=== PATIENT | female | born 1950 | race Caucasian/White ===

== ENCOUNTER → 2017-02-28 | Outpatient (CLI) | payer OTHER ==
[~2017-02-28] MED LIST: ADVIN25/60 INH; CHOL100010 PO; CITA20TA4 PO; CYAN100048 PO; EST5 PO; FRS/40 PO; HYZ/50125 PO; MULT-506 PO; SYN137 PO; TIOTCAP INH; VANC5CAP PO; XNX25 PO
[2017-02-28 13:25] LABS: BASO % 0.4 %; BASO ABS # 0.03 K/uL (0-0.2); COMPLETE YES; EOS % 1.9 %; HEMATOCRIT 37.6 % (37-47); LYMPH % 24.7 %; LYMPH ABS # 1.94 K/uL (1.2-3.4); MEAN CELL VOLUME 95.4 fL (80-100); MEAN CORPUSCULAR HEMOGLOBIN 29.7 pg (25-34); MEAN CORPUSCULAR HGB CONC 31.1 g/dl (32-36); MEAN PLATELET VOLUME 11.7 fL (7.4-10.4); PLATELET COUNT 193 K/uL (130-400); RED BLOOD COUNT 3.94 M/uL (4.2-5.4); WHITE BLOOD COUNT 7.85 K/uL (4.8-10.8)
[2017-02-28 14:05] LABS: ALKALINE PHOSPHATASE 56 U/L (45-117); ALT/SGPT 16 U/L (12-78); AST/SGOT 16 U/L (15-37); BLOOD UREA NITROGEN 35 mg/dl (7-18); BUN/CREATININE RATIO 42.4 (10-20); CALCIUM 9.4 mg/dl (8.5-10.1); CARBON DIOXIDE 37 mmol/L (21-32); CHLORIDE 97 mmol/L (98-107); CHOLESTEROL 184 mg/dl (0-200); CHOLESTEROL/HDL RATIO 2.4; CREATININE 0.82 mg/dl (0.60-1.20); GLUCOSE 95 mg/dl (70-99); HDL CHOLESTEROL 76 mg/dl; LDL CHOLESTEROL CALCULATED 95 mg/dl; POTASSIUM 4.1 mmol/L (3.5-5.1); SODIUM 138 mmol/L (136-145); TRIGLYCERIDES 64 mg/dl (0-150); VERY LOW DENSITY LIPOPROT CALC 13 mg/dl
== END | disposition home or self-care (01) ==
LOC: C.LAB1850 12:31
PROVIDERS: ATTEND Internal Medicine Pulmonary Disease
DX: Z11.59 Encounter for screening for other viral diseases (principal); J44.9 Chronic obstructive pulmonary disease, unspecified; A04.7 Enterocolitis due to Clostridium difficile; D64.9 Anemia, unspecified; R09.02 Hypoxemia

== ENCOUNTER → 2017-04-25 | Outpatient (CLI) | payer OTHER | END | disposition home or self-care (01) | LOC: C.LABSPEC 12:03 | PROVIDERS: ATTEND Physician Assistant Medical | DX: S61.459A Open bite of unspecified hand, initial encounter (principal); W55.01XA Bitten by cat, initial encounter ==

== ENCOUNTER 2017-10-17 16:19 | Emergency (ER) | payer OTHER ==
[2017-10-17 16:23] VITALS: TEMP 36.8; Ht 160 cm
[2017-10-17] MEDS ORDERED: ACETAMINOPHEN 325 MG TAB PO STA (16:44)
[2017-10-17] MEDS ORDERED: LIDODERM (LIDOCAINE) PATCH 5% TD STA (16:44)
[2017-10-17] MEDS ORDERED: CYCLOBENZAPRINE HCL 5 MG TAB PO STA (16:44)
--- NOTE | 2017-10-17 17:08 | EMERGENCY ROOM VISIT NOTE ---
History Report prepared by [employer]: John Stover Under the Supervision of: Mirtha CastroO. 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 She currently rates the pain a 10/10 in severity. She notes the pain worsens with movement. She notes shortness of breath. She denies any pain radiating to her legs. She notes baseline leg swelling. She notes previous back pain, though she was given a laxative and the pain resolved itself. As soon as she stands she notes urine leakage but has hx of stress and urge incontinence. She notes polyuria. She has a history of upper back surgery, bilateral total knee replacements and total hip replacement. She has a history of COPD and is on at home oxygen. She denies taking any medications for the pain. She denies any injuries, numbness, tingling , and abdominal pain. 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 She notes leakage of urine. She denies any injuries and tingling. Review of Systems See HPI for pertinent positives & negatives. A total of 10 systems reviewed and were otherwise negative. Past Medical & Surgical Medical Problems: (1) CA IN SITU CERVIX UTERI (2) Carpal tunnel syndrome (3) Clostridium difficile infection (4) COPD (chronic obstructive pulmonary disease) (5) Hysterectomy Family History Diabetes mellitus Heart disease Hypertension Social History Smoking Status: Former Smoker Alcohol Use: none Drug Use: none Marital Status: Housing Status: lives with significant other Occupation Status: retired Current/Historical Medications Scheduled Aspirin (Aspirin Ec), 325 MG PO QPM Citalopram Hydrobromide (Citalopram Hydrobromide), 20 MG PO DAILY Cyclobenzaprine Hcl (Flexeril), 5 MG PO TID Docusate Sodium (Docusate Sodium), 1 CAP PO DAILY Estradiol (Estradiol), 1 MG PO DAILY Fluticasone Prop/Salmeterol (Advair Diskus 250/50 60 Dose), 1 PUFF INH BID Furosemide (Lasix), 40 MG PO DAILY Hctz/Losartan (Hyzaar 12.5MG/50MG), 1 TAB PO DAILY Levothyroxine Sodium (Levothyroxine Sodium), 137 MCG PO DAILY Lidocaine (Lidoderm Patch 5%), 1 PATCH TD DAILY Multivitamin (Multivitamin), 1 TAB PO DAILY Vancomycin Hcl (Vancomycin), 125 MG PO WK Scheduled PRN Alprazolam (Alprazolam), 0.25 MG PO Q6H PRN for anxiety Ipratropium-Albuterol (Duoneb), 1 TREATMENT INH Q4H PRN for Shortness of Breath Tramadol (Ultram), 1-2 TABS PO Q8 PRN for Pain Allergies Coded Allergies: Codeine (Verified Allergy, Mild, 10/17/17) Atropine (Verified Allergy, Unknown, UNKNOWN, 10/17/17) Diphenoxylate (Verified Allergy, Unknown, UNKNOWN, 10/17/17) Moxifloxacin (Verified Allergy, Unknown, UNKNOWN, 10/17/17) Prednisone (Verified Adverse Reaction, Mild, 10/17/17) BLURRED VISION Physical Exam Vital Signs Date Time Temp Pulse Resp B/P (MAP) Pulse Ox O2 Delivery O2 Flow Rate FiO2 10/17/17 19:30 91 18 148/86 97 10/17/17 18:36 89 22 157/91 98 Nasal Cannula 4.0 10/17/17 16:23 36.8 93 22 141/56 88 Nasal Cannula 4.0 Physical Exam GENERAL: alert, well appearing, well nourished, no distress, non-toxic. Obese. EYE EXAM: normal conjunctiva, PERRL and EOM's grossly intact OROPHARYNX: no exudate, no erythema, lips, buccal mucosa, and tongue normal and mucous membranes are moist NECK: supple, no nuchal rigidity, no adenopathy, non-tender LUNGS: Very Diminished breath sounds. No wheezes, rales, or rhonchi. Normal chest wall mechanics HEART: no murmurs, S1 normal and S2 normal ABDOMEN: abdomen soft, non-tender, normo-active bowel sounds, no masses, no rebound or guarding. BACK: Back is symmetrical on inspection and there is no deformity, no midline tenderness, no CVA tenderness. TTP in lower lumber spine and in left paraspinal region. Tender mid left buttock. SKIN: no rashes and no bruising UPPER EXTREMITIES: upper extremities are grossly normal. Nml ROM. LOWER EXTREMITIES: No pitting edema. Nml ROM. NEURO EXAM: Normal sensorium, cranial nerves II-XII grossly intact, normal speech, no gross weakness of arms, no gross weakness of legs. Medical Decision & Procedures ER Provider Diagnostic Interpretation: Radiology results have been interpreted by the radiologist and reviewed by me. CT SCAN OF THE LUMBAR SPINE WITHOUT IV CONTRAST CLINICAL HISTORY: Chronic low back pain. Difficulty standing. COMPARISON STUDY: CT scan of lumbar spine dated 06/20/2015. TECHNIQUE: CT scan of the lumbar spine is performed from the lower thoracic spine to the sacrum. Images are reviewed in the axial, sagittal, and coronal planes. IV contrast was not administered for this examination. The examination is degraded by large body habitus as well as by streak artifact from metallic orthopedic spinal hardware. A dose lowering technique was utilized adhering to the principles of ALARA. CT DOSE: 2016.89 mGy.cm FINDINGS: The skeletal structures are osteopenic. There is no evidence of fracture or malalignment. There are postoperative changes from laminectomy and posterior fusion at L3-L4 with an interposition bone graft. The orthopedic hardware appears intact. Vertebral body height is maintained throughout the lumbar spine. There is approximately 6 mm of anterolisthesis at L2-L3. Alignment is otherwise preserved. The transverse processes appear intact. There is no evidence of spondylolysis. No lytic or blastic lesion is identified. Advanced facet arthropathy is seen in the lower lumbar region. There is partial sacralization of the L5 vertebral body. Moderate disc space narrowing is seen at L1-L2, L2-L3, and L4-L5. Mild disc space narrowing is seen at the remaining lumbar levels. There is no evidence of a large disc herniation; however, this is not well evaluated by CT. The visualized sacrum and bony pelvis appear intact. A bone graft donor site is noted in the right ilium. Sclerotic change is seen in the sacroiliac joints. There is mild fatty atrophy of the paraspinous musculature. Advanced atherosclerotic calcification is noted in the abdominal aorta. The retroperitoneal structures are otherwise grossly normal as imaged. The right kidney appears to be located in the pelvis. IMPRESSION: 1. No acute bony abnormality is seen involving the lumbar spine. 2. Osteopenia with spondylotic and postoperative changes as above. Dictated: 10/17/2017 5:41 PM Transcribed: 10/17/2017 6:08 PM [facility] Electronically signed by: Ludin Felipe M.D. 10/17/2017 6:08 PM Dictated Date/Time: 10/17/2017 5:41 PM Laboratory Results Test 10/17/17 18:34 Urine Color YELLOW Urine Appearance CLEAR (CLEAR) Urine pH 5.0 (4.5-7.5) Urine Specific [place] 1.019 (1.000-1.030) Urine Protein NEG (NEG) Urine Glucose (UA) NEG (NEG) Urine Ketones NEG (NEG) Urine Occult Blood NEG (NEG) Urine Nitrite NEG (NEG) Urine Bilirubin NEG (NEG) Urine Urobilinogen NEG (NEG) Urine Leukocyte Esterase NEG (NEG) Laboratory results per my review. Medications Administered Medications (Trade) Dose Ordered Sig/Shahnaz Route Start Time Stop Time Status Last Admin Dose Admin Lidocaine (Lidoderm Patch 5%) 1 patch NOW STAT TD 10/17/17 16:44 10/17/17 16:46 DC 10/17/17 17:12 1 PATCH Cyclobenzaprine HCl (Flexeril Tab) 5 mg NOW STAT PO 10/17/17 16:44 10/17/17 16:46 DC 10/17/17 17:11 5 MG Acetaminophen (Tylenol Tab) 650 mg NOW STAT PO 10/17/17 16:44 10/17/17 16:46 DC 10/17/17 17:11 650 MG Tramadol/ Acetaminophen (Ultracet Tab) 1 tab NOW STAT PO 10/17/17 18:30 10/17/17 18:31 DC 10/17/17 19:00 1 TAB ED Course 1633: The patient was evaluated in room B9. A complete history and physical exam was performed. 1644: Ordered Acetaminophen 650 mg PO, Flexeril 5 mg PO, Lidocaine 1 patch TD 1824: I reassessed the patient at this time. She is still having pain, though improved. I discussed the results and treatment plan with the patient. I answered all pertaining questions that she had. She expressed understanding and verbalized agreement. The patient will be discharged home. 1830: Ordered Tramadol/Acetaminophen 1 tab PO Medical Decision Prior records/ancillary studies reviewed. Triage Nursing notes reviewed. The patient's history was concerning for back pain. Differential diagnosis: Etiologies such as musculoskeletal, disc herniation, fracture, aortic disease, metastatic disease, cord compression, discitis, infection, renal colic, gastrointestinal, acute exacerbation of chronic back pain, sciatica, cauda equina, as well as others were entertained. I do not suspect cauda equina, discitis, epidural abscess or hematoma, UA negative for UTI, doubt pyelo or stone. Pt with hx of prior upper back/neck problems, CT reveals DDD/DJD in lumbar area also. Point of most pain in area of sciatic nerve but nonradiating and no paresthesias. Pt well appearing and pain well controlled here. Discussed f/u with PCP, sx to watch/return for, use and cautions with meds, she verbalized understanding and was agreeable with plan. Medication Reconcilliation Current Medication List: was personally reviewed by me Blood Pressure Screening Patient's blood pressure: Elevated blood pressure Blood pressure disposition: Elevated BP felt to be situational Impression Primary Impression: Sciatica Additional Impression: Low back pain Scribe Attestation The scribe's documentation has been prepared under my direction and personally reviewed by me in its entirety. I confirm that the note above accurately reflects all work, treatment, procedures, and medical decision making performed by me. Departure Information Dispostion Home / Self-Care Prescriptions Cyclobenzaprine Hcl (FLEXERIL) 5 Mg Tab 5 MG PO TID for Pain, #10 TAB PRN Prov: Jesica Rich, DO 10/17/17 Tramadol (Ultram) 50 Mg Tab 1-2 TABS PO Q8 Y for Pain, #14 TAB Prov: Jesica Rich, DO 10/17/17 Lidocaine (Lidoderm Patch 5%) 1 Ea Tdsy 1 PATCH TD DAILY for Pain, #1 BOX Prov: Jesica Rich, DO 10/17/17 Referrals No Doctor, Assigned (PCP) Forms HOME CARE DOCUMENTATION FORM, IMPORTANT VISIT INFORMATION Patient Instructions ED Low Back Pain Injury, ED Sciatica, My [facility] Additional Instructions Please avoid any heavy lifting or strenuous activity until you're feeling better. You may use the pain medications as prescribed. Please do not take the stronger pain medication or muscle relaxer and drive. Please continue your other routine medications. Please follow up with your family doctor to recheck your condition and assure you're improving. If you have any worsening pain, difficulty walking, noticed numbness or tingling, have difficulty with bowel or bladder function, fevers, or you've any other new concerns, please return the emergency room. Problem Qualifiers Primary Impression: Sciatica Laterality: left Qualified Codes: M54.32 - Sciatica, left side Additional Impression: Low back pain Chronicity: acute Back pain laterality: left Sciatica presence: without sciatica Qualified Codes: M54.5 - Low back pain
[2017-10-17] MEDS ORDERED: EST1 PO (17:19)
[2017-10-17] MEDS ORDERED: IPRASOL4 INH (17:20)
[2017-10-17] MEDS ORDERED: DOCU100C31 PO (17:21)
[2017-10-17] MEDS ORDERED: ASPI325T39 PO (17:21)
--- NOTE | 2017-10-17 18:08 | DIAGNOSTIC IMAGING REPORT ---
CT SCAN OF THE LUMBAR SPINE WITHOUT IV CONTRAST CLINICAL HISTORY: Chronic low back pain. Difficulty standing. COMPARISON STUDY: CT scan of lumbar spine dated 06/20/2015. TECHNIQUE: CT scan of the lumbar spine is performed from the lower thoracic spine to the sacrum. Images are reviewed in the axial, sagittal, and coronal planes. IV contrast was not administered for this examination. The examination is degraded by large body habitus as well as by streak artifact from metallic orthopedic spinal hardware. A dose lowering technique was utilized adhering to the principles of ALARA. CT DOSE: 2016.89 mGy.cm FINDINGS: The skeletal structures are osteopenic. There is no evidence of fracture or malalignment. There are postoperative changes from laminectomy and posterior fusion at L3-L4 with an interposition bone graft. The orthopedic hardware appears intact. Vertebral body height is maintained throughout the lumbar spine. There is approximately 6 mm of anterolisthesis at L2-L3. Alignment is otherwise preserved. The transverse processes appear intact. There is no evidence of spondylolysis. No lytic or blastic lesion is identified. Advanced facet arthropathy is seen in the lower lumbar region. There is partial sacralization of the L5 vertebral body. Moderate disc space narrowing is seen at L1-L2, L2-L3, and L4-L5. Mild disc space narrowing is seen at the remaining lumbar levels. There is no evidence of a large disc herniation; however, this is not well evaluated by CT. The visualized sacrum and bony pelvis appear intact. A bone graft donor site is noted in the right ilium. Sclerotic change is seen in the sacroiliac joints. There is mild fatty atrophy of the paraspinous musculature. Advanced atherosclerotic calcification is noted in the abdominal aorta. The retroperitoneal structures are otherwise grossly normal as imaged. The right kidney appears to be located in the pelvis. IMPRESSION: 1. No acute bony abnormality is seen involving the lumbar spine. 2. Osteopenia with spondylotic and postoperative changes as above. Dictated: 10/17/2017 5:41 PM Transcribed: 10/17/2017 6:08 PM [facility] Electronically signed by: Ludin Felipe M.D. 10/17/2017 6:08 PM Dictated Date/Time: 10/17/2017 5:41 PM
[2017-10-17] MEDS ORDERED: TRAMADOL/ACETAMINOPHEN 37.5/325MG TAB PO STA (18:30)
[2017-10-17] MEDS ORDERED: NF656 TD (18:45)
[2017-10-17] MEDS ORDERED: TRAM-10 PO (18:45)
[2017-10-17 19:05] LABS: URINE APPEARANCE CLEAR (CLEAR); URINE BILIRUBIN NEG (NEG); URINE COLOR YELLOW; URINE NITRITE NEG (NEG); URINE SPECIFIC GRAVITY 1.019 (1.000-1.030); UROBILINOGEN NEG (NEG); ZZUR CULT IF INDIC CLEAN CATCH NO
[2017-10-17] MEDS ORDERED: CYCL5TAB PO (19:18)
[2017-10-17 19:19] LABS: MANUAL MICROSCOPIC REQUIRED? NO; REVIEW REQ? NO
[2017-10-17 19:30] VITALS: BP 148/86; PULSE 91; O2SAT 97
== END 2017-10-17 19:25 | disposition home or self-care (01) ==
LOC: C.EDB 16:20
DX: M54.42 Lumbago with sciatica, left side (principal); R06.02 Shortness of breath; J44.9 Chronic obstructive pulmonary disease, unspecified; E66.9 Obesity, unspecified; Z79.82 Long term (current) use of aspirin; Z79.899 Other long term (current) drug therapy; Z99.81 Dependence on supplemental oxygen; Z85.41 Personal history of malignant neoplasm of cervix uteri; Z86.19 Personal history of other infectious and parasitic diseases; Z87.891 Personal history of nicotine dependence; Z82.49 Family history of ischemic heart disease and other diseases of the circulatory system; Z83.3 Family history of diabetes mellitus

== ENCOUNTER → 2018-02-20 | Outpatient (CLI) | payer OTHER ==
[~2018-02-20] MED LIST changes: +ASPI325T39 PO; -CHOL100010 PO; -CYAN100048 PO; +DOCU100C31 PO; +EST1 PO; -EST5 PO; +IPRASOL4 INH; +NF656 TD; -TIOTCAP INH; +TRAM-10 PO
--- NOTE | 2018-02-20 14:29 | DIAGNOSTIC IMAGING REPORT ---
C-SPINE ROUTINE 4 OR 5 VIEWS CLINICAL HISTORY: Neck pain. COMPARISON STUDY: CT of the neck July 03, 2008. FINDINGS: Reversal of the normal cervical lordosis is noted. There is slight anterolisthesis of C3 on C4. There is marked disc space narrowing and osteophytosis at C4-C5 with moderate disc space narrowing at C5-C6 and C6-C7. There is severe multilevel facet arthrosis. No fracture Is identified. IMPRESSION: 1. No acute cervical spinal fracture or subluxation. 2. Moderate to severe multilevel degenerative disc disease and facet arthrosis of the cervical spine, most pronounced at C4-C5. 3. Reversal of the normal cervical lordosis. Electronically signed by: Dennys Willis M.D. 02/20/2018 2:27 PM Dictated Date/Time: 02/20/2018 2:25 PM
--- NOTE | 2018-02-20 14:35 | DIAGNOSTIC IMAGING REPORT ---
CHEST 2 VIEWS ROUTINE CLINICAL HISTORY: 67 years-old Female presenting with R09.02 hypoxia and neck pain. TECHNIQUE: Portable upright AP view of the chest was obtained. COMPARISON: 06/20/2015. FINDINGS: Atherosclerosis of aortic arch. Cardiac silhouette mildly enlarged. No focal opacity. No large effusion or pneumothorax. Eventration and elevation of the left hemidiaphragm. Degenerative changes of the thoracic spine. Upper abdomen normal. IMPRESSION: 1. Mild cardiomegaly. No other convincing evidence of acute cardiopulmonary disease. Electronically signed by: Jose Breen M.D. 02/20/2018 2:34 PM Dictated Date/Time: 02/20/2018 2:32 PM
[2018-02-20 14:39] LABS: BASO % 0.2 %; BASO ABS # 0.01 K/uL (0-0.2); EOS % 2.6 %; EOS ABS # 0.17 K/uL (0-0.5); HEMATOCRIT 34.6 % (37-47); HEMOGLOBIN 11.4 g/dL (12.0-16.0); IG# 0.01 K/uL (0.00-0.02); LYMPH % 24.7 %; LYMPH ABS # 1.64 K/uL (1.2-3.4); MEAN CELL VOLUME 94.8 fL (80-100); MEAN CORPUSCULAR HEMOGLOBIN 31.2 pg (25-34); MEAN CORPUSCULAR HGB CONC 32.9 g/dl (32-36); MEAN PLATELET VOLUME 11.8 fL (7.4-10.4); MONO % 6.3 %; MONO ABS # 0.42 K/uL (0.11-0.59); NEUT ABS # 4.39 K/uL (1.4-6.5); PLATELET COUNT 186 K/uL (130-400); RED CELL DISTRIBUTION WIDTH CV 13.8 % (11.5-14.5); WHITE BLOOD COUNT 6.64 K/uL (4.8-10.8)
[2018-02-20 15:11] LABS: ALBUMIN 3.6 gm/dl (3.4-5.0); ALT/SGPT 17 U/L (12-78); AST/SGOT 18 U/L (15-37); BLOOD UREA NITROGEN 24 mg/dl (7-18); CALCIUM 9.5 mg/dl (8.5-10.1); CARBON DIOXIDE 40 mmol/L (21-32); CREATININE 0.76 mg/dl (0.60-1.20); GLUCOSE 96 mg/dl (70-99); POTASSIUM 3.6 mmol/L (3.5-5.1); SODIUM 136 mmol/L (136-145)
[2018-02-20 15:22] LABS: ALKALINE PHOSPHATASE 55 U/L (45-117); TOTAL PROTEIN 7.6 gm/dl (6.4-8.2)
[2018-02-21 06:30] LABS: HEMOGLOBIN A1C 5.9 % (4.5-5.6)
== END | disposition home or self-care (01) ==
LOC: C.RAD1850 13:14
PROVIDERS: ATTEND Internal Medicine Pulmonary Disease
DX: R09.02 Hypoxemia (principal); E03.9 Hypothyroidism, unspecified; E11.9 Type 2 diabetes mellitus without complications

== ENCOUNTER 2018-06-14 16:18 | Emergency (ER) | payer OTHER ==
[~2018-06-14 16:18] MED LIST changes: +ALPR0.254 PO; +IPRA-64 INH; -IPRASOL4 INH; -TRAM-10 PO; -XNX25 PO
[2018-06-14 16:28] VITALS: BP 112/74; PULSE 88; TEMP 36.8; O2SAT 91; Ht 157.5 cm
[2018-06-14 17:34] LABS: BASO % 0.3 %; BASO ABS # 0.02 K/uL (0-0.2); EOS % 2.5 %; HEMATOCRIT 34.2 % (37-47); HEMOGLOBIN 10.7 g/dL (12.0-16.0); IG# 0.01 K/uL (0.00-0.02); LYMPH ABS # 1.65 K/uL (1.2-3.4); MEAN CORPUSCULAR HEMOGLOBIN 30.7 pg (25-34); MEAN CORPUSCULAR HGB CONC 31.3 g/dl (32-36); MEAN PLATELET VOLUME 12.1 fL (7.4-10.4); MONO % 7.1 %; MONO ABS # 0.56 K/uL (0.11-0.59); NEUT ABS # 5.41 K/uL (1.4-6.5); PLATELET COUNT 162 K/uL (130-400); RED CELL DISTRIBUTION WIDTH CV 13.9 % (11.5-14.5); RED CELL DISTRIBUTION WIDTH SD 49.7 fL (36.4-46.3); WHITE BLOOD COUNT 7.85 K/uL (4.8-10.8)
[2018-06-14 17:55] LABS: ALBUMIN 3.5 gm/dl (3.4-5.0); ALKALINE PHOSPHATASE 55 U/L (45-117); ALT/SGPT 13 U/L (12-78); AST/SGOT 16 U/L (15-37); BLOOD UREA NITROGEN 24 mg/dl (7-18); CALCIUM 9.2 mg/dl (8.5-10.1); CARBON DIOXIDE 38 mmol/L (21-32); CREATININE 0.84 mg/dl (0.60-1.20); GLUCOSE 97 mg/dl (70-99); POTASSIUM 3.8 mmol/L (3.5-5.1); SODIUM 140 mmol/L (136-145); TOTAL PROTEIN 7.3 gm/dl (6.4-8.2)
--- NOTE | 2018-06-14 18:15 | DIAGNOSTIC IMAGING REPORT ---
ULTRASOUND R VENOUS DOPP LOWER EXT UNILAT CLINICAL HISTORY: Right lower extremity pain and swelling COMPARISON STUDY: No previous studies for comparison. FINDINGS: Real-time and color flow Doppler imaging were performed. Flow was seen within the femoral, popliteal and calf veins with no intraluminal thrombus demonstrated. The saphenous vein is patent. The examination was difficult from a technical standpoint secondary to the patient's body habitus and inability to tolerate optimal distal thigh compression. IMPRESSION: 1. Slightly limited study from a technical standpoint. No evidence of lower extremity DVT. Electronically signed by: Ivan Mancia M.D. 06/14/2018 6:14 PM Dictated Date/Time: 06/14/2018 6:11 PM
--- NOTE | 2018-06-14 18:48 | EMERGENCY ROOM VISIT NOTE ---
ED Visit Note First contact with patient: 16:38 CHIEF COMPLAINT: Right lower extremity swelling 2 months HISTORY OF PRESENT ILLNESS: This 68-year-old female patient presents to the emergency department, ambulatory, complaining of 2 month long history of right lower extremity swelling and warmth. The patient states symptoms have been intermittent for the past 2 months, worsening at night and improving in the morning. She denies any redness or significant pain. She denies any purulent drainage, fevers, body aches, chills, or other concerning symptoms. She does have a history of cellulitis in this extremity, and did have a fracture of the ankle and 2 knee replacements of the right lower extremity. She denies any recent injury or open wounds. Symptoms began spontaneously. She states they are not worsening over the past 2 months with the exception of at nighttime, but have been otherwise stable. The patient has been able to ambulate normally. She has not seen her PCP or orthopedic surgeon regarding the complaint. REVIEW OF SYSTEMS: A 10 system review of systems was performed with positives and pertinent negatives listed in the history of present illness. All other systems were reviewed and are negative. ALLERGIES: Atropine, codeine, prednisone, diphenoxylate, moxifloxacin MEDICATIONS: Cefazolin, aspirin, citalopram, docusate, estradiol, Advair, Lasix , Duoneb, Levothyroxine, Lidoderm patch, Multivitamin, Oxygen PMH: COPD, anxiety, cellulitis, C. difficile SOCIAL HISTORY: The patient lives locally with family. She denies drug, alcohol , tobacco use. PHYSICAL EXAM: VITALS: Vitals are noted on the nurse's note and reviewed by myself. Vital signs stable. GENERAL: This is a 68-year-old white female, in no acute distress, nondiaphoretic, well-developed well-nourished. SKIN: 1+ right lower extremity edema. Mild erythema. No obvious cellulitic changes. No open wounds. No purulence or fluctuance. The skin was otherwise without rashes, erythema, edema, or bruising. There is no tenting of the skin. Capillary reflex less than 2 seconds. HEAD: Normocephalic atraumatic. EARS: External auditory canals clear, tympanic membranes pearly hannah without erythema or effusion bilaterally. EYES: Pupils equal round and reactive to light and accommodation. Conjunctivae without injection, sclerae without icterus. Extraocular movements intact. NOSE: Patent, turbinates without inflammation or discharge. No sinus tenderness. MOUTH: Mucous membranes moist. Tonsils are not enlarged. Pharynx without erythema or exudate. Uvula midline. Airway patent. Tongue does not deviate. NECK: Supple without nuchal rigidity. No lymphadenopathy. No thyromegaly. Cervical spine is nontender. No JVD. HEART: Regular rate and rhythm without murmurs gallops or rubs. LUNGS: The patient is wearing oxygen. Clear to auscultation bilaterally without wheezes, rales or rhonchi. No dullness to percussion. No retractions or accessory muscle use. MUSCULOSKELETAL: No muscle atrophy, erythema, or edema noted. Full range of motion without joint tenderness in all extremities. No tenderness to palpation. Normal gait. Strength 5/5 throughout. NEURO: Patient was alert and oriented to person place and time. Normal sensation to light and sharp touch. Deep tendon reflexes 2+ throughout. No focal neurological deficits. RADIOLOGY: ULTRASOUND R VENOUS DOPP LOWER EXT UNILAT CLINICAL HISTORY: Right lower extremity pain and swelling COMPARISON STUDY: No previous studies for comparison. FINDINGS: Real-time and color flow Doppler imaging were performed. Flow was seen within the femoral, popliteal and calf veins with no intraluminal thrombus demonstrated. The saphenous vein is patent. The examination was difficult from a technical standpoint secondary to the patient's body habitus and inability to tolerate optimal distal thigh compression. IMPRESSION: 1. Slightly limited study from a technical standpoint. No evidence of lower extremity DVT. Electronically signed by: Ivan Mancia M.D. 06/14/2018 6:14 PM Dictated Date/Time: 06/14/2018 6:11 PM EMERGENCY DEPARTMENT COURSE: The patient was seen and evaluated as above. Ultrasound performed reviewed by myself and radiologist as above. IV access obtained and labs drawn. I reviewed the labs and did not note any significant changes from patient's normal lab values. Mild anemia noted. No leukocytosis. No significant renal, hepatic, electrolyte abnormalities. Discussed findings with patient at bedside. They did offer to provide the patient with a prescription for antibiotics, however I am not convinced this is a cellulitis. The patient does not wish to take the antibiotics at this time due to her history of C. difficile. I feel that this is reasonable. I discussed with the patient the importance of compression, elevation, and ice, and encouraged her to follow-up with her primary care provider and orthopedic surgeon for further evaluation and management. The patient verbalized agreement and understanding. She was given an Negrito wrap to help with compression. Discharge instructions reviewed, patient was discharged home in good condition. I attest that I have personally reviewed the patient's current medication list. Patient was found to have normal blood pressure on screening and does not require follow-up. DIAGNOSIS: Right lower extremity edema The chart was completed utilizing [employer] voice recognition software. Grammatical errors, random word insertions, pronoun errors, and incomplete sentences are an occasional consequence of this system due to software limitations, ambient noise, and hardware issues. Any formal questions or concerns about the content, text, or information contained within the body of this dictation should be directly addressed to the provider for clarification. Problem List Medical Problems: (1) CA IN SITU CERVIX UTERI Status: Resolved (2) Carpal tunnel syndrome Status: Resolved (3) Clostridium difficile infection Status: Chronic (4) COPD (chronic obstructive pulmonary disease) Status: Chronic (5) Hysterectomy Status: Resolved Current/Historical Medications Scheduled Aspirin (Aspirin Ec), 325 MG PO QPM Citalopram Hydrobromide (Citalopram Hydrobromide), 20 MG PO DAILY Docusate Sodium (Docusate Sodium), 1 CAP PO DAILY Estradiol (Estradiol), 1 MG PO DAILY Fluticasone Prop/Salmeterol (Advair Diskus 250/50 60 Dose), 1 PUFF INH BID Furosemide (Lasix), 40 MG PO DAILY Hctz/Losartan (Hyzaar 12.5MG/50MG), 1 TAB PO DAILY Levothyroxine Sodium (Levothyroxine Sodium), 137 MCG PO DAILY Lidocaine (Lidoderm Patch 5%), 1 PATCH TD DAILY Multivitamin (Multivitamin), 1 TAB PO DAILY Vancomycin Hcl (Vancomycin), 125 MG PO WK Scheduled PRN Alprazolam (Alprazolam), 0.25 MG PO Q6H PRN for anxiety Ipratropium-Albuterol (Duoneb), 1 TREATMENT INH Q4H PRN for Shortness of Breath Allergies Coded Allergies: Codeine (Verified Allergy, Mild, 10/17/17) Atropine (Verified Allergy, Unknown, UNKNOWN, 10/17/17) Diphenoxylate (Verified Allergy, Unknown, UNKNOWN, 10/17/17) Moxifloxacin (Verified Allergy, Unknown, UNKNOWN, 10/17/17) Prednisone (Verified Adverse Reaction, Mild, 10/17/17) BLURRED VISION Vital Signs Date Time Temp Pulse Resp B/P (MAP) Pulse Ox O2 Delivery O2 Flow Rate FiO2 06/14/18 16:28 36.8 88 18 112/74 91 Nasal Cannula Laboratory Results 06/14/18 17:04 Red Blood Count 3.49, Mean Corpuscular Volume 98.0, Mean Corpuscular Hemoglobin 30.7, Mean Corpuscular Hemoglobin Concent 31.3, Mean Platelet Volume 12.1, Neutrophils (%) (Auto) 69.0, Lymphocytes (%) (Auto) 21.0, Monocytes (%) (Auto) 7.1, Eosinophils (%) (Auto) 2.5, Basophils (%) (Auto) 0.3, Neutrophils # (Auto) 5.41, Lymphocytes # (Auto) 1.65, Monocytes # (Auto) 0.56, Eosinophils # (Auto) 0.20, Basophils # (Auto) 0.02 06/14/18 17:04 Test 06/14/18 17:04 White Blood Count 7.85 K/uL (4.8-10.8) Red Blood Count 3.49 M/uL (4.2-5.4) Hemoglobin 10.7 g/dL (12.0-16.0) Hematocrit 34.2 % (37-47) Mean Corpuscular Volume 98.0 fL (80-100) Mean Corpuscular Hemoglobin 30.7 pg (25-34) Mean Corpuscular Hemoglobin Concent 31.3 g/dl (32-36) Platelet Count 162 K/uL (130-400) Mean Platelet Volume 12.1 fL (7.4-10.4) Neutrophils (%) (Auto) 69.0 % Lymphocytes (%) (Auto) 21.0 % Monocytes (%) (Auto) 7.1 % Eosinophils (%) (Auto) 2.5 % Basophils (%) (Auto) 0.3 % Neutrophils # (Auto) 5.41 K/uL (1.4-6.5) Lymphocytes # (Auto) 1.65 K/uL (1.2-3.4) Monocytes # (Auto) 0.56 K/uL (0.11-0.59) Eosinophils # (Auto) 0.20 K/uL (0-0.5) Basophils # (Auto) 0.02 K/uL (0-0.2) RDW Standard Deviation 49.7 fL (36.4-46.3) RDW Coefficient of Variation 13.9 % (11.5-14.5) Immature Granulocyte % (Auto) 0.1 % Immature Granulocyte # (Auto) 0.01 K/uL (0.00-0.02) Anion Gap 6.0 mmol/L (3-11) Estimated GFR () 81.6 Estimated GFR (Non- 70.4 BUN/Creatinine Ratio 28.9 (10-20) Calcium Level 9.2 mg/dl (8.5-10.1) Total Bilirubin 0.2 mg/dl (0.2-1) Aspartate Amino Transf (AST/SGOT) 16 U/L (15-37) Alanine Aminotransferase (ALT/SGPT) 13 U/L (12-78) Alkaline Phosphatase 55 U/L (45-117) Total Protein 7.3 gm/dl (6.4-8.2) Albumin 3.5 gm/dl (3.4-5.0) Globulin 3.8 gm/dl (2.5-4.0) Albumin/Globulin Ratio 0.9 (0.9-2) Departure Information Impression Primary Impression: Swelling of right extremity Dispostion Home / Self-Care Condition GOOD Referrals Alvaro Castillo M.D. (PCP) Rupesh Lugo M.D. Patient Instructions ED Leg Swelling Unilateral, [facility] Additional Instructions You were seen in the ED today for RLE swelling. As discussed, ultrasound and labs were negative for obvious signs of infection or blood clot. Use the negrito wrap to help provide compression to the extremity. This may help reabsorb the fluid. Keep the leg elevated. Use ice to help with swelling. Acetaminophen(Tylenol) may be used for fever or pain. Use 1000mg every six hours as needed. Avoid using more than 3000mg in a 24 hour period. Follow-up with your PCP/orthopedic surgeon for further management and care. Return to the ED for worsening redness, swelling, numbness of the toes, purulent drainage, fever, body aches, or other concerning symptoms.
== END 2018-06-14 18:56 | disposition home or self-care (01) ==
LOC: C.EDB 16:19 → C.EDD 18:56
DX: M79.89 Other specified soft tissue disorders (principal); Z88.8 Allergy status to other drugs, medicaments and biological substances; J44.9 Chronic obstructive pulmonary disease, unspecified; F41.9 Anxiety disorder, unspecified; Z88.5 Allergy status to narcotic agent

== ENCOUNTER 2018-12-31 16:12 | Inpatient (IN) ==
[2018-12-31] MEDS ORDERED: methylPREDNISolone 125 MG/2 ML VIAL IV STA (16:31)
[2018-12-31] MEDS ORDERED: ALBUT/IPRATROP 3MG/0.5MG NEB 3 ML VIAL NEB ONE (16:31)
[2018-12-31 16:43] LABS: Basophils # (auto) 0.01 K/uL (0-0.2); Basophils % (auto) 0.1 %; Eosinophils # (auto) 0.09 K/uL (0-0.5); Eosinophils % (auto) 1.1 %; Hematocrit (blood only) 38.1 % (37-47); Hemoglobin 11.7 g/dL (12.0-16.0); Immature Granulocytes # (auto) 0.01 K/uL (0.00-0.02); Immature Granulocytes % (auto) 0.1 %; Lymphocytes # (auto) 2.09 K/uL (1.2-3.4); Lymphocytes % (auto) 25.4 %; Mean Corpuscular Hgb Conc 30.7 g/dL (32-36); Mean Corpuscular Volume 96.9 fL (80-100); Mean Platelet Volume 12.1 fL (7.4-10.4); Monocytes # (auto) 0.45 K/uL (0.11-0.59); Monocytes % (auto) 5.5 %; Neutrophils # (auto) 5.57 K/uL (1.4-6.5); Neutrophils % (auto) 67.8 %; Platelet Count 143 K/uL (130-400); RDW Coefficient of Variation 13.9 % (11.5-14.5); RDW Standard Deviation 49.6 fL (36.4-46.3); Red Blood Count 3.93 M/uL (4.2-5.4); White Blood Count 8.22 K/uL (4.8-10.8)
--- NOTE | 2018-12-31 16:54 | XRay Report ---
XR chest 1V portable CLINICAL HISTORY: Atypical chest pain COMPARISON STUDY: 09/02/2018 FINDINGS: There is persistent elevation/eventration left hemidiaphragm. The cardiac and mediastinal c ontours remain stable. There is no failure. There is no focal pulmonary consolidation. There are no p leural effusions.[ IMPRESSION: Stable elevation/eventration left hemidiaphragm. No acute findings. Electronically signed by: Ivan Mancia M.D. 12/31/2018 4:53 PM
[2018-12-31 17:02] LABS: Alanine Aminotransferase 15 U/L (12-78); Albumin Level 3.5 gm/dl (3.4-5.0); Aspartate Aminotransferase 17 U/L (15-37); BUN Creatinine Ratio 27.3 (10-20); Blood Urea Nitrogen 21 mg/dl (7-18); Calcium 9.5 mg/dl (8.5-10.1); Carbon Dioxide 40 mmol/L (21-32); Chloride 96 mmol/L (98-107); Est GFR (African American) 89.3; Glucose 99 mg/dl (70-99); Magnesium 1.9 mg/dl (1.8-2.4); Potassium 4.1 mmol/L (3.5-5.1); Sodium 140 mmol/L (136-145)
[2018-12-31 17:07] LABS: Albumin Globulin Ratio 0.9 (0.9-2); Alkaline Phosphatase 57 U/L (45-117); Bilirubin,Total 0.3 mg/dl (0.2-1); NT Pro B Type Natriuretic Pept 743 pg/ml (0-900); Phosphorus 3.2 mg/dl (2.5-4.9); Total Protein 7.5 gm/dl (6.4-8.2); Troponin I 0.022 ng/ml (0-0.045)
[2018-12-31 17:25] LABS: Base Excess VBG 14.2 mEq/L; Oxygen Saturation VBG 69.1 %; pH VBG 7.32 (7.36-7.41)
[2018-12-31 17:44] LABS: Influenza A virus by PCR Neg for Influ A (Neg); Influenza B virus by PCR Neg for Influ B (Neg)
[2018-12-31] MEDS ORDERED: SODIUM CHLORIDE 0.9% 500 ML IV ONE (18:19)
[2018-12-31] MEDS ORDERED: DOXYCYCLINE HYCLATE 100 MG CAP PO STA (18:42)
--- NOTE | 2018-12-31 19:56 | Emergency Department Note ---
Entered by Ashly Lester acting as a scribe for Cam Feng MD History of Present Illness General Chief complaint: Shortness of Breath/Dyspnea Stated complaint: SOB Time Seen by Provider: 12/31/18 16:25 Source: patient Limitations: no limitations History of Present Illness Provider complaint: shortness of breath Onset (ago): week(s) 1 Location: chest Associated symptoms: + other (+dry mouth) Treatments prior to arrival: none The patient is a 68 year old female who presents to the Emergency Room with complaints of shortness of breath that began 1 week prior to arrival. The patient states that her shortness of breath has worsened since its onset. The patient states that she wears 4L of oxygen and is usually around 90%. The patient states that her mouth is dry. The patient states that she has gained water weight in her legs. The patient states that she has a history of COPD and heart failure. Home Medications Home Medications Medication Instructions Recorded Confirmed Type citalopram [Celexa] 40 mg PO DAILY 12/31/18 12/31/18 History estradiol [Estrace] 1 mg PO DAILY 12/31/18 12/31/18 History fluticasone-salmeterol [Advair 1 puff INHALATION BID 12/31/18 12/31/18 History Diskus] furosemide [Lasix] 40 mg PO DAILY 12/31/18 12/31/18 History hydrochlorothiazide 12.5 mg PO DAILY 12/31/18 12/31/18 History ipratropium-albuterol 1 dose INHALATION QID 12/31/18 12/31/18 History levothyroxine [Synthroid] 137 mcg PO DAILY 12/31/18 12/31/18 History vancomycin 125 mg PO WK 12/31/18 12/31/18 History Allergies Allergy/AdvReac Type Severity Reaction Status Date / Time codeine Allergy Mild Unknown Verified 12/31/18 19:28 atropine Allergy Unknown UNKNOWN Verified 12/31/18 19:28 diphenoxylate Allergy Unknown UNKNOWN Verified 12/31/18 19:28 moxifloxacin Allergy Unknown UNKNOWN Verified 12/31/18 19:28 prednisone AdvReac Mild Unknown Verified 12/31/18 19:28 Past Med/Surg History Medical History Hypothyroidism Depression Hypertension COPD (chronic obstructive pulmonary disease) 4L NC Diabetes diet controlled No significant family history Surgical History History of carpal tunnel surgery Previous back surgery S/P hysterectomy Status post bilateral knee replacements Status post hip surgery Family History Other Breast cancer Diabetes Hypertension Social History Communication Ability: Effective Beliefs That Will Affect Care: None marital status: Current Living Situation: Alone Other Information That Helps Us Care for You: No other: grief due to loss of and son Feels Safe at Home: Yes Safety Concerns: Feels Safe At This Time Smoking Status: Former smoker Hx Alcohol Use: No Hx Substance Use: No Review of Systems See HPI for pertinent positives & negatives. and A total of 10 systems reviewed and were otherwise negative Physical Exam Vital Signs Vital Signs - 24 hr 12/31/18 21:30 12/31/18 22:04 12/31/18 22:53 Temperature 36.7 C 36.8 C Temperature Source Oral Oral Pulse Rate [Right Finger] 105 H 98 H Pulse Strength [Right Finger] Normal Respiratory Rate 20 20 Respiratory Effort / Characteristics Short of Breath Short of Breath Respiratory Depth Normal Normal Normal Respiratory Pattern Regular Regular Blood Pressure [Left Arm] 181/79 H Blood Pressure [Right Arm] 150/84 H Blood Pressure Mean [Left Arm] 113 Blood Pressure Mean [Right Arm] 106 Blood Pressure Position [Left Arm] Sitting Blood Pressure Position [Right Arm] Sitting Pulse Oximetry 94 94 Oxygen Delivery Method Nasal Cannula Nasal Cannula Nasal Cannula Oxygen Flow Rate 4 4 4 12/31/18 23:13 12/31/18 23:46 01/01/19 00:48 Temperature 36.6 C Temperature Source Oral Pulse Rate [Right Finger] 98 H 108 H 111 H Pulse Strength [Right Finger] Respiratory Rate 20 20 Respiratory Effort / Characteristics Non-Labored Respiratory Depth Respiratory Pattern Blood Pressure [Left Arm] 187/82 H 135/76 Blood Pressure [Right Arm] Blood Pressure Mean [Left Arm] 117 95 Blood Pressure Mean [Right Arm] Blood Pressure Position [Left Arm] Lying Blood Pressure Position [Right Arm] Pulse Oximetry 94 95 Oxygen Delivery Method Nasal Cannula Nasal Cannula Oxygen Flow Rate 4 4 01/01/19 03:11 01/01/19 03:31 01/01/19 07:07 Temperature Temperature Source Pulse Rate [Right Finger] 110 H 96 H Pulse Strength [Right Finger] Respiratory Rate 22 16 Respiratory Effort / Characteristics Short of Breath Spontaneous Respiratory Depth Respiratory Pattern Blood Pressure [Left Arm] Blood Pressure [Right Arm] Blood Pressure Mean [Left Arm] Blood Pressure Mean [Right Arm] Blood Pressure Position [Left Arm] Blood Pressure Position [Right Arm] Pulse Oximetry 95 97 Oxygen Delivery Method Nasal Cannula Nasal Cannula Nasal Cannula Oxygen Flow Rate 4 4 4 01/01/19 07:12 01/01/19 09:18 01/01/19 11:32 Temperature 36.6 C Temperature Source Oral Pulse Rate [Right Finger] 98 H 101 H Pulse Strength [Right Finger] Respiratory Rate 18 18 Respiratory Effort / Characteristics Non-Labored SOB on Exertion Spontaneous Respiratory Depth Normal Respiratory Pattern Regular Blood Pressure [Left Arm] 141/80 H Blood Pressure [Right Arm] Blood Pressure Mean [Left Arm] 100 Blood Pressure Mean [Right Arm] Blood Pressure Position [Left Arm] Lying Blood Pressure Position [Right Arm] Pulse Oximetry 97 98 Oxygen Delivery Method Nasal Cannula Nasal Cannula Nasal Cannula Oxygen Flow Rate 4 4 4 01/01/19 15:46 01/01/19 15:50 01/01/19 19:09 Temperature 36.8 C Temperature Source Oral Pulse Rate [Right Finger] 98 H 105 H Pulse Strength [Right Finger] Respiratory Rate 20 18 Respiratory Effort / Characteristics SOB on Exertion Non-Labored Spontaneous Respiratory Depth Normal Respiratory Pattern Regular Blood Pressure [Left Arm] 117/74 Blood Pressure [Right Arm] Blood Pressure Mean [Left Arm] 88 Blood Pressure Mean [Right Arm] Blood Pressure Position [Left Arm] Lying Blood Pressure Position [Right Arm] Pulse Oximetry 96 91 Oxygen Delivery Method Nasal Cannula Nasal Cannula Nasal Cannula Oxygen Flow Rate 4 4 4 GENERAL: Awake, alert, dyspneic-appearing, uncomfortable. HENT: Normocephalic, atraumatic. Oropharynx with dry mucous membranes and othe rwise unremarkable. EYES: Normal conjunctiva. Sclera non-icteric. NECK: Supple. No nuchal rigidity. FROM. No JVD. RESPIRATORY: Diminished breath sounds throughout with intermittent wheeze. CARDIAC: Regular rate, normal rhythm. Extremities warm and well perfused. Pulses equal. ABDOMEN: Soft, non-distended. No tenderness to palpation. No rebound or guarding. No masses. RECTAL: Deferred. MUSCULOSKELETAL: Chest examination reveals no tenderness. The back is symmetrical on inspection without obvious abnormality. There is no CVA tenderness to palpation. No joint edema. LOWER EXTREMITIES: Calves are equal size bilaterally and non-tender. No edema. No discoloration. NEURO: Normal sensorium. No sensory or motor deficits noted. SKIN: No rash or jaundice noted. Course 162: Past medical records reviewed. The patient was evaluated in room A11B, and a complete history and physical examination were performed. 1729: I checked on and updated the patient on her results. 1819: I discussed the patient's case with Dr. Caballero [facility] Hospitalist. How ever, near change of shift and so will discuss the case with Dr. Keita [facility] Hospitalist on shift change. 2002: I discussed the [facility] who will evaluate the patient for further hospitalization. Consultations Consultation [facility] Time: 18:20 Consultation #2: [facility] Time: 20:03 Administered Medications Citalopram Hydrobromide (Celexa) 40 mg PO DAILY COSMO Stop: 01/31/19 08:59 Last Admin: 01/01/19 07:56 Dose: 40 mg Documented by: [id number] Enoxaparin Sodium (Lovenox) 40 mg SQ HS COSMO Stop: 01/30/19 22:44 Last Admin: 01/01/19 20:37 Dose: Not Given Documented by: [id number] Admin: 01/01/19 00:37 Dose: Not Given Documented by: [id number] Estradiol (Estrace) 1 mg PO DAILY COSMO Stop: 01/31/19 08:59 Last Admin: 01/01/19 07:55 Dose: 1 mg Documented by: [id number] Furosemide (Lasix) 40 mg PO DAILY COSMO Stop: 01/31/19 08:59 Last Admin: 01/01/19 07:55 Dose: 40 mg Documented by: [id number] Hydrochlorothiazide (Hctz) 12.5 mg PO DAILY COSMO Stop: 01/31/19 08:59 Last Admin: 01/01/19 07:55 Dose: 12.5 mg Documented by: [id number] Methylprednisolone 40 mg/ (Syringe) 0.64 mls @ 1.5 mls/min IV Q8H COSMO Stop: 01/31/19 00:00 Last Admin: 01/01/19 15:35 Dose: 1.5 mls/min Documented by: [id number] Admin: 01/01/19 07:54 Dose: 1.5 mls/min Documented by: [id number] Admin: 01/01/19 00:48 Dose: 1.5 mls/min Documented by: [id number] Insulin Aspart (Novolog Flexpen) 0 units SC ACHS COSMO Stop: 01/31/19 07:29 Last Admin: 01/01/19 20:37 Dose: 1 units Documented by: [id number] Cosigned by: [id number] Admin: 01/01/19 17:55 Dose: 3 units Documented by: [id number] Cosigned by: [id number] Admin: 01/01/19 12:59 Dose: 3 units Documented by: [id number] Cosigned by: [id number] Admin: 01/01/19 08:45 Dose: 3 units Documented by: [id number] Cosigned by: [id number] Levalbuterol HCl (Xopenex 0.63 Mg/3 Ml Neb) 0.63 mg NEB Q6R COSMO Stop: 01/31/19 19:59 Last Admin: 01/01/19 19:06 Dose: 0.63 mg Documented by: [id number] Levothyroxine Sodium (Levothyroxine Sodium) 137 mcg PO DAILYBB [facility] Stop: 01/31/19 06:29 Last Admin: 01/01/19 06:01 Dose: 137 mcg Documented by: [id number] Saccharomyces Boulardii (Florastor) 250 mg PO DAILY COSMO Stop: 01/31/19 08:59 Last Admin: 01/01/19 07:55 Dose: 250 mg Documented by: [id number] Fluticasone/Salmeterol (Advair Diskus 250/50) 1 puffs INH BID COSMO Stop: 01/31/19 20:59 Last Admin: 01/01/19 20:37 Dose: 1 puffs Documented by: [id number] Discontinued Medications Albuterol (Duoneb) 12 ml NEB ONE ONE Stop: 12/31/18 16:32 Last Admin: 12/31/18 16:49 Dose: 12 ml Documented by: [id number] Albuterol (Duoneb) 3 ml NEB Q4R COSMO Stop: 01/31/19 00:00 Last Admin: 01/01/19 11:32 Dose: 3 ml Documented by: [id number] Admin: 01/01/19 07:07 Dose: 3 ml Documented by: [id number] Admin: 01/01/19 03:10 Dose: 3 ml Documented by: [id number] Admin: 12/31/18 23:13 Dose: 3 ml Documented by: [id number] Doxycycline Hyclate (Vibramycin) 100 mg PO NOW STA Stop: 12/31/18 18:43 Last Admin: 12/31/18 18:53 Dose: 100 mg Documented by: [id number] Sodium Chloride (Nss) 500 mls @ 999 mls/hr IV .Q31M ONE Stop: 12/31/18 18:49 Last Infusion: 12/31/18 19:11 Dose: 0 mls/hr Documented by: [id number] Admin: 12/31/18 18:29 Dose: 999 mls/hr Documented by: [id number] Methylprednisolone (Solumedrol) 125 mg IV NOW STA Stop: 12/31/18 16:32 Last Admin: 12/31/18 16:41 Dose: 125 mg Documented by: [id number] Medical Decision Making Differential Diagnosis Differential diagnoses includes but is not limited to pneumonia, bronchitis, COPD/Asthma exacerbation, pneumothorax, pulmonary embolism, congestive heart failure, acute coronary syndrome. Medical Records Attestation: I reviewed the patient's medical records. Home Medications Current Medication List: was personally reviewed by me Laboratory Data Attestation: I reviewed the patient's lab results. Result diagrams: 01/01/19 07:19 01/01/19 07:19 Lab Results 12/31/18 12/31/18 12/31/18 Range/Units 16:30 16:30 16:30 WBC 8.22 (4.8-10.8) K/uL RBC 3.93 L (4.2-5.4) M/uL Hgb 11.7 L (12.0-16.0) g/dL Hct 38.1 (37-47) % MCV 96.9 (80-100) fL MCH 29.8 (25-34) pg MCHC 30.7 L (32-36) g/dL RDW Std Deviation 49.6 H (36.4-46.3) fL RDW Coeff of Judy 13.9 (11.5-14.5) % Plt Count 143 (130-400) K/uL MPV 12.1 H (7.4-10.4) fL Immature Gran % (Auto) 0.1 % Neut % (Auto) 67.8 % Lymph % (Auto) 25.4 % Divide % (Auto) 5.5 % Eos % (Auto) 1.1 % Baso % (Auto) 0.1 % Immature Gran # (Auto) 0.01 (0.00-0.02) K/uL Neut # (Auto) 5.57 (1.4-6.5) K/uL Lymph # (Auto) 2.09 (1.2-3.4) K/uL Divide # (Auto) 0.45 (0.11-0.59) K/uL Eos # (Auto) 0.09 (0-0.5) K/uL Baso # (Auto) 0.01 (0-0.2) K/uL PT 10.0 (9.0-12.0) Seconds INR 1.0 (0.9-1.1) VBG pH (7.36-7.41) VBG pCO2 (38-50) mmHg VBG pO2 mmHg VBG HCO3 mmol/L VBG O2 Saturation % VBG Base Excess mEq/L Barometric Pressure mm/Hg Sodium 140 (136-145) mmol/L Potassium 4.1 (3.5-5.1) mmol/L Chloride 96 L (98-107) mmol/L Carbon Dioxide 40 H (21-32) mmol/L Anion Gap 4.0 (3-11) BUN 21 H (7-18) mg/dl Creatinine 0.78 (0.6-1.2) mg/dl Est Cr Clr Drug Dosing Not Reportable Est GFR ( Amer) 89.3 Est GFR (Non-Af Amer) 77.0 BUN/Creatinine Ratio 27.3 H (10-20) Glucose 99 (70-99) mg/dl POC Glucose (70-99) Estimat Average Glucose mg/dl Hemoglobin A1c (4.5-5.6) % Calcium 9.5 (8.5-10.1) mg/dl Phosphorus 3.2 (2.5-4.9) mg/dl Magnesium 1.9 (1.8-2.4) mg/dl Total Bilirubin 0.3 (0.2-1) mg/dl AST 17 (15-37) U/L ALT 15 (12-78) U/L Alkaline Phosphatase 57 (45-117) U/L Troponin I 0.022 (0-0.045) ng/ml NT-Pro-B Natriuret Pep 743 (0-900) pg/ml Total Protein 7.5 (6.4-8.2) gm/dl Albumin 3.5 (3.4-5.0) gm/dl Globulin 4.0 (2.5-4.0) gm/dl Albumin/Globulin Ratio 0.9 (0.9-2) Lipase 145 (73-393) U/L TSH (0.300-4.500) uIu/ml Influenza Type A (PCR) (Neg) Influenza Type B (PCR) (Neg) 12/31/18 12/31/18 12/31/18 Range/Units 16:45 17:07 21:59 WBC (4.8-10.8) K/uL RBC (4.2-5.4) M/uL Hgb (12.0-16.0) g/dL Hct (37-47) % MCV (80-100) fL MCH (25-34) pg MCHC (32-36) g/dL RDW Std Deviation (36.4-46.3) fL RDW Coeff of Judy (11.5-14.5) % Plt Count (130-400) K/uL MPV (7.4-10.4) fL Immature Gran % (Auto) % Neut % (Auto) % Lymph % (Auto) % Divide % (Auto) % Eos % (Auto) % Baso % (Auto) % Immature Gran # (Auto) (0.00-0.02) K/uL Neut # (Auto) (1.4-6.5) K/uL Lymph # (Auto) (1.2-3.4) K/uL Divide # (Auto) (0.11-0.59) K/uL Eos # (Auto) (0-0.5) K/uL Baso # (Auto) (0-0.2) K/uL PT (9.0-12.0) Seconds INR (0.9-1.1) VBG pH 7.32 L (7.36-7.41) VBG pCO2 86 H (38-50) mmHg VBG pO2 38 mmHg VBG HCO3 44 mmol/L VBG O2 Saturation 69.1 % VBG Base Excess 14.2 mEq/L Barometric Pressure 737.7 mm/Hg Sodium (136-145) mmol/L Potassium (3.5-5.1) mmol/L Chloride (98-107) mmol/L Carbon Dioxide (21-32) mmol/L Anion Gap (3-11) BUN (7-18) mg/dl Creatinine (0.6-1.2) mg/dl Est Cr Clr Drug Dosing Est GFR ( Amer) Est GFR (Non-Af Amer) BUN/Creatinine Ratio (10-20) Glucose (70-99) mg/dl POC Glucose 167 H (70-99) Estimat Average Glucose mg/dl Hemoglobin A1c (4.5-5.6) % Calcium (8.5-10.1) mg/dl Phosphorus (2.5-4.9) mg/dl Magnesium (1.8-2.4) mg/dl Total Bilirubin (0.2-1) mg/dl AST (15-37) U/L ALT (12-78) U/L Alkaline Phosphatase (45-117) U/L Troponin I (0-0.045) ng/ml NT-Pro-B Natriuret Pep (0-900) pg/ml Total Protein (6.4-8.2) gm/dl Albumin (3.4-5.0) gm/dl Globulin (2.5-4.0) gm/dl Albumin/Globulin Ratio (0.9-2) Lipase (73-393) U/L TSH (0.300-4.500) uIu/ml Influenza Type A (PCR) Neg for Influ A (Neg) Influenza Type B (PCR) Neg for Influ B (Neg) 12/31/18 01/01/19 01/01/19 Range/Units 22:44 07:19 07:19 WBC 5.49 (4.8-10.8) K/uL RBC 3.51 L (4.2-5.4) M/uL Hgb 10.6 L (12.0-16.0) g/dL Hct 33.9 L (37-47) % MCV 96.6 (80-100) fL MCH 30.2 (25-34) pg MCHC 31.3 L (32-36) g/dL RDW Std Deviation 50.2 H (36.4-46.3) fL RDW Coeff of Judy 14.2 (11.5-14.5) % Plt Count 127 L (130-400) K/uL MPV 11.6 H (7.4-10.4) fL Immature Gran % (Auto) 0.0 % Neut % (Auto) 89.8 % Lymph % (Auto) 9.1 % Divide % (Auto) 1.1 % Eos % (Auto) 0.0 % Baso % (Auto) 0.0 % Immature Gran # (Auto) 0.00 (0.00-0.02) K/uL Neut # (Auto) 4.93 (1.4-6.5) K/uL Lymph # (Auto) 0.50 L (1.2-3.4) K/uL Divide # (Auto) 0.06 L (0.11-0.59) K/uL Eos # (Auto) 0.00 (0-0.5) K/uL Baso # (Auto) 0.00 (0-0.2) K/uL PT (9.0-12.0) Seconds INR (0.9-1.1) VBG pH (7.36-7.41) VBG pCO2 (38-50) mmHg VBG pO2 mmHg VBG HCO3 mmol/L VBG O2 Saturation % VBG Base Excess mEq/L Barometric Pressure mm/Hg Sodium 141 (136-145) mmol/L Potassium 4.3 (3.5-5.1) mmol/L Chloride 98 (98-107) mmol/L Carbon Dioxide 42 H* (21-32) mmol/L Anion Gap 1.0 L (3-11) BUN 20 H (7-18) mg/dl Creatinine 0.63 (0.6-1.2) mg/dl Est Cr Clr Drug Dosing 94.5 Est GFR ( Amer) 105.3 Est GFR (Non-Af Amer) 90.9 BUN/Creatinine Ratio 31.4 H (10-20) Glucose 144 H (70-99) mg/dl POC Glucose 219 H (70-99) Estimat Average Glucose mg/dl Hemoglobin A1c (4.5-5.6) % Calcium 9.1 (8.5-10.1) mg/dl Phosphorus (2.5-4.9) mg/dl Magnesium (1.8-2.4) mg/dl Total Bilirubin (0.2-1) mg/dl AST (15-37) U/L ALT (12-78) U/L Alkaline Phosphatase (45-117) U/L Troponin I (0-0.045) ng/ml NT-Pro-B Natriuret Pep (0-900) pg/ml Total Protein (6.4-8.2) gm/dl Albumin (3.4-5.0) gm/dl Globulin (2.5-4.0) gm/dl Albumin/Globulin Ratio (0.9-2) Lipase (73-393) U/L TSH 0.617 (0.300-4.500) uIu/ml Influenza Type A (PCR) (Neg) Influenza Type B (PCR) (Neg) 01/01/19 01/01/19 01/01/19 Range/Units 07:19 07:30 11:56 WBC (4.8-10.8) K/uL RBC (4.2-5.4) M/uL Hgb (12.0-16.0) g/dL Hct (37-47) % MCV (80-100) fL MCH (25-34) pg MCHC (32-36) g/dL RDW Std Deviation (36.4-46.3) fL RDW Coeff of Judy (11.5-14.5) % Plt Count (130-400) K/uL MPV (7.4-10.4) fL Immature Gran % (Auto) % Neut % (Auto) % Lymph % (Auto) % Divide % (Auto) % Eos % (Auto) % Baso % (Auto) % Immature Gran # (Auto) (0.00-0.02) K/uL Neut # (Auto) (1.4-6.5) K/uL Lymph # (Auto) (1.2-3.4) K/uL Divide # (Auto) (0.11-0.59) K/uL Eos # (Auto) (0-0.5) K/uL Baso # (Auto) (0-0.2) K/uL PT (9.0-12.0) Seconds INR (0.9-1.1) VBG pH (7.36-7.41) VBG pCO2 (38-50) mmHg VBG pO2 mmHg VBG HCO3 mmol/L VBG O2 Saturation % VBG Base Excess mEq/L Barometric Pressure mm/Hg Sodium (136-145) mmol/L Potassium (3.5-5.1) mmol/L Chloride (98-107) mmol/L Carbon Dioxide (21-32) mmol/L Anion Gap (3-11) BUN (7-18) mg/dl Creatinine (0.6-1.2) mg/dl Est Cr Clr Drug Dosing Est GFR ( Amer) Est GFR (Non-Af Amer) BUN/Creatinine Ratio (10-20) Glucose (70-99) mg/dl POC Glucose 146 H 114 H (70-99) Estimat Average Glucose 126 mg/dl Hemoglobin A1c 6.0 H (4.5-5.6) % Calcium (8.5-10.1) mg/dl Phosphorus (2.5-4.9) mg/dl Magnesium (1.8-2.4) mg/dl Total Bilirubin (0.2-1) mg/dl AST (15-37) U/L ALT (12-78) U/L Alkaline Phosphatase (45-117) U/L Troponin I (0-0.045) ng/ml NT-Pro-B Natriuret Pep (0-900) pg/ml Total Protein (6.4-8.2) gm/dl Albumin (3.4-5.0) gm/dl Globulin (2.5-4.0) gm/dl Albumin/Globulin Ratio (0.9-2) Lipase (73-393) U/L TSH (0.300-4.500) uIu/ml Influenza Type A (PCR) (Neg) Influenza Type B (PCR) (Neg) 01/01/19 01/01/19 Range/Units 17:01 20:15 WBC (4.8-10.8) K/uL RBC (4.2-5.4) M/uL Hgb (12.0-16.0) g/dL Hct (37-47) % MCV (80-100) fL MCH (25-34) pg MCHC (32-36) g/dL RDW Std Deviation (36.4-46.3) fL RDW Coeff of Judy (11.5-14.5) % Plt Count (130-400) K/uL MPV (7.4-10.4) fL Immature Gran % (Auto) % Neut % (Auto) % Lymph % (Auto) % Divide % (Auto) % Eos % (Auto) % Baso % (Auto) % Immature Gran # (Auto) (0.00-0.02) K/uL Neut # (Auto) (1.4-6.5) K/uL Lymph # (Auto) (1.2-3.4) K/uL Divide # (Auto) (0.11-0.59) K/uL Eos # (Auto) (0-0.5) K/uL Baso # (Auto) (0-0.2) K/uL PT (9.0-12.0) Seconds INR (0.9-1.1) VBG pH (7.36-7.41) VBG pCO2 (38-50) mmHg VBG pO2 mmHg VBG HCO3 mmol/L VBG O2 Saturation % VBG Base Excess mEq/L Barometric Pressure mm/Hg Sodium (136-145) mmol/L Potassium (3.5-5.1) mmol/L Chloride (98-107) mmol/L Carbon Dioxide (21-32) mmol/L Anion Gap (3-11) BUN (7-18) mg/dl Creatinine (0.6-1.2) mg/dl Est Cr Clr Drug Dosing Est GFR ( Amer) Est GFR (Non-Af Amer) BUN/Creatinine Ratio (10-20) Glucose (70-99) mg/dl POC Glucose 145 H 153 H (70-99) Estimat Average Glucose mg/dl Hemoglobin A1c (4.5-5.6) % Calcium (8.5-10.1) mg/dl Phosphorus (2.5-4.9) mg/dl Magnesium (1.8-2.4) mg/dl Total Bilirubin (0.2-1) mg/dl AST (15-37) U/L ALT (12-78) U/L Alkaline Phosphatase (45-117) U/L Troponin I (0-0.045) ng/ml NT-Pro-B Natriuret Pep (0-900) pg/ml Total Protein (6.4-8.2) gm/dl Albumin (3.4-5.0) gm/dl Globulin (2.5-4.0) gm/dl Albumin/Globulin Ratio (0.9-2) Lipase (73-393) U/L TSH (0.300-4.500) uIu/ml Influenza Type A (PCR) (Neg) Influenza Type B (PCR) (Neg) Imaging Data Radiologist's Impression: Radiology results as stated below per my review and the radiologist's interpretation: XR chest 1V portable CLINICAL HISTORY: Atypical chest pain COMPARISON STUDY: 09/02/2018 FINDINGS: There is persistent elevation/eventration left hemidiaphragm. The cardiac and mediastinal contours remain stable. There is no failure. There is no focal pulmonary consolidation. There are no pleural effusions.[ IMPRESSION: Stable elevation/eventration left hemidiaphragm. No acute findings. Electronically signed by: Ivan Mancia M.D. 12/31/2018 4:53 PM ECG Data Attestation: I personally reviewed and interpreted this ECG as follows: Indication: SOB/dyspnea Rate (beats per minute): 103 Rhythm: sinus tachycardia Findings: + PVC Blood Pressure Blood Pressure Findings: Elevated blood pressure Blood Pressure Disposition: elevated BP felt to be situational MDM Narrative The patient is a pleasant 76-year-old woman with a past medical history of COPD on 4 L nasal cannula at baseline who presents to emergency department with worsening cough congestion and shortness of breath over the past week per hpi. On arrival the patient is dyspneic with oxygen saturation 87% on her baseline 4 L despite being given 2 DuoNeb's by EMS. Heart rate in the 100s and vital signs otherwise stable. On exam the patient has diminished breath sounds throughout with intermittent wheeze. EKG demonstrates sinus tachycardia with frequent PVCs and otherwise no acute ischemia. Chest x-ray without evidence of failure or consolidation. WBC within normal limits. H/H 11.7/38.1 similar to prior values. VBG with PCO2 of 86 and pH of 7.32 without prior for comparison however likely component of acute on chronic hypercapnia given the patient's bicarb usually is in the upper 30s-40s. Bicarb 40 today. Initial troponin 0.02. BNP within normal limits. Flu negative. Feeling improved after continuous DuoNeb and steroids. However, still very tight on exam with mild dyspnea that the patient reports is worse from her baseline. Thus reasonable to admit the patient for fu rther management. Will treat with doxycycline for atypical coverage. Case was discussed with Dr. Morales, [facility] hospitalist, who will evaluate the patient for admission. Impression & Plan COPD exacerbation Discharge Plan Visit Data *Final* Discharge Date/Time: 12/31/18 21:20 Chief Complaint: Shortness of Breath/Dyspnea Stated Complaint: SOB ED Provider: Cam Feng Discharge Problem: COPD exacerbation Patient Disposition: Admitted As Inpatient Discharge Instructions Interventions: ED Discharge Assessment Last Done: 12/31/18 21:20 The scribe's documentation has been prepared under my direction and personally reviewed by me in its entirety. I confirm that the note above accurately reflects all work, treatment, procedures, and medical decision making performed by me.
--- NOTE | 2018-12-31 20:52 | History & Physical Report ---
Date of Service December 31, 2018 Assessment & Plan (1) Shortness of breath: Patient with severe progressive CAMACHO, unable to ambulate in her home. Presently in no respiratory distress, adequate oxygenation on 4L NC, poor air entry with prolonged expiratory phase noted on physical exam. CXR with no PNA, PTX or pulmonary edema. Patient with low risk Wells score of 1.5 for HR > 100 bpm making PE unlikely. -Admit to medical floor -COPD management as below -Supplemental oxygen with goal saturation of 92% - patient appears to be a chronic CO2 retainer by labs (2) COPD (chronic obstructive pulmonary disease): Patient with O2 dependent COPD presenting with progressive CAMACHO. Poor air exchange on physical exam, some relief noted with nebulizer treatment. Patient presently with no respiratory distress, adequate saturation on 4L NC. Suspect COPD exacerbation as cause of dyspnea. -Admit to medical floor -DuoNeb q 4 hours - patient requests not using a facemask for neb delivery. Would rather use a mouthpiece if possible -Albuterol q 2 hours PRN -Solumedrol 40mg IV TID -Will hold antibiotic treatment for now given history of C. diff, no overt infection or evidence of PNA (3) Hypertension: Blood pressure mildly elevated at present, 157/88. -Continue Lasix and HCTZ -Continue to monitor (4) Depression: Patient with history of MDD as well as grief from loss of her and son -Continue Celexa daily (5) Hypothyroidism: Chronic. Patient with high TSH in the past, most recently 4.98 on 09/09/18 -Check TFTs with AM labs -Continue Synthroid daily, may need to adjust dose based on lab results (6) Diabetes: Patient with history of diet controlled DM. Last AIC=5.9 in February 2018 -Fingersticks -ISS while on high dose steroids -Check AIC (7) History of Clostridium difficile infection: Patient with remote history of severe, complicated c. diff infection. She presently follows with Dr. Hamm. She is taking PO Vancomycin once weekly on Saturdays -Continue PO Vancomycin as per outpatient regimen -Avoid antibiotics if at all possible -Florastor while inpatient F/E/N - Heplock. Electrolytes WNL, continue to monitor, heart healthy diet as tolerated Ppx - Lovenox for DVT prophylaxis Code - Full per discussion with patient Dispo - Admit to medical floor for presumed COPD exacerbation History of Present Illness Chief Complaint: dyspnea on exertion Primary Care Provider: Alvaro Castillo MD Mrs. Giron is a 68yo C female with history of O2 dependent COPD (4L at home by NM), HTN, Hypothyroidism presenting with 3-4 days of progressive dyspnea on exertion. She reports becoming quite short of breath with ambulation in her home with distances as little as 10-15 feet. She denies CP, palpitations, orthopnea but does have some stable bilateral LE edema. She denies cough, sputum, fevers/chills/sweats, sick contacts or recent travel. No additional complaints at this time. On arrival to the ER she was found to be 87% on her baseline of 4L O2. She appeared to be quite dyspneic with poor airflow on physical exam. She was administered an hour long neb with some improvement in her dyspnea. ER Course: Albuterol, Doxycycline 100mg, Methylprednisolone 125mg IV, NSS x 500mL Allergies Allergy/AdvReac Type Severity Reaction Status Date / Time codeine Allergy Mild Unknown Verified 12/31/18 19:28 atropine Allergy Unknown UNKNOWN Verified 12/31/18 19:28 diphenoxylate Allergy Unknown UNKNOWN Verified 12/31/18 19:28 moxifloxacin Allergy Unknown UNKNOWN Verified 12/31/18 19:28 prednisone AdvReac Mild Unknown Verified 12/31/18 19:28 Home Medications Home Medications Medication Instructions Recorded Confirmed Type citalopram [Celexa] 40 mg PO DAILY 12/31/18 12/31/18 History estradiol [Estrace] 1 mg PO DAILY 12/31/18 12/31/18 History fluticasone-salmeterol [Advair 1 puff INHALATION BID 12/31/18 12/31/18 History Diskus] furosemide [Lasix] 40 mg PO DAILY 12/31/18 12/31/18 History hydrochlorothiazide 12.5 mg PO DAILY 12/31/18 12/31/18 History ipratropium-albuterol 1 dose INHALATION QID 12/31/18 12/31/18 History levothyroxine [Synthroid] 137 mcg PO DAILY 12/31/18 12/31/18 History vancomycin 125 mg PO WK 12/31/18 12/31/18 History Past Med/Surg History Medical History Hypothyroidism Depression Hypertension COPD (chronic obstructive pulmonary disease) 4L NM Diabetes diet controlled No significant family history Surgical History History of carpal tunnel surgery Previous back surgery S/P hysterectomy Status post bilateral knee replacements Status post hip surgery Family History Other Breast cancer Diabetes Hypertension Social History Preferred Language: Latvian marital status: Current Living Situation: Alone other: grief due to loss of and son Feels Safe at Home: Yes Smoking Status: Former smoker Hx Alcohol Use: No Hx Substance Use: No Review of Systems All systems reviewed & are unremarkable except as noted in HPI & below Denies fevers, chills, sweats, weakness Denies CP/palpitations Denies abdominal pain, nausea/vomiting/diarrhea/constipation Denies urinary complaints Physical Exam Vital Signs (Past 24 Hours): Last Vital Signs Temp 36.4 C L 12/31/18 16:11 Pulse 105 H 12/31/18 20:33 Resp 24 12/31/18 20:33 BP 147/55 H 12/31/18 20:33 Pulse Ox 95 12/31/18 20:33 Physical Exam: General: patient resting comfortably, NAD, non-toxic in appearance, AA&O x 4 Skin: warm, dry, intact, no rashes or lesions HEENT: NC/AT, PERRL, EOMI, anicteric sclera, conjunctiva without injection, external ear normal to inspection and nontender, nares patent, Dry mucus membranes, dentition intact, no oropharyngeal lesions, neck supple, trachea midline, no LAD, no thyromegaly, no JVD Heart: +S1/S2, regular, tachycardic, no m/r/g Lungs: diminished air entry bilaterally with prolonged expiratory phase, no rales/rhonchi/wheezes Abd: +BS, soft, NT/ND, no masses/organomegaly/ascites Ext: warm, 2+ pulses in UE/LE bilaterally, 1+ pitting edema of bilateral LEs, hemosiderin staining of skin on anterior shins bilaterally Neuro: nonfocal, patient AA&O x 4, speech intact, no facial droop, moving all extremities on command with equal strength 5/5 Results & Data Laboratory Results Lab Results 12/31/18 12/31/18 12/31/18 Range/Units 16:30 16:30 16:30 WBC 8.22 (4.8-10.8) K/uL RBC 3.93 L (4.2-5.4) M/uL Hgb 11.7 L (12.0-16.0) g/dL Hct 38.1 (37-47) % MCV 96.9 (80-100) fL MCH 29.8 (25-34) pg MCHC 30.7 L (32-36) g/dL RDW Std Deviation 49.6 H (36.4-46.3) fL RDW Coeff of Judy 13.9 (11.5-14.5) % Plt Count 143 (130-400) K/uL MPV 12.1 H (7.4-10.4) fL Immature Gran % (Auto) 0.1 % Neut % (Auto) 67.8 % Lymph % (Auto) 25.4 % [place] % (Auto) 5.5 % Eos % (Auto) 1.1 % Baso % (Auto) 0.1 % Immature Gran # (Auto) 0.01 (0.00-0.02) K/uL Neut # (Auto) 5.57 (1.4-6.5) K/uL Lymph # (Auto) 2.09 (1.2-3.4) K/uL [place] # (Auto) 0.45 (0.11-0.59) K/uL Eos # (Auto) 0.09 (0-0.5) K/uL Baso # (Auto) 0.01 (0-0.2) K/uL PT 10.0 (9.0-12.0) Seconds INR 1.0 (0.9-1.1) VBG pH (7.36-7.41) VBG pCO2 (38-50) mmHg VBG pO2 mmHg VBG HCO3 mmol/L VBG O2 Saturation % VBG Base Excess mEq/L Barometric Pressure mm/Hg Sodium 140 (136-145) mmol/L Potassium 4.1 (3.5-5.1) mmol/L Chloride 96 L (98-107) mmol/L Carbon Dioxide 40 H (21-32) mmol/L Anion Gap 4.0 (3-11) BUN 21 H (7-18) mg/dl Creatinine 0.78 (0.6-1.2) mg/dl Est Cr Clr Drug Dosing Not Reportable Est GFR ( Amer) 89.3 Est GFR (Non-Af Amer) 77.0 BUN/Creatinine Ratio 27.3 H (10-20) Glucose 99 (70-99) mg/dl Calcium 9.5 (8.5-10.1) mg/dl Phosphorus 3.2 (2.5-4.9) mg/dl Magnesium 1.9 (1.8-2.4) mg/dl Total Bilirubin 0.3 (0.2-1) mg/dl AST 17 (15-37) U/L ALT 15 (12-78) U/L Alkaline Phosphatase 57 (45-117) U/L Troponin I 0.022 (0-0.045) ng/ml NT-Pro-B Natriuret Pep 743 (0-900) pg/ml Total Protein 7.5 (6.4-8.2) gm/dl Albumin 3.5 (3.4-5.0) gm/dl Globulin 4.0 (2.5-4.0) gm/dl Albumin/Globulin Ratio 0.9 (0.9-2) Lipase 145 (73-393) U/L Influenza Type A (PCR) (Neg) Influenza Type B (PCR) (Neg) 12/31/18 12/31/18 Range/Units 16:45 17:07 WBC (4.8-10.8) K/uL RBC (4.2-5.4) M/uL Hgb (12.0-16.0) g/dL Hct (37-47) % MCV (80-100) fL MCH (25-34) pg MCHC (32-36) g/dL RDW Std Deviation (36.4-46.3) fL RDW Coeff of Judy (11.5-14.5) % Plt Count (130-400) K/uL MPV (7.4-10.4) fL Immature Gran % (Auto) % Neut % (Auto) % Lymph % (Auto) % [place] % (Auto) % Eos % (Auto) % Baso % (Auto) % Immature Gran # (Auto) (0.00-0.02) K/uL Neut # (Auto) (1.4-6.5) K/uL Lymph # (Auto) (1.2-3.4) K/uL [place] # (Auto) (0.11-0.59) K/uL Eos # (Auto) (0-0.5) K/uL Baso # (Auto) (0-0.2) K/uL PT (9.0-12.0) Seconds INR (0.9-1.1) VBG pH 7.32 L (7.36-7.41) VBG pCO2 86 H (38-50) mmHg VBG pO2 38 mmHg VBG HCO3 44 mmol/L VBG O2 Saturation 69.1 % VBG Base Excess 14.2 mEq/L Barometric Pressure 737.7 mm/Hg Sodium (136-145) mmol/L Potassium (3.5-5.1) mmol/L Chloride (98-107) mmol/L Carbon Dioxide (21-32) mmol/L Anion Gap (3-11) BUN (7-18) mg/dl Creatinine (0.6-1.2) mg/dl Est Cr Clr Drug Dosing Est GFR ( Amer) Est GFR (Non-Af Amer) BUN/Creatinine Ratio (10-20) Glucose (70-99) mg/dl Calcium (8.5-10.1) mg/dl Phosphorus (2.5-4.9) mg/dl Magnesium (1.8-2.4) mg/dl Total Bilirubin (0.2-1) mg/dl AST (15-37) U/L ALT (12-78) U/L Alkaline Phosphatase (45-117) U/L Troponin I (0-0.045) ng/ml NT-Pro-B Natriuret Pep (0-900) pg/ml Total Protein (6.4-8.2) gm/dl Albumin (3.4-5.0) gm/dl Globulin (2.5-4.0) gm/dl Albumin/Globulin Ratio (0.9-2) Lipase (73-393) U/L Influenza Type A (PCR) Neg for Influ A (Neg) Influenza Type B (PCR) Neg for Influ B (Neg) Diagnostic Findings XR chest 1V portable CLINICAL HISTORY: Atypical chest pain COMPARISON STUDY: 09/02/2018 FINDINGS: There is persistent elevation/eventration left hemidiaphragm. The cardiac and mediastinal contours remain stable. There is no failure. There is no focal pulmonary consolidation. There are no pleural effusions.[ IMPRESSION: Stable elevation/eventration left hemidiaphragm. No acute findings. Electronically signed by: Ivan Mancia M.D. 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 terminal operator insulin use: without shelter use Diabetes mellitus type: type 2 Qualified Code(s): E11.9 - Type 2 diabetes mellitus without complications (2) Depression Active/Remission status: currently active Depression Type: major depressive disorder Major depression episode severity: unspecified Major depression recurrence: recurrent Qualified Code(s): F33.9 - Major depressive disorder, recurrent, unspecified (3) Hypothyroidism Hypothyroidism type: unspecified Qualified Code(s): E03.9 - Hypothyroidism, unspecified (4) COPD (chronic obstructive pulmonary disease) COPD type: emphysema Emphysema type: unspecified Qualified Code(s): J43.9 - Emphysema, unspecified (5) Hypertension Hypertension type: essential hypertension Qualified Code(s): I10 - Essential (primary) hypertension
[2018-12-31] MEDS ORDERED: GLUCOSE 40% GEL 15 GM TUBE PO PRN (21:42)
[2018-12-31] MEDS ORDERED: DEXTROSE 50% 50 ML SYRINGE IV PRN (21:42)
[2018-12-31] MEDS ORDERED: GLUCAGON FOR INJ 1 MG VIAL SQ PRN (21:42)
[2018-12-31] MEDS ORDERED: CARBOHYDRATES FOR HYPOGLYCEMIA PO PRN (21:42)
[2018-12-31] MEDS ORDERED: GLUCOSE 10 TABS/TUBE PO PRN (21:42)
[2018-12-31] MEDS ORDERED: ALBUTEROL 0.5% NEB SOLN 2.5 MG/0.5 ML VIAL NEB PRN (21:42)
[2018-12-31] MEDS: ALBUT/IPRATROP 3MG/0.5MG NEB 3 ML VIAL NEB SCH (23:13)
[2019-01-01] MEDS: ENOXAPARIN INJ 40 MG/0.4 ML SYR SQ SCH ×2 (00:37→20:37)
[2019-01-01] MEDS: methylPREDNISolone 40 MG in SYRINGE 0 ML IV SCH ×3 (00:48→15:35)
[2019-01-01] MEDS: ALBUT/IPRATROP 3MG/0.5MG NEB 3 ML VIAL NEB SCH ×3 (03:10→11:32)
[2019-01-01] MEDS: LEVOTHYROXINE SODIUM 137 MCG TABLET PO SCH (06:01)
[2019-01-01 07:34] LABS: Hematocrit (blood only) 33.9 % (37-47); Hemoglobin 10.6 g/dL (12.0-16.0); Lymphocytes % (auto) 9.1 %; Mean Corpuscular Hgb Conc 31.3 g/dL (32-36); Mean Corpuscular Volume 96.6 fL (80-100); Mean Platelet Volume 11.6 fL (7.4-10.4); Monocytes # (auto) 0.06 K/uL (0.11-0.59); Monocytes % (auto) 1.1 %; Neutrophils # (auto) 4.93 K/uL (1.4-6.5); Neutrophils % (auto) 89.8 %; Platelet Count 127 K/uL (130-400); RDW Coefficient of Variation 14.2 % (11.5-14.5); RDW Standard Deviation 50.2 fL (36.4-46.3); Red Blood Count 3.51 M/uL (4.2-5.4); White Blood Count 5.49 K/uL (4.8-10.8)
[2019-01-01] MEDS: ESTRADIOL 1 MG TAB PO SCH (07:55)
[2019-01-01] MEDS: hydroCHLOROthiazide 25 MG TAB PO SCH (07:55)
[2019-01-01] MEDS: FUROSEMIDE 40 MG TAB PO SCH (07:55)
[2019-01-01] MEDS: SACCHAROMYCES BOULARDII 250 MG CAP PO SCH (07:55)
[2019-01-01] MEDS: CITALOPRAM 20 MG TAB PO SCH (07:56)
[2019-01-01 08:04] LABS: BUN Creatinine Ratio 31.4 (10-20); Calcium 9.1 mg/dl (8.5-10.1); Creatinine Clr Calc Pharmacy 94.5 ml/min; Est GFR (African American) 105.3; Est GFR (Non-African American) 90.9; Potassium 4.3 mmol/L (3.5-5.1)
[2019-01-01 08:23] LABS: Estimated Average Glucose 126 mg/dl
[2019-01-01] MEDS: INSULIN ASPART 100 UNITS/ML 3 ML PEN SC SCH ×4 (08:45→20:37)
--- NOTE | 2019-01-01 14:31 | Hospitalist Progress Note ---
Date of Service January 01, 2019 Assessment & Plan (1) Shortness of breath: - Presented with CAMACHO likely related to COPD exacerbation. - CXR was negative for infiltrate. - Treatment for COPD as noted below. - Consider CT PE in setting of CAMACHO. (2) COPD (chronic obstructive pulmonary disease): - Requires 4L O2 at baseline prior to admission; O2 sat was 87% on 4L in the ER. - Convert Duonebs to Xopenex q6hr scheduled due to tachycardia. - Continue home Advair BID. - Solumedrol 40 mg IV q8hr. - Hold abx due to h/o C. difficile. (3) Acute and chronic respiratory failure: - Requires 4L at baseline; O2 saturation was decreased at admission, now stable on home requirements. - Will continue to monitor. (4) Hypercapnia: - Chronic CO2 retainer in the setting of COPD. - Baseline CO2 levels ~38-45. - Monitor qAM. (5) Hypertension: - Continue home Lasix 40 mg daily and HCTZ 12.5 mg daily. - HTN now slightly improved. (6) Depression: - History of MDD as well as grief from loss of her and son. - Continue Celexa 40 mg daily. (7) Hypothyroidism: - Continue Synthroid 137 mcg daily. - TSH was 0.6. (8) Diabetes: - Hemoglobin A1C was 6.0. - SSI coverage with gluc checks ac/hs. - Consider pharmacy consult for steroid induced hyperglycemia. (9) History of Clostridium difficile infection: - H/o severe C. diff infection; follows with Dr. Hamm. - Continue weekly PO Vancomycin. - Continue probiotics. - Avoid all antibiotics if possible. (10) Anemia: - Hemoglobin decreased to 10.6; baseline ~10-11. - Will monitor levels qAM. (11) Morbid obesity: - BMI 42. - Encourage weight loss and exercise. (12) DVT prophylaxis: - Lovenox. Dispo: Med/surg for treatment of COPD exacerbation. Supervising Physician Co-Signing Physician Notes Attending Attestation- Chart reviewed, care plan d/w LIAN Razo in detail. Pt with COPD exacerbation & acute/chronic hypoxic/hypercarbic resp failure - both improved. Cont steroids & supportive care. Labs and vitals stable. Zack Jaffe MD Subjective Pt. has SOB, both at rest and with exertion. Has been weaned down to 4L via NC (baseline requirements). Pt. cannot lie flat due to severe SOB, requires elevation with mulitple pillows. Denies chest pain, increased LE edema, N/V, diarrhea or constipation. She developed tachycardia with duonebs; will convert to Xopenex. Review of Systems All systems reviewed & are unremarkable except as noted in HPI & below Constitutional: no fever, no chills, no fatigue, no weakness and no anorexia Respiratory: + dyspnea and + dyspnea on exertion; no cough, no chest congestion and no sputum production Cardiovascular: + lightheadedness; no chest pain, no palpitations, no syncope and no edema Gastrointestinal: no abdominal pain, no nausea, no vomiting, no constipation and no diarrhea/loose stools Genitourinary (Female): no difficulty urinating Musculoskeletal: no joint pain Allergy / Immunological: no rash Physical Exam Vital Signs (Past 24 Hours): Last Vital Signs Temp 36.6 C 01/01/19 07:12 Pulse 101 H 01/01/19 11:32 Resp 18 01/01/19 11:32 BP 141/80 H 01/01/19 07:12 Pulse Ox 98 01/01/19 11:32 Physical Exam: General: Resting comfortably in no apparent distress; A&OX3 HEENT: NC/AT; PERRLA with EOMI; [place] conjunctiva, MMM. Neck: Supple and nontender Cardiac: RRR Lungs: on 4L via NC; diminished throughout Abdomen: Bowel normoactive X 4; Nontender to palpation Extremities: Warm. No edema present Neuro: No focal weakness Skin: No rash Results & Data Laboratory Results 01/01/19 01/01/19 01/01/19 Range/Units 11:56 07:30 07:19 WBC (4.8-10.8) K/uL RBC (4.2-5.4) M/uL Hgb (12.0-16.0) g/dL Hct (37-47) % MCV (80-100) fL MCH (25-34) pg MCHC (32-36) g/dL RDW Std Deviation (36.4-46.3) fL RDW Coeff of Judy (11.5-14.5) % Plt Count (130-400) K/uL MPV (7.4-10.4) fL Immature Gran % (Auto) % Neut % (Auto) % Lymph % (Auto) % Bent % (Auto) % Eos % (Auto) % Baso % (Auto) % Immature Gran # (Auto) (0.00-0.02) K/uL Neut # (Auto) (1.4-6.5) K/uL Lymph # (Auto) (1.2-3.4) K/uL Bent # (Auto) (0.11-0.59) K/uL Eos # (Auto) (0-0.5) K/uL Baso # (Auto) (0-0.2) K/uL PT (9.0-12.0) Seconds INR (0.9-1.1) VBG pH (7.36-7.41) VBG pCO2 (38-50) mmHg VBG pO2 mmHg VBG HCO3 mmol/L VBG O2 Saturation % VBG Base Excess mEq/L Barometric Pressure mm/Hg Sodium (136-145) mmol/L Potassium (3.5-5.1) mmol/L Chloride (98-107) mmol/L Carbon Dioxide (21-32) mmol/L Anion Gap (3-11) BUN (7-18) mg/dl Creatinine (0.6-1.2) mg/dl Est Cr Clr Drug Dosing Est GFR ( Amer) Est GFR (Non-Af Amer) BUN/Creatinine Ratio (10-20) Glucose (70-99) mg/dl POC Glucose 114 H 146 H (70-99) Estimat Average Glucose 126 mg/dl Hemoglobin A1c 6.0 H (4.5-5.6) % Calcium (8.5-10.1) mg/dl Phosphorus (2.5-4.9) mg/dl Magnesium (1.8-2.4) mg/dl Total Bilirubin (0.2-1) mg/dl AST (15-37) U/L ALT (12-78) U/L Alkaline Phosphatase (45-117) U/L Troponin I (0-0.045) ng/ml NT-Pro-B Natriuret Pep (0-900) pg/ml Total Protein (6.4-8.2) gm/dl Albumin (3.4-5.0) gm/dl Globulin (2.5-4.0) gm/dl Albumin/Globulin Ratio (0.9-2) Lipase (73-393) U/L TSH (0.300-4.500) uIu/ml Influenza Type A (PCR) (Neg) Influenza Type B (PCR) (Neg) 01/01/19 01/01/19 12/31/18 Range/Units 07:19 07:19 22:44 WBC 5.49 (4.8-10.8) K/uL RBC 3.51 L (4.2-5.4) M/uL Hgb 10.6 L (12.0-16.0) g/dL Hct 33.9 L (37-47) % MCV 96.6 (80-100) fL MCH 30.2 (25-34) pg MCHC 31.3 L (32-36) g/dL RDW Std Deviation 50.2 H (36.4-46.3) fL RDW Coeff of Judy 14.2 (11.5-14.5) % Plt Count 127 L (130-400) K/uL MPV 11.6 H (7.4-10.4) fL Immature Gran % (Auto) 0.0 % Neut % (Auto) 89.8 % Lymph % (Auto) 9.1 % Bent % (Auto) 1.1 % Eos % (Auto) 0.0 % Baso % (Auto) 0.0 % Immature Gran # (Auto) 0.00 (0.00-0.02) K/uL Neut # (Auto) 4.93 (1.4-6.5) K/uL Lymph # (Auto) 0.50 L (1.2-3.4) K/uL Bent # (Auto) 0.06 L (0.11-0.59) K/uL Eos # (Auto) 0.00 (0-0.5) K/uL Baso # (Auto) 0.00 (0-0.2) K/uL PT (9.0-12.0) Seconds INR (0.9-1.1) VBG pH (7.36-7.41) VBG pCO2 (38-50) mmHg VBG pO2 mmHg VBG HCO3 mmol/L VBG O2 Saturation % VBG Base Excess mEq/L Barometric Pressure mm/Hg Sodium 141 (136-145) mmol/L Potassium 4.3 (3.5-5.1) mmol/L Chloride 98 (98-107) mmol/L Carbon Dioxide 42 H* (21-32) mmol/L Anion Gap 1.0 L (3-11) BUN 20 H (7-18) mg/dl Creatinine 0.63 (0.6-1.2) mg/dl Est Cr Clr Drug Dosing 94.5 Est GFR ( Amer) 105.3 Est GFR (Non-Af Amer) 90.9 BUN/Creatinine Ratio 31.4 H (10-20) Glucose 144 H (70-99) mg/dl POC Glucose 219 H (70-99) Estimat Average Glucose mg/dl Hemoglobin A1c (4.5-5.6) % Calcium 9.1 (8.5-10.1) mg/dl Phosphorus (2.5-4.9) mg/dl Magnesium (1.8-2.4) mg/dl Total Bilirubin (0.2-1) mg/dl AST (15-37) U/L ALT (12-78) U/L Alkaline Phosphatase (45-117) U/L Troponin I (0-0.045) ng/ml NT-Pro-B Natriuret Pep (0-900) pg/ml Total Protein (6.4-8.2) gm/dl Albumin (3.4-5.0) gm/dl Globulin (2.5-4.0) gm/dl Albumin/Globulin Ratio (0.9-2) Lipase (73-393) U/L TSH 0.617 (0.300-4.500) uIu/ml Influenza Type A (PCR) (Neg) Influenza Type B (PCR) (Neg) 12/31/18 12/31/18 12/31/18 Range/Units 21:59 17:07 16:45 WBC (4.8-10.8) K/uL RBC (4.2-5.4) M/uL Hgb (12.0-16.0) g/dL Hct (37-47) % MCV (80-100) fL MCH (25-34) pg MCHC (32-36) g/dL RDW Std Deviation (36.4-46.3) fL RDW Coeff of Judy (11.5-14.5) % Plt Count (130-400) K/uL MPV (7.4-10.4) fL Immature Gran % (Auto) % Neut % (Auto) % Lymph % (Auto) % Bent % (Auto) % Eos % (Auto) % Baso % (Auto) % Immature Gran # (Auto) (0.00-0.02) K/uL Neut # (Auto) (1.4-6.5) K/uL Lymph # (Auto) (1.2-3.4) K/uL Bent # (Auto) (0.11-0.59) K/uL Eos # (Auto) (0-0.5) K/uL Baso # (Auto) (0-0.2) K/uL PT (9.0-12.0) Seconds INR (0.9-1.1) VBG pH 7.32 L (7.36-7.41) VBG pCO2 86 H (38-50) mmHg VBG pO2 38 mmHg VBG HCO3 44 mmol/L VBG O2 Saturation 69.1 % VBG Base Excess 14.2 mEq/L Barometric Pressure 737.7 mm/Hg Sodium (136-145) mmol/L Potassium (3.5-5.1) mmol/L Chloride (98-107) mmol/L Carbon Dioxide (21-32) mmol/L Anion Gap (3-11) BUN (7-18) mg/dl Creatinine (0.6-1.2) mg/dl Est Cr Clr Drug Dosing Est GFR ( Amer) Est GFR (Non-Af Amer) BUN/Creatinine Ratio (10-20) Glucose (70-99) mg/dl POC Glucose 167 H (70-99) Estimat Average Glucose mg/dl Hemoglobin A1c (4.5-5.6) % Calcium (8.5-10.1) mg/dl Phosphorus (2.5-4.9) mg/dl Magnesium (1.8-2.4) mg/dl Total Bilirubin (0.2-1) mg/dl AST (15-37) U/L ALT (12-78) U/L Alkaline Phosphatase (45-117) U/L Troponin I (0-0.045) ng/ml NT-Pro-B Natriuret Pep (0-900) pg/ml Total Protein (6.4-8.2) gm/dl Albumin (3.4-5.0) gm/dl Globulin (2.5-4.0) gm/dl Albumin/Globulin Ratio (0.9-2) Lipase (73-393) U/L TSH (0.300-4.500) uIu/ml Influenza Type A (PCR) Neg for Influ A (Neg) Influenza Type B (PCR) Neg for Influ B (Neg) 12/31/18 12/31/18 12/31/18 Range/Units 16:30 16:30 16:30 WBC 8.22 (4.8-10.8) K/uL RBC 3.93 L (4.2-5.4) M/uL Hgb 11.7 L (12.0-16.0) g/dL Hct 38.1 (37-47) % MCV 96.9 (80-100) fL MCH 29.8 (25-34) pg MCHC 30.7 L (32-36) g/dL RDW Std Deviation 49.6 H (36.4-46.3) fL RDW Coeff of Judy 13.9 (11.5-14.5) % Plt Count 143 (130-400) K/uL MPV 12.1 H (7.4-10.4) fL Immature Gran % (Auto) 0.1 % Neut % (Auto) 67.8 % Lymph % (Auto) 25.4 % Bent % (Auto) 5.5 % Eos % (Auto) 1.1 % Baso % (Auto) 0.1 % Immature Gran # (Auto) 0.01 (0.00-0.02) K/uL Neut # (Auto) 5.57 (1.4-6.5) K/uL Lymph # (Auto) 2.09 (1.2-3.4) K/uL Bent # (Auto) 0.45 (0.11-0.59) K/uL Eos # (Auto) 0.09 (0-0.5) K/uL Baso # (Auto) 0.01 (0-0.2) K/uL PT 10.0 (9.0-12.0) Seconds INR 1.0 (0.9-1.1) VBG pH (7.36-7.41) VBG pCO2 (38-50) mmHg VBG pO2 mmHg VBG HCO3 mmol/L VBG O2 Saturation % VBG Base Excess mEq/L Barometric Pressure mm/Hg Sodium 140 (136-145) mmol/L Potassium 4.1 (3.5-5.1) mmol/L Chloride 96 L (98-107) mmol/L Carbon Dioxide 40 H (21-32) mmol/L Anion Gap 4.0 (3-11) BUN 21 H (7-18) mg/dl Creatinine 0.78 (0.6-1.2) mg/dl Est Cr Clr Drug Dosing Not Reportable Est GFR ( Amer) 89.3 Est GFR (Non-Af Amer) 77.0 BUN/Creatinine Ratio 27.3 H (10-20) Glucose 99 (70-99) mg/dl POC Glucose (70-99) Estimat Average Glucose mg/dl Hemoglobin A1c (4.5-5.6) % Calcium 9.5 (8.5-10.1) mg/dl Phosphorus 3.2 (2.5-4.9) mg/dl Magnesium 1.9 (1.8-2.4) mg/dl Total Bilirubin 0.3 (0.2-1) mg/dl AST 17 (15-37) U/L ALT 15 (12-78) U/L Alkaline Phosphatase 57 (45-117) U/L Troponin I 0.022 (0-0.045) ng/ml NT-Pro-B Natriuret Pep 743 (0-900) pg/ml Total Protein 7.5 (6.4-8.2) gm/dl Albumin 3.5 (3.4-5.0) gm/dl Globulin 4.0 (2.5-4.0) gm/dl Albumin/Globulin Ratio 0.9 (0.9-2) Lipase 145 (73-393) U/L TSH (0.300-4.500) uIu/ml Influenza Type A (PCR) (Neg) Influenza Type B (PCR) (Neg) (1) Diabetes Diabetes mellitus complication status: without complication Diabetes mellitus ocean transportation intermediary insulin use: without ocean transportation intermediary use Diabetes mellitus type: type 2 Qualified Code(s): E11.9 - Type 2 diabetes mellitus without complications (2) Depression Active/Remission status: currently active Depression Type: major depressive disorder Major depression episode severity: unspecified Major depression recurrence: recurrent Qualified Code(s): F33.9 - Major depressive disorder, recurrent, unspecified (3) Hypothyroidism Hypothyroidism type: unspecified Qualified Code(s): E03.9 - Hypothyroidism, unspecified (4) COPD (chronic obstructive pulmonary disease) COPD type: emphysema Emphysema type: unspecified Qualified Code(s): J43.9 - Emphysema, unspecified (5) Hypertension Hypertension type: essential hypertension Qualified Code(s): I10 - Essential (primary) hypertension
[2019-01-01] MEDS: LEVALBUTEROL HCL 0.63 MG/3 ML NEB NEB SCH (19:06)
[2019-01-01] MEDS: FLUTICASONE/SALMETEROL 250/50 (ADVAIR) 14 PUFF/1 INHALER INH SCH (20:37)
[2019-01-02] MEDS: methylPREDNISolone 40 MG in SYRINGE 0 ML IV SCH ×3 (00:20→21:09)
[2019-01-02] MEDS: LEVALBUTEROL HCL 0.63 MG/3 ML NEB NEB SCH ×4 (02:13→19:11)
[2019-01-02] MEDS: LEVOTHYROXINE SODIUM 137 MCG TABLET PO SCH (06:11)
[2019-01-02 08:16] LABS: Hematocrit (blood only) 35.1 % (37-47); Hemoglobin 10.9 g/dL (12.0-16.0); Mean Corpuscular Hgb Conc 31.1 g/dL (32-36); Mean Corpuscular Volume 96.7 fL (80-100); Mean Platelet Volume 12.2 fL (7.4-10.4); Platelet Count 135 K/uL (130-400); RDW Coefficient of Variation 14.3 % (11.5-14.5); RDW Standard Deviation 50.7 fL (36.4-46.3); Red Blood Count 3.63 M/uL (4.2-5.4); White Blood Count 9.14 K/uL (4.8-10.8)
[2019-01-02] MEDS: SACCHAROMYCES BOULARDII 250 MG CAP PO SCH (08:25)
[2019-01-02] MEDS: hydroCHLOROthiazide 25 MG TAB PO SCH (08:25)
[2019-01-02] MEDS: CITALOPRAM 20 MG TAB PO SCH (08:25)
[2019-01-02] MEDS: ESTRADIOL 1 MG TAB PO SCH (08:26)
[2019-01-02] MEDS: FUROSEMIDE 40 MG TAB PO SCH (08:27)
[2019-01-02] MEDS: FLUTICASONE/SALMETEROL 250/50 (ADVAIR) 14 PUFF/1 INHALER INH SCH ×2 (08:27→21:09)
[2019-01-02] MEDS: INSULIN ASPART 100 UNITS/ML 3 ML PEN SC SCH ×4 (08:40→21:06)
[2019-01-02 09:03] LABS: Calcium 9.4 mg/dl (8.5-10.1); Est GFR (African American) 105.9; Est GFR (Non-African American) 91.4; Magnesium 2.2 mg/dl (1.8-2.4); Potassium 4.3 mmol/L (3.5-5.1)
[2019-01-02] MEDS ORDERED: LORazepam 0.5 MG TAB PO PRN (14:52)
--- NOTE | 2019-01-02 14:53 | Hospitalist Progress Note ---
Date of Service January 02, 2019 Assessment & Plan (1) Shortness of breath: - Presented with CAMACHO likely related to COPD exacerbation. - CXR was negative for infiltrate. - Treatment for COPD as noted below. (2) COPD (chronic obstructive pulmonary disease): - Required 4L O2 at baseline prior to admission; now weaned down to home requirements. - Xopenex q6hr scheduled (hold Duonebs due to tachycardia) - Continue home Advair BID. - Solumedrol 40 mg IV - will decrease to q12hr. - Hold abx due to h/o C. diff. (3) Acute and chronic respiratory failure: - Requires 4L at baseline; O2 saturation was decreased at admission, now stable on home requirements. - Will continue to monitor. (4) Hypercapnia: - Chronic CO2 retainer in the setting of COPD. - Baseline CO2 levels ~38-45. - Monitor qAM. (5) Hypertension: - Continue home Lasix 40 mg daily and HCTZ 12.5 mg daily. - BP well controlled. (6) Depression: - History of MDD as well as grief from loss of her and son. - Continue Celexa 40 mg daily. - Will add Ativan 0.5 mg BID prn. (7) Hypothyroidism: - Continue Synthroid 137 mcg daily. - TSH was 0.6. (8) Diabetes: - Hemoglobin A1C was 6.0. - SSI coverage with gluc checks ac/hs. (9) History of Clostridium difficile infection: - H/o severe C. diff infection; follows with Dr. Hamm. - Continue weekly PO Vancomycin. - Continue probiotics. - Avoid all antibiotics if possible. (10) Anemia: - Hemoglobin baseline ~10-11. - Will monitor levels qAM. (11) Morbid obesity: - BMI 42. - Encourage weight loss and exercise. (12) DVT prophylaxis: - Lovenox. Dispo: Med/surg for treatment of COPD exacerbation. Supervising Physician Co-Signing Physician Notes Attending Attestation- Chart reviewed, care plan d/w LIAN Razo in detail. Pt's COPD exacerbation improving with customary measures; agree w/ decrease in steroids today. Vitals/labs remain stable. Acute respiratory failure improved; has chronic hypoxic/hypercarbic resp failure at baseline. Zack Jaffe MD Subjective Patient has ongoing shortness of breath this morning, both at rest and with exertion. She is not back to her baseline yet -- has shortness of breath with exertion at home. She feels "jittery" following Xopenex treatments. HR has been elevated, ~upper 90's to 100's. She became tearful today, stating the month of December is when her and son both . She expressed her wish to "give up" at times due to depression at home. Review of Systems All systems reviewed & are unremarkable except as noted in HPI & below Constitutional: + fatigue and + weakness; no fever and no chills Respiratory: + cough, + dyspnea and + dyspnea on exertion; no chest congestion, no sputum production and no wheezing Cardiovascular: + edema (chronic ); no chest pain, no palpitations, no lightheadedness and no syncope Gastrointestinal: no abdominal pain, no nausea and no constipation Genitourinary (Female): no difficulty urinating Musculoskeletal: no joint pain Psychiatric: + depression and + hopelessness Allergy / Immunological: no rash Physical Exam Vital Signs (Past 24 Hours): Last Vital Signs Temp 36.4 C L 01/02/19 07:21 Pulse 103 H 01/02/19 13:41 Resp 22 01/02/19 13:41 BP 116/72 01/02/19 07:21 Pulse Ox 90 01/02/19 13:41 Physical Exam: General: Resting comfortably in no apparent distress; A&OX3 HEENT: NC/AT; PERRLA with EOMI; [place] conjunctiva, MMM. Neck: Supple and nontender Cardiac: RRR Lungs: on 4L via NC; diminished throughout Abdomen: Bowel normoactive X 4; Nontender to palpation Extremities: Warm. +1 bilat LE pitting edema. Mild tremor noted in bilat upper extremities. Neuro: No focal weakness Skin: No rash Results & Data Laboratory Results 01/02/19 01/02/19 01/02/19 Range/Units 11:12 07:44 07:44 WBC 9.14 (4.8-10.8) K/uL RBC 3.63 L (4.2-5.4) M/uL Hgb 10.9 L (12.0-16.0) g/dL Hct 35.1 L (37-47) % MCV 96.7 (80-100) fL MCH 30.0 (25-34) pg MCHC 31.1 L (32-36) g/dL RDW Std Deviation 50.7 H (36.4-46.3) fL RDW Coeff of Judy 14.3 (11.5-14.5) % Plt Count 135 (130-400) K/uL MPV 12.2 H (7.4-10.4) fL Sodium 141 (136-145) mmol/L Potassium 4.3 (3.5-5.1) mmol/L Chloride 97 L (98-107) mmol/L Carbon Dioxide 42 H* (21-32) mmol/L Anion Gap 2.0 L (3-11) BUN 26 H (7-18) mg/dl Creatinine 0.62 (0.6-1.2) mg/dl Est Cr Clr Drug Dosing 96.0 ml/min Est GFR ( Amer) 105.9 Est GFR (Non-Af Amer) 91.4 BUN/Creatinine Ratio 42.0 H (10-20) Glucose 127 H (70-99) mg/dl POC Glucose 112 H (70-99) Calcium 9.4 (8.5-10.1) mg/dl Magnesium 2.2 (1.8-2.4) mg/dl 01/02/19 01/01/19 01/01/19 Range/Units 07:36 20:15 17:01 WBC (4.8-10.8) K/uL RBC (4.2-5.4) M/uL Hgb (12.0-16.0) g/dL Hct (37-47) % MCV (80-100) fL MCH (25-34) pg MCHC (32-36) g/dL RDW Std Deviation (36.4-46.3) fL RDW Coeff of Judy (11.5-14.5) % Plt Count (130-400) K/uL MPV (7.4-10.4) fL Sodium (136-145) mmol/L Potassium (3.5-5.1) mmol/L Chloride (98-107) mmol/L Carbon Dioxide (21-32) mmol/L Anion Gap (3-11) BUN (7-18) mg/dl Creatinine (0.6-1.2) mg/dl Est Cr Clr Drug Dosing ml/min Est GFR ( Amer) Est GFR (Non-Af Amer) BUN/Creatinine Ratio (10-20) Glucose (70-99) mg/dl POC Glucose 132 H 153 H 145 H (70-99) Calcium (8.5-10.1) mg/dl Magnesium (1.8-2.4) mg/dl (1) Diabetes Diabetes mellitus complication status: without complication Diabetes mellitus buttermaker insulin use: without buttermaker use Diabetes mellitus type: type 2 Qualified Code(s): E11.9 - Type 2 diabetes mellitus without complications (2) Depression Active/Remission status: currently active Depression Type: major depressive disorder Major depression episode severity: unspecified Major depression recurrence: recurrent Qualified Code(s): F33.9 - Major depressive disorder, recurrent, unspecified (3) Hypothyroidism Hypothyroidism type: unspecified Qualified Code(s): E03.9 - Hypothyroidism, unspecified (4) COPD (chronic obstructive pulmonary disease) COPD type: emphysema Emphysema type: unspecified Qualified Code(s): J43.9 - Emphysema, unspecified (5) Hypertension Hypertension type: essential hypertension Qualified Code(s): I10 - Essential (primary) hypertension
[2019-01-02] MEDS: ENOXAPARIN INJ 40 MG/0.4 ML SYR SQ SCH (21:09)
[2019-01-03] MEDS: LEVALBUTEROL HCL 0.63 MG/3 ML NEB NEB SCH ×4 (01:54→19:12)
[2019-01-03] MEDS: LEVOTHYROXINE SODIUM 137 MCG TABLET PO SCH (06:41)
[2019-01-03] MEDS: FLUTICASONE/SALMETEROL 250/50 (ADVAIR) 14 PUFF/1 INHALER INH SCH ×2 (08:30→20:30)
[2019-01-03] MEDS: ESTRADIOL 1 MG TAB PO SCH (08:31)
[2019-01-03] MEDS: CITALOPRAM 20 MG TAB PO SCH (08:31)
[2019-01-03] MEDS: FUROSEMIDE 40 MG TAB PO SCH (08:32)
[2019-01-03] MEDS: hydroCHLOROthiazide 25 MG TAB PO SCH (08:32)
[2019-01-03] MEDS: SACCHAROMYCES BOULARDII 250 MG CAP PO SCH (08:32)
[2019-01-03] MEDS: methylPREDNISolone 40 MG in SYRINGE 0 ML IV SCH ×2 (08:33→20:30)
[2019-01-03] MEDS: INSULIN ASPART 100 UNITS/ML 3 ML PEN SC SCH ×4 (08:36→20:30)
[2019-01-03 08:53] LABS: BUN Creatinine Ratio 38.2 (10-20); Calcium 9.3 mg/dl (8.5-10.1); Creatinine Clr Calc Pharmacy 79.4 ml/min; Est GFR (African American) 93.6; Est GFR (Non-African American) 80.8; Magnesium 2.1 mg/dl (1.8-2.4); Potassium 3.9 mmol/L (3.5-5.1)
[2019-01-03 12:17] LABS: Base Excess VBG 18.4 mEq/L; Oxygen Saturation VBG 66.4 %; pH VBG 7.34 (7.36-7.41)
--- NOTE | 2019-01-03 15:01 | Hospitalist Progress Note ---
Date of Service January 03, 2019 Assessment & Plan (1) Shortness of breath: - Presented with CAMACHO likely related to COPD exacerbation. - CXR was negative for infiltrate. - Treatment for COPD as noted below. (2) COPD (chronic obstructive pulmonary disease): - Required 4L O2 at baseline prior to admission; now weaned down to home requirements. - Xopenex q6hr scheduled (hold Duonebs due to tachycardia) - Continue home Advair BID. - Solumedrol 40 mg IV q12hr. - Hold abx due to h/o C. diff. (3) Acute on chronic respiratory failure with hypoxia and hypercapnia: - Requires 4L via NC at home; now weaned to home requirements. - Has increasing CO2 levels on lab work; VBG showed CO2 of 93 this morning. - Will wean oxygen with goal O2 saturation ~88-90%. - Started BiPAP this afternoon; repeat labs are pending to evaluate for improvement in hypercapnia. - Pt. will likely benefit from BiPAP at home -- discussed with case management. Will likely need overnight oximetry study prior to discharge. - Will continue BiPAP as tolerated -- consider BiPAP qhs if pt. cannot tolerate continuously. (4) Chest pain: - Developed sternal chest pain this afternoon - unclear etiology, cardiac source vs. anxiety vs. GI source. - EKG showed no acute changes. - Initial trop was negative; will repeat x 2. - Started PPI - may be related to GERD. - H/o anxiety -- Ativan 0.5 mg BID prn. (5) Lightheadedness: - May be related to CO2 retention; mental status is intact. - BiPAP as noted above for CO2 retention. - Orthostatics were negative. (6) Hypertension: - Continue home Lasix 40 mg daily and HCTZ 12.5 mg daily. - Has been intermittently hypertensive. (7) Depression: - History of MDD as well as grief from loss of her and son. - Continue Celexa 40 mg daily. - Ativan 0.5 mg BID prn. (8) Hypothyroidism: - Continue Synthroid 137 mcg daily. - TSH was 0.6. (9) Diabetes: - Hemoglobin A1C was 6.0. - SSI coverage with gluc checks ac/hs. (10) History of Clostridium difficile infection: - H/o severe C. diff infection; follows with Dr. Hamm. - Continue weekly PO Vancomycin. - Continue probiotics. - Avoid all antibiotics if possible. (11) Anemia: - Hemoglobin baseline ~10-11. - Iron studies, B12 and Folate levels in the AM. (12) Morbid obesity: - BMI 42. - Encourage weight loss and exercise. (13) DVT prophylaxis: - Lovenox. Dispo: Med/surg for treatment of COPD exacerbation. Will likely require BiPAP at home. PT/OT ordered. Supervising Physician Co-Signing Physician Notes PA Supervision Note: I did not personally see or examine the patient today, but I verified all duncan points of LIAN Collins's assessment and plan with the following exceptions/additions: None Subjective Pt. has ongoing shortness of breath, both at rest and with exertion. Has remained stable on 4L via NC. Complains of chest pressure -- pain is constant and described as aching. Denies nausea/vomiting, radiation of pain, diaphoresis. She does feel lightheaded at times, at rest and with movement. Is having regular BMs, denies urinary retention. CO2 is trending up on labs -- is above baseline elevated CO2 levels. Pt. uses oxygen at home but does not have CPAP or BiPAP machine. Her had a BIPAP machine at home. Will trial BiPAP this afternoon. Will likely require overnight oximetry study prior to discharge to qualify for BiPAP at home. Review of Systems All systems reviewed & are unremarkable except as noted in HPI & below Constitutional: + fatigue and + weakness; no fever, no chills and no anorexia Respiratory: + dyspnea and + dyspnea on exertion; no cough, no chest congestion and no sputum production Cardiovascular: + chest pain, + chest pain at rest, + chest pain with activity and + lightheadedness; no radiating jaw, neck or arm pain, no syncope and no edema Gastrointestinal: no abdominal pain, no nausea, no vomiting, no constipation and no diarrhea/loose stools Genitourinary (Female): no difficulty urinating Musculoskeletal: no joint pain Allergy / Immunological: no rash Physical Exam Vital Signs (Past 24 Hours): Last Vital Signs Temp 36.5 C 01/03/19 08:34 Pulse 102 H 01/03/19 14:07 Resp 23 01/03/19 14:07 BP 172/88 H 01/03/19 11:19 Pulse Ox 98 01/03/19 14:07 Physical Exam: General: Elderly female, in no acute distress. HEENT: NC/AT; PERRLA with EOMI; [place] conjunctiva, MMM. Neck: Supple and nontender Cardiac: RRR Lungs: on 4L via NC; diminished BS throughout Abdomen: Bowel normoactive X 4; Nontender to palpation Extremities: Warm. +1 bilat LE pitting edema. Neuro: No focal weakness Skin: No rash Results & Data Laboratory Results 01/03/19 01/03/19 01/03/19 Range/Units 11:57 11:57 11:55 VBG pH 7.34 L (7.36-7.41) VBG pCO2 93 H (38-50) mmHg VBG pO2 36 mmHg VBG HCO3 49 mmol/L VBG O2 Saturation 66.4 % VBG Base Excess 18.4 mEq/L Barometric Pressure 726.4 mm/Hg Sodium (136-145) mmol/L Potassium (3.5-5.1) mmol/L Chloride (98-107) mmol/L Carbon Dioxide (21-32) mmol/L Anion Gap (3-11) BUN (7-18) mg/dl Creatinine (0.6-1.2) mg/dl Est Cr Clr Drug Dosing ml/min Est GFR ( Amer) Est GFR (Non-Af Amer) BUN/Creatinine Ratio (10-20) Glucose (70-99) mg/dl POC Glucose 101 H (70-99) Calcium (8.5-10.1) mg/dl Magnesium (1.8-2.4) mg/dl Troponin I 0.026 (0-0.045) ng/ml 01/03/19 01/03/19 01/02/19 Range/Units 07:55 06:54 20:33 VBG pH (7.36-7.41) VBG pCO2 (38-50) mmHg VBG pO2 mmHg VBG HCO3 mmol/L VBG O2 Saturation % VBG Base Excess mEq/L Barometric Pressure mm/Hg Sodium 141 (136-145) mmol/L Potassium 3.9 (3.5-5.1) mmol/L Chloride 95 L (98-107) mmol/L Carbon Dioxide 49 H* (21-32) mmol/L Anion Gap -2.0 L (3-11) BUN 29 H (7-18) mg/dl Creatinine 0.75 (0.6-1.2) mg/dl Est Cr Clr Drug Dosing 79.4 ml/min Est GFR ( Amer) 93.6 Est GFR (Non-Af Amer) 80.8 BUN/Creatinine Ratio 38.2 H (10-20) Glucose 115 H (70-99) mg/dl POC Glucose 114 H 95 (70-99) Calcium 9.3 (8.5-10.1) mg/dl Magnesium 2.1 (1.8-2.4) mg/dl Troponin I (0-0.045) ng/ml 01/02/19 Range/Units 16:51 VBG pH (7.36-7.41) VBG pCO2 (38-50) mmHg VBG pO2 mmHg VBG HCO3 mmol/L VBG O2 Saturation % VBG Base Excess mEq/L Barometric Pressure mm/Hg Sodium (136-145) mmol/L Potassium (3.5-5.1) mmol/L Chloride (98-107) mmol/L Carbon Dioxide (21-32) mmol/L Anion Gap (3-11) BUN (7-18) mg/dl Creatinine (0.6-1.2) mg/dl Est Cr Clr Drug Dosing ml/min Est GFR ( Amer) Est GFR (Non-Af Amer) BUN/Creatinine Ratio (10-20) Glucose (70-99) mg/dl POC Glucose 118 H (70-99) Calcium (8.5-10.1) mg/dl Magnesium (1.8-2.4) mg/dl Troponin I (0-0.045) ng/ml (1) Diabetes Diabetes mellitus complication status: without complication Diabetes mellitus correction insulin use: without correction use Diabetes mellitus type: type 2 Qualified Code(s): E11.9 - Type 2 diabetes mellitus without complications (2) Depression Active/Remission status: currently active Depression Type: major depressive disorder Major depression episode severity: unspecified Major depression recurrence: recurrent Qualified Code(s): F33.9 - Major depressive disorder, recurrent, unspecified (3) Hypothyroidism Hypothyroidism type: unspecified Qualified Code(s): E03.9 - Hypothyroidism, unspecified (4) COPD (chronic obstructive pulmonary disease) COPD type: emphysema Emphysema type: unspecified Qualified Code(s): J43.9 - Emphysema, unspecified (5) Hypertension Hypertension type: essential hypertension Qualified Code(s): I10 - Essential (primary) hypertension
[2019-01-03] MEDS: PANTOprazole 40 MG TAB PO SCH (17:24)
[2019-01-03 17:57] LABS: BUN Creatinine Ratio 35.8 (10-20); Calcium 9.5 mg/dl (8.5-10.1); Creatinine Clr Calc Pharmacy 70.9 ml/min; Est GFR (African American) 81.6; Est GFR (Non-African American) 70.4; Potassium 4.1 mmol/L (3.5-5.1); Troponin I 0.029 ng/ml (0-0.045)
[2019-01-03] MEDS: ENOXAPARIN INJ 40 MG/0.4 ML SYR SQ SCH (20:17)
--- NOTE | 2019-01-04 01:00 | Consultation Report ---
DATE OF CONSULTATION: 01/03/2019 REASON FOR CONSULTATION: COPD exacerbation. HISTORY OF PRESENT ILLNESS: A 68-year-old white female patient of Dr. Castillo with severe chronic obstructive pulmonary disease, O2 dependent disease, depression, dyslipidemia, hypertension, history of pseudomembranous colitis, and degenerative cervical arthritis. She was admitted onto the hospitalist service on 12/31/2018 with progressive dyspnea over the past 3-4 weeks. She is on home oxygen at 4 liters and has been particularly symptomatic over the past 2 weeks reaching the point where she was seen in the Emergency Room and admitted onto the hospitalist service for acute COPD exacerbation and acute hypoxic on chronic hypercarbic respiratory failure. The patient has been administered IV Solu-Medrol, aerosolized bronchodilator, not placed on broad-spectrum antibiotics initially because of the past history of pseudomembranous colitis. The patient has shown only modest improvement and I have been asked to see the patient in consultation. Review of Dr. Castillo's note states that he last saw the patient on 02/20/2018. At that time, she was reasonably well controlled using Advair and her aerosolized bronchodilator. She has followed up with Deepali Marvin 3 times in August of 2018, but apparently has not been seen since then. She had acute visits and complained of blurred vision in her right and severe dyspnea. She is a former smoker and is extremely symptomatic at home. She is also concerned about the cost of her healthcare. She has been on p.o. vancomycin chronically for pseudomembranous colitis. Once again, antibiotics have been held because of concerns of exacerbating her underlying pseudomembranous colitis. Amita Collins, the hospitalist midlevel provider taken over care and has asked me to see her. I visited her this afternoon as she was receiving aerosol treatment via nebulizer and BiPAP with full facial mask was being administered. For details of past medical history, medications, family and social history, I refer you to the current and past record. MEDICATION ALLERGIES: CODEINE, ATROPINE, DIPHENOXYLATE, MOXIFLOXACIN, AND PREDNISONE? PHYSICAL EXAMINATION: GENERAL: Reveals a developed, somewhat cushingoid white female appearing dyspneic at rest and apprehensive. CURRENT VITAL SIGNS: Blood pressure 172/88, pulse 102 and regular, respiratory rate 23 using the accessory muscles of respiration, temperature 36.5, O2 sat 98% on 4 liters. SKIN: Without lesion. HEENT: Atraumatic, normocephalic. PERRLA. LUNGS: Marked hyperresonance with coarse wheezes diffusely. CARDIAC: Regular rate and rhythm. I do not appreciate a gallop. ABDOMEN: Soft, protuberant. EXTREMITIES: +1 pitting edema with chronic brawny changes. LABORATORY DATA: Yesterday's white count 9100, H and H 10.9 and 35.1. ABGs done today, pH 7.34, pCO2 of 93, pO2 of 36. Suspect venous gases. Calculated CO2 is 49. Troponin is normal. Influenza PCR for A and B negative. IMAGING DATA: Chest x-ray in mid August of 2018 showed no acute changes. X-ray on admission here shows probable eventration of left hemidiaphragm, no acute changes. OVERALL ASSESSMENT AND PLAN: This is a 68-year-old with severe end-stage chronic obstructive pulmonary disease, O2 dependent, with persistent bronchospasm, no doubt requiring treatment for chronic asthmatic bronchitis. The patient is receiving IV methylprednisolone 40 mg q. 12 hours, p.o. vancomycin prophylactically, and nebulizer treatment with Xopenex at low dose 0.63 mg per dose. The patient clearly appears to be somewhat compensated, but in the throes of acute hypoxic and chronic hypercarbic respiratory failure. BiPAP unit has been employed and we will see if that is helpful to her and tolerated. I will increase her steroid dosing, although I know that increases the risk of recurrent bouts of pseudomembranous colitis. We will need to address code status with this patient as no doubt she is potentially slipping into incipient acute respiratory failure and we do not appear to have been able to have broken the status nature of her bronchospasm. We may very well have to employ IV antibiotics despite its potential hazard for aggravating her pseudomembranous colitis. MELLOD
[2019-01-04] MEDS: LEVALBUTEROL HCL 0.63 MG/3 ML NEB NEB SCH ×5 (01:47→19:02)
[2019-01-04] MEDS: LEVOTHYROXINE SODIUM 137 MCG TABLET PO SCH (05:55)
[2019-01-04] MEDS: PANTOprazole 40 MG TAB PO SCH (07:54)
[2019-01-04] MEDS: hydroCHLOROthiazide 25 MG TAB PO SCH (07:54)
[2019-01-04] MEDS: SACCHAROMYCES BOULARDII 250 MG CAP PO SCH (07:54)
[2019-01-04] MEDS: methylPREDNISolone 40 MG in SYRINGE 0 ML IV SCH ×2 (07:55→20:03)
[2019-01-04] MEDS: FLUTICASONE/SALMETEROL 250/50 (ADVAIR) 14 PUFF/1 INHALER INH SCH ×2 (07:55→20:04)
[2019-01-04] MEDS: ESTRADIOL 1 MG TAB PO SCH (07:56)
[2019-01-04] MEDS: FUROSEMIDE 40 MG TAB PO SCH (07:56)
[2019-01-04] MEDS: CITALOPRAM 20 MG TAB PO SCH (07:57)
[2019-01-04 08:15] LABS: Hematocrit (blood only) 39.3 % (37-47); Hemoglobin 12.1 g/dL (12.0-16.0); Mean Corpuscular Hgb Conc 30.8 g/dL (32-36); Mean Corpuscular Volume 97.3 fL (80-100); Mean Platelet Volume 11.9 fL (7.4-10.4); Platelet Count 151 K/uL (130-400); RDW Coefficient of Variation 14.1 % (11.5-14.5); Red Blood Count 4.04 M/uL (4.2-5.4); White Blood Count 9.37 K/uL (4.8-10.8)
[2019-01-04 08:57] LABS: BUN Creatinine Ratio 40.3 (10-20); Calcium 9.4 mg/dl (8.5-10.1); Creatinine Clr Calc Pharmacy 78.4 ml/min; Est GFR (African American) 92.1; Est GFR (Non-African American) 79.5; Ferritin 48.6 ng/ml (8-388); Potassium 4.1 mmol/L (3.5-5.1)
[2019-01-04] MEDS: INSULIN ASPART 100 UNITS/ML 3 ML PEN SC SCH ×4 (09:00→21:38)
[2019-01-04] MEDS ORDERED: RASPBERRY SYRUP 5 ML UDP PO SCH (09:00)
[2019-01-04] MEDS ORDERED: VANCOMYCIN HCL 125 MG/2.5ML SOLN PO SCH (09:00)
[2019-01-04 09:06] LABS: Folate (Folic Acid) 7.52 ng/ml (>5.38)
--- NOTE | 2019-01-04 12:36 | Progress Note ---
DATE: 01/04/2019 PULMONARY MEDICINE PROGRESS NOTE Chart reviewed, patient examined. SUBJECTIVE: Seems better from a respiratory standpoint today. Did not tolerate BiPAP mostly with the full face mask yesterday. Refuses antibiotic therapy because of her past history of pseudomembranous colitis. OBJECTIVE: VITAL SIGNS: Blood pressure 141/80, pulse 81 and regular, respiratory rate 18, temperature 36.4, O2 sat 98% on 4 liters. SKIN: Without lesion. HEENT: Atraumatic, normocephalic. PERRLA. LUNGS: Distant P and A, hyperresonant, wheezing less pronounced. CARDIAC: Regular rhythm. No murmurs or gallops. ABDOMEN: Soft, protuberant. EXTREMITIES: No pedal edema, clubbing or cyanosis. NEUROLOGIC: Intact. No lateralizing signs. ASSESSMENT: A 68-year-old with chronic obstructive pulmonary disease, presents with [id number] respiratory failure with chronic obstructive pulmonary disease exacerbation. PLAN: I had a lengthy discussion with the patient. We would like to see if we can titrate her O2 to under 4 liters and still maintain her saturation. I have explained to her the reason for doing such. In addition, we will see if she can tolerate her BiPAP utilizing a nasal device or nasal cannula/apparatus to help assist with her comfort level in that she did not have to utilize a full facemask. We will hold off on antibiotics at this juncture.
--- NOTE | 2019-01-04 13:39 | Hospitalist Progress Note ---
Date of Service January 04, 2019 Assessment & Plan (1) Shortness of breath: - Presented with CAMACHO likely related to end stage COPD with acute exacerbation. - CXR was negative for infiltrate. - Treatment for COPD as noted below. (2) COPD (chronic obstructive pulmonary disease): - Required 4L O2 at baseline prior to admission, currently requiring baseline oxygen. - Xopenex q6hr scheduled (hold Duonebs due to tachycardia) - Continue home Advair BID. - Solumedrol 40 mg IV q12hr - will begin to taper if dyspnea is improving. - Hold abx due to h/o C. diff; low threshold to start Levaquin or doxycycline. (3) Acute on chronic respiratory failure with hypoxia and hypercapnia: - Requires 4L via NC at home; cannot wean requirements, desatted to 69% on 3L this afternoon with ambulation. - Increased CO2 on BMP and VBG, above baseline; is likely chronic CO2 retainer due to severe COPD. - Goal O2 saturation ~88-90%. - Attempted BiPAP on 01/03 due to increasing hypercapnia, pt. did not tolerate mask. - Will likely need to consult palliative care due to poor prognosis in setting of severe COPD. (4) Chest pain: - Developed sternal chest pain on 01/03, now resolved. May be related to anxiety vs. GI source. - EKG was negative. - Trop peaked at 0.035; no further levels indicated. - Started PPI - may be related to GERD. - H/o anxiety -- Ativan 0.5 mg BID prn. (5) Lightheadedness: - May be related to CO2 retention; mental status is intact. - Did not tolerate BiPAP as noted above. - Orthostatics were negative. (6) Hypertension: - Continue home Lasix 40 mg daily and HCTZ 12.5 mg daily. (7) Depression: - History of MDD as well as grief from loss of her and son. - Continue Celexa 40 mg daily. - Ativan 0.5 mg BID prn. (8) Hypothyroidism: - Continue Synthroid 137 mcg daily. - TSH was 0.6. (9) Diabetes: - Hemoglobin A1C was 6.0. - SSI coverage with gluc checks ac/hs. (10) History of Clostridium difficile infection: - H/o severe C. diff infection; follows with Dr. Hamm. - Continue weekly PO Vancomycin. - Continue probiotics. - Avoid all antibiotics if possible. (11) Anemia of chronic disease: - Hemoglobin ~10-11. - Iron studies consistent with anemia of chronic disease. - B12 and Folate WNL. (12) Morbid obesity: - BMI 42. - Encourage weight loss and exercise. (13) DVT prophylaxis: - Lovenox. Dispo: Med/surg for treatment of COPD exacerbation. Plan to consult palliative care on Sunday as pt. has had very minimal improvement during this admission due to severe disease. Supervising Physician Co-Signing Physician Notes PA Supervision Note: I did not personally see or examine the patient today, but I verified all duncan points of LIAN Collins's assessment and plan with the following exceptions/additions: None Subjective Pt. has SOB with exertion today but denies SOB at rest. Has been requiring 4L via NC -- attempted to wean oxygen to 3L today but O2 saturation dropped to 69% with exertion. She required ~10 min to recover from episode. Chest pain/pressure now resolved. She complains of feeling very fatigued and foggy -- may be related to elevated CO2 levels. Pt. tolerated BiPAP for 1 hour yesterday afternoon then 1 hour last evening. She cannot tolerate mask -- would like to try nasal cannula if possible. Review of Systems All systems reviewed & are unremarkable except as noted in HPI & below Constitutional: + fatigue and + weakness; no fever and no chills Respiratory: + dyspnea on exertion; no cough, no dyspnea and no wheezing Cardiovascular: no chest pain, no palpitations, no syncope and no edema Gastrointestinal: no abdominal pain, no nausea and no constipation Genitourinary (Female): no difficulty urinating Musculoskeletal: no joint pain Allergy / Immunological: no rash Physical Exam Vital Signs (Past 24 Hours): Last Vital Signs Temp 36.4 C L 01/04/19 07:00 Pulse 81 01/04/19 11:09 Resp 18 01/04/19 11:09 BP 141/80 H 01/04/19 07:00 Pulse Ox 90 01/04/19 12:43 Physical Exam: General: Elderly female, in no acute distress. HEENT: NC/AT; PERRLA with EOMI; [place] conjunctiva, MMM. Neck: Supple and nontender Cardiac: RRR Lungs: on 4L via NC; diminished BS throughout Abdomen: Bowel normoactive X 4; Nontender to palpation Extremities: Warm. No LE edema noted. Neuro: No focal weakness Skin: No rash Results & Data Laboratory Results 01/04/19 01/04/19 01/04/19 Range/Units 12:23 08:06 08:06 WBC (4.8-10.8) K/uL RBC (4.2-5.4) M/uL Hgb (12.0-16.0) g/dL Hct (37-47) % MCV (80-100) fL MCH (25-34) pg MCHC (32-36) g/dL RDW Std Deviation (36.4-46.3) fL RDW Coeff of Judy (11.5-14.5) % Plt Count (130-400) K/uL MPV (7.4-10.4) fL Sodium 140 (136-145) mmol/L Potassium 4.1 (3.5-5.1) mmol/L Chloride 92 L (98-107) mmol/L Carbon Dioxide 49 H* (21-32) mmol/L Anion Gap -1.0 L (3-11) BUN 31 H (7-18) mg/dl Creatinine 0.76 (0.6-1.2) mg/dl Est Cr Clr Drug Dosing 78.4 ml/min Est GFR ( Amer) 92.1 Est GFR (Non-Af Amer) 79.5 BUN/Creatinine Ratio 40.3 H (10-20) Glucose 106 H (70-99) mg/dl POC Glucose 134 H (70-99) Calcium 9.4 (8.5-10.1) mg/dl Iron 62 (35-150) mcg/dl TIBC 309 (250-450) mcg/dl Transferrin 222 (200-360) mg/dl Transferrin % Sat 20 (15-50) % Ferritin 48.6 (8-388) ng/ml Troponin I 0.035 (0-0.045) ng/ml Vitamin B12 (211-911) pg/ml Folate (>5.38) ng/ml 01/04/19 01/04/19 01/04/19 Range/Units 08:06 08:06 07:48 WBC 9.37 (4.8-10.8) K/uL RBC 4.04 L (4.2-5.4) M/uL Hgb 12.1 (12.0-16.0) g/dL Hct 39.3 (37-47) % MCV 97.3 (80-100) fL MCH 30.0 (25-34) pg MCHC 30.8 L (32-36) g/dL RDW Std Deviation 50.0 H (36.4-46.3) fL RDW Coeff of Judy 14.1 (11.5-14.5) % Plt Count 151 (130-400) K/uL MPV 11.9 H (7.4-10.4) fL Sodium (136-145) mmol/L Potassium (3.5-5.1) mmol/L Chloride (98-107) mmol/L Carbon Dioxide (21-32) mmol/L Anion Gap (3-11) BUN (7-18) mg/dl Creatinine (0.6-1.2) mg/dl Est Cr Clr Drug Dosing ml/min Est GFR ( Amer) Est GFR (Non-Af Amer) BUN/Creatinine Ratio (10-20) Glucose (70-99) mg/dl POC Glucose 127 H (70-99) Calcium (8.5-10.1) mg/dl Iron (35-150) mcg/dl TIBC (250-450) mcg/dl Transferrin (200-360) mg/dl Transferrin % Sat (15-50) % Ferritin (8-388) ng/ml Troponin I (0-0.045) ng/ml Vitamin B12 687 (211-911) pg/ml Folate 7.52 (>5.38) ng/ml 01/03/19 01/03/19 01/03/19 Range/Units 23:13 20:16 16:57 WBC (4.8-10.8) K/uL RBC (4.2-5.4) M/uL Hgb (12.0-16.0) g/dL Hct (37-47) % MCV (80-100) fL MCH (25-34) pg MCHC (32-36) g/dL RDW Std Deviation (36.4-46.3) fL RDW Coeff of Judy (11.5-14.5) % Plt Count (130-400) K/uL MPV (7.4-10.4) fL Sodium 140 (136-145) mmol/L Potassium 4.1 (3.5-5.1) mmol/L Chloride 92 L (98-107) mmol/L Carbon Dioxide 50 H* (21-32) mmol/L Anion Gap -2.0 L (3-11) BUN 30 H (7-18) mg/dl Creatinine 0.84 (0.6-1.2) mg/dl Est Cr Clr Drug Dosing 70.9 ml/min Est GFR ( Amer) 81.6 Est GFR (Non-Af Amer) 70.4 BUN/Creatinine Ratio 35.8 H (10-20) Glucose 130 H (70-99) mg/dl POC Glucose 170 H (70-99) Calcium 9.5 (8.5-10.1) mg/dl Iron (35-150) mcg/dl TIBC (250-450) mcg/dl Transferrin (200-360) mg/dl Transferrin % Sat (15-50) % Ferritin (8-388) ng/ml Troponin I 0.035 0.029 (0-0.045) ng/ml Vitamin B12 (211-911) pg/ml Folate (>5.38) ng/ml 01/03/19 Range/Units 16:29 WBC (4.8-10.8) K/uL RBC (4.2-5.4) M/uL Hgb (12.0-16.0) g/dL Hct (37-47) % MCV (80-100) fL MCH (25-34) pg MCHC (32-36) g/dL RDW Std Deviation (36.4-46.3) fL RDW Coeff of Judy (11.5-14.5) % Plt Count (130-400) K/uL MPV (7.4-10.4) fL Sodium (136-145) mmol/L Potassium (3.5-5.1) mmol/L Chloride (98-107) mmol/L Carbon Dioxide (21-32) mmol/L Anion Gap (3-11) BUN (7-18) mg/dl Creatinine (0.6-1.2) mg/dl Est Cr Clr Drug Dosing ml/min Est GFR ( Amer) Est GFR (Non-Af Amer) BUN/Creatinine Ratio (10-20) Glucose (70-99) mg/dl POC Glucose 137 H (70-99) Calcium (8.5-10.1) mg/dl Iron (35-150) mcg/dl TIBC (250-450) mcg/dl Transferrin (200-360) mg/dl Transferrin % Sat (15-50) % Ferritin (8-388) ng/ml Troponin I (0-0.045) ng/ml Vitamin B12 (211-911) pg/ml Folate (>5.38) ng/ml (1) Diabetes Diabetes mellitus complication status: without complication Diabetes mellitus intermediate frame tender insulin use: without usp use Diabetes mellitus type: type 2 Qualified Code(s): E11.9 - Type 2 diabetes mellitus without complications (2) Depression Active/Remission status: currently active Depression Type: major depressive disorder Major depression episode severity: unspecified Major depression recurrence: recurrent Qualified Code(s): F33.9 - Major depressive disorder, recurrent, unspecified (3) Hypothyroidism Hypothyroidism type: unspecified Qualified Code(s): E03.9 - Hypothyroidism, unspecified (4) COPD (chronic obstructive pulmonary disease) COPD type: emphysema Emphysema type: unspecified Qualified Code(s): J43.9 - Emphysema, unspecified (5) Hypertension Hypertension type: essential hypertension Qualified Code(s): I10 - Essential (primary) hypertension
[2019-01-04] MEDS: ENOXAPARIN INJ 40 MG/0.4 ML SYR SQ SCH (20:04)
[2019-01-04] MEDS ORDERED: HydrALAZINE HCL 20 MG/ML VIAL IV STA (22:21)
[2019-01-04] MEDS ORDERED: HydrALAZINE HCL 20 MG/ML VIAL ONE (22:34)
[2019-01-05] MEDS: LEVALBUTEROL HCL 0.63 MG/3 ML NEB NEB SCH ×4 (01:50→19:03)
[2019-01-05] MEDS: LEVOTHYROXINE SODIUM 137 MCG TABLET PO SCH (05:44)
[2019-01-05 06:50] LABS: BUN Creatinine Ratio 41.1 (10-20); Calcium 9.3 mg/dl (8.5-10.1); Creatinine Clr Calc Pharmacy 82.7 ml/min; Est GFR (African American) 98.3; Est GFR (Non-African American) 84.9; Magnesium 2.1 mg/dl (1.8-2.4); Potassium 3.8 mmol/L (3.5-5.1)
[2019-01-05] MEDS: FLUTICASONE/SALMETEROL 250/50 (ADVAIR) 14 PUFF/1 INHALER INH SCH ×2 (09:47→20:52)
[2019-01-05] MEDS: CITALOPRAM 20 MG TAB PO SCH (09:48)
[2019-01-05] MEDS: hydroCHLOROthiazide 25 MG TAB PO SCH (09:49)
[2019-01-05] MEDS: ESTRADIOL 1 MG TAB PO SCH (09:49)
[2019-01-05] MEDS: SACCHAROMYCES BOULARDII 250 MG CAP PO SCH (09:49)
[2019-01-05] MEDS: methylPREDNISolone 40 MG in SYRINGE 0 ML IV SCH ×2 (09:50→20:52)
[2019-01-05] MEDS: PANTOprazole 40 MG TAB PO SCH (09:50)
[2019-01-05] MEDS: INSULIN ASPART 100 UNITS/ML 3 ML PEN SC SCH ×4 (09:52→20:52)
--- NOTE | 2019-01-05 13:28 | Hospitalist Progress Note ---
Date of Service January 05, 2019 Assessment & Plan (1) Shortness of breath: - Presented with CAMACHO likely related to end stage COPD with acute exacerbation. - Continues to have SOB at rest and with exertion. - CXR was negative for infiltrate. - Treatment for COPD as noted below. (2) COPD (chronic obstructive pulmonary disease): - Required 4L O2 at baseline prior to admission, currently requiring baseline oxygen. - Xopenex q6hr scheduled (hold Duonebs due to tachycardia) - Continue home Advair BID. - Solumedrol 40 mg IV q12hr - will begin to taper if SOB is improving. - Hold abx due to h/o C. diff; low threshold to start Levaquin or Doxycycline. (3) Acute on chronic respiratory failure with hypoxia and hypercapnia: - Requires 4L via NC at home; cannot wean requirements, desatted to 69% on 3L. - Increased CO2 on BMP, above baseline; is likely chronic CO2 retainer due to severe COPD. - Goal O2 saturation ~88-90%. - Attempted BiPAP on 01/03 due to increasing hypercapnia, pt. did not tolerate mask. Will attempt again this evening with addition of Ativan 0.5 mg PO qhs. - Will hold home Lasix 40 mg PO today due to increasing CO2 levels -- may be partially related to contraction alkalosis. - Consult palliative care due to poor prognosis in setting of severe COPD. (4) Chest pain: - Developed sternal chest pain on 01/03, now resolved. May be related to anxiety vs. GI source. - EKG was negative. - Trop peaked at 0.035; no further levels indicated. - Started PPI - may be related to GERD. - H/o anxiety -- Ativan 0.5 mg BID prn with 0.5 mg qhs scheduled. (5) Lightheadedness: - May be related to CO2 retention; mental status is intact. - Did not tolerate BiPAP as noted above. - Orthostatics were negative. (6) Hypertension: - Continue home HCTZ 12.5 mg daily; hold Lasix 40 mg PO daily in setting of rising CO2 levels. (7) Depression: - History of MDD as well as grief from loss of her and son. - Continue Celexa 40 mg daily. - Ativan 0.5 mg BID prn. - Consulting palliative care; of both family members were in December (the 18th and ) - Will also consult psych due to depression/uncontrolled anxiety. (8) Hypothyroidism: - Continue Synthroid 137 mcg daily. - TSH was 0.6. (9) Diabetes: - Hemoglobin A1C was 6.0. - SSI coverage with gluc checks ac/hs. (10) History of Clostridium difficile infection: - H/o severe C. diff infection; follows with Dr. Hamm. - Continue weekly PO Vancomycin. - Continue probiotics. - Avoid all antibiotics if possible. (11) Anemia of chronic disease: - Hemoglobin ~10-11. - Iron studies consistent with anemia of chronic disease. - B12 and Folate WNL. (12) Morbid obesity: - BMI 42. - Encourage weight loss and exercise. (13) DVT prophylaxis: - Lovenox. Dispo: Med/surg for treatment of COPD exacerbation. Plan to consult palliative care Sunday as pt. has had very minimal improvement during this admission due to severe disease. Supervising Physician Co-Signing Physician Notes PA Supervision Note: I did not personally see or examine the patient today, but I verified all duncan points of LIAN Collins's assessment and plan with the following exceptions/additions: None Subjective No significant improvement in SOB over last 24 hours. Pt. reports she had a terrible night -- had increased shortness of breath. She also had increased anxiety -- did not attempt BiPAP due to anxiety/panic attacks. She has shortness of breath both at rest and with exertion. Labs show increasing CO2 levels compared to baseline. She has been requiring 4L O2 via NC, attempted to wean oxygen but O2 sats drop to 70's on 3L. She complains of "burning" in her body -- cannot describe exactly what she means by burning. When asked about fevers, she does not feel like burning is related to a fever. Symptom is similar to feeling overwhelmed -- likely related to anxiety. Pt. agreed to take low dose Ativan. She was tearful during rounds today. Both her and son have in the month of December. One family member on 01/06 and the other on 01/13. I recommended a palliative care consult -- the patient has severe COPD and cannot tolerate BiPAP treatment for worsening respiratory failure. She does not want aggressive measures. Palliative would be beneficial to discuss goals of care. Also discussed code status - she is DNR/DNI. Review of Systems All systems reviewed & are unremarkable except as noted in HPI & below Constitutional: + fatigue and + weakness; no fever, no chills and no body aches Respiratory: + dyspnea and + dyspnea on exertion; no cough, no chest congestion and no sputum production Cardiovascular: no chest pain, no palpitations, no lightheadedness, no syncope and no edema Gastrointestinal: + constipation; no abdominal pain, no nausea, no vomiting and no diarrhea/loose stools Genitourinary (Female): no difficulty urinating Musculoskeletal: no joint pain Psychiatric: + depression and + anxiety; no confusion Allergy / Immunological: no rash Physical Exam Vital Signs (Past 24 Hours): Last Vital Signs Temp 36.5 C 01/05/19 08:00 Pulse 90 01/05/19 13:06 Resp 20 01/05/19 13:06 BP 145/85 H 01/05/19 08:00 Pulse Ox 92 01/05/19 13:06 Physical Exam: General: Elderly female, in no acute distress. HEENT: NC/AT; PERRLA with EOMI; [place] conjunctiva, MMM. Neck: Supple and nontender Cardiac: RRR Lungs: on 4L via NC; diminished BS throughout Abdomen: Bowel normoactive X 4; Nontender to palpation Extremities: Warm. Mild LE edema noted. Neuro: No focal weakness Skin: No rash Results & Data Laboratory Results 01/05/19 01/05/19 01/05/19 Range/Units 11:39 07:52 05:42 Sodium 141 (136-145) mmol/L Potassium 3.8 (3.5-5.1) mmol/L Chloride 88 L (98-107) mmol/L Carbon Dioxide 56 H* (21-32) mmol/L Anion Gap -3.0 L (3-11) BUN 30 H (7-18) mg/dl Creatinine 0.72 (0.6-1.2) mg/dl Est Cr Clr Drug Dosing 82.7 ml/min Est GFR ( Amer) 98.3 Est GFR (Non-Af Amer) 84.9 BUN/Creatinine Ratio 41.1 H (10-20) Glucose 123 H (70-99) mg/dl POC Glucose 104 H 106 H (70-99) Calcium 9.3 (8.5-10.1) mg/dl Magnesium 2.1 (1.8-2.4) mg/dl 01/04/19 01/04/19 Range/Units 20:39 16:44 Sodium (136-145) mmol/L Potassium (3.5-5.1) mmol/L Chloride (98-107) mmol/L Carbon Dioxide (21-32) mmol/L Anion Gap (3-11) BUN (7-18) mg/dl Creatinine (0.6-1.2) mg/dl Est Cr Clr Drug Dosing ml/min Est GFR ( Amer) Est GFR (Non-Af Amer) BUN/Creatinine Ratio (10-20) Glucose (70-99) mg/dl POC Glucose 116 H 127 H (70-99) Calcium (8.5-10.1) mg/dl Magnesium (1.8-2.4) mg/dl (1) Diabetes Diabetes mellitus complication status: without complication Diabetes mellitus alf insulin use: without alf use Diabetes mellitus type: type 2 Qualified Code(s): E11.9 - Type 2 diabetes mellitus without complications (2) Depression Active/Remission status: currently active Depression Type: major depressive disorder Major depression episode severity: unspecified Major depression recurrence: recurrent Qualified Code(s): F33.9 - Major depressive disorder, recurrent, unspecified (3) Hypothyroidism Hypothyroidism type: unspecified Qualified Code(s): E03.9 - Hypothyroidism, unspecified (4) COPD (chronic obstructive pulmonary disease) COPD type: emphysema Emphysema type: unspecified Qualified Code(s): J43.9 - Emphysema, unspecified (5) Hypertension Hypertension type: essential hypertension Qualified Code(s): I10 - Essential (primary) hypertension
[2019-01-05] MEDS: LORazepam 0.5 MG TAB PO SCH (20:52)
[2019-01-05] MEDS: ENOXAPARIN INJ 40 MG/0.4 ML SYR SQ SCH (20:52)
[2019-01-06] MEDS: LEVALBUTEROL HCL 0.63 MG/3 ML NEB NEB SCH ×4 (02:14→19:42)
[2019-01-06] MEDS: LEVOTHYROXINE SODIUM 137 MCG TABLET PO SCH (05:39)
[2019-01-06 07:56] LABS: BUN Creatinine Ratio 38.7 (10-20); Calcium 9.3 mg/dl (8.5-10.1); Creatinine Clr Calc Pharmacy 80.5 ml/min; Est GFR (African American) 95.1; Est GFR (Non-African American) 82.1
[2019-01-06] MEDS: FLUTICASONE/SALMETEROL 250/50 (ADVAIR) 14 PUFF/1 INHALER INH SCH ×2 (08:03→20:48)
[2019-01-06] MEDS: hydroCHLOROthiazide 25 MG TAB PO SCH (08:03)
[2019-01-06] MEDS: SACCHAROMYCES BOULARDII 250 MG CAP PO SCH (08:04)
[2019-01-06] MEDS: PANTOprazole 40 MG TAB PO SCH (08:04)
[2019-01-06] MEDS: methylPREDNISolone 40 MG in SYRINGE 0 ML IV SCH ×2 (08:04→20:48)
[2019-01-06] MEDS: CITALOPRAM 20 MG TAB PO SCH (08:04)
[2019-01-06] MEDS: ESTRADIOL 1 MG TAB PO SCH (08:04)
[2019-01-06] MEDS: INSULIN ASPART 100 UNITS/ML 3 ML PEN SC SCH ×4 (09:16→21:11)
--- NOTE | 2019-01-06 10:01 | Palliative Care Consultation ---
Date of Consultation January 06, 2019 Assessment & Plan (1) Palliative care encounter: This patient is a 68 year old female who presented from home with 4 days of increased SOB. She has a PMH including COPD for which she wears 4 LNC at home at baseline. She is being treated for a COPD exacerbation while here at the hospital. Additional PMH includes HTN and hypothyroidism. She reports being relatively independent at home. She lives at home alone in her mobile home with 4 steps entering the home. Palliative Care was consulted to discuss goals of care. -I met with patient alone in her room. -This is a significant day for her as her son two years ago today. Her on 01/13/2015. She was tearful intermittently throughout our conversation, but it seemed also comforting to her. -The patient lives alone in a mobile home that has 4 steps with a railing. She stated that she has a sister and close friend that helps to check in on her. She has used [facility] previously for some assistance, but reports independently doing her own ADL's laundry, cooking, taking the trash out, etc. 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 -The patient does have a cat, Avila that lives with her. -She does have another son who has intellectual disability and lives at [facility] but is unable to assist with any decision making on her behalf. -When talking about decision making, she stated she would want her friend to make her decisions, but no paperwork was started. She said she would think about if she would live to s/w [facility] to have this in writing. -I did confirm her code status of DNR and she did express that she knows her condition has a poor prognosis, but feels she has some functional capacity yet to return home. -We discussed her returning home with home health and transitioning to hospice, which I think is a good plan for her. We did discuss that as she declines, she may require additional care and we talked about a SNF transition, eventually but she expressed she would like to at home. -A POLST form was completed with her indicating DNR/DNI, no artificial tubes for nutrition, and limited interventions returning to the hospital - meaning that she does not want to return for COPD, but would be willing to if she sustains a suspected fracture, etc. (2) Acute on chronic respiratory failure with hypoxia and hypercapnia: -Patient wears 4LNC at baseline - patient is returning to baseline -Patient has received Methylprednisone 40 mg Q6,Nnebulizers 6 hours, and Advair BID. -Patient reports being able to walk 10-15 feet prior to getting winded -Bipap was initiated; however, appears anxiety was related to her ability to leave the mask on. Ativan was ordered to give prior to Bipap mask placement, will observe if this is beneficial. -Would need to have further discussion to see if patient would be willing to wear Bipap at home (3) Depression: -This is a significant day for her as her son two years ago today. Her on 01/13/2015. -Part of her depression is stemming not only from significant deaths in her life, but her DIL, Concepción, of her son is no longer connecting with her to have her talk with her two grand-daughters both 11 and 9 years old. -She was tearful intermittently throughout our conversation, but it seemed also comforting to her. -Patient takes Celexa 40 mg po daily and Lorazapam 0.5 mg po QHS -Patient states that she thinks a lot about life but does not feel that she has any thoughts about suicide. -Per hospitalist note, the plan was to involve Psych for situational depression. Active/Remission status: currently active Depression Type: major depressive disorder Major depression episode severity: unspecified Major depression recurrence: recurrent Qualified Code(s): F33.9 - Major depressive disorder, recurrent, unspecified Supervising Physician Co-Signing Physician Notes Chart reviewed, patient seen and examined, collaborated with DAMIR Sung Patient awake alert, sitting up in a chair appears fairly comfortable on 4 L nasal cannula Patient reports that this exacerbation may have been triggered by cleaning her bathroom partly due to the exertion and partly due to the fumes from bleach- discussed getting someone else to do her cleaning-patient agreeable PE: No acute distress ENT: EOMI, normal hearing Respirations: Patient with slight increased work of breathing, states her breathing is comfortable on 4 L nasal cannula, diminished breath sounds bilaterally CV: Regular rate, no edema Abdomen: Soft, nontender Neuro: Alert and oriented x4 Agree with above note, assessment and plan as per DAMIR Sung -will continue to follow and assist with medical decision making. Patient's goal is to return home, lives independently with her cat-is agreeable to home health oversight-with possible transition to hospice. History of Present Illness Reason for Consultation: Goals of Care Requesting Physician: Dr. Gross Attending Physician: Carter Gross, History of Present Illness This patient is a 68 year old female who presented from home with 4 days of increased SOB. She has a PMH including COPD for which she wears 4 LNC at home at baseline. She is being treated for a COPD exacerbation while here at the hospital. Additional PMH includes HTN and hypothyroidism. She reports being relatively independent at home. She lives at home alone in her mobile home with 4 steps entering the home. Palliative Care was consulted to discuss goals of care. Please see the assessment and plan for further details. Thank you kindly for this inpatient referral. We will follow accordingly. Allergies Allergy/AdvReac Type Severity Reaction Status Date / Time codeine Allergy Mild Unknown Verified 12/31/18 19:28 atropine Allergy Unknown UNKNOWN Verified 12/31/18 19:28 diphenoxylate Allergy Unknown UNKNOWN Verified 12/31/18 19:28 moxifloxacin Allergy Unknown UNKNOWN Verified 12/31/18 19:28 prednisone AdvReac Mild Unknown Verified 12/31/18 19:28 Home Medications Home Medications Medication Instructions Recorded Confirmed Type citalopram [Celexa] 40 mg PO DAILY 12/31/18 12/31/18 History estradiol [Estrace] 1 mg PO DAILY 12/31/18 12/31/18 History fluticasone propion-salmeterol 1 puff INHALATION BID 12/31/18 12/31/18 History [Advair Diskus] furosemide [Lasix] 40 mg PO DAILY 12/31/18 12/31/18 History hydrochlorothiazide 12.5 mg PO DAILY 12/31/18 12/31/18 History ipratropium-albuterol 1 dose INHALATION QID 12/31/18 12/31/18 History levothyroxine [Synthroid] 137 mcg PO DAILY 12/31/18 12/31/18 History vancomycin 125 mg PO WK 12/31/18 12/31/18 History Patient History Medical History Hypothyroidism Depression Hypertension COPD (chronic obstructive pulmonary disease) 4L NC Diabetes diet controlled No significant family history Surgical History History of carpal tunnel surgery Previous back surgery S/P hysterectomy Status post bilateral knee replacements Status post hip surgery Family History Other Breast cancer Diabetes Hypertension Social History Communication Ability: Effective Beliefs That Will Affect Care: None marital status: Current Living Situation: Alone Other Information That Helps Us Care for You: No other: grief due to loss of and son Feels Safe at Home: Yes Safety Concerns: Feels Safe At This Time Smoking Status: Former smoker Hx Alcohol Use: No Hx Substance Use: No Review of Systems General: Patient denies pain HEENT: Pt denies CHAHAL, dizziness with ambulation, visual changes, appetite changes Resp: Pt states she feels winded at times, but does not leave her house often, mostly to take the trash out on Sunday CV: Pt denies CP, palpitations GI: Pt denies N/V/D : Pt denies urinary changes Skin: Pt denies new rashes, lesions Psych: Pt reports feeling anxious and emotional (See A&P for further details) Physical Exam Vital Signs (Past 24 Hours): Last Vital Signs Temp 36.5 C 01/06/19 08:24 Pulse 91 H 01/06/19 08:24 Resp 16 01/06/19 08:24 BP 146/89 H 01/06/19 08:24 Pulse Ox 95 01/06/19 08:24 Physical Exam: pt sitting up right in her bed in NAD Constitutional: well developed, cooperative and comfortable Eyes: PERRL, conjunctivae normal, anicteric sclerae ENMT: external ear and nose normal, oropharynx normal Neck: trachea midline, no thyromegaly Respiratory: + respiratory distress (with movement) and able to speak in complete sentences Auscultation: + diminished lung sounds and + wheezes (receives nebulizers ) Cardiovascular: Rate/Rhythm: regular rate and regular rhythm Heart Sounds: normal S1 and normal S2 Extremities: no edema Gastrointestinal (Abdomen): normal bowel sounds, soft, nontender, no hepatosplenomegaly Skin: no rashes, warm and dry Psychiatric: Orientation: alert and oriented x 3 Eye Contact: good eye contact Affect: + tearful affect Mood: + depressed mood Suicidal Thoughts: denies suicidal thoughts Insight: good insight Judgement: good judgement Time Spent Midlevel Total time spent 70 minutes with > 50% of that time spent reviewing the chart, assessing the patient, discussing goals of care and completing a POLST form with the patient at the bedside.
--- NOTE | 2019-01-06 14:55 | Psychiatric Consultation ---
Date of Consultation January 06, 2019 Impression / Recommendations Impression 68-year-old woman with severe COPD, admitted medically with exacerbation. We are consulted to evaluate depression. The patient is quite pleasant, able to articulate her sadness over the loss of her and son. The anniversary in December is always difficult. She feels satisfied with her antidepressant, Celexa 40 mg daily, and has no interest in changing agents. If however her mood declines even past the anniversary of their deaths, I would consider a change in agent as Celexa over 40 mg has an FDA warning for cardiac side effects. One could easily switch to Lexapro which does not have the same FDA warning. I have told her that I or 1 of the liaison staff is available both to her at any time should she want to talk or change her mind about medications. (1) Depression: 01/06 - Continue Celexa 40 mg. If mood worsens or does not rebound after the anniversary month, could consider switching to Lexapro 10 mg which would allow for dosage escalation if needed. - Not a candidate for inpatient mental health treatment - If the patient would like to talk, someone from our service would be available to return. Depression Type: major depressive disorder Major depression recurrence: recurrent Active/Remission status: currently active Major depression episode severity: unspecified Qualified Code(s): F33.9 - Major depressive disorder, recurrent, unspecified Present on Admission?: Yes Inventory Assets Strengths: Love of family Risk Factors Assessment Male: No : Yes Do You Have Access To A Gun?: No Health Problems: Yes Mental Health Diagnoses: Yes Substance Use Disorders: No Previous Attempt: No Previous Attempt; Didn't Tell Anyone: No Family History of Suicide: No Previous Psychiatric Hospitalization: No Smoker: No Protective Factors Assessment : No Responsible for Young Children: No Employed: No CPT Code 79937 Psych History Identifying Data 68-year-old woman with O2 dependent COPD, admitted with exacerbation. We are consulted to evaluate depression. Information is gathered from the patient and considered to be reliable. Chief Complaint "I do not care what anyone says, I will never get over it." History of Present Illness The patient is a 68-year-old female, who was admitted to the hospital medically with an exacerbation of COPD. At baseline she is O2 dependent wearing 4 L at home. A consult was placed for depression as the patient is approaching the anniversary of 2 deaths, her in 2012, and her son in 2016. Both in December. She indicates that it is always a difficult time for her. She felt like she could almost tolerate the loss of her as she had some morning for that, but her son of a ruptured brain aneurysm very suddenly and she never had time to anticipate. She misses them both severely and this time of year is always difficult. She has been on Celexa [address] Castillo, for years and feels that generally it works. She has no interest in switching agents. She has a lot of confidence in Dr. Castillo, has been seeing him for decades and feels that she can talk with him about her losses. After the of her son, her mzyaqpjw-hj-eye has not kept in regular contact with her which means that Erica does not get to regularly see or talk to her 2 grandchildren. She would like to have more contact but feels she has no control over this. She denies that she has ever thought of suicide and generally her depression improves after the anniversary month. She indicates that her sleep is okay. She has some difficulty eating when she is extremely anxious and has lost 10 pounds over an unspecified timeframe. Today she is seated in the bedside chair, and engaging in conversation. She is able to talk about things that she has enjoyed in life and can freely talk about the losses that she has experienced. Due to her severe COPD she is not necessarily as mobile as she could be and would therefore not likely be able to get out to regular therapy appointments. Past Psychiatric History Previous Psych History: None Outpatient Services: None Previous Psych Admissions: None Do You Have Access To A Gun?: No History of Previous Suicide Attempt: No Allergies Allergy/AdvReac Type Severity Reaction Status Date / Time codeine Allergy Mild Unknown Verified 12/31/18 19:28 atropine Allergy Unknown UNKNOWN Verified 12/31/18 19:28 diphenoxylate Allergy Unknown UNKNOWN Verified 12/31/18 19:28 moxifloxacin Allergy Unknown UNKNOWN Verified 12/31/18 19:28 prednisone AdvReac Mild Unknown Verified 12/31/18 19:28 Home Medications Home Medications Medication Instructions Recorded Confirmed Type citalopram [Celexa] 40 mg PO DAILY 12/31/18 12/31/18 History estradiol [Estrace] 1 mg PO DAILY 12/31/18 12/31/18 History fluticasone propion-salmeterol 1 puff INHALATION BID 12/31/18 12/31/18 History [Advair Diskus] furosemide [Lasix] 40 mg PO DAILY 12/31/18 12/31/18 History hydrochlorothiazide 12.5 mg PO DAILY 12/31/18 12/31/18 History ipratropium-albuterol 1 dose INHALATION QID 12/31/18 12/31/18 History levothyroxine [Synthroid] 137 mcg PO DAILY 12/31/18 12/31/18 History vancomycin 125 mg PO WK 12/31/18 12/31/18 History Family History Unsure of any past history as she was not close with her family Substance Abuse History Stopped drinking in 1985 Personal History 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[employer]) Marital Status: Beliefs That Will Affect Care: None History of Legal Problems: None Psychological Trauma History Comment: loss of and son Patient History Medical History Hypothyroidism Depression Hypertension COPD (chronic obstructive pulmonary disease) 4L NC Diabetes diet controlled No significant family history Surgical History History of carpal tunnel surgery Previous back surgery S/P hysterectomy Status post bilateral knee replacements Status post hip surgery Family History Other Breast cancer Diabetes Hypertension Social History Communication Ability: Effective Beliefs That Will Affect Care: None marital status: Current Living Situation: Alone Other Information That Helps Us Care for You: No other: grief due to loss of and son Feels Safe at Home: Yes Safety Concerns: Feels Safe At This Time Smoking Status: Former smoker Hx Alcohol Use: No Hx Substance Use: No Physical Exam Psychiatric Orientation: alert and cooperative Apperance: appropriately dressed Eye Contact: good eye contact Motor Behavior: no abnormal motor movements Speech: normal rate/rhythm/volume of speech Affect: + depressed affect and + flat affect Mood: + depressed mood Thought Process: goal directed thought process Thought Content: reality based without delusions Suicidal Thoughts: denies suicidal thoughts Homicidal Thoughts: denies homicidal thoughts Hallucinations: no auditory hallucinations and no visual hallucinations Cognition: recent memory grossly intact, remote memory grossly intact, attention grossly intact and language grossly intact Estimated Intelligence: average estimated intelligence Insight: + fair insight Judgement: + fair judgement Vital Signs (Past 24 Hours) Last Vital Signs Temp 36.5 C 01/06/19 08:24 Pulse 88 01/06/19 14:02 Resp 18 01/06/19 14:02 BP 146/89 H 01/06/19 08:24 Pulse Ox 95 01/06/19 14:02 Results & Data Medications Administered Citalopram Hydrobromide (Celexa) 40 mg PO DAILY COSMO Stop: 01/31/19 08:59 Last Admin: 01/06/19 08:04 Dose: 40 mg Documented by: [id number] Admin: 01/05/19 09:48 Dose: 40 mg Documented by: [id number] Admin: 01/04/19 07:57 Dose: 40 mg Documented by: [id number] Admin: 01/03/19 08:31 Dose: 40 mg Documented by: [id number] Admin: 01/02/19 08:25 Dose: 40 mg Documented by: [id number] Admin: 01/01/19 07:56 Dose: 40 mg Documented by: [id number] Enoxaparin Sodium (Lovenox) 40 mg SQ HS COSMO Stop: 01/30/19 22:44 Last Admin: 01/05/19 20:52 Dose: Not Given Documented by: [id number] Admin: 01/04/19 20:04 Dose: Not Given Documented by: [id number] Admin: 01/03/19 20:17 Dose: Not Given Documented by: [id number] Admin: 01/02/19 21:09 Dose: Not Given Documented by: [id number] Admin: 01/01/19 20:37 Dose: Not Given Documented by: [id number] Admin: 01/01/19 00:37 Dose: Not Given Documented by: [id number] Estradiol (Estrace) 1 mg PO DAILY COSMO Stop: 01/31/19 08:59 Last Admin: 01/06/19 08:04 Dose: 1 mg Documented by: [id number] Admin: 01/05/19 09:49 Dose: 1 mg Documented by: [id number] Admin: 01/04/19 07:56 Dose: 1 mg Documented by: [id number] Admin: 01/03/19 08:31 Dose: 1 mg Documented by: [id number] Admin: 01/02/19 08:26 Dose: 1 mg Documented by: [id number] Admin: 01/01/19 07:55 Dose: 1 mg Documented by: [id number] Furosemide (Lasix) 40 mg PO DAILY COSMO Stop: 01/31/19 08:59 Last Admin: 01/04/19 07:56 Dose: 40 mg Documented by: [id number] Admin: 01/03/19 08:32 Dose: 40 mg Documented by: [id number] Admin: 01/02/19 08:27 Dose: 40 mg Documented by: [id number] Admin: 01/01/19 07:55 Dose: 40 mg Documented by: [id number] Hydrochlorothiazide (Hctz) 12.5 mg PO DAILY COSMO Stop: 01/31/19 08:59 Last Admin: 01/06/19 08:03 Dose: 12.5 mg Documented by: [id number] Admin: 01/05/19 09:49 Dose: 12.5 mg Documented by: [id number] Admin: 01/04/19 07:54 Dose: 12.5 mg Documented by: [id number] Admin: 01/03/19 08:32 Dose: 12.5 mg Documented by: [id number] Admin: 01/02/19 08:25 Dose: 12.5 mg Documented by: [id number] Admin: 01/01/19 07:55 Dose: 12.5 mg Documented by: [id number] Methylprednisolone 40 mg/ (Syringe) 0.64 mls @ 1.5 mls/min IV Q12H COSMO Stop: 02/01/19 19:59 Last Admin: 01/06/19 08:04 Dose: 1.5 mls/min Documented by: [id number] Admin: 01/05/19 20:52 Dose: 1.5 mls/min Documented by: [id number] Admin: 01/05/19 09:50 Dose: 1.5 mls/min Documented by: [id number] Admin: 01/04/19 20:03 Dose: 1.5 mls/min Documented by: [id number] Admin: 01/04/19 07:55 Dose: 1.5 mls/min Documented by: [id number] Admin: 01/03/19 20:30 Dose: 1.5 mls/min Documented by: [id number] Admin: 01/03/19 08:33 Dose: 1.5 mls/min Documented by: [id number] Admin: 01/02/19 21:09 Dose: 1.5 mls/min Documented by: [id number] Insulin Aspart (Novolog Flexpen) 0 units SC ACHS COSMO Stop: 01/31/19 07:29 Last Admin: 01/06/19 13:28 Dose: 2 units Documented by: [id number] Cosigned by: [id number] Admin: 01/06/19 09:16 Dose: 3 units Documented by: [id number] Cosigned by: [id number] Admin: 01/05/19 20:52 Dose: 2 units Documented by: [id number] Cosigned by: [id number] Admin: 01/05/19 18:08 Dose: 1 units Documented by: [id number] Cosigned by: [id number] Admin: 01/05/19 13:17 Dose: 1 units Documented by: [id number] Cosigned by: [id number] Admin: 01/05/19 09:52 Dose: 1 units Documented by: [id number] Cosigned by: [id number] Admin: 01/04/19 21:38 Dose: Not Given Documented by: [id number] Cosigned by: [id number] Admin: 01/04/19 17:59 Dose: 1 units Documented by: [id number] Cosigned by: [id number] Admin: 01/04/19 13:17 Dose: 2 units Documented by: [id number] Cosigned by: [id number] Admin: 01/04/19 09:00 Dose: 1 units Documented by: [id number] Cosigned by: [id number] Admin: 01/03/19 20:30 Dose: 1 units Documented by: [id number] Cosigned by: [id number] Admin: 01/03/19 18:14 Dose: 300 units Documented by: [id number] Cosigned by: [id number] Admin: 01/03/19 13:25 Dose: 2 units Documented by: [id number] Cosigned by: [id number] Admin: 01/03/19 08:36 Dose: 1 units Documented by: [id number] Cosigned by: [id number] Admin: 01/02/19 21:06 Dose: Not Given Documented by: [id number] Cosigned by: [id number] Admin: 01/02/19 18:00 Dose: 3 units Documented by: [id number] Cosigned by: [id number] Admin: 01/02/19 12:50 Dose: 2 units Documented by: [id number] Cosigned by: [id number] Admin: 01/02/19 08:40 Dose: 2 units Documented by: [id number] Cosigned by: [id number] Admin: 01/01/19 20:37 Dose: 1 units Documented by: [id number] Cosigned by: [id number] Admin: 01/01/19 17:55 Dose: 3 units Documented by: [id number] Cosigned by: [id number] Admin: 01/01/19 12:59 Dose: 3 units Documented by: [id number] Cosigned by: [id number] Admin: 01/01/19 08:45 Dose: 3 units Documented by: [id number] Cosigned by: [id number] Levalbuterol HCl (Xopenex 0.63 Mg/3 Ml Neb) 0.63 mg NEB Q6R COSMO Stop: 01/31/19 19:59 Last Admin: 01/06/19 13:59 Dose: 0.63 mg Documented by: [id number] Admin: 01/06/19 07:14 Dose: 0.63 mg Documented by: [id number] Admin: 01/06/19 02:14 Dose: 0.63 mg Documented by: [id number] Admin: 01/05/19 19:03 Dose: 0.63 mg Documented by: [id number] Admin: 01/05/19 13:06 Dose: 0.63 mg Documented by: [id number] Admin: 01/05/19 07:26 Dose: 0.63 mg Documented by: [id number] Admin: 01/05/19 01:50 Dose: 0.63 mg Documented by: [id number] Admin: 01/04/19 19:02 Dose: 0.63 mg Documented by: [id number] Admin: 01/04/19 14:14 Dose: 0.63 mg Documented by: [id number] Admin: 01/04/19 11:08 Dose: 0.63 mg Documented by: [id number] Admin: 01/04/19 07:50 Dose: Not Given Documented by: [id number] Admin: 01/04/19 01:47 Dose: 0.63 mg Documented by: [id number] Admin: 01/03/19 19:12 Dose: 0.63 mg Documented by: [id number] Admin: 01/03/19 13:53 Dose: 0.63 mg Documented by: [id number] Admin: 01/03/19 07:13 Dose: 0.63 mg Documented by: [id number] Admin: 01/03/19 01:54 Dose: 0.63 mg Documented by: [id number] Admin: 01/02/19 19:11 Dose: 0.63 mg Documented by: [id number] Admin: 01/02/19 13:41 Dose: 0.63 mg Documented by: [id number] Admin: 01/02/19 07:55 Dose: 0.63 mg Documented by: [id number] Admin: 01/02/19 02:13 Dose: Not Given Documented by: [id number] Admin: 01/01/19 19:06 Dose: 0.63 mg Documented by: [id number] Levothyroxine Sodium (Levothyroxine Sodium) 137 mcg PO DAILYBB [facility] Stop: 01/31/19 06:29 Last Admin: 01/06/19 05:39 Dose: 137 mcg Documented by: [id number] Admin: 01/05/19 05:44 Dose: 137 mcg Documented by: [id number] Admin: 01/04/19 05:55 Dose: 137 mcg Documented by: [id number] Admin: 01/03/19 06:41 Dose: 137 mcg Documented by: [id number] Admin: 01/02/19 06:11 Dose: 137 mcg Documented by: [id number] Admin: 01/01/19 06:01 Dose: 137 mcg Documented by: [id number] Lorazepam (Ativan) 0.5 mg PO BID PRN PRN Reason: Anxiety Stop: 02/01/19 14:51 Last Admin: 01/05/19 10:55 Dose: 0.5 mg Documented by: [id number] Lorazepam (Ativan) 0.5 mg PO HS COSMO Stop: 02/04/19 20:59 Last Admin: 01/05/19 20:52 Dose: 0.5 mg Documented by: [id number] Raspberry (Raspberry) 5 ml PO Sa@0900 COSMO Stop: 01/30/19 08:59 Last Admin: 01/04/19 07:55 Dose: 5 ml Documented by: [id number] Saccharomyces Boulardii (Florastor) 250 mg PO DAILY COSMO Stop: 01/31/19 08:59 Last Admin: 01/06/19 08:04 Dose: 250 mg Documented by: [id number] Admin: 01/05/19 09:49 Dose: 250 mg Documented by: [id number] Admin: 01/04/19 07:54 Dose: 250 mg Documented by: [id number] Admin: 01/03/19 08:32 Dose: 250 mg Documented by: [id number] Admin: 01/02/19 08:25 Dose: 250 mg Documented by: [id number] Admin: 01/01/19 07:55 Dose: 250 mg Documented by: [id number] Fluticasone/Salmeterol (Advair Diskus 250/50) 1 puffs INH BID COSMO Stop: 01/31/19 20:59 Last Admin: 01/06/19 08:03 Dose: 1 puffs Documented by: [id number] Admin: 01/05/19 20:52 Dose: 1 puffs Documented by: [id number] Admin: 01/05/19 09:47 Dose: 1 puffs Documented by: [id number] Admin: 01/04/19 20:04 Dose: 1 puffs Documented by: [id number] Admin: 01/04/19 07:55 Dose: 1 puffs Documented by: [id number] Admin: 01/03/19 20:30 Dose: 1 puffs Documented by: [id number] Admin: 01/03/19 08:30 Dose: 1 puffs Documented by: [id number] Admin: 01/02/19 21:09 Dose: 1 puffs Documented by: [id number] Admin: 01/02/19 08:27 Dose: 1 puffs Documented by: [id number] Admin: 01/01/19 20:37 Dose: 1 puffs Documented by: [id number] Vancomycin HCl (Vancomycin Hcl) 125 mg PO Sa@0900 COSMO Stop: 02/03/19 08:59 Last Admin: 01/04/19 08:05 Dose: 125 mg Documented by: [id number]
--- NOTE | 2019-01-06 16:56 | Hospitalist Progress Note ---
Date of Service January 06, 2019 Assessment & Plan (1) Shortness of breath: - Presented with CAMACHO likely related to end stage COPD with acute exacerbation. - Continues to have SOB at rest and with exertion but it is slowly improving - CXR was negative for infiltrate. - Treatment for COPD as noted below. (2) COPD (chronic obstructive pulmonary disease): - Required 4L O2 at baseline prior to admission, currently requiring baseline oxygen. - Xopenex q6hr scheduled (hold Duonebs due to tachycardia) - Continue home Advair BID. - Solumedrol 40 mg IV q12hr - start on Prednisone tomorrow - Hold abx due to h/o C. diff; no current signs of purulence (3) Acute on chronic respiratory failure with hypoxia and hypercapnia: - Requires 4L via NC at home; cannot wean requirements, desatted to 69% on 3L. - Increased CO2 on BMP, above baseline; is likely chronic CO2 retainer due to severe COPD. - Goal O2 saturation ~88-90%. - Attempted BiPAP on 01/03 due to increasing hypercapnia, pt. did not tolerate mask - Consult palliative care due to poor prognosis in setting of severe COPD patient would like to go home with services, eventually transition to hospice (4) Chest pain: - Developed sternal chest pain on 01/03, now resolved. May be related to anxiety vs. GI source. - EKG was negative. - Trop peaked at 0.035; no further levels indicated. - Started PPI - may be related to GERD. - H/o anxiety -- Ativan 0.5 mg BID prn with 0.5 mg qhs scheduled. (5) Lightheadedness: - May be related to CO2 retention; mental status is intact. - Did not tolerate BiPAP as noted above. - Orthostatics were negative. (6) Hypertension: - Continue home HCTZ 12.5 mg daily; hold Lasix 40 mg PO daily in setting of rising CO2 levels. (7) Depression: - History of MDD as well as grief from loss of her and son. - Continue Celexa 40 mg daily. - Ativan 0.5 mg BID prn. - Consulting palliative care; of both family members were in December (the and ) - Will also consult psych due to depression/uncontrolled anxiety. (8) Hypothyroidism: - Continue Synthroid 137 mcg daily. - TSH was 0.6. (9) Diabetes: - Hemoglobin A1C was 6.0. - SSI coverage with gluc checks ac/hs. (10) History of Clostridium difficile infection: - H/o severe C. diff infection; follows with Dr. Hamm. - Continue weekly PO Vancomycin. - Continue probiotics. - Avoid all antibiotics if possible. (11) Anemia of chronic disease: - Hemoglobin ~10-11. - Iron studies consistent with anemia of chronic disease. - B12 and Folate WNL. (12) Morbid obesity: - BMI 42. - Encourage weight loss and exercise. (13) DVT prophylaxis: - Lovenox. Dispo: ultimately plan for home, transition to hospice unsure if we can get home BIPAP or Trilogy set up, will discuss with CM Subjective patient sitting up in chair today, breathing comfortably at rest she tried to use BIPAP last night, did not tolerate she says she has an old BIPAP at home that was her 's, it is 4 years old explained that she would require her own would need testing, asked if she would even use it, she said she might if it was just the nasal pillow type she is depressed today, it is the 3 year anniversary of her son's , it happened unexpectedly 4 years ago next week she lost her discussed with palliative, planning on going home with home services, transit ioning to hospice eventually reviewed labs, CO2 elevated in the 50's Review of Systems All systems reviewed & are unremarkable except as noted in HPI & below Respiratory: + cough, + dyspnea and + dyspnea on exertion; no hemoptysis and no wheezing Physical Exam Vital Signs (Past 24 Hours): Last Vital Signs Temp 37.1 C 01/06/19 15:14 Pulse 95 H 01/06/19 15:14 Resp 16 01/06/19 15:14 BP 145/78 H 01/06/19 15:14 Pulse Ox 94 01/06/19 15:14 Constitutional: WD/WN, vitals as above Eyes: PERRL, conjunctivae normal, anicteric sclerae ENMT: external ear and nose normal, oropharynx normal Neck: trachea midline, no thyromegaly Respiratory: normal respiratory effort, lungs clear to auscultation Auscultation: + diminished lung sounds (bilaterally); no wheezes Cardiovascular: RRR, no murmur, no edema Gastrointestinal (Abdomen): normal bowel sounds, soft, nontender, no hepatosplenomegaly Musculoskeletal: no cyanosis or clubbing, extremities motor strength 5/5 Skin: no rashes, warm and dry Neurologic: patellar DTR's 2+ bilat, sensation intact Psychiatric: Orientation: alert and oriented x 3 Affect: + depressed affect Mood: + depressed mood Lymphatic: no cervical or axillary lymphadenopathy Results & Data Laboratory Results Laboratory Results - last 24 hr 01/05/19 01/06/19 01/06/19 20:32 07:02 08:06 Sodium 137 Potassium 4.0 Chloride 88 L Carbon Dioxide 56 H* Anion Gap -6.0 L BUN 29 H Creatinine 0.74 Est Cr Clr Drug Dosing 80.5 Est GFR ( Amer) 95.1 Est GFR (Non-Af Amer) 82.1 BUN/Creatinine Ratio 38.7 H Glucose 122 H POC Glucose 128 H 121 H Calcium 9.3 01/06/19 12:00 Sodium Potassium Chloride Carbon Dioxide Anion Gap BUN Creatinine Est Cr Clr Drug Dosing Est GFR ( Amer) Est GFR (Non-Af Amer) BUN/Creatinine Ratio Glucose POC Glucose 102 H Calcium Medications Administered Current Inpatient Medications Citalopram Hydrobromide (Celexa) 40 mg PO DAILY COSMO Stop: 01/31/19 08:59 Last Admin: 01/06/19 08:04 Dose: 40 mg Documented by: Dextrose (Dextrose 50%) 25 - 50 ml IV UD PRN; Protocol PRN Reason: Hypoglycemia Protocol Stop: 01/30/19 21:41 Enoxaparin Sodium (Lovenox) 40 mg SQ HS COSMO Stop: 01/30/19 22:44 Last Admin: 01/05/19 20:52 Dose: Not Given Documented by: Estradiol (Estrace) 1 mg PO DAILY COSMO Stop: 01/31/19 08:59 Last Admin: 01/06/19 08:04 Dose: 1 mg Documented by: Furosemide (Lasix) 40 mg PO DAILY COSMO Stop: 01/31/19 08:59 Last Admin: 01/04/19 07:56 Dose: 40 mg Documented by: Glucagon (Glucagen) 1 mg SQ UD PRN; Protocol PRN Reason: Hypoglycemia Protocol Stop: 01/30/19 21:41 Glucose (Dex4 Glucose) 4 - 8 tabs PO UD PRN; Protocol PRN Reason: Hypoglycemia Protocol Stop: 01/30/19 21:41 Glucose (Glucose 40%) 15 - 30 gm PO UD PRN; Protocol PRN Reason: Hypoglycemia Protocol Stop: 01/30/19 21:41 Hydrochlorothiazide (Hctz) 12.5 mg PO DAILY COSMO Stop: 01/31/19 08:59 Last Admin: 01/06/19 08:03 Dose: 12.5 mg Documented by: Methylprednisolone 40 mg/ (Syringe) 0.64 mls @ 1.5 mls/min IV Q12H COSMO Stop: 02/01/19 19:59 Last Admin: 01/06/19 08:04 Dose: 1.5 mls/min Documented by: Insulin Aspart (Novolog Flexpen) 0 units SC ACHS COSMO Stop: 01/31/19 07:29 Last Admin: 01/06/19 13:28 Dose: 2 units Documented by: Levalbuterol HCl (Xopenex 0.63 Mg/3 Ml Neb) 0.63 mg NEB Q6R COSMO Stop: 01/31/19 19:59 Last Admin: 01/06/19 13:59 Dose: 0.63 mg Documented by: Levothyroxine Sodium (Levothyroxine Sodium) 137 mcg PO DAILYBB [facility] Stop: 01/31/19 06:29 Last Admin: 01/06/19 05:39 Dose: 137 mcg Documented by: Lorazepam (Ativan) 0.5 mg PO BID PRN PRN Reason: Anxiety Stop: 02/01/19 14:51 Last Admin: 01/05/19 10:55 Dose: 0.5 mg Documented by: Lorazepam (Ativan) 0.5 mg PO HS [facility] Stop: 02/04/19 20:59 Last Admin: 01/05/19 20:52 Dose: 0.5 mg Documented by: Miscellaneous (Carbohydrates For Hypoglycemia) 15 - 30 gm PO UD PRN PRN Reason: Hypoglycemia Treatment Stop: 01/30/19 21:41 Raspberry (Raspberry) 5 ml PO Sa@0900 COSMO Stop: 01/30/19 08:59 Last Admin: 01/04/19 07:55 Dose: 5 ml Documented by: Saccharomyces Boulardii (Florastor) 250 mg PO DAILY COSMO Stop: 01/31/19 08:59 Last Admin: 01/06/19 08:04 Dose: 250 mg Documented by: Fluticasone/Salmeterol (Advair Diskus 250/50) 1 puffs INH BID [facility] Stop: 01/31/19 20:59 Last Admin: 01/06/19 08:03 Dose: 1 puffs Documented by: Vancomycin HCl (Vancomycin Hcl) 125 mg PO Sa@0900 [facility] Stop: 02/03/19 08:59 Last Admin: 01/04/19 08:05 Dose: 125 mg Documented by: (1) Diabetes Diabetes mellitus complication status: without complication Diabetes mellitus buttermaker helper insulin use: without fci use Diabetes mellitus type: type 2 Qualified Code(s): E11.9 - Type 2 diabetes mellitus without complications (2) Depression Active/Remission status: currently active Depression Type: major depressive disorder Major depression episode severity: unspecified Major depression recurrence: recurrent Qualified Code(s): F33.9 - Major depressive disorder, recurrent, unspecified (3) Hypothyroidism Hypothyroidism type: unspecified Qualified Code(s): E03.9 - Hypothyroidism, unspecified (4) COPD (chronic obstructive pulmonary disease) COPD type: emphysema Emphysema type: unspecified Qualified Code(s): J43.9 - Emphysema, unspecified (5) Hypertension Hypertension type: essential hypertension Qualified Code(s): I10 - Essential (primary) hypertension
[2019-01-06] MEDS: ENOXAPARIN INJ 40 MG/0.4 ML SYR SQ SCH (20:51)
[2019-01-06] MEDS: LORazepam 0.5 MG TAB PO SCH (21:57)
[2019-01-07] MEDS: LEVALBUTEROL HCL 0.63 MG/3 ML NEB NEB SCH ×4 (02:15→19:54)
[2019-01-07] MEDS: LEVOTHYROXINE SODIUM 137 MCG TABLET PO SCH (06:08)
[2019-01-07] MEDS: methylPREDNISolone 40 MG in SYRINGE 0 ML IV SCH (09:00)
[2019-01-07] MEDS: CITALOPRAM 20 MG TAB PO SCH (09:00)
[2019-01-07] MEDS: ESTRADIOL 1 MG TAB PO SCH (09:00)
[2019-01-07] MEDS: INSULIN ASPART 100 UNITS/ML 3 ML PEN SC SCH ×4 (09:00→21:03)
[2019-01-07] MEDS: FLUTICASONE/SALMETEROL 250/50 (ADVAIR) 14 PUFF/1 INHALER INH SCH ×2 (09:00→20:32)
[2019-01-07] MEDS: SACCHAROMYCES BOULARDII 250 MG CAP PO SCH (09:01)
[2019-01-07] MEDS: hydroCHLOROthiazide 25 MG TAB PO SCH (09:01)
--- NOTE | 2019-01-07 15:44 | Hospitalist Progress Note ---
Date of Service January 07, 2019 Assessment & Plan (1) Shortness of breath: - Presented with CAMACHO likely related to end stage COPD with acute exacerbation. - Continues to have SOB at rest and with exertion, slightly worse today - CXR was negative for infiltrate. - Treatment for COPD as noted below. (2) COPD (chronic obstructive pulmonary disease): - Required 4L O2 at baseline prior to admission, currently requiring baseline oxygen. - Xopenex q6hr scheduled (hold Duonebs due to tachycardia) - Continue home Advair BID. - Solumedrol 40 mg IV q12hr - change to Prednisone - Hold abx due to h/o C. diff; no current signs of purulence (3) Acute on chronic respiratory failure with hypoxia and hypercapnia: - Requires 4L via NC at home; cannot wean requirements, desatted to 69% on 3L. - Increased CO2 on BMP, above baseline; is likely chronic CO2 retainer due to severe COPD. - Goal O2 saturation ~88-90%. - Attempted BiPAP on 01/03 due to increasing hypercapnia, pt. did not tolerate mask - Consult palliative care due to poor prognosis in setting of severe COPD patient would like to go home with services, eventually transition to hospice tonight will obtain nocturnal desaturation study on 4L as well as morning ABG on 4L try to qualify for home BIPAP (4) Chest pain: - Developed sternal chest pain on 01/03, now resolved. May be related to anxiety vs. GI source. - EKG was negative. - Trop peaked at 0.035; no further levels indicated. - Started PPI - may be related to GERD. - H/o anxiety -- Ativan 0.5 mg BID prn with 0.5 mg qhs scheduled. (5) Lightheadedness: - May be related to CO2 retention; mental status is intact. - Did not tolerate BiPAP as noted above. - Orthostatics were negative. (6) Hypertension: - Continue home HCTZ 12.5 mg daily; hold Lasix 40 mg PO daily in setting of rising CO2 levels. (7) Depression: - History of MDD as well as grief from loss of her and son. - Continue Celexa 40 mg daily. - Ativan 0.5 mg BID prn. - Consulting palliative care; of both family members were in December (the and 25th) - Will also consult psych due to depression/uncontrolled anxiety recommend continuing Celexa if still depressed one month after anniversary of deaths, then could switch to Lexapro 10mg psychiatry made themselves available to talk (8) Hypothyroidism: - Continue Synthroid 137 mcg daily. - TSH was 0.6. (9) Diabetes: - Hemoglobin A1C was 6.0. - SSI coverage with gluc checks ac/hs. (10) History of Clostridium difficile infection: - H/o severe C. diff infection; follows with Dr. Hamm. - Continue weekly PO Vancomycin. - Continue probiotics. - Avoid all antibiotics if possible. (11) Anemia of chronic disease: - Hemoglobin stable - Iron studies consistent with anemia of chronic disease. - B12 and Folate WNL. (12) Morbid obesity: - BMI 42. - Encourage weight loss and exercise. (13) DVT prophylaxis: - Lovenox. Dispo: ultimately plan for home, transition to hospice unsure if we can get home BIPAP or Trilogy set up, will try to qualify this evening Subjective patient tolerated the BIPAP for about 4 hours last night despite that, she feels more fatigued today, more dyspnea at rest and on exertion discussed testing for home BIPAP/CPAP, needs nocturnal desaturation, morning ABG on 4L NC still planning on home with services, transition to hospice still depressed appreciate consult from psychiatry Review of Systems All systems reviewed & are unremarkable except as noted in HPI & below Constitutional: + fatigue and + weakness Respiratory: + cough, + dyspnea and + dyspnea on exertion Cardiovascular: no chest pain Psychiatric: + depression Physical Exam Vital Signs (Past 24 Hours): Last Vital Signs Temp 36.5 C 01/07/19 07:29 Pulse 99 H 01/07/19 13:49 Resp 20 01/07/19 13:49 BP 149/79 H 01/07/19 07:29 Pulse Ox 89 L 01/07/19 15:26 Constitutional: WD/WN, vitals as above Eyes: PERRL, conjunctivae normal, anicteric sclerae ENMT: external ear and nose normal, oropharynx normal Neck: trachea midline, no thyromegaly Respiratory: normal respiratory effort, lungs clear to auscultation Auscultation: + diminished lung sounds (bilaterally); no wheezes Cardiovascular: RRR, no murmur, no edema Gastrointestinal (Abdomen): normal bowel sounds, soft, nontender, no hepatosplenomegaly Musculoskeletal: no cyanosis or clubbing, extremities motor strength 5/5 Skin: no rashes, warm and dry Neurologic: patellar DTR's 2+ bilat, sensation intact Psychiatric: Orientation: alert and oriented x 3 Affect: + depressed affect Mood: + depressed mood Lymphatic: no cervical or axillary lymphadenopathy Results & Data Laboratory Results Laboratory Results - last 24 hr 01/06/19 01/06/19 01/07/19 17:00 20:12 07:46 POC Glucose 157 H 87 137 H 01/07/19 11:32 POC Glucose 99 Medications Administered Current Inpatient Medications Citalopram Hydrobromide (Celexa) 40 mg PO DAILY [facility] Stop: 01/31/19 08:59 Last Admin: 01/07/19 09:00 Dose: 40 mg Documented by: Dextrose (Dextrose 50%) 25 - 50 ml IV UD PRN; Protocol PRN Reason: Hypoglycemia Protocol Stop: 01/30/19 21:41 Enoxaparin Sodium (Lovenox) 40 mg SQ HS [facility] Stop: 01/30/19 22:44 Last Admin: 01/06/19 20:51 Dose: Not Given Documented by: Estradiol (Estrace) 1 mg PO DAILY COSMO Stop: 01/31/19 08:59 Last Admin: 01/07/19 09:00 Dose: 1 mg Documented by: Furosemide (Lasix) 40 mg PO DAILY [facility] Stop: 01/31/19 08:59 Last Admin: 01/04/19 07:56 Dose: 40 mg Documented by: Glucagon (Glucagen) 1 mg SQ UD PRN; Protocol PRN Reason: Hypoglycemia Protocol Stop: 01/30/19 21:41 Glucose (Dex4 Glucose) 4 - 8 tabs PO UD PRN; Protocol PRN Reason: Hypoglycemia Protocol Stop: 01/30/19 21:41 Glucose (Glucose 40%) 15 - 30 gm PO UD PRN; Protocol PRN Reason: Hypoglycemia Protocol Stop: 01/30/19 21:41 Hydrochlorothiazide (Hctz) 12.5 mg PO DAILY [facility] Stop: 01/31/19 08:59 Last Admin: 01/07/19 09:01 Dose: 12.5 mg Documented by: Insulin Aspart (Novolog Flexpen) 0 units SC ACHS COSMO Stop: 01/31/19 07:29 Last Admin: 01/07/19 13:11 Dose: 1 units Documented by: Levalbuterol HCl (Xopenex 0.63 Mg/3 Ml Neb) 0.63 mg NEB Q6R [facility]MO Stop: 01/31/19 19:59 Last Admin: 01/07/19 13:49 Dose: 0.63 mg Documented by: Levothyroxine Sodium (Levothyroxine Sodium) 137 mcg PO DAILYBB COSMO Stop: 01/31/19 06:29 Last Admin: 01/07/19 06:08 Dose: 137 mcg Documented by: Lorazepam (Ativan) 0.5 mg PO BID PRN PRN Reason: Anxiety Stop: 02/01/19 14:51 Last Admin: 01/05/19 10:55 Dose: 0.5 mg Documented by: Lorazepam (Ativan) 0.5 mg PO HS COSMO Stop: 02/04/19 20:59 Last Admin: 01/06/19 21:57 Dose: 0.5 mg Documented by: Miscellaneous (Carbohydrates For Hypoglycemia) 15 - 30 gm PO UD PRN PRN Reason: Hypoglycemia Treatment Stop: 01/30/19 21:41 Prednisone (Prednisone) 40 mg PO DAILY [facility] Stop: 02/07/19 08:59 Raspberry (Raspberry) 5 ml PO Sa@0900 [facility] Stop: 01/30/19 08:59 Last Admin: 01/04/19 07:55 Dose: 5 ml Documented by: Saccharomyces Boulardii (Florastor) 250 mg PO DAILY [facility] Stop: 01/31/19 08:59 Last Admin: 01/07/19 09:01 Dose: 250 mg Documented by: Fluticasone/Salmeterol (Advair Diskus 250/50) 1 puffs INH BID COSMO Stop: 01/31/19 20:59 Last Admin: 01/07/19 09:00 Dose: 1 puffs Documented by: Vancomycin HCl (Vancomycin Hcl) 125 mg PO Sa@0900 COSMO Stop: 02/03/19 08:59 Last Admin: 01/04/19 08:05 Dose: 125 mg Documented by: (1) Diabetes Diabetes mellitus complication status: without complication Diabetes mellitus correction insulin use: without termite treater use Diabetes mellitus type: type 2 Qualified Code(s): E11.9 - Type 2 diabetes mellitus without complications (2) Depression Active/Remission status: currently active Depression Type: major depressive disorder Major depression episode severity: unspecified Major depression recurrence: recurrent Qualified Code(s): F33.9 - Major depressive disorder, recurrent, unspecified (3) Hypothyroidism Hypothyroidism type: unspecified Qualified Code(s): E03.9 - Hypothyroidism, unspecified (4) COPD (chronic obstructive pulmonary disease) COPD type: emphysema Emphysema type: unspecified Qualified Code(s): J43.9 - Emphysema, unspecified (5) Hypertension Hypertension type: essential hypertension Qualified Code(s): I10 - Essential (primary) hypertension
[2019-01-07] MEDS: ENOXAPARIN INJ 40 MG/0.4 ML SYR SQ SCH (20:33)
[2019-01-07] MEDS: LORazepam 0.5 MG TAB PO SCH (20:37)
[2019-01-08] MEDS ORDERED: LEVALBUTEROL HCL 0.63 MG/3 ML NEB NEB PRN (02:00)
[2019-01-08] MEDS: LEVOTHYROXINE SODIUM 137 MCG TABLET PO SCH (05:49)
[2019-01-08 06:37] LABS: Allen Test POS (Pos); HCO3 ABG 53 mmol/L (19-24); Oxygen Saturation ABG 96.8 % (90-95); PCO2 ABG 104 mmHg (35-46); PO2 ABG 102 mm/Hg (80-95); pH ABG 7.33 (7.35-7.45)
[2019-01-08] MEDS: ALBUT/IPRATROP 3MG/0.5MG NEB 3 ML VIAL INH SCH ×4 (07:12→19:31)
[2019-01-08] MEDS: INSULIN ASPART 100 UNITS/ML 3 ML PEN SC SCH ×4 (09:58→21:32)
[2019-01-08] MEDS: CITALOPRAM 20 MG TAB PO SCH (10:01)
[2019-01-08] MEDS: FLUTICASONE/SALMETEROL 250/50 (ADVAIR) 14 PUFF/1 INHALER INH SCH ×2 (10:01→22:46)
[2019-01-08] MEDS: SACCHAROMYCES BOULARDII 250 MG CAP PO SCH (10:02)
[2019-01-08] MEDS: predniSONE 20 MG TAB PO SCH (10:02)
[2019-01-08] MEDS: ESTRADIOL 1 MG TAB PO SCH (10:02)
[2019-01-08] MEDS: hydroCHLOROthiazide 25 MG TAB PO SCH (10:03)
[2019-01-08] MEDS: AMLODIPINE BESYLATE 5 MG TAB PO SCH (15:22)
--- NOTE | 2019-01-08 15:40 | Hospitalist Progress Note ---
Date of Service January 08, 2019 Assessment & Plan (1) Shortness of breath: - Presented with CAMACHO likely related to end stage COPD with acute exacerbation. - Continues to have SOB at rest and with exertion, stable today, walking further - CXR was negative for infiltrate. - Treatment for COPD as noted below. (2) COPD (chronic obstructive pulmonary disease): - Required 4L O2 at baseline prior to admission, currently requiring baseline oxygen. - Xopenex q6hr scheduled (hold Duonebs due to tachycardia) - Continue home Advair BID. - Solumedrol 40 mg IV q12hr - change to Prednisone - Hold abx due to h/o C. diff; no current signs of purulence will taper Prednisone on discharge (3) Acute on chronic respiratory failure with hypoxia and hypercapnia: - Requires 4L via NC at home; cannot wean requirements, desatted to 69% on 3L. - Increased CO2 on BMP, above baseline; is likely chronic CO2 retainer due to severe COPD. - Goal O2 saturation ~88-90%. - Attempted BiPAP on 01/03 due to increasing hypercapnia, pt. did not tolerate mask - Consult palliative care due to poor prognosis in setting of severe COPD patient would like to go home with services, eventually transition to hospice qualifies for BIPAP based off of nocturnal desaturation study and morning ABG will be delivere by [facility] tomorrow patient states that she will try to be compliant (4) Chest pain: - Developed sternal chest pain on 01/03, now resolved. May be related to anxiety vs. GI source. - EKG was negative. - Trop peaked at 0.035; no further levels indicated. - H/o anxiety -- Ativan 0.5 mg BID prn with 0.5 mg qhs scheduled. (5) GERD (gastroesophageal reflux disease): c/o burning in chest and throat, specifically after she eats will start Protonix BID, taper to once a day after a week try to improve symptoms (6) Lightheadedness: - May be related to CO2 retention; mental status is intact. - Did not tolerate BiPAP as noted above. - Orthostatics were negative. (7) Hypertension: - Continue home HCTZ 12.5 mg daily; hold Lasix 40 mg PO daily in setting of rising CO2 levels. (8) Depression: - History of MDD as well as grief from loss of her and son. - Continue Celexa 40 mg daily. - Ativan 0.5 mg BID prn. - Consulting palliative care; of both family members were in December (the and ) - Will also consult psych due to depression/uncontrolled anxiety recommend continuing Celexa if still depressed one month after anniversary of deaths, then could switch to Lexapro 10mg psychiatry made themselves available to talk (9) Hypothyroidism: - Continue Synthroid 137 mcg daily. - TSH was 0.6. (10) Diabetes: - Hemoglobin A1C was 6.0. - SSI coverage with gluc checks ac/hs. (11) History of Clostridium difficile infection: - H/o severe C. diff infection; follows with Dr. Hamm. - Continue weekly PO Vancomycin. - Continue probiotics. - Avoid all antibiotics if possible. (12) Anemia of chronic disease: - Hemoglobin stable - Iron studies consistent with anemia of chronic disease. - B12 and Folate WNL. (13) Morbid obesity: - BMI 42. - Encourage weight loss and exercise. (14) DVT prophylaxis: - Lovenox. Dispo: ultimately plan for home, transition to hospice home tomorrow with BIPAP Subjective patient is more fatigued today did discuss that she did not wear the BIPAP last night for her testing strongly encouraged her to use the BIPAP at home as it will help with energy still c/o throat tightness discussed that it could be GERD, will try Protonix reviewed labs, CO2 quite elevated this morning without the BIPAP respiratory acidosis d/w CM, plan for delivery of BIPAP tomorrow Review of Systems All systems reviewed & are unremarkable except as noted in HPI & below Physical Exam Vital Signs (Past 24 Hours): Last Vital Signs Temp 36.4 C L 01/08/19 10:05 Pulse 73 01/08/19 15:25 Resp 22 01/08/19 15:25 BP 160/96 H 01/08/19 10:10 Pulse Ox 95 01/08/19 15:25 Constitutional: WD/WN, vitals as above Eyes: PERRL, conjunctivae normal, anicteric sclerae ENMT: external ear and nose normal, oropharynx normal Neck: trachea midline, no thyromegaly Respiratory: normal respiratory effort, lungs clear to auscultation Auscultation: + diminished lung sounds (bilaterally); no wheezes Cardiovascular: RRR, no murmur, no edema Gastrointestinal (Abdomen): normal bowel sounds, soft, nontender, no hepatosplenomegaly Musculoskeletal: no cyanosis or clubbing, extremities motor strength 5/5 Skin: no rashes, warm and dry Neurologic: patellar DTR's 2+ bilat, sensation intact Psychiatric: Orientation: alert and oriented x 3 Affect: + depressed affect Mood: + depressed mood Lymphatic: no cervical or axillary lymphadenopathy Results & Data Laboratory Results Laboratory Results - last 24 hr 01/07/19 01/07/19 01/08/19 16:53 20:27 06:18 ABG pH 7.33 L ABG pCO2 104 H ABG pO2 102 H ABG HCO3 53 H ABG O2 Saturation 96.8 H ABG Base Excess 21.8 H [place] Test POS Barometric Pressure 739.1 Oxygen Given 4L POC Glucose 160 H 138 H 01/08/19 01/08/19 08:06 12:10 ABG pH ABG pCO2 ABG pO2 ABG HCO3 ABG O2 Saturation ABG Base Excess [place] Test Barometric Pressure Oxygen Given POC Glucose 109 H 141 H Medications Administered Current Inpatient Medications Albuterol (Duoneb) 3 ml INH QIDR [facility] Stop: 02/07/19 07:59 Last Admin: 01/08/19 15:25 Dose: 3 ml Documented by: Amlodipine Besylate (Norvasc) 5 mg PO QAM [facility] Stop: 02/07/19 14:59 Last Admin: 01/08/19 15:22 Dose: 5 mg Documented by: Citalopram Hydrobromide (Celexa) 40 mg PO DAILY [facility] Stop: 01/31/19 08:59 Last Admin: 01/08/19 10:01 Dose: 40 mg Documented by: Dextrose (Dextrose 50%) 25 - 50 ml IV UD PRN; Protocol PRN Reason: Hypoglycemia Protocol Stop: 01/30/19 21:41 Enoxaparin Sodium (Lovenox) 40 mg SQ HS [facility] Stop: 01/30/19 22:44 Last Admin: 01/07/19 20:33 Dose: Not Given Documented by: Estradiol (Estrace) 1 mg PO DAILY [facility] Stop: 01/31/19 08:59 Last Admin: 01/08/19 10:02 Dose: 1 mg Documented by: Furosemide (Lasix) 40 mg PO DAILY [facility] Stop: 01/31/19 08:59 Last Admin: 01/04/19 07:56 Dose: 40 mg Documented by: Glucagon (Glucagen) 1 mg SQ UD PRN; Protocol PRN Reason: Hypoglycemia Protocol Stop: 01/30/19 21:41 Glucose (Dex4 Glucose) 4 - 8 tabs PO UD PRN; Protocol PRN Reason: Hypoglycemia Protocol Stop: 01/30/19 21:41 Glucose (Glucose 40%) 15 - 30 gm PO UD PRN; Protocol PRN Reason: Hypoglycemia Protocol Stop: 01/30/19 21:41 Hydrochlorothiazide (Hctz) 12.5 mg PO DAILY [facility] Stop: 01/31/19 08:59 Last Admin: 01/08/19 10:03 Dose: 12.5 mg Documented by: Insulin Aspart (Novolog Flexpen) 0 units SC ACHS [facility] Stop: 01/31/19 07:29 Last Admin: 01/08/19 14:46 Dose: 3 units Documented by: Levalbuterol HCl (Xopenex 0.63 Mg/3 Ml Neb) 0.63 mg NEB Q6R PRN PRN Reason: wheezing Stop: 02/07/19 01:59 Levothyroxine Sodium (Levothyroxine Sodium) 137 mcg PO DAILYBB [facility]MO Stop: 01/31/19 06:29 Last Admin: 01/08/19 05:49 Dose: 137 mcg Documented by: Lorazepam (Ativan) 0.5 mg PO BID PRN PRN Reason: Anxiety Stop: 02/01/19 14:51 Last Admin: 01/05/19 10:55 Dose: 0.5 mg Documented by: Lorazepam (Ativan) 0.5 mg PO HS [facility] Stop: 02/04/19 20:59 Last Admin: 01/07/19 20:37 Dose: 0.5 mg Documented by: Miscellaneous (Carbohydrates For Hypoglycemia) 15 - 30 gm PO UD PRN PRN Reason: Hypoglycemia Treatment Stop: 01/30/19 21:41 Pantoprazole Sodium (Protonix) 40 mg PO BID COSMO Stop: 02/07/19 20:59 Prednisone (Prednisone) 40 mg PO DAILY [facility] Stop: 02/07/19 08:59 Last Admin: 01/08/19 10:02 Dose: 40 mg Documented by: Raspberry (Raspberry) 5 ml PO Sa@0900 COSMO Stop: 01/30/19 08:59 Last Admin: 03/16/19 07:55 Dose: 5 ml Documented by: Saccharomyces Boulardii (Florastor) 250 mg PO DAILY [facility] Stop: 01/31/19 08:59 Last Admin: 01/08/19 10:02 Dose: 250 mg Documented by: Fluticasone/Salmeterol (Advair Diskus 250/50) 1 puffs INH BID COSMO Stop: 01/31/19 20:59 Last Admin: 01/08/19 10:01 Dose: 1 puffs Documented by: Vancomycin HCl (Vancomycin Hcl) 125 mg PO Sa@0900 COSMO Stop: 02/03/19 08:59 Last Admin: 01/04/19 08:05 Dose: 125 mg Documented by: (1) Diabetes Diabetes mellitus complication status: without complication Diabetes mellitus shelter insulin use: without termite technician use Diabetes mellitus type: type 2 Qualified Code(s): E11.9 - Type 2 diabetes mellitus without complications (2) Depression Active/Remission status: currently active Depression Type: major depressive disorder Major depression episode severity: unspecified Major depression recurrence: recurrent Qualified Code(s): F33.9 - Major depressive disorder, recurrent, unspecified (3) Hypothyroidism Hypothyroidism type: unspecified Qualified Code(s): E03.9 - Hypothyroidism, unspecified (4) COPD (chronic obstructive pulmonary disease) COPD type: emphysema Emphysema type: unspecified Qualified Code(s): J43.9 - Emphysema, unspecified (5) Hypertension Hypertension type: essential hypertension Qualified Code(s): I10 - Essential (primary) hypertension
[2019-01-08] MEDS: ENOXAPARIN INJ 40 MG/0.4 ML SYR SQ SCH (21:28)
[2019-01-08] MEDS: LORazepam 0.5 MG TAB PO SCH (21:32)
[2019-01-08] MEDS: PANTOprazole 40 MG TAB PO SCH (21:36)
[2019-01-09] MEDS: LEVOTHYROXINE SODIUM 137 MCG TABLET PO SCH (06:08)
[2019-01-09] MEDS: ALBUT/IPRATROP 3MG/0.5MG NEB 3 ML VIAL INH SCH ×2 (07:05→14:21)
[2019-01-09] MEDS: FLUTICASONE/SALMETEROL 250/50 (ADVAIR) 14 PUFF/1 INHALER INH SCH (09:35)
[2019-01-09] MEDS: hydroCHLOROthiazide 25 MG TAB PO SCH (09:37)
[2019-01-09] MEDS: SACCHAROMYCES BOULARDII 250 MG CAP PO SCH (09:37)
[2019-01-09] MEDS: ESTRADIOL 1 MG TAB PO SCH (09:37)
[2019-01-09] MEDS: predniSONE 20 MG TAB PO SCH (09:37)
[2019-01-09] MEDS: CITALOPRAM 20 MG TAB PO SCH (09:37)
[2019-01-09] MEDS: AMLODIPINE BESYLATE 5 MG TAB PO SCH (09:39)
[2019-01-09] MEDS: PANTOprazole 40 MG TAB PO SCH (09:39)
[2019-01-09] MEDS: INSULIN ASPART 100 UNITS/ML 3 ML PEN SC SCH ×2 (09:41→12:40)
--- NOTE | 2019-01-09 15:48 | Discharge Summary ---
Date of Service January 09, 2019 Admission HPI Per Admitting Provider The patient is a 68-year-old female, who was admitted to the hospital medically with an exacerbation of COPD. At baseline she is O2 dependent wearing 4 L at home. A consult was placed for depression as the patient is approaching the anniversary of 2 deaths, her in 2012, and her son in 2016. Both in December. She indicates that it is always a difficult time for her. She felt like she could almost tolerate the loss of her as she had some morning for that, but her son of a ruptured brain aneurysm very suddenly and she never had time to anticipate. She misses them both severely and this time of year is always difficult. She has been on Celexa [address] Castillo, for years and feels that generally it works. She has no interest in switching agents. She has a lot of confidence in Dr. Castillo, has been seeing him for decades and feels that she can talk with him about her losses. After the of her son, her [id number] has not kept in regular contact with her which means that Erica does not get to regularly see or talk to her 2 grandchildren. She would like to have more contact but feels she has no control over this. She denies that she has ever thought of suicide and generally her depression improves after the anniversary month. She indicates that her sleep is okay. She has some difficulty eating when she is extremely anxious and has lost 10 pounds over an unspecified timeframe. Today she is seated in the bedside chair, and engaging in conversation. She is able to talk about things that she has enjoyed in life and can freely talk about the losses that she has experienced. Due to her severe COPD she is not necessarily as mobile as she could be and would therefore not likely be able to get out to regular therapy appointments. Admission Exam Per Admitting Provider General: patient resting comfortably, NAD, non-toxic in appearance, AA&O x 4 Skin: warm, dry, intact, no rashes or lesions HEENT: NC/AT, PERRL, EOMI, anicteric sclera, conjunctiva without injection, external ear normal to inspection and nontender, nares patent, Dry mucus membranes, dentition intact, no oropharyngeal lesions, neck supple, trachea midline, no LAD, no thyromegaly, no JVD Heart: +S1/S2, regular, tachycardic, no m/r/g Lungs: diminished air entry bilaterally with prolonged expiratory phase, no rales/rhonchi/wheezes Abd: +BS, soft, NT/ND, no masses/organomegaly/ascites Ext: warm, 2+ pulses in UE/LE bilaterally, 1+ pitting edema of bilateral LEs, hemosiderin staining of skin on anterior shins bilaterally Neuro: nonfocal, patient AA&O x 4, speech intact, no facial droop, moving all extremities on command with equal strength 5/5 Principal Diagnosis COPD exacerbation Discharge Exam Constitutional WD/WN, vitals as above Eyes PERRL, conjunctivae normal, anicteric sclerae ENMT external ear and nose normal, oropharynx normal Neck trachea midline, no thyromegaly Respiratory normal respiratory effort, + prolonged expiratory phase and + pursed lip breathing Auscultation: lungs clear to auscultation bilaterally and + diminished lung misael nds (bilaterally); no wheezes Cardiovascular RRR, no murmur, no edema Gastrointestinal (Abdomen) normal bowel sounds, soft, nontender, no hepatosplenomegaly Musculoskeletal no cyanosis or clubbing, extremities motor strength 5/5 Skin no rashes, warm and dry Neurologic patellar DTR's 2+ bilat, sensation intact Psychiatric Orientation: alert and oriented x 3 Affect: + depressed affect Mood: + depressed mood Lymphatic no cervical or axillary lymphadenopathy Discharge Data Allergies Allergy/AdvReac Type Severity Reaction Status Date / Time codeine Allergy Mild Unknown Verified 12/31/18 19:28 atropine Allergy Unknown UNKNOWN Verified 12/31/18 19:28 diphenoxylate Allergy Unknown UNKNOWN Verified 12/31/18 19:28 moxifloxacin Allergy Unknown UNKNOWN Verified 12/31/18 19:28 prednisone AdvReac Mild Unknown Verified 12/31/18 19:28 Consultations 01/03/19 12:50 Consult Pulmonology Routine 01/05/19 13:25 Consult Palliative Care Routine 01/05/19 15:42 Consult Psychiatry Routine Hospital Course (1) Shortness of breath: - Presented with CAMACHO likely related to end stage COPD with acute exacerbation. - Continues to have SOB at rest and with exertion, stable today, walking further - CXR was negative for infiltrate. - Treatment for COPD as noted below. patient will have a degree of dyspnea at all times due to severity of COPD long talk with her, encouraged her to use the BIPAP every night while sleeping, can help with dyspnea during the day (2) COPD (chronic obstructive pulmonary disease): - Required 4L O2 at baseline prior to admission, will be on 4L on discharge as well - Continue home Advair BID. - Solumedrol 40 mg IV q12hr - change to Prednisone will taper Prednisone on discharge, patient requests a quick taper because she does not tolerate Prednisone very well - Hold abx due to h/o C. diff; no current signs of purulence, cough is minimally productive, no change in color than baseline will taper Prednisone on discharge (3) Acute on chronic respiratory failure with hypoxia and hypercapnia: - Requires 4L via NC at home; cannot wean requirements, desatted to 69% on 3L. - Increased CO2 on BMP, above baseline; is likely chronic CO2 retainer due to severe COPD. - Goal O2 saturation ~88-90%. - Attempted BiPAP on 01/03 due to increasing hypercapnia, pt. did not tolerate mask - Consult palliative care due to poor prognosis in setting of severe COPD patient would like to go home with services, eventually transition to hospice qualifies for BIPAP based off of nocturnal desaturation study and morning ABG will be delivere by [facility] on day of discharge patient states that she will try to be compliant again, encouraged her to try this for the next month as it could improve her symptoms during the day (4) Chest pain: - Developed sternal chest pain on 01/03, now resolved. May be related to anxiety vs. GI source. - EKG was negative. - Trop peaked at 0.035; no further levels indicated. - H/o anxiety -- Ativan 0.5 mg BID prn with 0.5 mg qhs scheduled. (5) GERD (gastroesophageal reflux disease): c/o burning in chest and throat, specifically after she eats will start Protonix BID, taper to once a day after a week try to improve symptoms (6) Lightheadedness: - May be related to CO2 retention; mental status is intact. - Did not tolerate BiPAP as noted above. - Orthostatics were negative. (7) Hypertension: - Continue home HCTZ 12.5 mg daily and Lasix daily (8) Depression: - History of MDD as well as grief from loss of her and son. - Continue Celexa 40 mg daily. - Ativan 0.5 mg BID prn. - Consulting palliative care; of both family members were in December (the and ) - Will also consult psych due to depression/uncontrolled anxiety recommend continuing Celexa if still depressed one month after anniversary of deaths, then could switch to Lexapro 10mg psychiatry made themselves available to talk recommend counseling as outpatient if patient will to go (9) Hypothyroidism: - Continue Synthroid 137 mcg daily. - TSH was 0.6. (10) Diabetes: - Hemoglobin A1C was 6.0. - SSI coverage with gluc checks ac/hs. (11) History of Clostridium difficile infection: - H/o severe C. diff infection; follows with Dr. Hamm. - Continue weekly PO Vancomycin. - Continue probiotics. - Avoid all antibiotics if possible. (12) Anemia of chronic disease: - Hemoglobin stable - Iron studies consistent with anemia of chronic disease. - B12 and Folate WNL. (13) Morbid obesity: - BMI 42. - Encourage weight loss and exercise. (14) DVT prophylaxis: - Lovenox. disposition: d/c to home with home services set up with BIPAP consultation with palliative while inpatient, she is not quite ready for hospice but wants to transition to it in the near future Total Time Total Time Spent Total Time Spent (In Minutes): 40 minutes Total Time Includes: Examination of the Patient, Discharge Planning and Medication Reconciliation Discharge Plan Discharge Items Patient Disposition: Home - Home Health Services Reason For Visit: COPD EXACERBATION Discharge Diagnosis: COPD exacerbation, hypercapnia Gastroesophageal reflux (GERD) Depression Condition: Good Discharge Goals: Improve disease control and Improve function Activity: Per 'Additional Instructions' section Lifting: None Bathing: No limitations Exercise/Sports: Gradually increase as tolerated Driving/Machine Use Comment: no driving Non-emergency contact: Primary Care Provider Call non-emergency contact if: you have any medication questions, your symptoms worsen and you have a fever Follow-up/Referrals: Alvaro Castillo MD [Primary Care Provider] - 01/13/19 2:20 pm (Please, follow up at Dr. Castillo's office with his apartment community assistant manager, Deepali Marvin PA-C, on SundayJanuary 13 at 2:20 pm. ) Diet: Heart Healthy Add Provider Instructions: Medications: - PROTONIX: take once a day for reflux, this is to treat the burning, tightness in chest - PREDNISONE: 20mg daily x 4 days then 10mg daily x 4 days then stop - LORAZEPAM: intended to help you fall asleep and help you tolerate the BIPAP at night COPD with exacerbation resolving, no wheezing on exam, lung sounds diminished which is baseline will send home on short taper of Prednisone Hypercapnia respiratory failure (elevated carbon dioxide) treatment is using BIPAP at night as we discussed, use every night when sleeping, this should improve sleep you should gradually start to feel better rested, have more energy settings for BIPAP: pressure 12/5, FiO2 35%, RR 12 call [facility] if you have questions, need their help at home GERD/reflux: use Protonix daily, chest burning should improve over next week follow up with Dr. Castillo HTN: you should resume the Hyzaar, this was not on list here at the hospital you were getting the hydrochlorothiazide listed below Prescriptions: New lorazepam 0.5 mg Tablet 0.5 mg PO HS 30 Days Qty: 30 RF: 0 pantoprazole 40 mg Tablet,Delayed Release (Dr/Ec) 40 mg PO DAILY 30 Days Qty: 30 RF: 3 prednisone 10 mg tablet 20 mg PO UD Qty: 12 RF: 0 Continued furosemide [Lasix] 40 mg tablet 40 mg PO DAILY RF: 0 levothyroxine [Synthroid] 137 mcg tablet 137 mcg PO DAILY RF: 0 ipratropium-albuterol 0.5 mg-3 mg(2.5 mg base)/3 mL solution for nebulization 1 dose Inhalation QID RF: 0 vancomycin 125 mg capsule 125 mg PO WK RF: 0 citalopram [Celexa] 20 mg tablet 40 mg PO DAILY RF: 0 estradiol [Estrace] 1 mg tablet 1 mg PO DAILY RF: 0 fluticasone propion-salmeterol [Advair Diskus] 500-50 mcg/dose blister with device 1 puff Inhalation BID RF: 0 hydrochlorothiazide 12.5 mg capsule 12.5 mg PO DAILY RF: 0 Stand-Alone Forms: [facility] Discharge Orders: Discharge Order (Routine); Ordered 01/09/19 Ordered By: Carter Gross Admission Data Admit Date/Time: 12/31/18 20:39 Attending Provider: Carter Gross Admit Provider: Veronika Morales Primary Care Provider: Alvaro Castillo Other Providers: Amita Collins ; Benjamín Bhardwaj ; Letty Ornelas ; Marti Boyd ; Ana Wing ; Mercedes Dejesus Service: Medical Other Interventions: Discharge Summary Assessment (RN) Last Done: 01/09/19 14:31 DC Date/Time DO NOT enter until pt leaves facility: 01/09/19 14:32
== END 2019-01-09 14:32 | disposition home health service (06) | DRG 190 ==
LOC: ED 16:12 → 4E 20:39 → SUATTDRO 20:39 → 4E 21:20
DX: D63.8 Anemia in other chronic diseases classified elsewhere; K21.9 Gastro-esophageal reflux disease without esophagitis; J44.1 Chronic obstructive pulmonary disease with (acute) exacerbation; I10 Essential (primary) hypertension; J96.21 Acute and chronic respiratory failure with hypoxia; E03.9 Hypothyroidism, unspecified; E11.9 Type 2 diabetes mellitus without complications; Z79.890 Hormone replacement therapy; F33.9 Major depressive disorder, recurrent, unspecified; Z88.8 Allergy status to other drugs, medicaments and biological substances; Z66 Do not resuscitate; F43.21 Adjustment disorder with depressed mood; Z86.19 Personal history of other infectious and parasitic diseases; Z99.81 Dependence on supplemental oxygen; F41.9 Anxiety disorder, unspecified; Z88.5 Allergy status to narcotic agent; R42 Dizziness and giddiness; J96.22 Acute and chronic respiratory failure with hypercapnia; Z68.41 Body mass index [BMI] 40.0-44.9, adult; Z79.899 Other long term (current) drug therapy; Z79.2 Long term (current) use of antibiotics; Z87.891 Personal history of nicotine dependence; Z88.1 Allergy status to other antibiotic agents; E66.01 Morbid (severe) obesity due to excess calories

== ENCOUNTER 2019-02-27 13:03 | Inpatient (IN) ==
--- OUTSIDE RECORDS SUMMARY | 2019-02-27 13:07 | External Medical Summary | Continuity of Care Document ---
:1950 Author Name Jamil Bueno, Provider Address Unavailable Unavailable , Care Team Providers Name Role Phone Alvaro Castillo M.D. Unavailable [email or web address] Valentina Marvin PA-C Unavailable [email or web address] [email or web address] [email or web address] ZAKI Bueno, Miladys Unavailable Unavailable Unavailable Unavailable Unavailable Problems Hypoxia (799.02) (R09.02) Cholelithiasis (574.20) Osteoarthritis of knee (715.36) (M17.10) Menopausal symptoms (627.2) (N95.1) Breast pain (611.71) (N64.4) Pain In The Right Breast The Upper Outer Quadrant Back pain (724.5) (M54.9) Constipation (564.00) (K59.00) Severe cervical dysplasia (233.1) (D06.9) Hypercholesterolemia (272.0) (E78.00) Gastroesophageal reflux disease (530.81) (K21.9) Shortness of breath (786.05) (R06.02) Diabetes mellitus (250.00) (E11.9) Hypothyroidism (244.9) (E03.9) Hypertension (401.9) (I10) Vision changes (368.9) (H53.9) Neck pain (723.1) (M54.2) Cervical disc disease (722.91) (M50.90) Hypotension (458.9) (I95.9) Degenerative joint disease involving multiple joints (715.89 ) (M15.9) Painful hand (729.5) (M79.643) Need for hepatitis C screening test (V73.89) (Z11.59) Anemia (285.9) (D64.9) Varicose veins (454.9) (I83.90) Lightheadedness (780.4) (R42) Clostridium difficile colitis (008.45) (A04.72) Chronic respiratory failure (518.83) (J96.10) Depression (311) (F32.9) Edema (782.3) (R60.9) Chronic obstructive pulmonary disease (496) (J44.9) Muscle spasm (728.85) (M62.838) Chronic bronchitis (491.9) (J42) Fatigue (780.79) (R53.83) Female pelvic pain (625.9) (R10.2) Allergies and Adverse Reactions Avelox TABS (Allergy) Codeine Derivatives (Allergy) Reaction: Swelling Lomotil TABS (Allergy) PredniSONE (Jens) TABS (Allergy) Reaction : Other Medications LORazepam 0.5 MG Oral Tablet; TAKE 1 TABLET Bedtime Refills: 0 Vancomycin HCl - 125 MG Oral Capsule; take 1 capsule b y mouth every week Ximena Castillo Start: 13-Jan-2014 Quantity: 12 Refills: 3 Ipratropium-Albuterol 0.5-2.5 (3) MG/3ML Inhalation Solution; USE 1 UNIT DOSE IN NEBULIZER EVERY 4 HOURS NEEDED. Ximena Castillo Start: 30-Jun-2015 Quantity: 360 Refills: 5 Advair Diskus 500-50 MCG/DOSE Inhalation Aerosol Powder Breath Activated; INHALE 1 PUFF TWICE DAILY WITH A RINSE OF MOUTH AFTERWARDS Ximena Castillo art: 09-Mar-2015 Quantity: 3 60 Inhaler Pack Refills: 3 Losartan Potassium-HCTZ 50-12.5 MG Oral Tablet; Take 1 tablet by mouth daily as directed Ximena Castillo Start: 09-Feb-2016 Quantity: 90 Refills: 3 Citalopram Hydrobromide 20 MG Oral Tablet; TAKE 2 TABL ETS BY MOUTH DAILY Ximena Castillo Start: 01-Nov-2018 Quantity: 180 Refills: 3 Levothyroxine Sodium 137 MCG Oral Tablet; TAKE 1 TABLE T BY MOUTH DAILY Ximena Castillo Start: 21-Feb-2019 Quantity: 90 Refills: 3 Furosemide 40 MG Oral Tablet; TAKE 1 TABLET BY MOUTH DAILY Ximena Castillo Start: 21-Feb-2019 Quantity: 90 Refills: 3 Multiple Vitamins Oral Tablet Refills: 0 Estradiol 1 MG Oral Tablet; TAKE 1 TABLET BY MOUTH DAILY Nieves Mckeon M.D. Start: 01-Dec-2011 Quantity: 30 Shena Ash. Refills: 11 hydroCHLOROthiazide 12.5 MG Oral Capsule; TAKE 1 CAPSU LE Daily ABRAM Marvin Start: 09-Sep-2018 Quantity: 30 Refills: 5 Procedures History of Vaginal Hysterectomy Status: Completed 31-Oct-1996 0:00 History of Back Surgery Status: Complete d 22-Oct-1994 0:00 History of Dilation And Curettage Status : Completed History of Knee Replacement Status: Comp leted History of Total Hip Replacement Status: Completed History of Neuroplasty Decompression Median Status: Completed Nerve At Carpal Tunnel History of Cervical Conization Loop Electrode Status: Completed 22-Oct-1992 0:00 Excision Immunizations Pneumococcal polysaccharide vaccine, 23 valent On: 2008 Fluzone INJ On: 14-Aug-2011 16:46 Lot #: [id number], [employer] PA[employer] Fluzone INJ On: 04-Sep-2012 15:51 Lot #: [id number], [employer] PA[employer]UR Fluzone High-Dose Intramuscular Suspension On: 05-Aug-2014 1 1:48 Lot #: [id number], [employer] PA[employer]UR Fluzone High-Dose Intramuscular Suspension On: 10-Aug-2015 1 4:32 Lot #: [id number], [employer] PA[employer]UR Prevnar 13 Intramuscular Suspension On: 15-Sep-2015 Fluzone High-Dose Intramuscular Suspension On: 13-Sep-2016 1 3:50 Lot #: [id number], [employer]FI PA[employer]UR Adacel 5-2-15.5 LF-MCG/0.5 Intramuscular Suspension On: 15:20 Lot #: [id number], [employer] PA[employer]UR Fluzone High-Dose Intramuscular Suspension On: 19-Sep-2017 1 5:43 Lot #: [id number], [employer] PASTEUR Fluzone High-Dose Intramuscular Suspension On: 09-Sep-2018 1 5:11 Lot #: [id number], [employer] PA[employer] Family History Grandmother Family history of Breast Cancer (V16.3) Status: Active Unknown Family Member Family history of Diabetes Mellitus (V18.0) Status: Active Comments: Family History Family history of Heart Disease (V17.49) Status: Active Comments: Family History Family history of Hypertension (V17.49) Status: Active Comments: Family History Mother Family history of Congestive Heart Failure Status: Active Family history of Arthritis (V17.7) Status: Active Social History - Smoking Status Former smoker Plan of Treatment Planned Encounters Appointment; Alvaro Castillo M.D. Start: 12-Jun-2019 15:30 Requ est Planned Observations Planned Goals not documented Results Lipid Profile - Laboratory: [facility] [address] [place] [address] tel: 30-Jan-2019 13:39 TRIGLYCERIDES 63 mg/dl Range: 0-150 mg/ dl Comments: TRIGLYCERI RICHY Normal triglyceride: <150 mg/dl Borderline High: 150-199 mg/dl High: 200-499 mg/dl Very High: > or = 500 mg/dl CHOLESTEROL 195 mg/dl Range: 0-200 mg/d l Comments: TOTAL CHOL ESTEROL Desirable: <200 mg/dl Borderline High: 200-239 mg/dl High Cholesterol: > or = 240 mg/dl LDL CHOLESTEROL CALCULATED 102 Range: m g/dl mg/dl VERY LOW DENSITY LIPOPROT CALC 13 Range: mg/dl mg/dl HDL CHOLESTEROL 80 mg/dl Range: mg/dl Comments: Unable to flag abnormal result. Please refer tointerpretive data below:HDL CHOLESTEROL Low HDL: <40 mg/dl Normal: 40-60 mg/dl Desirable: >60 mg/dl CHOLESTEROL/HDL RATIO 2 Ultra TSH Laboratory: [facility] [address] [facility], [place]. [place] [address] tel: 30-Jan-2019 13:39 TSH 1.400 {uIu/ml} Range: 0.300-4.500 uIu/ml Comments: The refere nce range for TSH is 0.3-4.5 uIU/ml.Some have suggested that TSH levels >2.5 uIU/ml should beconsidered abnormal, particularly in potentially symptomaticyounger individuals.TSH levels in he althy elderly (>75 y ears of age) are oftenat or even above the reference range.Normal first trimester TSH <2.0 uIU/ml.Normal second and third trimester TSH <3.0 uIU/ml.TSH 0.5-2.0 uIU/ml is oft en considered the op timaltherapeutic target for replacement treatment ofhypothyroidism. Vital Signs 30-Jan-2019 12:53 Systolic 110 mm[Hg] Diastolic 64 mm[Hg] BMI Calculated 40.79 kg/m2 Weight 223 lb BSA Calculated 2 m2 FiO2 4 L/min Encounters Appointment; Deepali Marvin PA-C 30-Jan-2019 13:00 Encounter Diagnosis: Problem not documented Appointment; Deepali Marvin PA-C 13-Jan-2019 14:20 Encounter Diagnosis: Problem not documented Appointment; Deepali Marvin PA-C 19-Sep-2018 13:00 Encounter Diagnosis: Problem not documented Appointment; Deepali Marvin PA-C 09-Sep-2018 14:00 Encounter Diagnosis: Problem not documented Appointment; Deepali Marvin PA-C 02-Sep-2018 13:30 Encounter Diagnosis: Problem not documented Appointment; Deepali Marvin PA-C 27-Mar-2018 15:30 Encounter Diagnosis: Problem not documented Appointment; Alvaro Castillo M.D. 20-Feb-2018 12:45 Encounter Diagnosis: Problem not documented Appointment; Alvaro Castillo M.D. 19-Sep-2017 15:30 Encounter Diagnosis: Problem not documented Appointment; Deepali Marvin PA-C 27-Apr-2017 11:30 Encounter Diagnosis: Problem not documented Appointment; Deepali Marvin PA-C 25-Apr-2017 14:30 Encounter Diagnosis: Problem not documented Appointment; Alvaro Castillo M.D. 14-Mar-2017 14:30 Encounter Diagnosis: Problem not documented Appointment; Alvaro Castillo M.D. 12-Jun-2019 15:30 Encounter Diagnosis: Problem not documented
[2019-02-27] MEDS ORDERED: methylPREDNISolone 125 MG/2 ML VIAL IV STA (13:26)
[2019-02-27 13:59] LABS: Basophils # (auto) 0.01 K/uL (0-0.2); Basophils % (auto) 0.1 %; Eosinophils # (auto) 0.11 K/uL (0-0.5); Eosinophils % (auto) 1.5 %; Hematocrit (blood only) 33.6 % (37-47); Hemoglobin 10.8 g/dL (12.0-16.0); Immature Granulocytes # (auto) 0.02 K/uL (0.00-0.02); Immature Granulocytes % (auto) 0.3 %; Lymphocytes # (auto) 0.82 K/uL (1.2-3.4); Lymphocytes % (auto) 10.9 %; Mean Corpuscular Hgb Conc 32.1 g/dL (32-36); Mean Corpuscular Volume 90.8 fL (80-100); Mean Platelet Volume 10.6 fL (7.4-10.4); Monocytes # (auto) 0.96 K/uL (0.11-0.59); Monocytes % (auto) 12.8 %; Neutrophils # (auto) 5.57 K/uL (1.4-6.5); Neutrophils % (auto) 74.4 %; Platelet Count 278 K/uL (130-400); RDW Coefficient of Variation 13.7 % (11.5-14.5); RDW Standard Deviation 46.1 fL (36.4-46.3); White Blood Count 7.49 K/uL (4.8-10.8)
--- NOTE | 2019-02-27 14:00 | XRay Report ---
XR chest 1V portable CLINICAL HISTORY: Dyspnea COMPARISON STUDY: 12/31/2018 FINDINGS: The heart is borderline enlarged. There is persistent elevation left hemidiaphragm. Since t he prior study the patient has developed increased right lung interstitial markings. Diagnostic consi derations include asymmetric edema versus a right lung interstitial inflammatory process. Clinical an d radiographic follow-up is recommended.[ IMPRESSION: Interval development of increased right lung interstitial markings. Diagnostic considerat ions include asymmetric edema versus a right lung interstitial inflammatory process. Clinical and rad iographic follow-up is recommended. Electronically signed by: Ivan Mancia M.D. 02/27/2019 1:59 PM
[2019-02-27 14:07] LABS: Partial Thromboplastin Ratio 1.2; Partial Thromboplastin Time 32.2 Seconds (21.0-31.0); Prothrombin Time 10.2 Seconds (9.0-12.0)
[2019-02-27] MEDS: MAGNESIUM SULFATE / D5W 1 GM/100 ML BAG IV SCH ×2 (14:07→15:03)
[2019-02-27 14:11] LABS: Albumin Level 2.9 gm/dl (3.4-5.0); BUN Creatinine Ratio 23.5 (10-20); Creatinine Clr Calc Pharmacy 73.1 ml/min; Est GFR (African American) 92.1; Est GFR (Non-African American) 79.5; Potassium 3.9 mmol/L (3.5-5.1)
[2019-02-27 14:14] LABS: Albumin Globulin Ratio 0.6 (0.9-2); Bilirubin,Total 0.4 mg/dl (0.2-1); Globulin 4.7 gm/dl (2.5-4.0); Total Protein 7.6 gm/dl (6.4-8.2)
[2019-02-27] MEDS ORDERED: ALBUT/IPRATROP 3MG/0.5MG NEB 3 ML VIAL NEB ONE (14:58)
[2019-02-27] MEDS ORDERED: OPTIRAY 320 125ml IV PRN (16:47)
--- NOTE | 2019-02-27 16:57 | CT Scan Report ---
CT angio chest PE protocol CT DOSE: 1058.69 mGy.cm HISTORY: Dyspnea sob eval for pe TECHNIQUE: Multiaxial CT images of the chest were performed following the intravenous administration of contrast to evaluate the pulmonary arteries. Maximal intensity projection images were also obtaine d. A dose lowering technique was utilized adhering to the principles of ALARA. COMPARISON STUDY: 10/25/2014 FINDINGS: There is a normal caliber thoracic aorta with no evidence for dissection. There is no evide nce for pulmonary embolus. No pleural effusions. No pneumothorax. The liver and spleen are unremarkab le. No mediastinal or hilar lymphadenopathy. Poorly defined interstitial infiltrate right upper lung. Minimal scattered dependent basilar atelectasis. Moderate stable emphysematous change. IMPRESSION: 1. No evidence of pulmonary embolus. 2. Interstitial infiltrative change right upper lobe. 3. Mild scattered bibasilar dependent atelectasis. The above report was generated using voice recognition software. It may contain grammatical, syntax or spelling errors. Electronically signed by: Tim Bloom M.D. 02/27/2019 4:56 PM
[2019-02-27] MEDS ORDERED: PIPERACILLIN/TAZOBACTAM 4.5 GM/120 ML BAG IV ONE (16:59)
[2019-02-27] MEDS ORDERED: PIPERACILL/TAZOBAC CONSULT ACTIVE PRN ×2 (16:59→21:59)
[2019-02-27 17:46] LABS: Allen Test POS (Pos); HCO3 ABG 36 mmol/L (19-24); PCO2 ABG 56 mmHg (35-46); PO2 ABG 56 mm/Hg (80-95); pH ABG 7.43 (7.35-7.45)
--- NOTE | 2019-02-27 20:01 | History & Physical Report ---
Date of Service February 27, 2019 Assessment & Plan (1) Shortness of breath: Patient tachyneic on arrival, has since improved with treatment administered in ER. She is presently without respiratory distress, adequate oxygenation on baseline 4L NC, pulmonary exam relatively benign. Suspect COPD e xacerabation with possible PNA as underlying etiology of SOB -Admit to medical floor -DuoNeb q 4 hours -Albuterol q 2 hours PRN -Solumedrol 20mg IV TID -Supplemental O2 and CPAP qHS, goal saturation 88-92%, patient appears to be a chronic CO2 retainer therefore do not want to over-oxygenate (2) Pneumonia: Possible infiltrate RUL. Patient states she has had chills and sweats. Recent hospital stay in December. Presently afebrile, hemodynamically stable, no leukocytosis. -Check procalcitonin -CXR PA and lateral in AM -Zosyn 4.5gm IV q 8 hours -Vancomycin -Check sputum culture -Adjust antibiotics as appropriate. -Patient with remote history of severe c. diff for which she takes weekly suppressive Vancomycin. Daily probiotic (3) COPD exacerbation: As above -Steroids, nebs, treatment of suspected PNA -Continue Advair BID (4) Prolonged QT interval: Lcf=520 on EKG. -Avoid QT prolonging medications (5) GERD (gastroesophageal reflux disease): Chronic, well controlled -Continue Protonix daily (6) Anemia of chronic disease: H/H stable. No active bleeding -Continue to monitor (7) Hypothyroidism: Stable, chronic -Continue Synthroid (8) Hypertension: BP stable -Continue Lasix and HCTZ -Continue to monitor (9) Depression: MDD as well as grief response from loss of and son -Continue Celexa (10) Diabetes: Patient denies this diagnosis. States she has never been a diabetic. AIC=6, 5.9 on prior studies. She was slightly perturbed with this diagnosis. -CC diet as tolerated -Monitor daily labs, if patient with elevated glucose will add insulin coverage F/E/N - heplock. Monitor electrolytes and replete as needed. Mag given in ER, CC diet as tolerated Ppx - Lovenox Code - DNR/DNI Dispo - Admit to medical floor History of Present Illness Chief Complaint: shortness of breath Primary Care Provider: Alvaro Castillo MD Erica Giron is a 68yo C female with history of O2 dependent COPD (4L at home by ANI), recently started on nocturnal CPAP, HTN, Hypothyroidism. She was recently admitted in December for suspected COPD exacerbation. She was treated with steroids and nebs and discharged home on a Prednisone taper. Patient states that she has had progressive SOB over the last week, on exertion and at rest as well. She has had increased wheezing, a dry cough, chills and night sweats as well. She has been using her Advair BID and DuoNeb q 6 hours at home with minimal improvement is symptoms. She was to see her PCP today but decided to come to the ER instead. Denies worsening orthopnea or weight gain. She has stable dependent edema of the LE that has not worsened. Also describes fatigue, poor appetite and decreased PO intake. Occasional chest tightness which occurs when she feels short of breath. No additional complaints at this time ER Course: Magnesium, Solumedrol, Albuterol, Zosyn Allergies Allergy/AdvReac Type Severity Reaction Status Date / Time codeine Allergy Mild Unknown Verified 02/27/19 13:51 atropine Allergy Unknown UNKNOWN Verified 02/27/19 13:51 diphenoxylate Allergy Unknown UNKNOWN Verified 02/27/19 13:51 moxifloxacin Allergy Unknown UNKNOWN Verified 02/27/19 13:51 prednisone AdvReac Mild Unknown Verified 02/27/19 13:51 Home Medications Home Medications Medication Instructions Recorded Confirmed Type citalopram [Celexa] 40 mg PO DAILY 12/31/18 02/27/19 History estradiol [Estrace] 1 mg PO DAILY 12/31/18 02/27/19 History fluticasone propion-salmeterol 1 puff INHALATION BID 12/31/18 02/27/19 History [Advair Diskus] furosemide [Lasix] 40 mg PO DAILY 12/31/18 02/27/19 History hydrochlorothiazide 12.5 mg PO DAILY 12/31/18 02/27/19 History ipratropium-albuterol 1 dose INHALATION QID 12/31/18 02/27/19 History levothyroxine [Synthroid] 137 mcg PO DAILY 12/31/18 02/27/19 History vancomycin 125 mg PO WK 12/31/18 02/27/19 History pantoprazole 40 mg PO DAILY 30 Days #30 tab 01/09/19 02/27/19 Rx Past Med/Surg History Medical History Hypothyroidism Depression Hypertension COPD (chronic obstructive pulmonary disease) 4L NC Diabetes diet controlled A1C=6 in December 2017 No significant family history Surgical History History of carpal tunnel surgery Previous back surgery S/P hysterectomy Status post bilateral knee replacements Status post hip surgery Family History Other Breast cancer Diabetes Hypertension Social History Preferred Language: Kenyan Communication Ability: Effective Beliefs That Will Affect Care: None marital status: Current Living Situation: Alone other: grief due to loss of and son Feels Safe at Home: Yes Smoking Status: Former smoker Hx Alcohol Use: No Hx Substance Use: No Review of Systems Review of Systems: All systems reviewed & are unremarkable except as noted in HPI & below Physical Exam Physical Exam: General: patient resting comfortably, NC in place, NAD, non- toxic in appearance, AA&O x 4, flat affect Skin: warm, dry, intact, no rashes or lesions, bruising on dorsum of left hand, thickened/hemosiderin staining of bilateral ankles HEENT: NC/AT, PERRL, EOMI, anicteric sclera, conjunctiva without injection, external ear normal to inspection and nontender, nares patent, moist mucus membranes, dentition intact, no oropharyngeal lesions, neck supple, trachea midline, no LAD, no thyromegaly, no JVD Heart: +S1/S2, regular, no m/r/g Lungs: no respiratory distress, speaking in complete sentences, equal air entry bilaterally, scant crackles in bilateral bases, no rhonchi/wheezing Abd: +BS, soft, NT/ND, no masses/organomegaly/ascites Ext: warm, 2+ pulses in UE/LE bilaterally, no clubbing/cyanosis, trace pitting edema of bilateral LE Neuro: nonfocal, patient AA&O x 4, speech intact, no facial droop, moving all extremities on command with equal strength 5/5 Results & Data Vital Signs (Past 12 Hours) Vital Signs Pulse Pulse Resp BP Pulse Ox 02/27/19 18:21 108 H 26 H 92 05/09/19 15:20 91 H 16 97 02/27/19 15:11 89 22 92 02/27/19 15:10 90 20 94 02/27/19 15:01 92 H 17 94 02/27/19 15:00 89 15 109/65 95 02/27/19 14:50 89 17 94 02/27/19 14:40 89 17 93 02/27/19 14:30 91 H 24 111/62 95 02/27/19 14:20 91 H 22 94 02/27/19 14:10 93 H 19 95 02/27/19 14:08 94 H 18 116/66 94 02/27/19 14:00 93 H 20 96 02/27/19 13:50 96 H 19 94 02/27/19 13:40 87 19 97 02/27/19 13:30 92 H 16 96 02/27/19 13:26 91 02/27/19 13:25 95 H 20 94 02/27/19 13:23 97 H 26 H 163/56 H 91 02/27/19 13:18 97 H 30 H 163/56 H 92 Laboratory Results Lab Results 02/27/19 02/27/19 02/27/19 Range/Units 13:40 13:40 13:40 WBC 7.49 (4.8-10.8) K/uL RBC 3.70 L (4.2-5.4) M/uL Hgb 10.8 L (12.0-16.0) g/dL Hct 33.6 L (37-47) % MCV 90.8 (80-100) fL MCH 29.2 (25-34) pg MCHC 32.1 (32-36) g/dL RDW Std Deviation 46.1 (36.4-46.3) fL RDW Coeff of Judy 13.7 (11.5-14.5) % Plt Count 278 (130-400) K/uL MPV 10.6 H (7.4-10.4) fL Immature Gran % (Auto) 0.3 % Neut % (Auto) 74.4 % Lymph % (Auto) 10.9 % [place] % (Auto) 12.8 % Eos % (Auto) 1.5 % Baso % (Auto) 0.1 % Immature Gran # (Auto) 0.02 (0.00-0.02) K/uL Neut # (Auto) 5.57 (1.4-6.5) K/uL Lymph # (Auto) 0.82 L (1.2-3.4) K/uL [place] # (Auto) 0.96 H (0.11-0.59) K/uL Eos # (Auto) 0.11 (0-0.5) K/uL Baso # (Auto) 0.01 (0-0.2) K/uL PT 10.2 (9.0-12.0) Seconds INR 1.0 (0.9-1.1) APTT 32.2 H (21.0-31.0) Seconds PTT Ratio 1.2 ABG pH (7.35-7.45) ABG pCO2 (35-46) mmHg ABG pO2 (80-95) mm/Hg ABG HCO3 (19-24) mmol/L ABG O2 Saturation (90-95) % ABG Base Excess (-9-1.8) mEq/L Chetan Test (Pos) Barometric Pressure mm/Hg Oxygen Given Sodium 133 L (136-145) mmol/L Potassium 3.9 (3.5-5.1) mmol/L Chloride 89 L (98-107) mmol/L Carbon Dioxide 39 H (21-32) mmol/L Anion Gap 5.0 (3-11) BUN 18 (7-18) mg/dl Creatinine 0.76 (0.6-1.2) mg/dl Est Cr Clr Drug Dosing 73.1 ml/min Est GFR ( Amer) 92.1 Est GFR (Non-Af Amer) 79.5 BUN/Creatinine Ratio 23.5 H (10-20) Glucose 124 H (70-99) mg/dl Calcium 10.0 (8.5-10.1) mg/dl Magnesium 2.0 (1.8-2.4) mg/dl Total Bilirubin 0.4 (0.2-1) mg/dl AST 19 (15-37) U/L ALT 15 (12-78) U/L Alkaline Phosphatase 65 (45-117) U/L POC Troponin I (0-0.045) ng/ml Total Protein 7.6 (6.4-8.2) gm/dl Albumin 2.9 L (3.4-5.0) gm/dl Globulin 4.7 H (2.5-4.0) gm/dl Albumin/Globulin Ratio 0.6 L (0.9-2) 02/27/19 02/27/19 Range/Units 13:48 17:28 WBC (4.8-10.8) K/uL RBC (4.2-5.4) M/uL Hgb (12.0-16.0) g/dL Hct (37-47) % MCV (80-100) fL MCH (25-34) pg MCHC (32-36) g/dL RDW Std Deviation (36.4-46.3) fL RDW Coeff of Judy (11.5-14.5) % Plt Count (130-400) K/uL MPV (7.4-10.4) fL Immature Gran % (Auto) % Neut % (Auto) % Lymph % (Auto) % [place] % (Auto) % Eos % (Auto) % Baso % (Auto) % Immature Gran # (Auto) (0.00-0.02) K/uL Neut # (Auto) (1.4-6.5) K/uL Lymph # (Auto) (1.2-3.4) K/uL [place] # (Auto) (0.11-0.59) K/uL Eos # (Auto) (0-0.5) K/uL Baso # (Auto) (0-0.2) K/uL PT (9.0-12.0) Seconds INR (0.9-1.1) APTT (21.0-31.0) Seconds PTT Ratio ABG pH 7.43 (7.35-7.45) ABG pCO2 56 H (35-46) mmHg ABG pO2 56 L (80-95) mm/Hg ABG HCO3 36 H (19-24) mmol/L ABG O2 Saturation 88.0 L (90-95) % ABG Base Excess 10.0 H (-9-1.8) mEq/L Chetan Test POS (Pos) Barometric Pressure 733.4 mm/Hg Oxygen Given 4 L Sodium (136-145) mmol/L Potassium (3.5-5.1) mmol/L Chloride (98-107) mmol/L Carbon Dioxide (21-32) mmol/L Anion Gap (3-11) BUN (7-18) mg/dl Creatinine (0.6-1.2) mg/dl Est Cr Clr Drug Dosing ml/min Est GFR ( Amer) Est GFR (Non-Af Amer) BUN/Creatinine Ratio (10-20) Glucose (70-99) mg/dl Calcium (8.5-10.1) mg/dl Magnesium (1.8-2.4) mg/dl Total Bilirubin (0.2-1) mg/dl AST (15-37) U/L ALT (12-78) U/L Alkaline Phosphatase (45-117) U/L POC Troponin I < 0.03 (0-0.045) ng/ml Total Protein (6.4-8.2) gm/dl Albumin (3.4-5.0) gm/dl Globulin (2.5-4.0) gm/dl Albumin/Globulin Ratio (0.9-2) Diagnostic Findings CT angio chest PE protocol CT DOSE: 1058.69 mGy.cm HISTORY: Dyspnea sob eval for pe TECHNIQUE: Multiaxial CT images of the chest were performed following the intravenous administration of contrast to evaluate the pulmonary arteries. Maximal intensity projection images were also obtained. A dose lowering technique was utilized adhering to the principles of ALARA. COMPARISON STUDY: 10/25/2014 FINDINGS: There is a normal caliber thoracic aorta with no evidence for dissection. There is no evidence for pulmonary embolus. No pleural effusions. No pneumothorax. The liver and spleen are unremarkable. No mediastinal or hilar lymphadenopathy. Poorly defined interstitial infiltrate right upper lung. Minimal scattered dependent basilar atelectasis. Moderate stable emphysematous change. IMPRESSION: 1. No evidence of pulmonary embolus. 2. Interstitial infiltrative change right upper lobe. 3. Mild scattered bibasilar dependent atelectasis. The above report was generated using voice recognition software. It may contain grammatical, syntax or spelling errors. Electronically signed by: Tim Bloom M.D. 02/27/2019 4:56 PM Dictated: 02/27/191652 Transcribed: 02/27/191652 XR chest 1V portable CLINICAL HISTORY: Dyspnea COMPARISON STUDY: 12/31/2018 FINDINGS: The heart is borderline enlarged. There is persistent elevation left hemidiaphragm. Since the prior study the patient has developed increased right lung interstitial markings. Diagnostic considerations include asymmetric edema versus a right lung interstitial inflammatory process. Clinical and radiographic follow-up is recommended.[ IMPRESSION: Interval development of increased right lung interstitial markings. Diagnostic considerations include asymmetric edema versus a right lung interstitial inflammatory process. Clinical and radiographic follow-up is recommended. Electronically signed by: Ivan Mancia M.D. 02/27/2019 1:59 PM Dictated: 02/27/19 1358 Transcribed: 02/27/19 1358 ECG Additional Comments: The study shows NSR at 95bpm, normal axis, PO=223, QRS=90, QTc prolonged at 512 ms, no evidence of acute ischemia Code Status & VTE Plan Code Status DNR/DNI per discussion with patient VTE Prophylaxis Plan VTE Prophylaxis will be ordered: Yes (1) Hypothyroidism Hypothyroidism type: unspecified Qualified Code(s): E03.9 - Hypothyroidism, unspecified (2) Hypertension Hypertension type: essential hypertension Qualified Code(s): I10 - Essential (primary) hypertension (3) Depression Depression Type: major depressive disorder Major depression recurrence: recurrent Active/Remission status: currently active Major depression episode severity: unspecified Qualified Code(s): F33.9 - Major depressive disorder, recurrent, unspecified (4) Diabetes Diabetes mellitus type: type 2 Diabetes mellitus computer terminal operator insulin use: without computer terminal operator use Diabetes mellitus complication status: without complication Qualified Code(s): E11.9 - Type 2 diabetes mellitus without complications
--- NOTE | 2019-02-27 20:20 | Emergency Department Note ---
Entered by Jennifer Edwards acting as a scribe for History of Present Illness General Chief complaint: Shortness of Breath/Dyspnea Stated complaint: shortness of breath Source: patient History of Present Illness Onset (ago): week(s) 1 Location: chest Severity: similar to prior episodes Pain Consistency: + other (worsening ) Quality: + other (shortness of breath ) Associated symptoms: + other (negative congestion); no chest pain, no fever/chills and no nausea/vomiting Treatments prior to arrival: other (nebulizer treatment ) The patient is a 68 year old female who presents to the Emergency Room with complaints of worsening shortness of breath that began one week prior to arrival. The patient states that she is short of breath at baseline because of her history of COPD, but states that her symptoms have become worse over the past week. The patient states that she is on 4L of oxygen at home at baseline. The patient denies fever, congestion, chest pain, and vomiting. The patient states that she has intermittent chest tightness. The patient states that this is similar to prior episodes. She states that she has some leg swelling at baseline, right greater than left after knee surgery. The patient denies a history of heart failure. She states that she had a nebulizer treatment prior to arrival. Home Medications Home Medications Medication Instructions Recorded Confirmed Type citalopram [Celexa] 40 mg PO DAILY 12/31/18 02/27/19 History estradiol [Estrace] 1 mg PO DAILY 12/31/18 02/27/19 History fluticasone propion-salmeterol 1 puff INHALATION BID 12/31/18 02/27/19 History [Advair Diskus] furosemide [Lasix] 40 mg PO DAILY 12/31/18 02/27/19 History hydrochlorothiazide 12.5 mg PO DAILY 12/31/18 02/27/19 History ipratropium-albuterol 1 dose INHALATION QID 12/31/18 02/27/19 History levothyroxine [Synthroid] 137 mcg PO DAILY 12/31/18 02/27/19 History vancomycin 125 mg PO WK 12/31/18 02/27/19 History pantoprazole 40 mg PO DAILY 30 Days #30 tab 01/09/19 02/27/19 Rx Allergies Allergy/AdvReac Type Severity Reaction Status Date / Time codeine Allergy Mild Unknown Verified 02/27/19 13:51 atropine Allergy Unknown UNKNOWN Verified 02/27/19 13:51 diphenoxylate Allergy Unknown UNKNOWN Verified 02/27/19 13:51 moxifloxacin Allergy Unknown UNKNOWN Verified 02/27/19 13:51 prednisone AdvReac Mild Unknown Verified 02/27/19 13:51 Past Med/Surg History Medical History Hypothyroidism Depression Hypertension COPD (chronic obstructive pulmonary disease) 4L NC Diabetes diet controlled A1C=6 in December 2017 No significant family history Surgical History History of carpal tunnel surgery Previous back surgery S/P hysterectomy Status post bilateral knee replacements Status post hip surgery Family History Other Breast cancer Diabetes Hypertension Social History Preferred Language: Icelandic Communication Ability: Effective Beliefs That Will Affect Care: None marital status: Current Living Situation: Alone other: grief due to loss of and son Feels Safe at Home: Yes Smoking Status: Former smoker Hx Alcohol Use: No Hx Substance Use: No Review of Systems See HPI for pertinent positives & negatives. and A total of 10 systems reviewed and were otherwise negative Physical Exam Vital Signs Vital Signs - 24 hr 02/27/19 13:18 02/27/19 13:23 02/27/19 13:25 Sepsis Recent Fever Within 48 Hours No Sepsis New/Unexplained Change in Mental Status No Sepsis Action Taken by Nursing No Action Required Pulse Rate 97 H 97 H 95 H Pulse Rate [Apical] Pulse Rate from SpO2 Sensor 99 H 95 H Respiratory Rate 30 H 26 H 20 Respiratory Effort / Characteristics Non-Labored Spontaneous Respiratory Depth Normal Respiratory Pattern Regular Blood Pressure 163/56 H 163/56 H Blood Pressure Mean 91 91 Blood Pressure Position Lying Pulse Oximetry 92 91 94 Oxygen Delivery Method Nasal Cannula Oxygen Flow Rate 4 02/27/19 13:26 02/27/19 13:30 02/27/19 13:40 Sepsis Recent Fever Within 48 Hours Sepsis New/Unexplained Change in Mental Status Sepsis Action Taken by Nursing Pulse Rate 92 H 87 Pulse Rate [Apical] Pulse Rate from SpO2 Sensor 95 H 93 H Respiratory Rate 16 19 Respiratory Effort / Characteristics Respiratory Depth Respiratory Pattern Blood Pressure Blood Pressure Mean Blood Pressure Position Pulse Oximetry 91 96 97 Oxygen Delivery Method Nasal Cannula Oxygen Flow Rate 4 02/27/19 13:50 02/27/19 14:00 02/27/19 14:08 Sepsis Recent Fever Within 48 Hours Sepsis New/Unexplained Change in Mental Status Sepsis Action Taken by Nursing Pulse Rate 96 H 93 H 94 H Pulse Rate [Apical] Pulse Rate from SpO2 Sensor 95 H 91 H 94 H Respiratory Rate 19 20 18 Respiratory Effort / Characteristics Respiratory Depth Respiratory Pattern Blood Pressure 116/66 Blood Pressure Mean 82 Blood Pressure Position Pulse Oximetry 94 96 94 Oxygen Delivery Method Oxygen Flow Rate 02/27/19 14:10 02/27/19 14:20 02/27/19 14:30 Sepsis Recent Fever Within 48 Hours Sepsis New/Unexplained Change in Mental Status Sepsis Action Taken by Nursing Pulse Rate 93 H 91 H 91 H Pulse Rate [Apical] Pulse Rate from SpO2 Sensor 93 H 90 91 H Respiratory Rate 19 22 24 Respiratory Effort / Characteristics Respiratory Depth Respiratory Pattern Blood Pressure 111/62 Blood Pressure Mean 78 Blood Pressure Position Pulse Oximetry 95 94 95 Oxygen Delivery Method Oxygen Flow Rate 02/27/19 14:40 02/27/19 14:50 02/27/19 15:00 Sepsis Recent Fever Within 48 Hours Sepsis New/Unexplained Change in Mental Status Sepsis Action Taken by Nursing Pulse Rate 89 89 89 Pulse Rate [Apical] Pulse Rate from SpO2 Sensor 91 H 88 89 Respiratory Rate 17 17 15 Respiratory Effort / Characteristics Respiratory Depth Respiratory Pattern Blood Pressure 109/65 Blood Pressure Mean 79 Blood Pressure Position Pulse Oximetry 93 94 95 Oxygen Delivery Method Oxygen Flow Rate 02/27/19 15:01 02/27/19 15:10 02/27/19 15:11 Sepsis Recent Fever Within 48 Hours Sepsis New/Unexplained Change in Mental Status Sepsis Action Taken by Nursing Pulse Rate 92 H 90 Pulse Rate [Apical] 89 Pulse Rate from SpO2 Sensor 92 H 90 Respiratory Rate 17 20 22 Respiratory Effort / Characteristics Spontaneous Respiratory Depth Respiratory Pattern Blood Pressure Blood Pressure Mean Blood Pressure Position Pulse Oximetry 94 94 92 Oxygen Delivery Method Nasal Cannula Oxygen Flow Rate 4 02/27/19 15:20 02/27/19 18:21 Sepsis Recent Fever Within 48 Hours Sepsis New/Unexplained Change in Mental Status Sepsis Action Taken by Nursing Pulse Rate 91 H 108 H Pulse Rate [Apical] Pulse Rate from SpO2 Sensor 90 Respiratory Rate 16 26 H Respiratory Effort / Characteristics Spontaneous Short of Breath Respiratory Depth Normal Respiratory Pattern Tachypnea Blood Pressure Blood Pressure Mean Blood Pressure Position Pulse Oximetry 97 92 Oxygen Delivery Method Oxygen Flow Rate 4 Constitutional: Vital signs reviewed. Eyes: Pupils are equal round reactive to light. Conjunctiva are noninjected. ENT: Pharynx is clear without erythema or exudate. Mucous membranes are moist. Neck supple without meningeal signs. Respiratory: Poor air entry bilaterally with expiratory wheezing. Breath sounds are equal bilaterally. Cardiovascular: Regular rate and rhythm. No rubs or gallops. GI: Soft, nondistended and nontender. Bowel sounds are present. Musculoskeletal: Bilateral ankle edema, greater on the right. No tenderness. Integumentary: No cyanosis. Neurological: The patient is awake and alert. No focal deficits. Psychiatric: Normal affect. Course 1321: The patient was evaluated in room C12B, and a complete history and physical examination were performed. 1457: Upon reevaluation, the patient states that she is not feeling much better. The patient's lungs sound slightly improved. The patient never got the hour long nebulizer treatment because it had not been ordered. 1605: The patient reports no significant improvement. The patient still has poor air entry bilaterally upon reevaluation. 1710: Upon reevaluation, the patient is still short of breath. The patient is getting the ABG right now. I talked to the patient about the CT results. 1756: The patient is still very short of breath upon reevaluation. She agrees to bipap. 1754: [facility] for [facility] evaluation. Consultations Consultation #1: [facility] for further evaluation. Time: 17:54 Administered Medications Ioversol (Optiray 320 125ml) 82 ml IV ONCE PRN PRN Reason: Interaction Checking Stop: 03/03/19 16:46 Last Admin: 02/27/19 16:47 Dose: 82 ml Documented by: [id number] Discontinued Medications Albuterol (Duoneb) 12 ml NEB ONE ONE Stop: 02/27/19 14:59 Last Admin: 02/27/19 15:10 Dose: 12 ml Documented by: [id number] Magnesium Sulfate/Dextrose (Magnesium Sulfate / D5w) 1 gm in 100 mls @ 100 mls/hr IV Q1H COSMO Stop: 02/27/19 15:29 Last Infusion: 02/27/19 16:06 Dose: 0 mls/hr Documented by: [id number] Admin: 02/27/19 15:03 Dose: 100 mls/hr Documented by: [id number] Infusion: 02/27/19 15:02 Dose: 0 mls/hr Documented by: [id number] Admin: 02/27/19 14:07 Dose: 100 mls/hr Documented by: [id number] Piperacillin Sod/Tazobactam Sod (Zosyn) 4.5 gm in 120 mls @ 240 mls/hr IV NOW ONE Stop: 02/27/19 17:28 Last Infusion: 02/27/19 18:56 Dose: 0 mls/hr Documented by: [id number] Admin: 02/27/19 18:20 Dose: 240 mls/hr Documented by: [id number] Methylprednisolone (Solumedrol) 125 mg IV NOW STA Stop: 02/27/19 13:27 Last Admin: 02/27/19 14:07 Dose: 125 mg Documented by: [id number] Medical Decision Making Differential Diagnosis Differential diagnoses include COPD exacerbation, pneumonia, pneumothorax, cardiac, pleural effusion, CHF, and others were considered. Medical Records Attestation: I reviewed the patient's medical records. (The patient was admitted in December 2018 for COPD exacerbation. ) Home Medications Current Medication List: was personally reviewed by me Laboratory Data Attestation: I reviewed the patient's lab results. Result diagrams: 02/27/19 13:40 02/27/19 13:40 Lab Results 02/27/19 02/27/19 02/27/19 Range/Units 13:40 13:40 13:40 WBC 7.49 (4.8-10.8) K/uL RBC 3.70 L (4.2-5.4) M/uL Hgb 10.8 L (12.0-16.0) g/dL Hct 33.6 L (37-47) % MCV 90.8 (80-100) fL MCH 29.2 (25-34) pg MCHC 32.1 (32-36) g/dL RDW Std Deviation 46.1 (36.4-46.3) fL RDW Coeff of Judy 13.7 (11.5-14.5) % Plt Count 278 (130-400) K/uL MPV 10.6 H (7.4-10.4) fL Immature Gran % (Auto) 0.3 % Neut % (Auto) 74.4 % Lymph % (Auto) 10.9 % Morrison % (Auto) 12.8 % Eos % (Auto) 1.5 % Baso % (Auto) 0.1 % Immature Gran # (Auto) 0.02 (0.00-0.02) K/uL Neut # (Auto) 5.57 (1.4-6.5) K/uL Lymph # (Auto) 0.82 L (1.2-3.4) K/uL Morrison # (Auto) 0.96 H (0.11-0.59) K/uL Eos # (Auto) 0.11 (0-0.5) K/uL Baso # (Auto) 0.01 (0-0.2) K/uL PT 10.2 (9.0-12.0) Seconds INR 1.0 (0.9-1.1) APTT 32.2 H (21.0-31.0) Seconds PTT Ratio 1.2 ABG pH (7.35-7.45) ABG pCO2 (35-46) mmHg ABG pO2 (80-95) mm/Hg ABG HCO3 (19-24) mmol/L ABG O2 Saturation (90-95) % ABG Base Excess (-9-1.8) mEq/L Chetan Test (Pos) Barometric Pressure mm/Hg Oxygen Given Sodium 133 L (136-145) mmol/L Potassium 3.9 (3.5-5.1) mmol/L Chloride 89 L (98-107) mmol/L Carbon Dioxide 39 H (21-32) mmol/L Anion Gap 5.0 (3-11) BUN 18 (7-18) mg/dl Creatinine 0.76 (0.6-1.2) mg/dl Est Cr Clr Drug Dosing 73.1 ml/min Est GFR ( Amer) 92.1 Est GFR (Non-Af Amer) 79.5 BUN/Creatinine Ratio 23.5 H (10-20) Glucose 124 H (70-99) mg/dl Calcium 10.0 (8.5-10.1) mg/dl Magnesium 2.0 (1.8-2.4) mg/dl Total Bilirubin 0.4 (0.2-1) mg/dl AST 19 (15-37) U/L ALT 15 (12-78) U/L Alkaline Phosphatase 65 (45-117) U/L POC Troponin I (0-0.045) ng/ml Total Protein 7.6 (6.4-8.2) gm/dl Albumin 2.9 L (3.4-5.0) gm/dl Globulin 4.7 H (2.5-4.0) gm/dl Albumin/Globulin Ratio 0.6 L (0.9-2) 02/27/19 02/27/19 Range/Units 13:48 17:28 WBC (4.8-10.8) K/uL RBC (4.2-5.4) M/uL Hgb (12.0-16.0) g/dL Hct (37-47) % MCV (80-100) fL MCH (25-34) pg MCHC (32-36) g/dL RDW Std Deviation (36.4-46.3) fL RDW Coeff of Judy (11.5-14.5) % Plt Count (130-400) K/uL MPV (7.4-10.4) fL Immature Gran % (Auto) % Neut % (Auto) % Lymph % (Auto) % Morrison % (Auto) % Eos % (Auto) % Baso % (Auto) % Immature Gran # (Auto) (0.00-0.02) K/uL Neut # (Auto) (1.4-6.5) K/uL Lymph # (Auto) (1.2-3.4) K/uL Morrison # (Auto) (0.11-0.59) K/uL Eos # (Auto) (0-0.5) K/uL Baso # (Auto) (0-0.2) K/uL PT (9.0-12.0) Seconds INR (0.9-1.1) APTT (21.0-31.0) Seconds PTT Ratio ABG pH 7.43 (7.35-7.45) ABG pCO2 56 H (35-46) mmHg ABG pO2 56 L (80-95) mm/Hg ABG HCO3 36 H (19-24) mmol/L ABG O2 Saturation 88.0 L (90-95) % ABG Base Excess 10.0 H (-9-1.8) mEq/L Chetan Test POS (Pos) Barometric Pressure 733.4 mm/Hg Oxygen Given 4 L Sodium (136-145) mmol/L Potassium (3.5-5.1) mmol/L Chloride (98-107) mmol/L Carbon Dioxide (21-32) mmol/L Anion Gap (3-11) BUN (7-18) mg/dl Creatinine (0.6-1.2) mg/dl Est Cr Clr Drug Dosing ml/min Est GFR ( Amer) Est GFR (Non-Af Amer) BUN/Creatinine Ratio (10-20) Glucose (70-99) mg/dl Calcium (8.5-10.1) mg/dl Magnesium (1.8-2.4) mg/dl Total Bilirubin (0.2-1) mg/dl AST (15-37) U/L ALT (12-78) U/L Alkaline Phosphatase (45-117) U/L POC Troponin I < 0.03 (0-0.045) ng/ml Total Protein (6.4-8.2) gm/dl Albumin (3.4-5.0) gm/dl Globulin (2.5-4.0) gm/dl Albumin/Globulin Ratio (0.9-2) Imaging Data Radiologist's Impression: Radiology results as stated below per my review and the radiologist's interpretation: XR chest 1V portable CLINICAL HISTORY: Dyspnea COMPARISON STUDY: 12/31/2018 FINDINGS: The heart is borderline enlarged. There is persistent elevation left hemidiaphragm. Since the prior study the patient has developed increased right lung interstitial markings. Diagnostic considerations include asymmetric edema versus a right lung interstitial inflammatory process. Clinical and radiographic follow-up is recommended.[ IMPRESSION: Interval development of increased right lung interstitial markings. Diagnostic considerations include asymmetric edema versus a right lung interstitial inflammatory process. Clinical and radiographic follow-up is recommended. Electronically signed by: Ivan Mancia M.D. 02/27/2019 1:[address] angio chest PE protocol CT DOSE: 1058.69 mGy.cm HISTORY: Dyspnea sob eval for pe TECHNIQUE: Multiaxial CT images of the chest were performed following the intravenous administration of contrast to evaluate the pulmonary arteries. Maximal intensity projection images were also obtained. A dose lowering technique was utilized adhering to the principles of ALARA. COMPARISON STUDY: 10/25/2014 FINDINGS: There is a normal caliber thoracic aorta with no evidence for dissection. There is no evidence for pulmonary embolus. No pleural effusions. No pneumothorax. The liver and spleen are unremarkable. No mediastinal or hilar lymphadenopathy. Poorly defined interstitial infiltrate right upper lung. Minimal scattered dependent basilar atelectasis. Moderate stable emphysematous change. IMPRESSION: 1. No evidence of pulmonary embolus. 2. Interstitial infiltrative change right upper lobe. 3. Mild scattered bibasilar dependent atelectasis. The above report was generated using voice recognition software. It may contain grammatical, syntax or spelling errors. Electronically signed by: Tim Bloom M.D. 02/27/2019 4:56 PM ECG Data Attestation: I personally reviewed and interpreted this ECG as follows: Indication: SOB/dyspnea Rate (beats per minute): 95 Rhythm: normal sinus Findings: no PVC and no ST elevation Blood Pressure Blood Pressure Findings: Normal blood pressure MDM Narrative I did evaluate the patient as noted above. The patient is presenting with difficulty breathing. She has been having the symptoms for a week but they got worse today. On examination she has poor air entry bilaterally. IV access was established. The patient was placed on a continuous corporate learning consultant. I did treat the patient with an hour-long DuoNeb. She was also given Solu-Medrol IV and 2 g of magnesium IV. I did order and personally review the patient's 12- lead EKG as described above. Her twelve-lead EKG does not demonstrate any acute ischemia. I did order the patient's chest x-ray as described above. Chest x- ray is concerning for a right-sided infiltrate. On reassessment she is not feeling any better. I did order and review the patient's blood work as noted in the electronic medical record. Troponin is negative. She has anemia. CO2 is elevated. ABG demonstrates hypoxia. After discussion with the patient, I did order a CT of the chest. I did review the images myself as well as the radiology report as described above. There is no evidence of PE but the patient does have a right-sided infiltrate. Blood cultures were obtained. The patient was treated with IV Zosyn. On reassessment the patient still has difficulty breathing. I did place the patient on BiPAP. I did discuss the test results with her. I did recommend hospitalization. I did discuss case with the hospitalist and protective services case worker. Impression & Plan Respiratory failure with hypoxia, COPD exacerbation, Right upper lobe pneumonia Critical Care Time I have personally spent 45 minutes of critical care time in the direct management of this patient. This includes bedside care, interpretation of diagnostic studies, and testing, discussion with consultants, patient, and family members, and other required patient management activities. This 45 minutes is in excess of all separately billable procedures. Critical Care Time: Yes Total Critical Care Time: 45 Discharge Plan Visit Data Chief Complaint: Shortness of Breath/Dyspnea Stated Complaint: shortness of breath ED Provider: Renato Valle Discharge Problem: Respiratory failure with hypoxia, COPD exacerbation, Right upper lobe pneumonia Patient Disposition: Being Evaluated by Hospitalist Forms Stand Alone Forms: My [facility] Prescriptions Prescriptions: No Action furosemide [Lasix] 40 mg tablet 40 mg PO DAILY RF: 0 levothyroxine [Synthroid] 137 mcg tablet 137 mcg PO DAILY RF: 0 ipratropium-albuterol 0.5 mg-3 mg(2.5 mg base)/3 mL solution for nebulization 1 dose Inhalation QID RF: 0 vancomycin 125 mg capsule 125 mg PO WK RF: 0 citalopram [Celexa] 20 mg tablet 40 mg PO DAILY RF: 0 estradiol [Estrace] 1 mg tablet 1 mg PO DAILY RF: 0 fluticasone propion-salmeterol [Advair Diskus] 500-50 mcg/dose blister with device 1 puff Inhalation BID RF: 0 hydrochlorothiazide 12.5 mg capsule 12.5 mg PO DAILY RF: 0 pantoprazole 40 mg Tablet,Delayed Release (Dr/Ec) 40 mg PO DAILY 30 Days Qty: 30 RF: 3 Referrals Referrals: Alvaro Castillo MD [Primary Care Provider] - Discharge Problem: Respiratory failure with hypoxia Qualifiers: Chronicity: acute Qualified Code(s): J96.01 - Acute respiratory failure with hypoxia Right upper lobe pneumonia Qualifiers: Pneumonia type: due to unspecified organism Qualified Code(s): J18.1 - Lobar pneumonia, unspecified organism The scribe's documentation has been prepared under my direction and personally reviewed by me in its entirety. I confirm that the note above accurately reflects all work, treatment, procedures, and medical decision making performed by me.
[2019-02-27] MEDS ORDERED: COUGH DROP (SUGAR FREE) LOZ 24 LOZ/1 BOX BUCCAL STA (21:33)
[2019-02-27] MEDS ORDERED: VANCOMYCIN CONSULT ACTIVE PRN (21:59)
[2019-02-27] MEDS ORDERED: ACETAMINOPHEN 325 MG TAB PO PRN (21:59)
[2019-02-27] MEDS ORDERED: ALBUTEROL 0.5% NEB SOLN 2.5 MG/0.5 ML VIAL NEB PRN (21:59)
[2019-02-27] MEDS ORDERED: VANCOMYCIN HCL 2,250 MG in SODIUM CHLORIDE 0.9% 500 ML IV ONE (22:15)
[2019-02-27] MEDS: ALBUT/IPRATROP 3MG/0.5MG NEB 3 ML VIAL NEB SCH ×2 (22:26→23:33)
[2019-02-27] MEDS: FLUTICASONE/SALMETEROL (ADVAIR) 500/50 INH 14 PUFF INH SCH (22:36)
[2019-02-27] MEDS: methylPREDNISolone 20 MG in SYRINGE 0 ML IV SCH (22:37)
[2019-02-27] MEDS: ENOXAPARIN INJ 40 MG/0.4 ML SYR SQ SCH (22:38)
[2019-02-28] MEDS: ALBUT/IPRATROP 3MG/0.5MG NEB 3 ML VIAL NEB SCH ×6 (03:09→23:40)
[2019-02-28] MEDS: methylPREDNISolone 20 MG in SYRINGE 0 ML IV SCH ×3 (06:08→21:32)
[2019-02-28] MEDS: LEVOTHYROXINE SODIUM 137 MCG TABLET PO SCH (06:08)
--- NOTE | 2019-02-28 08:17 | XRay Report ---
TWO VIEW CHEST CLINICAL HISTORY: Follow-up pneumonia. FINDINGS: AP and lateral chest radiographs are compared to chest x-ray and chest CT dated 02/27/2019. T he AP view is degraded by patient rotation. The heart is top normal for projection. Emphysema and chr onic interstitial thickening are similar to previous. There is chronic elevation of the left hemidiap hragm and bibasilar scarring/atelectasis. There are mild hazy airspace opacities throughout the right lung. No pleural effusion or pneumothorax is identified. The skeletal structures are osteopenic. Deg enerative change is seen throughout the thoracic spine. Fusion hardware is partially imaged in the rob mbar spine. IMPRESSION: 1. Emphysema. 2. Hazy airspace opacities are seen throughout the right lung. Correlate clinically for evidence of a mild infectious/inflammatory pneumonitis. Radiographic follow-up to resolution is recommended. Electronically signed by: Ludin Felipe M.D. 02/28/2019 8:16 AM
[2019-02-28] MEDS: PIPERACILLIN/TAZOBACTAM 4.5 GM in DEXTROSE 5% 100 ML IV SCH ×4 (08:18→23:22)
[2019-02-28] MEDS: FLUTICASONE/SALMETEROL (ADVAIR) 500/50 INH 14 PUFF INH SCH ×2 (08:21→21:31)
[2019-02-28] MEDS: PANTOprazole 40 MG TAB PO SCH (08:22)
[2019-02-28] MEDS: FUROSEMIDE 40 MG TAB PO SCH (08:22)
[2019-02-28] MEDS: CITALOPRAM 20 MG TAB PO SCH (08:22)
[2019-02-28] MEDS: hydroCHLOROthiazide 25 MG TAB PO SCH (08:22)
[2019-02-28] MEDS: ESTRADIOL 1 MG TAB PO SCH (08:22)
[2019-02-28] MEDS: SACCHAROMYCES BOULARDII 250 MG CAP PO SCH (08:22)
[2019-02-28 08:49] LABS: Hematocrit (blood only) 32.4 % (37-47); Hemoglobin 10.8 g/dL (12.0-16.0); Immature Granulocytes # (auto) 0.01 K/uL (0.00-0.02); Immature Granulocytes % (auto) 0.2 %; Lymphocytes # (auto) 0.42 K/uL (1.2-3.4); Lymphocytes % (auto) 6.5 %; Mean Corpuscular Hgb Conc 33.3 g/dL (32-36); Mean Platelet Volume 10.1 fL (7.4-10.4); Monocytes # (auto) 0.22 K/uL (0.11-0.59); Monocytes % (auto) 3.4 %; Neutrophils # (auto) 5.81 K/uL (1.4-6.5); Neutrophils % (auto) 89.9 %; Platelet Count 306 K/uL (130-400); RDW Coefficient of Variation 13.7 % (11.5-14.5); RDW Standard Deviation 45.1 fL (36.4-46.3); Red Blood Count 3.64 M/uL (4.2-5.4); White Blood Count 6.46 K/uL (4.8-10.8)
[2019-02-28 09:17] LABS: BUN Creatinine Ratio 16.9 (10-20); Calcium 10.1 mg/dl (8.5-10.1); Creatinine Clr Calc Pharmacy 57.9 ml/min; Est GFR (African American) 69.4; Est GFR (Non-African American) 59.9; Potassium 3.5 mmol/L (3.5-5.1)
[2019-02-28] MEDS ORDERED: POLYETHYLENE (MIRALAX) 17 GM PACK PO PRN (09:51)
[2019-02-28] MEDS ORDERED: MEGESTROL ACETATE SUSP 400 MG/10 ML UDC PO SCH (10:00)
[2019-02-28] MEDS ORDERED: DEXTROSE 50% 50 ML SYRINGE IV PRN (10:15)
[2019-02-28] MEDS ORDERED: CARBOHYDRATES FOR HYPOGLYCEMIA PO PRN (10:15)
[2019-02-28] MEDS ORDERED: GLUCAGON FOR INJ 1 MG VIAL IM PRN (10:15)
[2019-02-28] MEDS ORDERED: GLUCOSE 10 TABS/TUBE PO PRN (10:15)
[2019-02-28] MEDS ORDERED: GLUCOSE 40% GEL 15 GM TUBE PO PRN (10:15)
[2019-02-28] MEDS: DOCUSATE SODIUM 100 MG CAP PO SCH ×2 (10:21→21:33)
[2019-02-28 10:33] LABS: Estimated Average Glucose 146 mg/dl; Hemoglobin A1C 6.7 % (4.5-5.6)
--- NOTE | 2019-02-28 10:52 | Pharmacy Report ---
Pharmacy Abx Initial Consult - Date of Service February 28, 2019 - Pharmacy Dosing Scope Date of Consult: 02/27/19 Consultation requested by: Dr. Migdalia Morales Pharmacy is consulted to initiate Vancomycin IV dosing therapy, order appropriate labs and adjust drug dose/frequency. - Subjective The patient is a 68 year old F admitted on 02/27/19 19:56. - Objective Height: 5 ft 2 in Weight: 92.9 kg Vital Signs (Past 12hrs): Vital Signs Temp Pulse Pulse Pulse Resp BP Pulse Ox 02/28/19 10:08 90 22 118/62 02/28/19 10:07 96 H 112/57 L 02/28/19 10:06 102 H 20 132/76 90 02/28/19 07:38 76 16 91 02/28/19 07:00 36.6 C 87 20 109/65 93 02/28/19 03:11 84 16 96 02/28/19 01:03 94 H 18 95 02/27/19 23:33 81 18 93 Lab Results (24hrs): Laboratory Tests (24 Hours) 02/28/19 02/28/19 02/27/19 08:34 08:34 13:40 WBC 6.46 Neut # (Auto) 5.81 Creatinine 0.96 Est Cr Clr Drug Dosing 57.9 Procalcitonin < 0.05 02/27/19 02/27/19 13:40 13:40 WBC 7.49 Neut # (Auto) 5.57 Creatinine 0.76 Est Cr Clr Drug Dosing 73.1 Procalcitonin Micro Results: 02/27/19 17:18 Blood Culture - Pending Blood 02/27/19 17:09 Blood Culture - Pending Blood - Risk Factors for Resistance * Hospitalization for 48 hours or more within the past 90 days * Antimicrobial use within the last 90 days - patient was on oral Vanco for history of C.diff. - Assessment & Plan Assessment 68 year old F admitted for shortness of breath from COPD exacerbation and possible Pneumonia. Patient was admitted here last month- risk for HAP. Pharmacy consulted to dose Vancomycin and Zosyn for possible HAP. Plan Vancomycin IV * Estimated PK Parameters: Vd 0.55 L/kg, John 0.52 hr-1, t1/2 13.3 hr * Loading dose: 2250 mg (24 mg/kg) * Maintenance dose: 1250 mg IV (13 mg/kg) every 18 hours * Goal trough level for Pneumonia: 15 to 20 mcg/mL * Trough Vanco level ordered for 03/02 before dose at 0200. * Trough is ordered after only 2 maintenance doses d/t risk for accumulation, so would not be at steady state. * A less than traditional dose and extended dosing interval have been selected due to likelihood of drug accumulation in obese patient (BMI = 37.5 kg/m2). Piperacillin/tazobactam * 4.5 g bolus administered over 30 minutes, then 4.5 g IV extended infusion every 8 hours for CrCl greater than 20 mL/min. * Aggressive dosing selected due to BMI 35 or more. Pharmacy will continue to follow and will adjust dose/frequency as necessary. Thank you.
[2019-02-28] MEDS: INSULIN ASPART 100 UNITS/ML 3 ML PEN SC SCH ×3 (13:13→21:30)
--- NOTE | 2019-02-28 13:42 | Consultation Report ---
DATE OF CONSULTATION: 02/28/2019 PULMONARY CONSULTATION TIME: 12:20 p.m. REPORT OF CONSULTATION: The patient was seen in room 411. She is a 68-year-old female with a history of very severe COPD. She presented to the Emergency Room yesterday with increasing shortness of breath. She was extremely dyspneic yesterday, she states. This had been gradually getting worse over the past 1 week. She has had a dry cough. There has been no sputum production. She had mild chills. She has had some night sweats, but this is not new. It is off and on. She has been feeling more fatigued and her appetite has been decreased. She has not had any chest pain, but she felt a little tight yesterday. She does have a longstanding history of COPD. She cannot tell me how long she has had breathing problems. She states at first she was told it was asthma, but then COPD. She did have a history of smoking 1 pack per day for about 35 years. She did quit at age 53. Her also smoked and she may have had some secondhand smoke from him. 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 She thinks there was asbestos in the school and she thought she might have had exposure, but I do not think there was a definite known exposure there. She had been hospitalized from 12/31/2018 through 01/09/2019 with an exacerbation of COPD and respiratory failure. During that hospital stay, she had very poor blood gases. Her pCO2 was as high as 104. As a result, she was discharged on BiPAP with pressures 12/5 and a rate of 12. It has taken her a little while to get used to it, but she states she is wearing it nightly. She feels the home care company did not explain everything to her well at first. Subsequently, she was able to get the mask to fit right. She states she puts it on an every night and she wears it between 4 and 6 hours. She finds it annoying when she has to awaken to go to the restroom, which occurs about 2 times per night. That is because she needs oxygen to get to the restroom, so she has to take her BiPAP off and then get her nasal cannula as well. She does not notice that she is breathing better since she is on the BiPAP. However, a blood gas done yesterday which show a dramatic improvement in pCO2 down to 56, which I think suggest the BiPAP is helping in that regard. PAST SURGICAL HISTORY: 1. Right and left carpal tunnel surgery. 2. Low back surgery in 1994. 3. Right total hip replacement. 4. Right and left total knee replacement. 5. Hysterectomy. PAST MEDICAL HISTORY: 1. Hypothyroidism. 2. Hypertension. 3. Depression. 4. C. diff which has been severe. 5. Prolonged QTc. 6. GERD. 7. Chart lists a diagnosis of diabetes, but the patient denies it and the chart lists diagnosis of hyperlipidemia which the patient denies. SOCIAL HISTORY: Alcohol use - none. Tobacco - 35+ pack years, but none for 15 years. ALLERGIES: 1. CODEINE. 2. ATROPINE. 3. DIPHENOXYLATE. 4. MOXIFLOXACIN. 5. PREDNISONE LISTED ALLERGY, but is not a true allergy. REVIEW OF SYSTEMS: Energy level is poor. The patient does have significant depression in part related to the of her and her son. These deaths occurred in the past few years. She denies difficulty swallowing either solids or liquids. Denies choking on her food. Currently, has some constipation. The patient has marked difficulties getting up to 4 steps into her trailer. The remainder of review of systems is negative except as noted. Ten systems reviewed. PHYSICAL EXAMINATION: GENERAL: The patient is a 68-year-old female who was cooperative, alert and oriented. She clearly did not seem very happy. She did cough several times during the exam. It was nonproductive. Weight is 92.9 kilograms with a BMI of 37.5. HEENT: Pupils were reactive. Nares were clear. Mouth exam showed dentures top and bottom, but with no erythema or exudate. NECK: Palpation of the neck reveals no lymph nodes or masses. CARDIAC: Cardiac rate 75 per minute. One extra systole was heard on exam. Blood pressure 118/62. LUNGS: The chest showed a mild kyphosis. The breath sounds are diffusely diminished. There was prolongation to the expiratory phase of respiration. No active wheezes were heard. No rales heard. Saturation 93% on 2 liters. Temperature 36.6. ABDOMEN: Obese. Bowel sounds were mildly decreased. There was no tenderness to palpation, masses or organomegaly. EXTREMITIES: Showed no cyanosis or clubbing. There was some brown skin discoloration of the lower extremities. There was mild edema approximately +1 bilaterally in the foot and ankle regions. LABORATORY DATA: White count is 6.46. Hemoglobin 10.8. Platelets 306,000. INR was 1 and PTT was 32.2. Blood gas yesterday showed pH 7.43, pCO2 of 56, pO2 of 56 on 4-liter nasal cannula. As noted, her prior pCO2 had been 104. Electrolytes show sodium 133, potassium 3.5, chloride 91, bicarbonate 38. BUN 16 with a creatinine 0.96. Blood sugar today as high as 160. Hemoglobin A1c was 6.7. Calcium 10.1. Procalcitonin was less than 0.05. The patient had a CAT scan of the chest yesterday. This showed no evidence of pulmonary embolic disease. There was some patchy interstitial infiltrative changes in the right upper lobe with some mild bibasilar atelectatic changes. She did have chest x-ray yesterday and today. These show a hazy airspace opacity in the right lung. There is chronic elevation of the left hemidiaphragm. The etiology for that is unknown. Blood cultures are still pending. EKG done yesterday showed a sinus rhythm. There were small Q-waves in the inferior leads. QT is 0.512. IMPRESSION: 1. Acute on chronic respiratory failure with hypoxia and hypercarbia. 2. Infiltrate, right upper lobe suggestive for pneumonia. 3. Severe chronic obstructive pulmonary disease with exacerbation. 4. Elevated left hemidiaphragm. COMMENTS AND RECOMMENDATIONS: I would definitely continue the BiPAP. Overall, the patient has not overtly noticed improvement, her pCO2 is much better. She should use the BiPAP at night. She is on methylprednisolone 20 mg IV q. 8 hours. Would continue that for now. She is on Zosyn and vancomycin. I am not sure she needs the vancomycin. I think it is reasonable for the Zosyn for now. Would have a low threshold to discontinue in light of her history of C. diff. The x-ray appears to show some infiltrates, but her white count is normal, no fevers, and procalcitonin is negative. I agree with the DuoNebs every 4 hours that she is currently getting. She is on Megace. I was not certain when that was started, but I did not see it on her home list. I am not certain as to the reason for the Megace. Would be cautious and observe her carefully for signs of DVT. Thank you for asking me to assist in her care. She does follow up with Dr. Castillo.
[2019-02-28] MEDS ORDERED: VANCOMYCIN HCL 1,250 MG in SODIUM CHLORIDE 0.9% 250 ML IV SCH (14:00)
--- NOTE | 2019-02-28 18:45 | Hospitalist Progress Note ---
Date of Service February 28, 2019 Assessment & Plan (1) Shortness of breath: Likely because of COPD exacerbation and pneumonia, Per report patient tachyneic on arrival, has since improved with treatment administered in ER. Some improving, Continue DuoNeb q 4 hours, Albuterol q 2 hours PRN Continue Solumedrol 20mg IV TID, Supplemental O2 and CPAP qHS, goal saturation 88-92%, Drosophere Operator input appreciated, can continue Zosyn, I agree discontinue vancomycin because MRSA swab negative (2) Pneumonia: See above, possible infiltrate RUL. Patient states she has had chills and sweats. Recent hospital stay in December. -Check procalcitonin -CXR PA and lateral in AM showed: "Hazy airspace opacities are seen throughout the right lung. Correlate clinically for evidence of a mild infectious/inflammatory pneumonitis. Radiographic follow-up to resolution is recommended." Continue Zosyn 4.5gm IV q 8 hours Continue follow-up sputum culture Adjust antibiotics as appropriate. Patient with remote history of severe c. diff for which she takes weekly suppressive Vancomycin. Daily probiotic Because currently on antibiotic of Zosyn, I will start oral Vanco 125 mg p.o. daily for C. difficile prophylaxis, and the same time will request infectious d isease consult (3) COPD exacerbation: As above -Steroids, nebs, treatment of suspected PNA -Continue Advair BID (4) Prolonged QT interval: Ctn=203 on EKG. -Avoid QT prolonging medications (5) GERD (gastroesophageal reflux disease): Chronic, well controlled -Continue Protonix daily (6) Anemia of chronic disease: H/H stable. No active bleeding -Continue to monitor (7) Hypothyroidism: Stable, chronic -Continue Synthroid (8) Hypertension: BP stable -Continue Lasix and HCTZ -Continue to monitor (9) Depression: MDD as well as grief response from loss of and son -Continue Celexa (10) Diabetes: Patient denies this diagnosis. States she has never been a diabetic. AIC=6, 5.9 on prior studies. She was slightly perturbed with this diagnosis. -CC diet as tolerated -Monitor daily labs, if patient with elevated glucose will add insulin coverage F/E/N - heplock. Monitor electrolytes and replete as needed. Mag given in ER, CC diet as tolerated Ppx - Lovenox Code - DNR/DNI Dispo - Admit to medical floor Subjective Report her cough is better however no sputum, no appetite, still required oxygen 4 L/min, reports some dizziness which is not new, Review of Systems Review of Systems: All systems reviewed & are unremarkable except as noted in HPI & below Physical Exam Physical Exam: General Appearance: Frail, on nasal cannula oxygen, WD/WN, no apparent distress, Eyes: normal inspection, PERRL, EOMI, sclerae normal ENT: normal ENT inspection, hearing grossly normal, pharynx normal Neck: supple, no adenopathy, thyroid normal, no JVD, no carotid bruits, trachea midline Respiratory/Chest: chest non-tender, obvious decreased breath sounds, no respiratory distress, no accessory muscle use, no breath sounds, rales, wheezing Cardiovascular: regular rate, rhythm, no JVD, no murmur Abdomen: normal bowel sounds, non tender, soft, no organomegaly, Extremities: normal range of motion, non-tender, normal inspection, no pedal edema, no calf tenderness, normal capillary refill, pelvis stable, joint has no limited range of motion, capillary refill is normal, no cyanosis clubbing 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, no motor/sensory deficits, alert, normal mood/affect, oriented x 3 Skin: normal color, warm/dry, no rash Lymphatic: no adenopathy Results & Data Vital Signs (Past 12 Hours) Vital Signs Temp Pulse Pulse Resp BP BP Pulse Ox 02/28/19 15:54 36.8 C 103 H 20 106/58 L 93 02/28/19 15:21 81 20 93 02/28/19 11:35 02/28/19 11:08 75 16 93 02/28/19 10:08 90 22 118/62 02/28/19 10:07 96 H 112/57 L 02/28/19 10:06 102 H 20 132/76 90 02/28/19 07:38 76 16 91 02/28/19 07:00 36.6 C 87 20 109/65 93 Pulse Ox Pulse Ox Pulse Ox 02/28/19 15:54 02/28/19 15:21 02/28/19 11:35 95 95 87 L 02/28/19 11:08 02/28/19 10:08 02/28/19 10:07 02/28/19 10:06 02/28/19 07:38 02/28/19 07:00 Laboratory Results - last 24 hr 02/27/19 02/27/19 02/27/19 13:40 22:21 22:22 WBC RBC Hgb Hct MCV MCH MCHC RDW Std Deviation RDW Coeff of Judy Plt Count MPV Immature Gran % (Auto) Neut % (Auto) Lymph % (Auto) [place] % (Auto) Eos % (Auto) Baso % (Auto) Immature Gran # (Auto) Neut # (Auto) Lymph # (Auto) [place] # (Auto) Eos # (Auto) Baso # (Auto) Sodium Potassium Chloride Carbon Dioxide Anion Gap BUN Creatinine Est Cr Clr Drug Dosing Est GFR ( Amer) Est GFR (Non-Af Amer) BUN/Creatinine Ratio Glucose POC Glucose 237 H Estimat Average Glucose Hemoglobin A1c Calcium Phosphorus 2.5 Procalcitonin < 0.05 Nasal Screen MRSA (PCR) 02/28/19 02/28/19 02/28/19 08:34 08:34 08:34 WBC 6.46 RBC 3.64 L Hgb 10.8 L Hct 32.4 L MCV 89.0 MCH 29.7 MCHC 33.3 RDW Std Deviation 45.1 RDW Coeff of Judy 13.7 Plt Count 306 MPV 10.1 Immature Gran % (Auto) 0.2 Neut % (Auto) 89.9 Lymph % (Auto) 6.5 [place] % (Auto) 3.4 Eos % (Auto) 0.0 Baso % (Auto) 0.0 Immature Gran # (Auto) 0.01 Neut # (Auto) 5.81 Lymph # (Auto) 0.42 L [place] # (Auto) 0.22 Eos # (Auto) 0.00 Baso # (Auto) 0.00 Sodium 133 L Potassium 3.5 Chloride 91 L Carbon Dioxide 38 H Anion Gap 4.0 BUN 16 Creatinine 0.96 Est Cr Clr Drug Dosing 57.9 Est GFR ( Amer) 69.4 Est GFR (Non-Af Amer) 59.9 BUN/Creatinine Ratio 16.9 Glucose 138 H POC Glucose Estimat Average Glucose 146 Hemoglobin A1c 6.7 H Calcium 10.1 Phosphorus Procalcitonin Nasal Screen MRSA (PCR) 02/28/19 02/28/19 02/28/19 10:25 12:21 16:36 WBC RBC Hgb Hct MCV MCH MCHC RDW Std Deviation RDW Coeff of Judy Plt Count MPV Immature Gran % (Auto) Neut % (Auto) Lymph % (Auto) [place] % (Auto) Eos % (Auto) Baso % (Auto) Immature Gran # (Auto) Neut # (Auto) Lymph # (Auto) [place] # (Auto) Eos # (Auto) Baso # (Auto) Sodium Potassium Chloride Carbon Dioxide Anion Gap BUN Creatinine Est Cr Clr Drug Dosing Est GFR ( Amer) Est GFR (Non-Af Amer) BUN/Creatinine Ratio Glucose POC Glucose 160 H 189 H Estimat Average Glucose Hemoglobin A1c Calcium Phosphorus Procalcitonin Nasal Screen MRSA (PCR) Negative (1) Diabetes Diabetes mellitus complication status: without complication Diabetes mellitus jail insulin use: without lobsterman use Diabetes mellitus type: type 2 Qualified Code(s): E11.9 - Type 2 diabetes mellitus without complications (2) Depression Active/Remission status: currently active Depression Type: major depressive disorder Major depression episode severity: unspecified Major depression recurrence: recurrent Qualified Code(s): F33.9 - Major depressive disorder, recurrent, unspecified (3) Hypothyroidism Hypothyroidism type: unspecified Qualified Code(s): E03.9 - Hypothyroidism, unspecified (4) Hypertension Hypertension type: essential hypertension Qualified Code(s): I10 - Essential (primary) hypertension
[2019-02-28] MEDS: ENOXAPARIN INJ 40 MG/0.4 ML SYR SQ SCH (21:31)
[2019-02-28] MEDS: RASPBERRY SYRUP 5 ML UDP PO SCH (21:37)
[2019-02-28] MEDS: VANCOMYCIN HCL 125 MG/2.5ML SOLN PO SCH (21:37)
[2019-03-01] MEDS ORDERED: RASPBERRY SYRUP 5 ML UDP PO SCH
[2019-03-01] MEDS: ALBUT/IPRATROP 3MG/0.5MG NEB 3 ML VIAL NEB SCH ×6 (03:42→23:22)
[2019-03-01] MEDS: LEVOTHYROXINE SODIUM 137 MCG TABLET PO SCH (05:52)
[2019-03-01] MEDS: methylPREDNISolone 20 MG in SYRINGE 0 ML IV SCH ×2 (05:52→21:52)
[2019-03-01 06:22] LABS: Creatinine Clr Calc Pharmacy 48.3 ml/min; Est GFR (African American) 55.8; Est GFR (Non-African American) 48.2
[2019-03-01] MEDS: PIPERACILLIN/TAZOBACTAM 4.5 GM in DEXTROSE 5% 100 ML IV SCH ×3 (08:50→23:37)
[2019-03-01] MEDS: VANCOMYCIN HCL 125 MG/2.5ML SOLN PO SCH (08:50)
[2019-03-01] MEDS: FUROSEMIDE 40 MG TAB PO SCH (08:51)
[2019-03-01] MEDS: RASPBERRY SYRUP 5 ML UDP PO SCH (08:51)
[2019-03-01] MEDS: FLUTICASONE/SALMETEROL (ADVAIR) 500/50 INH 14 PUFF INH SCH ×2 (08:51→21:46)
[2019-03-01] MEDS: SACCHAROMYCES BOULARDII 250 MG CAP PO SCH (08:51)
[2019-03-01] MEDS: DOCUSATE SODIUM 100 MG CAP PO SCH ×2 (08:52→22:30)
[2019-03-01] MEDS: hydroCHLOROthiazide 25 MG TAB PO SCH (08:52)
[2019-03-01] MEDS: CITALOPRAM 20 MG TAB PO SCH (08:52)
[2019-03-01] MEDS: PANTOprazole 40 MG TAB PO SCH (08:52)
[2019-03-01] MEDS: ESTRADIOL 1 MG TAB PO SCH (08:52)
[2019-03-01] MEDS: INSULIN ASPART 100 UNITS/ML 3 ML PEN SC SCH ×4 (08:54→22:27)
--- NOTE | 2019-03-01 09:22 | Progress Note ---
DATE: 03/01/2019 PULMONARY PROGRESS NOTE TIME OF EXAM: 08:45 a.m. SUBJECTIVE: The patient is not feeling well today. She is somewhat more out of sorts than yesterday. She is not making out well with our BiPAP mask. She complains of a lot of air leaks and she is not comfortable with it. She feels that her breathing is no better. She was just generally anxious and agitated this a.m. She was frustrated that she felt that a patient from another room was frequently coming into the hallways and looking into her room. OBJECTIVE: GENERAL: The patient seemed very stressed. She did not appear in distress. She did not appear tachypneic at rest. VITAL SIGNS: Temperature 36.5. Cardiac rate 81 per minute. Blood pressure 125/74. Rhythm regular. LUNGS: Lung [place] revealed severely diminished breath sounds bilaterally with prolongation to the expiratory phase. There was no accessory muscle use. Respiratory rate 18. Saturation 96% on 4 liters. EXTREMITIES: Showed brown skin discoloration peripherally. There was trace to +1 foot and ankle edema. LABORATORY DATA: Blood sugar this morning was 123. Creatinine today is 1.15. This is increased slightly from February 28 when it was 0.96. IMPRESSION: 1. Acute on chronic respiratory failure with hypoxia and hypercarbia. 2. Pneumonia, right upper lobe. 3. Severe chronic obstructive pulmonary disease with exacerbation. 4. Elevation of the left hemidiaphragm. 5. Depression. COMMENTS AND RECOMMENDATIONS: I believe the patient's emotional status place a definite role in how she feels. We will suggest decreasing the methylprednisolone in the event this steroid dose could be making her more emotionally labile. Would continue with the Zosyn. She will ultimately need a followup chest x-ray. I suggested to the patient that she might bring her BiPAP from home or at least her BiPAP mask for her comfort. She implied there would be no one who would have access to bring that in and she would just take it out. I tried to encourage her to get her own mask because she likely would be more comfortable with that.
--- NOTE | 2019-03-01 15:47 | Infectious Disease Consult ---
Date of Consultation March 01, 2019 Assessment & Plan (1) Pneumonia: 68-year-old female with history of multiple recurrences of C. difficile maintained on once weekly vancomycin for prolonged period without recurrence, now being treated for pneumonia. Given high risk of recurrent C. difficile infection, will treat patient with vancomycin 125 mg daily while on antibiotics. Low procalcitonin speaks against bacterial pneumonia. On Zosyn for now, will follow. (2) History of Clostridium difficile infection: History of Present Illness Reason for Consultation: History of C. difficile Attending Physician: Fidel Barr MD, PhD, [facility] History of Present Illness 68-year-old female well-known to me from previous infectious disease consultation in follow-up for recurrent C. difficile infection, with history of severe COPD with frequent exacerbations, now admitted with several days of worsening shortness of breath, cough, with fever. Chest x-ray shows new right upper lobe changes consistent with developing pneumonia. She was started on Zosyn and doxycycline, has improved slightly. Patient with prior history of C. difficile, with multiple recurrences, maintained on once weekly vancomycin without evidence of recurrent infection since. Currently without diarrhea or abdominal pain. Cultures are all pending. Allergies Allergy/AdvReac Type Severity Reaction Status Date / Time codeine Allergy Mild Unknown Verified 02/27/19 13:51 atropine Allergy Unknown UNKNOWN Verified 02/27/19 13:51 diphenoxylate Allergy Unknown UNKNOWN Verified 02/27/19 13:51 moxifloxacin Allergy Unknown UNKNOWN Verified 02/27/19 13:51 prednisone AdvReac Mild Unknown Verified 02/27/19 13:51 Home Medications Home Medications Medication Instructions Recorded Confirmed Type citalopram [Celexa] 40 mg PO DAILY 12/31/18 02/27/19 History estradiol [Estrace] 1 mg PO DAILY 12/31/18 02/27/19 History fluticasone propion-salmeterol 1 puff INHALATION BID 12/31/18 02/27/19 History [Advair Diskus] furosemide [Lasix] 40 mg PO DAILY 12/31/18 02/27/19 History hydrochlorothiazide 12.5 mg PO DAILY 12/31/18 02/27/19 History ipratropium-albuterol 1 dose INHALATION QID 12/31/18 02/27/19 History levothyroxine [Synthroid] 137 mcg PO DAILY 12/31/18 02/27/19 History vancomycin 125 mg PO WK 12/31/18 02/27/19 History pantoprazole 40 mg PO DAILY 30 Days #30 tab 01/09/19 02/27/19 Rx Patient History Medical History Hypothyroidism Depression Hypertension COPD (chronic obstructive pulmonary disease) 4L NC Diabetes diet controlled A1C=6 in December 2017 No significant family history Surgical History History of carpal tunnel surgery Previous back surgery S/P hysterectomy Status post bilateral knee replacements Status post hip surgery Family History Other Breast cancer Diabetes Hypertension Social History Preferred Language: Albanian Communication Ability: Effective [employer]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: No Beliefs That Will Affect Care: None marital status: / Current Living Situation: Alone Other Information That Helps Us Care for You: No other: grief due to loss of and son Feels Safe at Home: Yes Safety Concerns: Feels Safe At This Time Smoking Status: Former smoker Do You Dip or Chew Tobacco: No Smoking End Date: at about age 56 Second Hand Exposure: No Hx Alcohol Use: No Hx Substance Use: No Review of Systems Review of Systems: All systems reviewed & are unremarkable except as noted in HPI & below Physical Exam Constitutional: WD/WN, vitals as above + acute distress, + ill appearing and comfortable Eyes: PERRL, conjunctivae normal, anicteric sclerae ENMT: external ear and nose normal, oropharynx normal Neck: trachea midline, no thyromegaly neck nontender Respiratory: + labored breathing and normal percussion; does not use accessory muscles Auscultation: + rhonchi (Right upper lobe) Cardiovascular: Rate/Rhythm: regular rate and regular rhythm Heart Sounds: normal S1 and normal S2; no gallop, no murmur and no cardiac rub Vessels: normal peripheral pulses; no JVD Gastrointestinal (Abdomen): normal bowel sounds, soft, nontender, no hepatosplenomegaly Musculoskeletal: no cyanosis or clubbing, extremities motor strength 5/5 Spine: thoracic spine normal to inspection and lumbar spine normal to inspection; no cervical spinal tenderness Skin: no rashes, warm and dry normal turgor; no lesions Neurologic: patellar DTR's 2+ bilat, sensation intact no focal motor deficits Psychiatric: A+Ox3, euthymic affect Orientation: cooperative Lymphatic: no cervical or axillary lymphadenopathy no inguinal lymphadenopathy Results & Data Vital Signs (Past 12 Hours) Vital Signs Temp Pulse Resp BP BP Pulse Ox 03/01/19 15:32 92 H 18 96 03/01/19 14:50 36.4 C L 106 H 22 125/69 98 03/01/19 11:10 102 H 18 94 03/01/19 07:32 81 18 96 03/01/19 07:00 36.5 C 92 H 20 125/74 97 Laboratory Results BMP 03/01/19 05:34 Creatinine 1.15 Diagnostic Findings Microbiology 02/27/19 17:09 Blood Blood Culture - Preliminary No growth to date. 02/27/19 17:18 Blood Blood Culture - Preliminary No growth to date. CT angio chest PE protocol CT DOSE: 1058.69 mGy.cm HISTORY: Dyspnea sob eval for pe TECHNIQUE: Multiaxial CT images of the chest were performed following the intravenous administration of contrast to evaluate the pulmonary arteries. Maximal intensity projection images were also obtained. A dose lowering technique was utilized adhering to the principles of ALARA. COMPARISON STUDY: 10/25/2014 FINDINGS: There is a normal caliber thoracic aorta with no evidence for dissection. There is no evidence for pulmonary embolus. No pleural effusions. No pneumothorax. The liver and spleen are unremarkable. No mediastinal or hilar lymphadenopathy. Poorly defined interstitial infiltrate right upper lung. Minimal scattered dependent basilar atelectasis. Moderate stable emphysematous change. IMPRESSION: 1. No evidence of pulmonary embolus. 2. Interstitial infiltrative change right upper lobe. 3. Mild scattered bibasilar dependent atelectasis. The above report was generated using voice recognition software. It may contain grammatical, syntax or spelling errors. Electronically signed by: Tim Bloom M.D. 02/27/2019 4:56 PM Dictated: 02/27/19 1653 Transcribed: 02/27/19 165
--- NOTE | 2019-03-01 17:32 | Hospitalist Progress Note ---
Date of Service March 01, 2019 Assessment & Plan (1) Shortness of breath: Likely because of COPD exacerbation and pneumonia, Per report patient tachyneic on arrival, has since improved with treatment administered in ER. Continue havingSome improving, Continue DuoNeb q 4 hours, Albuterol q 2 hours PRN Initially was on Solumedrol 20mg IV TID, Which was decreased to 20, Continue Supplemental O2 , goal saturation 88-92%, Hot Saw Helper input appreciated, continue Zosyn, Was on vancomycin Upon admissionWhich was discontinuedbecause MRSA swab negative Due to encourage patient to bring her BiPAP from home or at least her BiPAP mask for her comfort. (2) Pneumonia: See above, possible infiltrate RUL. Patient states she has had chills and sweats. Recent hospital stay in December. -Check procalcitonin -CXR PA and lateral in AM showed: "Hazy airspace opacities are seen throughout the right lung. Correlate clinically for evidence of a mild infectious/inflammatory pneumonitis. Radiographic follow-up to resolution is recommended." Has been on Zosyn 4.5gm IV q 8 hours Since admission, however, Low procalcitonin make PNA is less likely, On Zosyn for now, will follow. Continue follow-up sputum culture Adjust antibiotics as appropriate. Patient with remote history of severe c. diff for which she takes weekly suppressive Vancomycin. Daily probiotic Because currently on antibiotic of Zosyn, I will start oral Vanco 125 mg p.o. daily for C. difficile prophylaxis, infectious disease agree of this problem (3) COPD exacerbation: As above -Steroids, nebs, treatment of suspected PNA -Continue Advair BID (4) Prolonged QT interval: Myf=499 on EKG. -Avoid QT prolonging medications - Will check EKG tomorrow morning (5) GERD (gastroesophageal reflux disease): Chronic, well controlled -Continue Protonix daily (6) Anemia of chronic disease: H/H stable. No active bleeding -Continue to monitor (7) Hypothyroidism: Stable, chronic -Continue Synthroid (8) Hypertension: BP stable -Continue Lasix and HCTZ -Continue to monitor (9) Depression: MDD as well as grief response from loss of and son -Continue Celexa (10) Diabetes: Patient denies this diagnosis. States she has never been a diabetic. AIC=6, 5.9 on prior studies. She was slightly perturbed with this diagnosis. -CC diet as tolerated -Monitor daily labs, if patient with elevated glucose will add insulin coverage F/E/N - heplock. Monitor electrolytes and replete as needed. Mag given in ER, CC diet as tolerated Ppx - Lovenox Code - DNR/DNI Possible need to be in the hospital to 2- 3 days more, Subjective Patient general feeling anxious, reports appetite is little better, out of bed to the chair, report have some exertional dyspnea, Review of Systems Review of Systems: Denies fevers, chills, sweats, weakness Denies CP/palpitations Denies abdominal pain, nausea/vomiting/diarrhea/constipation Denies urinary complaints Denies facial droop or slurry speeches or local weakness Physical Exam Physical Exam: General Appearance: Frail, on nasal cannula oxygen, WD/WN, no apparent distress, Eyes: normal inspection, PERRL, EOMI, sclerae normal ENT: normal ENT inspection, hearing grossly normal, pharynx normal Neck: supple, no adenopathy, thyroid normal, no JVD, no carotid bruits, trachea midline Respiratory/Chest: chest non-tender, obvious decreased breath sounds, Significant decreased breathing sounds, with occasional rales in the base of the lungs Cardiovascular: regular rate, rhythm, no JVD, no murmur Abdomen: normal bowel sounds, non tender, soft, no organomegaly, Extremities: normal range of motion, non-tender, normal inspection, no pedal edema, no calf tenderness, normal capillary refill, pelvis stable, joint has no limited range of motion, capillary refill is normal, no cyanosis clubbing Neurologic/Psychiatric: 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 farm 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-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 nml as tested, no motor/sensory deficits, alert, normal mood/affect, oriented x 3 Skin: normal color, warm/dry, no rash Lymphatic: no adenopathy Results & Data Vital Signs (Past 12 Hours) Vital Signs Temp Pulse Resp BP BP Pulse Ox 03/01/19 15:32 92 H 18 96 03/01/19 14:50 36.4 C L 106 H 22 125/69 98 03/01/19 11:10 102 H 18 94 03/01/19 07:32 81 18 96 03/01/19 07:00 36.5 C 92 H 20 125/74 97 Laboratory Results - last 24 hr 02/28/19 03/01/1919 20:11 05:34 07:10 Creatinine 1.15 Est Cr Clr Drug Dosing 48.3 Est GFR ( Amer) 55.8 Est GFR (Non-Af Amer) 48.2 POC Glucose 158 H 123 H 03/01/19 03/01/19 11:33 16:51 Creatinine Est Cr Clr Drug Dosing Est GFR ( Amer) Est GFR (Non-Af Amer) POC Glucose 136 H 132 H Microbiology 02/27/19 17:09 Blood Blood Culture - Preliminary No growth to date. 02/27/19 17:18 Blood Blood Culture - Preliminary No growth to date. (1) Hypothyroidism Hypothyroidism type: unspecified Qualified Code(s): E03.9 - Hypothyroidism, unspecified (2) Hypertension Hypertension type: essential hypertension Qualified Code(s): I10 - Essential (primary) hypertension (3) Depression Depression Type: major depressive disorder Major depression recurrence: recurrent Active/Remission status: currently active Major depression episode severity: unspecified Qualified Code(s): F33.9 - Major depressive disorder, recurrent, unspecified (4) Diabetes Diabetes mellitus type: type 2 Diabetes mellitus ferry terminal agent insulin use: without ferry terminal agent use Diabetes mellitus complication status: without complication Qualified Code(s): E11.9 - Type 2 diabetes mellitus without complications
[2019-03-01] MEDS: ENOXAPARIN INJ 40 MG/0.4 ML SYR SQ SCH (21:47)
[2019-03-02] MEDS ORDERED: VANCOMYCIN TROUGH ONE (01:30)
[2019-03-02] MEDS: ALBUT/IPRATROP 3MG/0.5MG NEB 3 ML VIAL NEB SCH ×6 (03:35→23:28)
[2019-03-02 05:44] LABS: Basophils # (auto) 0.01 K/uL (0-0.2); Basophils % (auto) 0.1 %; Hematocrit (blood only) 30.9 % (37-47); Hemoglobin 10.1 g/dL (12.0-16.0); Immature Granulocytes # (auto) 0.02 K/uL (0.00-0.02); Immature Granulocytes % (auto) 0.2 %; Lymphocytes % (auto) 5.9 %; Mean Corpuscular Hgb Conc 32.7 g/dL (32-36); Mean Platelet Volume 9.9 fL (7.4-10.4); Monocytes # (auto) 0.56 K/uL (0.11-0.59); Monocytes % (auto) 5.5 %; Neutrophils # (auto) 8.93 K/uL (1.4-6.5); Neutrophils % (auto) 88.3 %; Platelet Count 361 K/uL (130-400); RDW Standard Deviation 46.1 fL (36.4-46.3); Red Blood Count 3.47 M/uL (4.2-5.4); White Blood Count 10.12 K/uL (4.8-10.8)
[2019-03-02] MEDS: LEVOTHYROXINE SODIUM 137 MCG TABLET PO SCH (06:00)
[2019-03-02 06:04] LABS: BUN Creatinine Ratio 28.9 (10-20); Calcium 9.3 mg/dl (8.5-10.1); Creatinine Clr Calc Pharmacy 53.4 ml/min; Est GFR (Non-African American) 54.4; Potassium 3.8 mmol/L (3.5-5.1)
[2019-03-02] MEDS: INSULIN ASPART 100 UNITS/ML 3 ML PEN SC SCH ×4 (08:32→21:13)
[2019-03-02] MEDS: hydroCHLOROthiazide 25 MG TAB PO SCH (08:33)
[2019-03-02] MEDS: SACCHAROMYCES BOULARDII 250 MG CAP PO SCH (08:34)
[2019-03-02] MEDS: FUROSEMIDE 40 MG TAB PO SCH (08:34)
[2019-03-02] MEDS: ESTRADIOL 1 MG TAB PO SCH (08:34)
[2019-03-02] MEDS: PANTOprazole 40 MG TAB PO SCH (08:35)
[2019-03-02] MEDS: DOCUSATE SODIUM 100 MG CAP PO SCH ×2 (08:35→20:22)
[2019-03-02] MEDS: CITALOPRAM 20 MG TAB PO SCH (08:35)
[2019-03-02] MEDS: FLUTICASONE/SALMETEROL (ADVAIR) 500/50 INH 14 PUFF INH SCH ×2 (08:36→20:20)
[2019-03-02] MEDS: RASPBERRY SYRUP 5 ML UDP PO SCH (08:37)
[2019-03-02] MEDS: methylPREDNISolone 20 MG in SYRINGE 0 ML IV SCH ×2 (08:40→20:22)
[2019-03-02] MEDS: VANCOMYCIN HCL 125 MG/2.5ML SOLN PO SCH (08:43)
[2019-03-02] MEDS: PIPERACILLIN/TAZOBACTAM 4.5 GM in DEXTROSE 5% 100 ML IV SCH ×3 (08:44→23:37)
--- NOTE | 2019-03-02 09:06 | Progress Note ---
DATE: 03/02/2019 SUBJECTIVE: The patient feels about the same. She remains short of breath with any exertion. She has not noticed any significant improvement. She states she wore the BiPAP until 4:00 a.m. but was quite uncomfortable with it. I believe the problem is that our mask is not as comfortable for her as her own mask. I again discussed the possibility of her having someone bring in her own mask from home, but she does not want to do that. OBJECTIVE: GENERAL: The patient was in no apparent distress. She was cooperative, alert and oriented, though she clearly appears depressed. VITAL SIGNS: Temperature is 36.7. Heart rate is 98 per minute. Rhythm is regular. Blood pressure 139/79. LUNGS: Auscultation of the lung l[place] reveals increased wheezing bilaterally. I explained to the patient this could be reflective of improved flow from prior. I think it is more likely that she is opening up slightly, so we can now hear more wheezes rather than that she is getting worse. Saturation was 94% on 4 liters. EXTREMITIES: Showed brown skin discoloration as had been noted previously with slight edema. LABORATORY DATA: White count today is 10.12. Hemoglobin 10.1. Platelets 361,000. Electrolytes show sodium 135, potassium 3.8, chloride 92, bicarbonate 40. BUN 30 with a creatinine of 1.04. IMPRESSION: 1. [id number] respiratory failure with hypoxia and hypercarbia. 2. Pneumonia, right upper lobe. 3. Severe chronic obstructive pulmonary disease with exacerbation. 4. Elevation of the left hemidiaphragm. 5. Depression. COMMENTS AND RECOMMENDATIONS: The patient has increased wheezing today. I think this reflects improved airflow. I would maintain her for now on the methylprednisolone 20 mg IV q. 12 hours as well as the neb treatments. She has been on Zosyn. Her x-rays have been somewhat atypical in nature. The CAT scan of the chest suggested a right upper lobe infiltrate, but a followup chest x-ray showed it to be a bit more diffuse. We will order a followup x-ray for tomorrow. The patient is a CO2 retainer. Would try to keep her oxygen saturations lower than they are currently. This morning, she is 94% and she is almost never low. Would like to keep saturations 88% to 92%.
--- NOTE | 2019-03-02 17:54 | Hospitalist Progress Note ---
Date of Service March 02, 2019 Assessment & Plan (1) COPD exacerbation: Possible infectious inciting event. - Continue steroids, nebs, treatment of suspected PNA - Continue Advair BID (2) Pneumonia: CTA chest on 02/27 showed possible infiltrate in the RUL. Follow up CXR on 02/28 showed "hazy airspace opacities are seen throughout the right lung" concerning for a mild infectious/inflammatory pneumonitis. - Procalcitonin on 02/27 was <0.05. - Continue steroids and abx per pulm (3) Prolonged QT interval: Qtc was 512 on EKG on 02/27. - Avoid QT prolonging medications - Will check EKG tomorrow morning (4) GERD (gastroesophageal reflux disease): Chronic, well controlled. - Continue Protonix daily (5) Anemia of chronic disease: H/H stable. Baseline hgb is 10-11. No active bleeding during this admission. - Continue to monitor (6) Hypothyroidism: TSH was 1.4 in 01/2019. - Continue home Synthroid (7) Hypertension: BP stable ~150/80 in the last 24 hours. - Continue Lasix and HCTZ (8) Depression: MDD as well as grief response from loss of and son. - Continue Celexa (9) Diabetes: Patient denies this diagnosis. She states she has never been a diabetic. A1C has been 6% & 5.9% on prior studies. - Carb-controlled diet as tolerated Subjective Less shortness of breath. Review of Systems Review of Systems: All systems reviewed & are unremarkable except as noted in HPI & below Physical Exam Constitutional: WD/WN, vitals as above Eyes: EOM intact bilaterally; no conjunctival abnormality ENMT: external ear and nose normal, oropharynx normal Neck: trachea midline, no thyromegaly normal visual inspection Respiratory: normal respiratory effort, lungs clear to auscultation no respiratory distress Cardiovascular: RRR, no murmur, no edema Gastrointestinal (Abdomen): Inspection/Auscultation: abdomen normal to inspection; abdomen not distended Musculoskeletal: no cyanosis or clubbing, extremities motor strength 5/5 Skin: no rashes, warm and dry Neurologic: moves all extremities and awake Psychiatric: Orientation: alert, oriented to person and cooperative Results & Data Vital Signs (Past 12 Hours) Vital Signs Temp Pulse Resp BP BP Pulse Ox 03/02/19 15:57 36.9 C 95 H 20 148/83 H 93 03/02/19 14:31 101 H 18 96 03/02/19 11:14 101 H 20 96 03/02/19 07:04 94 03/02/19 07:00 36.7 C 98 H 19 139/79 96 (1) Hypothyroidism Hypothyroidism type: unspecified Qualified Code(s): E03.9 - Hypothyroidism, unspecified (2) Hypertension Hypertension type: essential hypertension Qualified Code(s): I10 - Essential (primary) hypertension (3) Depression Depression Type: major depressive disorder Major depression recurrence: recurrent Active/Remission status: currently active Major depression episode severity: unspecified Qualified Code(s): F33.9 - Major depressive disorder, recurrent, unspecified (4) Diabetes Diabetes mellitus type: type 2 Diabetes mellitus research nurse insulin use: without research nurse use Diabetes mellitus complication status: without complication Qualified Code(s): E11.9 - Type 2 diabetes mellitus without complications
[2019-03-02] MEDS ORDERED: DOXYCYCLINE HYCLATE 100 MG in DEXTROSE 5% 100 ML IV SCH ×2 (18:30→20:00)
[2019-03-02] MEDS: ENOXAPARIN INJ 40 MG/0.4 ML SYR SQ SCH (20:21)
[2019-03-02] MEDS ORDERED: PIPERACILLIN/TAZOBACTAM 4.5 GM in DEXTROSE 5% 100 ML IV SCH (22:00)
[2019-03-03] MEDS: ALBUT/IPRATROP 3MG/0.5MG NEB 3 ML VIAL NEB SCH ×6 (03:16→23:09)
[2019-03-03] MEDS: PIPERACILLIN/TAZOBACTAM 4.5 GM in DEXTROSE 5% 100 ML IV SCH (05:42)
[2019-03-03] MEDS: LEVOTHYROXINE SODIUM 137 MCG TABLET PO SCH (06:39)
[2019-03-03 06:52] LABS: Hematocrit (blood only) 31.4 % (37-47); Hemoglobin 10.3 g/dL (12.0-16.0); Mean Corpuscular Hgb Conc 32.8 g/dL (32-36); Mean Corpuscular Volume 89.5 fL (80-100); Mean Platelet Volume 10.3 fL (7.4-10.4); Platelet Count 330 K/uL (130-400); RDW Coefficient of Variation 13.9 % (11.5-14.5); RDW Standard Deviation 45.7 fL (36.4-46.3); Red Blood Count 3.51 M/uL (4.2-5.4); White Blood Count 9.06 K/uL (4.8-10.8)
[2019-03-03 07:40] LABS: BUN Creatinine Ratio 31.6 (10-20); Calcium 9.4 mg/dl (8.5-10.1); Creatinine Clr Calc Pharmacy 56.1 ml/min; Est GFR (African American) 66.9; Est GFR (Non-African American) 57.7; Potassium 3.2 mmol/L (3.5-5.1)
--- NOTE | 2019-03-03 08:21 | XRay Report ---
XR chest 2V routine CLINICAL HISTORY: f//u lung infiltrates pneumonia COMPARISON STUDY: 02/28/2019 FINDINGS: Improved exam. Parenchymal infiltrative changes throughout the right hemithorax are conside rably diminished. There is minimal residual. Left lung remains clear. IMPRESSION: Improving right hemithoracic infiltrate. Minimal residual. The above report was generated using voice recognition software. It may contain grammatical, syntax or spelling errors. Electronically signed by: Tim Bloom M.D. 03/03/2019 8:19 AM
[2019-03-03] MEDS: DOCUSATE SODIUM 100 MG CAP PO SCH ×2 (08:37→21:47)
[2019-03-03] MEDS: CITALOPRAM 20 MG TAB PO SCH (08:37)
[2019-03-03] MEDS: hydroCHLOROthiazide 25 MG TAB PO SCH (08:37)
[2019-03-03] MEDS: PANTOprazole 40 MG TAB PO SCH (08:37)
[2019-03-03] MEDS: ESTRADIOL 1 MG TAB PO SCH (08:38)
[2019-03-03] MEDS: FLUTICASONE/SALMETEROL (ADVAIR) 500/50 INH 14 PUFF INH SCH ×2 (08:39→21:46)
[2019-03-03] MEDS: SACCHAROMYCES BOULARDII 250 MG CAP PO SCH (08:39)
[2019-03-03] MEDS: FUROSEMIDE 40 MG TAB PO SCH (08:39)
[2019-03-03] MEDS: INSULIN ASPART 100 UNITS/ML 3 ML PEN SC SCH ×4 (08:43→21:47)
[2019-03-03] MEDS: RASPBERRY SYRUP 5 ML UDP PO SCH (08:45)
[2019-03-03] MEDS: VANCOMYCIN HCL 125 MG/2.5ML SOLN PO SCH (08:48)
[2019-03-03] MEDS: methylPREDNISolone 20 MG in SYRINGE 0 ML IV SCH (11:07)
[2019-03-03] MEDS: predniSONE 20 MG TAB PO SCH (11:51)
[2019-03-03] MEDS: DOXYCYCLINE HYCLATE 100 MG CAP PO SCH ×2 (11:51→21:48)
[2019-03-03] MEDS: AMOXICILLIN/CLAVULANATE 875 MG TAB PO SCH ×2 (11:52→21:46)
--- NOTE | 2019-03-03 14:06 | Hospitalist Progress Note ---
Date of Service March 03, 2019 Assessment & Plan (1) COPD exacerbation: Possible infectious inciting event. - Continue steroids, nebs, treatment of suspected PNA - Continue Advair BID (2) Pneumonia: CTA chest on 02/27 showed possible infiltrate in the RUL. Follow up CXR on 02/28 showed "hazy airspace opacities are seen throughout the right lung" concerning for a mild infectious/inflammatory pneumonitis. - Procalcitonin on 02/27 was <0.05. - Repeat CXR on 03/03 showed resolving opacities - Continue above therapies (3) Prolonged QT interval: Qtc was 512 on EKG on 02/27. Returned to 460 on EKG on 03/03 - Avoid QT prolonging medications as able (4) GERD (gastroesophageal reflux disease): Chronic, well controlled. - Continue Protonix daily (5) Anemia of chronic disease: H/H stable. Baseline hgb is 10-11. No active bleeding during this admission. - Continue to monitor (6) Hypothyroidism: TSH was 1.4 in 01/2019. - Continue home Synthroid (7) Hypertension: BP stable ~140/80 - 150/80 in the last 24 hours. - Continue Lasix and HCTZ (8) Depression: MDD as well as grief response from loss of and son. - Continue Celexa (9) Diabetes: Patient denies this diagnosis. She states she has never been a diabetic. A1C has been 6% & 5.9% on prior studies. - Carb-controlled diet as tolerated (10) DVT prophylaxis: Lovenox Subjective Feels mildly better today form a breathing standpoint. IV site is very painful. Reports no fevers/chills, chest pain, shortness of breath, abdominal pain, nausea, or vomiting. Review of Systems Review of Systems: All systems reviewed & are unremarkable except as noted in HPI & below Physical Exam Constitutional: WD/WN, vitals as above Eyes: EOM intact bilaterally; no conjunctival abnormality ENMT: external ear and nose normal, oropharynx normal Neck: trachea midline, no thyromegaly normal visual inspection Respiratory: normal respiratory effort, lungs clear to auscultation no respiratory distress Cardiovascular: RRR, no murmur, no edema Gastrointestinal (Abdomen): Inspection/Auscultation: abdomen normal to inspection; abdomen not distended Musculoskeletal: no cyanosis or clubbing, extremities motor strength 5/5 Skin: no rashes, warm and dry Neurologic: moves all extremities and awake Psychiatric: Orientation: alert, oriented to person and cooperative Results & Data Vital Signs (Past 12 Hours) Vital Signs Temp Pulse Pulse Resp BP Pulse Ox 03/03/19 11:41 93 H 20 96 03/03/19 07:28 36.4 C L 91 H 16 138/82 98 03/03/19 07:12 86 20 96 03/03/19 03:15 82 20 97 03/03/19 03:14 82 20 97 (1) Hypothyroidism Hypothyroidism type: unspecified Qualified Code(s): E03.9 - Hypothyroidism, unspecified (2) Hypertension Hypertension type: essential hypertension Qualified Code(s): I10 - Essential (primary) hypertension (3) Depression Depression Type: major depressive disorder Major depression recurrence: recurrent Active/Remission status: currently active Major depression episode severity: unspecified Qualified Code(s): F33.9 - Major depressive disorder, recurrent, unspecified (4) Diabetes Diabetes mellitus type: type 2 Diabetes mellitus long-term insulin use: without steamer blocker use Diabetes mellitus complication status: without complication Qualified Code(s): E11.9 - Type 2 diabetes mellitus without complications
--- NOTE | 2019-03-03 21:28 | Infectious Disease Progress Nt ---
Date of Service March 03, 2019 Assessment & Plan (1) Pneumonia: 68-year-old female with history of multiple recurrences of C. difficile maintained on once weekly vancomycin for prolonged period without recurrence, now being treated for pneumonia. Given high risk of recurrent C. difficile infe ction, will treat patient with vancomycin 125 mg daily while on antibiotics. Low procalcitonin speaks against bacterial pneumonia. On Zosyn for now, will follow. (2) History of Clostridium difficile infection: Subjective Patient seen in follow-up for pulmonary infection and recurrent C. difficile infection. Feeling better today, less short of breath. Remains afebrile. No diarrhea. Review of Systems Review of Systems: All systems reviewed & are unremarkable except as noted in HPI & below Physical Exam Constitutional: WD/WN, vitals as above + acute distress, + ill appearing and comfortable Eyes: PERRL, conjunctivae normal, anicteric sclerae ENMT: external ear and nose normal, oropharynx normal Neck: trachea midline, no thyromegaly neck nontender Respiratory: + labored breathing and normal percussion; does not use accessory muscles Auscultation: + rhonchi (Right upper lobe) Cardiovascular: Rate/Rhythm: regular rate and regular rhythm Heart Sounds: normal S1 and normal S2; no gallop, no murmur and no cardiac rub Vessels: normal peripheral pulses; no JVD Gastrointestinal (Abdomen): normal bowel sounds, soft, nontender, no hepatosplenomegaly Musculoskeletal: no cyanosis or clubbing, extremities motor strength 5/5 Spine: thoracic spine normal to inspection and lumbar spine normal to inspection; no cervical spinal tenderness Skin: no rashes, warm and dry normal turgor; no lesions Neurologic: patellar DTR's 2+ bilat, sensation intact no focal motor deficits Psychiatric: A+Ox3, euthymic affect Orientation: cooperative Lymphatic: no cervical or axillary lymphadenopathy no inguinal lymphadenopathy Results & Data Vital Signs (Past 12 Hours) Vital Signs Temp Pulse Resp BP Pulse Ox 03/03/19 19:59 97 H 18 93 03/03/19 17:43 37 C 103 H 18 131/85 92 03/03/19 15:39 96 H 18 90 03/03/19 15:01 85 L 03/03/19 11:41 93 H 20 96 Laboratory Results Short CBC 03/03/19 Range/Units 06:24 WBC 9.06 (4.8-10.8) K/uL Hgb 10.3 L (12.0-16.0) g/dL Hct 31.4 L (37-47) % Plt Count 330 (130-400) K/uL BMP 03/03/19 06:24 Sodium 135 L Potassium 3.2 L D Chloride 92 L Carbon Dioxide 39 H BUN 31 H Creatinine 0.99 Glucose 100 H Calcium 9.4 Diagnostic Findings Microbiology 02/27/19 17:09 Blood Blood Culture - Preliminary No growth to date. 02/27/19 17:18 Blood Blood Culture - Preliminary No growth to date. XR chest 2V routine CLINICAL HISTORY: f//u lung infiltrates pneumonia COMPARISON STUDY: 02/28/2019 FINDINGS: Improved exam. Parenchymal infiltrative changes throughout the right hemithorax are considerably diminished. There is minimal residual. Left lung remains clear. IMPRESSION: Improving right hemithoracic infiltrate. Minimal residual. The above report was generated using voice recognition software. It may contain grammatical, syntax or spelling errors. Electronically signed by: Tim Bloom M.D. 03/03/2019 8:19 AM
[2019-03-03] MEDS: ENOXAPARIN INJ 40 MG/0.4 ML SYR SQ SCH (21:47)
[2019-03-04] MEDS: ALBUT/IPRATROP 3MG/0.5MG NEB 3 ML VIAL NEB SCH ×5 (03:13→19:19)
[2019-03-04] MEDS: LEVOTHYROXINE SODIUM 137 MCG TABLET PO SCH (05:45)
[2019-03-04 07:40] LABS: BUN Creatinine Ratio 28.1 (10-20); Calcium 9.7 mg/dl (8.5-10.1); Creatinine Clr Calc Pharmacy 51.4 ml/min; Est GFR (African American) 60.2; Potassium 3.1 mmol/L (3.5-5.1)
[2019-03-04] MEDS ORDERED: POTASSIUM CHLORIDE 10 MEQ TABCR PO STA (07:50)
[2019-03-04] MEDS: ESTRADIOL 1 MG TAB PO SCH (08:40)
[2019-03-04] MEDS: hydroCHLOROthiazide 25 MG TAB PO SCH (08:40)
[2019-03-04] MEDS: DOCUSATE SODIUM 100 MG CAP PO SCH ×2 (08:40→21:05)
[2019-03-04] MEDS: DOXYCYCLINE HYCLATE 100 MG CAP PO SCH ×2 (08:40→21:06)
[2019-03-04] MEDS: PANTOprazole 40 MG TAB PO SCH (08:40)
[2019-03-04] MEDS: predniSONE 20 MG TAB PO SCH (08:40)
[2019-03-04] MEDS: AMOXICILLIN/CLAVULANATE 875 MG TAB PO SCH ×2 (08:40→21:05)
[2019-03-04] MEDS: SACCHAROMYCES BOULARDII 250 MG CAP PO SCH (08:40)
[2019-03-04] MEDS: FUROSEMIDE 40 MG TAB PO SCH (08:41)
[2019-03-04] MEDS: CITALOPRAM 20 MG TAB PO SCH (08:41)
[2019-03-04] MEDS: FLUTICASONE/SALMETEROL (ADVAIR) 500/50 INH 14 PUFF INH SCH ×2 (08:41→21:04)
[2019-03-04] MEDS: RASPBERRY SYRUP 5 ML UDP PO SCH (08:41)
[2019-03-04] MEDS: VANCOMYCIN HCL 125 MG/2.5ML SOLN PO SCH (08:42)
[2019-03-04] MEDS: INSULIN ASPART 100 UNITS/ML 3 ML PEN SC SCH ×4 (08:46→21:06)
--- NOTE | 2019-03-04 12:45 | Hospitalist Progress Note ---
Date of Service March 04, 2019 Assessment & Plan (1) COPD exacerbation: Possible infectious inciting event. - Continue steroids, nebs, abx treatment of suspected PNA - Continue Advair BID - Now on Augmentin & doxy for her pneumonia - End date: 03/06 (7-day course) - Will discharge on steroid taper (2) Pneumonia: CTA chest on 02/27 showed possible infiltrate in the RUL. Follow up CXR on 02/28 showed "hazy airspace opacities are seen throughout the right lung" concerning for a mild infectious/inflammatory pneumonitis. - Procalcitonin on 02/27 was <0.05. - Repeat CXR on 03/03 showed resolving opacities - Continue above therapies (3) Prolonged QT interval: Qtc was 512 on EKG on 02/27. Returned to 460 on EKG on 03/03 - Avoid QT prolonging medications as able (4) GERD (gastroesophageal reflux disease): Chronic, well controlled. - Continue Protonix daily (5) Anemia of chronic disease: H/H stable. Baseline hgb is 10-11. No active bleeding during this admission. - Continue to monitor (6) Hypothyroidism: TSH was 1.4 in 01/2019. - Continue home Synthroid (7) Hypertension: BP stable ~130/80 - 150/80 in the last 24 hours. - Continue Lasix and HCTZ (8) Depression: MDD as well as grief response from loss of and son. - Continue Celexa (9) Diabetes: Patient denies this diagnosis. She states she has never been a diabetic. A1C has been 6% & 5.9% on prior studies. - Carb-controlled diet as tolerated (10) DVT prophylaxis: Lovenox Subjective Feeling improved, but still shortness of breath. Review of Systems Review of Systems: All systems reviewed & are unremarkable except as noted in HPI & below Physical Exam Constitutional: WD/WN, vitals as above Eyes: EOM intact bilaterally; no conjunctival abnormality ENMT: external ear and nose normal, oropharynx normal Neck: trachea midline, no thyromegaly normal visual inspection Respiratory: normal respiratory effort, lungs clear to auscultation no respiratory distress Cardiovascular: RRR, no murmur, no edema Gastrointestinal (Abdomen): Inspection/Auscultation: abdomen normal to inspection; abdomen not distended Musculoskeletal: no cyanosis or clubbing, extremities motor strength 5/5 Skin: no rashes, warm and dry Neurologic: moves all extremities and awake Psychiatric: Orientation: alert, oriented to person and cooperative Results & Data Vital Signs (Past 12 Hours) Vital Signs Temp Pulse Pulse Resp BP Pulse Ox 03/04/19 11:22 93 H 16 94 03/04/19 08:15 36.5 C 88 16 128/81 96 03/04/19 07:50 90 16 95 03/04/19 03:15 92 H 18 93 (1) Hypothyroidism Hypothyroidism type: unspecified Qualified Code(s): E03.9 - Hypothyroidism, unspecified (2) Hypertension Hypertension type: essential hypertension Qualified Code(s): I10 - Essential (primary) hypertension (3) Depression Depression Type: major depressive disorder Major depression recurrence: recurrent Active/Remission status: currently active Major depression episode severity: unspecified Qualified Code(s): F33.9 - Major depressive disorder, recurrent, unspecified (4) Diabetes Diabetes mellitus type: type 2 Diabetes mellitus fci insulin use: without long term care social worker use Diabetes mellitus complication status: without complication Qualified Code(s): E11.9 - Type 2 diabetes mellitus without complications
--- NOTE | 2019-03-04 15:36 | Infectious Disease Progress Nt ---
Date of Service March 04, 2019 Assessment & Plan (1) Pneumonia: 68-year-old female with history of multiple recurrences of C. difficile maintained on once weekly vancomycin for prolonged period without recurrence, now being treated for pneumonia. Given high risk of recurrent C. difficile infe ction, will treat patient with vancomycin 125 mg daily while on antibiotics. Low procalcitonin speaks against bacterial pneumonia. On Zosyn for now, will follow. (2) History of Clostridium difficile infection: Subjective Patient seen in follow-up for pulmonary infection and recurrent C. difficile infection. Feeling better today, less short of breath. Remains afebrile. No diarrhea. Review of Systems Review of Systems: All systems reviewed & are unremarkable except as noted in HPI & below Physical Exam Constitutional: WD/WN, vitals as above + acute distress, + ill appearing and comfortable Eyes: PERRL, conjunctivae normal, anicteric sclerae ENMT: external ear and nose normal, oropharynx normal Neck: trachea midline, no thyromegaly neck nontender Respiratory: + labored breathing and normal percussion; does not use accessory muscles Auscultation: + rhonchi (Right upper lobe) Cardiovascular: Rate/Rhythm: regular rate and regular rhythm Heart Sounds: normal S1 and normal S2; no gallop, no murmur and no cardiac rub Vessels: normal peripheral pulses; no JVD Gastrointestinal (Abdomen): normal bowel sounds, soft, nontender, no hepatosplenomegaly Musculoskeletal: no cyanosis or clubbing, extremities motor strength 5/5 Spine: thoracic spine normal to inspection and lumbar spine normal to inspection; no cervical spinal tenderness Skin: no rashes, warm and dry normal turgor; no lesions Neurologic: patellar DTR's 2+ bilat, sensation intact no focal motor deficits Psychiatric: A+Ox3, euthymic affect Orientation: cooperative Lymphatic: no cervical or axillary lymphadenopathy no inguinal lymphadenopathy Results & Data Vital Signs (Past 12 Hours) Vital Signs Temp Pulse Pulse Resp BP Pulse Ox 03/04/19 11:22 93 H 16 94 03/04/19 08:15 36.5 C 88 16 128/81 96 03/04/19 07:50 90 16 95 03/04/19 03:15 92 H 18 93 Laboratory Results [facility] 03/04/19 06:53 Sodium 135 L Potassium 3.1 L Chloride 92 L Carbon Dioxide 38 H BUN 30 H Creatinine 1.08 Glucose 115 H Calcium 9.7 Diagnostic Findings Microbiology 02/27/19 17:09 Blood Blood Culture - Preliminary No growth to date. 02/27/19 17:18 Blood Blood Culture - Preliminary No growth to date.
[2019-03-04] MEDS: ENOXAPARIN INJ 40 MG/0.4 ML SYR SQ SCH (21:05)
[2019-03-05] MEDS: ALBUT/IPRATROP 3MG/0.5MG NEB 3 ML VIAL NEB SCH ×4 (00:05→11:23)
[2019-03-05] MEDS: LEVOTHYROXINE SODIUM 137 MCG TABLET PO SCH (05:52)
[2019-03-05 07:11] LABS: BUN Creatinine Ratio 34.2 (10-20); Calcium 9.4 mg/dl (8.5-10.1); Creatinine Clr Calc Pharmacy 50.5 ml/min; Est GFR (African American) 58.9; Est GFR (Non-African American) 50.8; Potassium 3.2 mmol/L (3.5-5.1)
[2019-03-05] MEDS ORDERED: POTASSIUM CHLORIDE PWD 20 MEQ PACK PO STA (08:25)
[2019-03-05] MEDS ORDERED: POTASSIUM CHLORIDE 40 MEQ in SODIUM CHLORIDE 0.9% 500 ML IV SCH (08:30)
[2019-03-05] MEDS: AMOXICILLIN/CLAVULANATE 875 MG TAB PO SCH (08:56)
[2019-03-05] MEDS: DOCUSATE SODIUM 100 MG CAP PO SCH (08:57)
[2019-03-05] MEDS: FLUTICASONE/SALMETEROL (ADVAIR) 500/50 INH 14 PUFF INH SCH (08:57)
[2019-03-05] MEDS: hydroCHLOROthiazide 25 MG TAB PO SCH (08:57)
[2019-03-05] MEDS: CITALOPRAM 20 MG TAB PO SCH (08:57)
[2019-03-05] MEDS: PANTOprazole 40 MG TAB PO SCH (08:57)
[2019-03-05] MEDS: SACCHAROMYCES BOULARDII 250 MG CAP PO SCH (08:57)
[2019-03-05] MEDS: predniSONE 20 MG TAB PO SCH (08:57)
[2019-03-05] MEDS: FUROSEMIDE 40 MG TAB PO SCH (08:58)
[2019-03-05] MEDS: VANCOMYCIN HCL 125 MG/2.5ML SOLN PO SCH (08:58)
[2019-03-05] MEDS: ESTRADIOL 1 MG TAB PO SCH (08:58)
[2019-03-05] MEDS: DOXYCYCLINE HYCLATE 100 MG CAP PO SCH (08:58)
[2019-03-05] MEDS: RASPBERRY SYRUP 5 ML UDP PO SCH (08:58)
[2019-03-05] MEDS: INSULIN ASPART 100 UNITS/ML 3 ML PEN SC SCH ×2 (09:01→13:38)
--- NOTE | 2019-03-05 15:38 | Discharge Summary ---
Date of Service March 05, 2019 Admission HPI Per Admitting Provider Erica Giron is a 68yo C female with history of O2 dependent COPD (4L at home by MS), recently started on nocturnal CPAP, HTN, Hypothyroidism. She was recently admitted in December for suspected COPD exacerbation. She was treated with steroids and nebs and discharged home on a Prednisone taper. Patient states that she has had progressive SOB over the last week, on exertion and at rest as well. She has had increased wheezing, a dry cough, chills and night sweats as well. She has been using her Advair BID and DuoNeb q 6 hours at home with minimal improvement is symptoms. She was to see her PCP today but decided to come to the ER instead. Denies worsening orthopnea or weight gain. She has stable dependent edema of the LE that has not worsened. Also describes fatigue, poor appetite and decreased PO intake. Occasional chest tightness which occurs when she feels short of breath. No additional complaints at this time ER Course: Magnesium, Solumedrol, Albuterol, Zosyn Principal Diagnosis COPD exacerbation Discharge Exam Constitutional WD/WN, vitals as above Eyes EOM intact bilaterally; no conjunctival abnormality ENMT external ear and nose normal, oropharynx normal Neck trachea midline, no thyromegaly normal visual inspection Respiratory normal respiratory effort, lungs clear to auscultation no respiratory distress Cardiovascular RRR, no murmur, no edema Gastrointestinal (Abdomen) Inspection/Auscultation: abdomen normal to inspection; abdomen not distended Musculoskeletal no cyanosis or clubbing, extremities motor strength 5/5 Skin no rashes, warm and dry Neurologic moves all extremities and awake Psychiatric Orientation: alert, oriented to person and cooperative Discharge Data Allergies Allergy/AdvReac Type Severity Reaction Status Date / Time codeine Allergy Mild Unknown Verified 02/27/19 13:51 atropine Allergy Unknown UNKNOWN Verified 02/27/19 13:51 diphenoxylate Allergy Unknown UNKNOWN Verified 02/27/19 13:51 moxifloxacin Allergy Unknown UNKNOWN Verified 02/27/19 13:51 prednisone AdvReac Mild Unknown Verified 02/27/19 13:51 Consultations 02/27/19 17:51 ED Decision to Admit Stat 02/28/19 09:53 Consult Pulmonology Routine 02/28/19 18:52 Consult Infectious Diseases Routine Ordered Studies 02/27/19 16:05 CT angio chest PE protocol Stat Hospital Course (1) COPD exacerbation: Possible infectious inciting event. - Continued Advair BID - On discharge, send out on doxycycline for her pneumonia x3 more days - Discharged on 3 more days of prednisone (2) Pneumonia: CTA chest on 02/27 showed possible infiltrate in the RUL. Follow up CXR on 02/28 showed "hazy airspace opacities are seen throughout the right lung" concerning for a mild infectious/inflammatory pneumonitis. - Procalcitonin on 02/27 was <0.05. - Repeat CXR on 03/03 showed resolving opacities - Continue above therapies (3) Prolonged QT interval: Qtc was 512 on EKG on 02/27. Returned to 460 on EKG on 03/03. - Avoided QT prolonging medications as able (4) GERD (gastroesophageal reflux disease): Chronic, well controlled. - Continue Protonix daily (5) Anemia of chronic disease: H/H stable. Baseline hgb is 10-11. No active bleeding during this admission. - Continue to monitor (6) Hypothyroidism: TSH was 1.4 in 01/2019. - Continue home Synthroid (7) Hypertension: BP stable ~130/80 - 150/80 in the last 24 hours. - Continue Lasix and HCTZ (8) Depression: MDD as well as grief response from loss of and son. - Continue Celexa (9) Diabetes: Patient denies this diagnosis. She states she has never been a diabetic. A1C has been 6% & 5.9% on prior studies. - Carb-controlled diet as tolerated (10) DVT prophylaxis: Lovenox Total Time Total Time Spent Total Time Spent (In Minutes): 35 Total Time Includes: Examination of the Patient, Discharge Planning and Med ication Reconciliation Discharge Plan Discharge Items Patient Disposition: Home - Home Health Services Reason For Visit: COPD EXACERBATION Discharge Diagnosis: COPD exacerbation Discharge Goals: Decrease discomfort and Improve disease control Activity: Resume your previous activity Non-emergency contact: Primary Care Provider and Cloth Framer Call non-emergency contact if: you have any medication questions, your symptoms worsen and your temperature is above 100.5 Follow-up/Referrals: Alvaro Castillo MD [Primary Care Provider] - 03/10/19 3:30 pm (Please, follow at Dr. Castillo's office with his children's nursery assistant, Deepali Marvin PA-C, on SundayMarch 10 at 3:30 pm. *If you need to change this appointment, call the office at [phone].) Diet: Regular Addtl Provider Instructions: Please take the steroids for 3 more days, then stop. Please take the antibiotic for 3 more days, then stop. The antibiotic will be 2 times per day. Prescriptions: New doxycycline hyclate 100 mg tablet 100 mg PO BID 3 Days Qty: 6 RF: 0 prednisone 50 mg tablet 50 mg PO DAILY 3 Days Qty: 3 RF: 0 Continued furosemide [Lasix] 40 mg tablet 40 mg PO DAILY RF: 0 levothyroxine [Synthroid] 137 mcg tablet 137 mcg PO DAILY RF: 0 ipratropium-albuterol 0.5 mg-3 mg(2.5 mg base)/3 mL solution for nebulization 1 dose Inhalation QID RF: 0 vancomycin 125 mg capsule 125 mg PO WK RF: 0 citalopram [Celexa] 20 mg tablet 40 mg PO DAILY RF: 0 estradiol [Estrace] 1 mg tablet 1 mg PO DAILY RF: 0 fluticasone propion-salmeterol [Advair Diskus] 500-50 mcg/dose blister with device 1 puff Inhalation BID RF: 0 hydrochlorothiazide 12.5 mg capsule 12.5 mg PO DAILY RF: 0 pantoprazole 40 mg Tablet,Delayed Release (Dr/Ec) 40 mg PO DAILY 30 Days Qty: 30 RF: 3 Stand-Alone Forms: [facility] Discharge Orders: Discharge Order (Routine); Ordered 03/05/19 Ordered By: Mehrdad Quiñones Admission Data Admit Date/Time: 02/27/19 19:56 Attending Provider: Mehrdad Quiñones Admit Provider: Veronika Morales Primary Care Provider: Alvaro Castillo Other Providers: Percy Novak ; Veronika Morales ; Moshe Trejo ; Erick Hamm Service: Medical Other Interventions: Discharge Summary Assessment (RN) Last Done: 03/05/19 12:56 DC Date/Time DO NOT enter until pt leaves facility: 03/05/19 14:18
== END 2019-03-05 14:18 | disposition home health service (06) | DRG 193 ==
LOC: ED 13:03 → 4E 19:56 → SUATTDRO 19:56 → 4E 20:57

== ENCOUNTER 2019-11-07 15:53 | Inpatient (IN) ==
--- NOTE | 2019-11-07 16:45 | XRay Report ---
XR chest 1V portable CLINICAL HISTORY: 69 years-old Female presenting with lightheaded. TECHNIQUE: Portable upright AP view of the chest was obtained. COMPARISON: 05/01/2019. FINDINGS: Atherosclerosis of the aortic arch. Cardiac silhouette borderline enlarged. Elevation of the left hem idiaphragm, unchanged. No focal opacity. Mild heterogeneity of lung parenchyma. No large effusion or pneumothorax Degenerative changes of the thoracic spine. Upper abdomen normal. IMPRESSION: 1. Borderline cardiomegaly. No congestive change or katja pulmonary edema. 2. Possible underlying emphysema. No focal infiltrate to suggest pneumonia. ACT 112: Negative or not required by law. Electronically signed by: Jose Breen M.D. 11/07/2019 4:44 PM
--- NOTE | 2019-11-07 16:47 | XRay Report ---
XR tibia fibula RT 2V CLINICAL HISTORY: 69 years-old Female presenting with fall. TECHNIQUE: Frontal and lateral views of the right lower leg were obtained. COMPARISON: 04/28/2013. FINDINGS: Total right knee arthroplasty without periprosthetic fracture or lucency within the visualized portio n. Severe degenerative changes of the ankle mortise, which are deforming and completely efface the alo int space. There is advanced deformity of the talus and to a lesser extent the talonavicular and talo calcaneal articulations. No acute fracture or malalignment. Diffuse skin thickening and subcutaneous edema in the lower leg. Atherosclerotic calcifications or phleboliths noted. IMPRESSION: 1. No acute osseous injury. 2. Severe deforming degenerative change of the ankle and hindfoot-midfoot, possibly Charcot joint. 3. Nonspecific lower leg edema and skin thickening, possibly venous stasis, cardiogenic edema, or le ss likely cellulitis. ACT 112: Negative or not required by law. Electronically signed by: Jose Breen M.D. 11/07/2019 4:46 PM
--- NOTE | 2019-11-07 16:49 | XRay Report ---
XR tibia fibula LT 2V CLINICAL HISTORY: 69 years-old Female presenting with fall, pain. TECHNIQUE: Frontal and lateral views of the left lower leg were obtained. COMPARISON: None. FINDINGS: Partially visualized postsurgical changes of left knee arthroplasty. No periprosthetic fracture or rob cency within the visualized portion. Osteopenia may be present. Ankle mortise congruent. No acute fra cture or malalignment. No advanced degenerative change. Nonspecific diffuse subcutaneous edema and sk in thickening in the lower leg. IMPRESSION: 1. No acute osseous injury. 2. Total left knee arthroplasty without gross complication. 3. Nonspecific lower leg skin thickening and edema, possibly venous stasis, cardiogenic edema, or le ss likely cellulitis. ACT 112: Negative or not required by law. Electronically signed by: Jose Breen M.D. 11/07/2019 4:48 PM
--- NOTE | 2019-11-07 16:51 | XRay Report ---
XR foot LT min 3V routine CLINICAL HISTORY: 69 years-old Female presenting with fall. TECHNIQUE: Frontal, oblique, and lateral views of the left foot were obtained. COMPARISON: None. FINDINGS: Osteopenia. Positioning of the toes with apparent subluxation at the metatarsophalangeal joints is li kim chronic. No advanced degenerative changes of these joints. No acute fracture or malalignment. Mi ld to moderate degenerative changes at the navicular-medial cuneiform. Prominent enthesophyte at the origin of the plantar fascia. Mild degenerative changes of the posterior subtalar joint. Diffuse nons pecific skin thickening and edema in the foot. IMPRESSION: 1. Allowing for osteopenia, no acute osseous injury. 2. Degenerative changes in the medial midfoot. 3. Prominent enthesophyte at the origin of plantar fascia, correlate for possible plantar fasciitis. 4. Nonspecific edema in the foot. ACT 112: Negative or not required by law. Electronically signed by: Jose Breen M.D. 11/07/2019 4:50 PM
[2019-11-07 16:53] LABS: Basophils # (auto) 0.01 K/uL (0-0.2); Basophils % (auto) 0.1 %; Eosinophils # (auto) 0.09 K/uL (0-0.5); Eosinophils % (auto) 1.3 %; Hematocrit (blood only) 32.8 % (37-47); Hemoglobin 10.3 g/dL (12.0-16.0); Immature Granulocytes # (auto) 0.01 K/uL (0.00-0.02); Immature Granulocytes % (auto) 0.1 %; Lymphocytes % (auto) 11.2 %; Mean Corpuscular Hemoglobin 30.4 pg (25-34); Mean Corpuscular Hgb Conc 31.4 g/dL (32-36); Mean Corpuscular Volume 96.8 fL (80-100); Mean Platelet Volume 11.3 fL (7.4-10.4); Monocytes # (auto) 0.41 K/uL (0.11-0.59); Monocytes % (auto) 5.7 %; Neutrophils # (auto) 5.84 K/uL (1.4-6.5); Neutrophils % (auto) 81.6 %; Platelet Count 170 K/uL (130-400); RDW Coefficient of Variation 13.7 % (11.5-14.5); RDW Standard Deviation 48.1 fL (36.4-46.3); Red Blood Count 3.39 M/uL (4.2-5.4); White Blood Count 7.16 K/uL (4.8-10.8)
[2019-11-07] MEDS ORDERED: VANCOMYCIN HCL 1,750 MG in SODIUM CHLORIDE 0.9% 500 ML IV ONE (17:11)
[2019-11-07] MEDS ORDERED: VANCOMYCIN CONSULT ACTIVE PRN ×2 (17:11→19:25)
[2019-11-07 17:35] LABS: Albumin Globulin Ratio 0.9 (0.9-2); Albumin Level 3.4 gm/dl (3.4-5.0); BUN Creatinine Ratio 28.2 (10-20); Bilirubin,Total 0.6 mg/dl (0.2-1); Calcium 9.7 mg/dl (8.5-10.1); Est GFR (African American) 73.6; Est GFR (Non-African American) 63.5; Globulin 3.6 gm/dl (2.5-4.0); Potassium 3.6 mmol/L (3.5-5.1); Troponin I 0.022 ng/ml (0-0.045)
--- NOTE | 2019-11-07 18:23 | History & Physical Report ---
Date of Service November 07, 2019 Assessment & Plan (1) Cellulitis of left lower extremity: Likely related to recent fall WCC c/s pending WBC WNL, afebrile Cellulitis noted on XR Started on vanco in the ED, will continue (2) Fall: Mechanical Lives alone PT/OT pending (3) Clostridium difficile colitis: Hx of recurrent cdiff Currently on vanco Qweek, with plans for this to be indefinite In the past, ID has recs for PO vanco to move to QD when on abx for other issues Will change to QD ID c/s pending (4) COPD (chronic obstructive pulmonary disease): Stable, no current exacerbation Home O2 baseline is 4L continuous continue home meds (5) Hypothyroidism: continue home meds (6) Swelling of lower limb: Baseline R LE swelling Takes lasix and HCTZ for this and BP Monitor Will hold on further IVF to avoid fluid overload (7) Hypertension: continue home meds (8) GERD (gastroesophageal reflux disease): continue home meds (9) Depression: continue home meds (10) DVT prophylaxis: Heparin for DVT proph History of Present Illness Primary Care Provider: Alvaro Castillo MD 69 y/o F c/o L LE redness, swelling, and pain. Pt states that on 10/26 she fell while trying to tack picker something from off the floor. She did not get lightheaded or pass out, she simply lost her balance. She states that she has not fallen "in many, many years" prior to this. She felt onto a carpeted floor and landed on her L LE. She had noted "rug burn" on the L knee at that time. She states she did not think much of the situation until the last few days when she developed increased swelling, redness, and pain the L LE along most of her leg into her foot. It continued to worsen, so she came to the ED today for eval. Pt denies fever, chest pain, abd pain, n/v/c/d. She tolerates PO without issue. She states the bruising on her R knee was not noted until a few days ago, but no new falls. Pt states she has baseline SOB due to COPD. She is on 4L continuous home O2 and has not required increased levels of O2. Pt has hx of recurrent cdiff and takes vanco PO weekly on Saturdays. She has been told this will be a lifelong tx. Allergies Allergy/AdvReac Type Severity Reaction Status Date / Time codeine Allergy Intermediate FACIAL Verified 11/07/19 17:15 SWELLING atropine Allergy Unknown UNKNOWN Verified 11/07/19 17:15 diphenoxylate Allergy Unknown UNKNOWN Verified 11/07/19 17:15 moxifloxacin Allergy Unknown UNKNOWN Verified 11/07/19 17:15 prednisone AdvReac Mild BLURRED Verified 11/07/19 17:15 VISION Home Medications Home Medications Medication Instructions Recorded Confirmed Type multivitamin 1 tab PO DAILY 05/21/19 11/07/19 History estradiol 1 mg tablet 1 mg PO DAILY tab 06/12/19 11/07/19 History pantoprazole 40 mg tablet,delayed 40 mg PO DAILY #30 tab 06/12/19 11/07/19 Rx release furosemide 40 mg tablet 40 mg PO DAILY #90 tab 09/08/19 11/07/19 Rx levothyroxine 137 mcg tablet 137 mcg PO DAILY #90 tab 09/08/19 11/07/19 Rx meloxicam 7.5 mg tablet 7.5 mg PO DAILY #30 tab 09/08/19 11/07/19 Rx vancomycin 125 mg capsule 125 mg PO WK #12 cap 09/08/19 11/07/19 Rx citalopram 20 mg tablet 40 mg PO DAILY #180 tab 09/23/19 11/07/19 Rx hydrochlorothiazide 12.5 mg capsule 12.5 mg PO DAILY #30 cap 10/08/19 11/07/19 Rx albuterol sulfate 2 inh INH Q4H PRN 11/07/19 11/07/19 History fluticasone 500 mcg-salmeterol 50 1 puffs INHALATION BID #3 inhaler 11/07/19 11/07/19 Rx mcg/dose blistr powdr for inhalation ipratropium-albuterol 3 ml INHALATION Q4 11/07/19 11/07/19 History Past Med/Surg History Medical History Carpal tunnel syndrome (Resolved 04/28/13) Cellulitis of right ankle (Resolved) Cervical disc disease Chronic respiratory failure Clostridium difficile colitis COPD (chronic obstructive pulmonary disease) (Acute) Degenerative joint disease involving multiple joints Depression Diabetes diet controlled A1C=6 in December 2017 GERD (gastroesophageal reflux disease) Hypertension Hypothyroidism Lumbar disc disease (Acute) Spinal stenosis (Acute) Surgical History History of carpal tunnel surgery Previous back surgery S/P hysterectomy Status post bilateral knee replacements Status post hip surgery Family History Grandmother Breast cancer Unknown Diabetes Heart disease Hypertension Mother Congestive heart failure Arthritis Social History (Updated 11/07/19 @ 18:24 by Sandra Wood DO) Preferred Language: Cameroonian Communication Ability: Effective [place] Supervisor Required: No Beliefs That Will Affect Care: None marital status: / Current Living Situation: Alone other: grief due to loss of and son Feels Safe at Home: Yes Smoking Status: Former smoker Smoking End Date: 2006 ; Second Hand Exposure: No ; Hx Alcohol Use: No Hx Substance Use: No Review of Systems Review of Systems: Pertinent positives and negatives reviewed in HPI--all others negative Physical Exam Constitutional: WD/WN, vitals as above Eyes: normal visual [place] by confrontation and + anicteric sclerae Neck: normal visual inspection and trachea midline Respiratory: normal respiratory effort, lungs clear to auscultation Cardiovascular: Rate/Rhythm: regular rate and regular rhythm Gastrointestinal (Abdomen): Inspection/Auscultation: abdomen not distended Percussion/Palpation: abdomen soft; abdomen nontender Musculoskeletal: Head/Neck/Chest: normocephalic and head atraumatic L LE swelling, peripheral pulses intact Skin: L LE redness to most of leg with black eschar noted on L lateral patellar region Bruising noted on L lower anterior calf R knee with bruising noted, mild redness on medial calf Neurologic: awake; not confused Speech / Cognition: normal speech Psychiatric: A+Ox3, euthymic affect Results & Data Vital Signs (Past 12 Hours) Vital Signs Temp Pulse Resp BP Pulse Ox 11/07/19 16:13 37.1 C 91 H 25 H 149/95 H 97 Diagnostic Findings CXR: neg for acute L tib/fib/foot XR: neg for fracture, noted for likely cellulitis ECG Additional Comments: no change from prior Code Status & VTE Plan Code Status Full code VTE Prophylaxis Plan VTE Prophylaxis will be ordered: Yes PG Care Time/CCT Total # of Minutes Spent Total Time Spent with Patient: Total time spent is greater than 50% in coordination of care (as documented) at patient's floor/unit and/or counseling patient: (1) Hypothyroidism Hypothyroidism type: unspecified Qualified Code(s): E03.9 - Hypothyroidism, unspecified (2) Hypertension Hypertension type: essential hypertension Qualified Code(s): I10 - Essential (primary) hypertension (3) Depression Depression Type: major depressive disorder Major depression recurrence: recurrent Active/Remission status: currently active Major depression episode severity: unspecified Qualified Code(s): F33.9 - Major depressive disorder, recurrent, unspecified
[2019-11-07] MEDS ORDERED: ACETAMINOPHEN 325 MG TAB PO PRN (19:25)
[2019-11-07] MEDS ORDERED: ALBUTEROL HFA INHALER 8.5 GM INH PRN (19:25)
[2019-11-07] MEDS ORDERED: MAGNESIUM HYDROXIDE SUSP 30 ML UDC PO PRN (19:25)
[2019-11-07] MEDS ORDERED: ONDANSETRON INJ 2 MG/ML 2 ML VIAL IV PRN (19:25)
[2019-11-07] MEDS ORDERED: ALBUT/IPRATROP 3MG/0.5MG NEB 3 ML VIAL INH SCH (20:00)
--- NOTE | 2019-11-07 21:00 | Pharmacy Report ---
Pharmacy Abx Dose Short Note - Date of Service November 07, 2019 - Assessment & Plan Assessment 69 year old F receiving IV Vancomycin for treatment of LLE cellulitis Day # 1 of antimicrobial therapy. * Most recent sCr = 0.91 mg/dL, estimated CrCl ~56 mL/min. Estimated pharmacokinetic parameters: * Ke ~0.051/hr, T1/2 ~13.6 hrs * Patient received Vancomycin 1750mg (~20mg/kg) IV x 1 in the ED as a loading dose Plan Vancomycin * Initiate Vancomycin 1250mg (~14mg/kg) IV q16 * Goal trough level for cellulitis : ~15 mcg/mL * Trough or random level ordered for: 11/09/19 @ 1330 (prior to 3rd dose and therefore not reflective of steady state) Pharmacy will continue to follow and will adjust dose/frequency as necessary. Thank you.
--- NOTE | 2019-11-07 21:11 | Emergency Department Note ---
Entered by Charlette Barr acting as a scribe for History of Present Illness General Chief complaint: Swelling/Edema to Extremity Stated complaint: L LEG PAIN & SWELLING Time Seen by Provider: 11/07/19 15:56 Source: patient Mode of arrival: EMS Limitations: no limitations History of Present Illness Provider complaint: Swelling to extremity Onset (ago): day(s) 5 Location: lower extremity and left Radiation: non-radiation Pain Consistency: + other (worsening) Quality: + other (swelling) Associated symptoms: + other (Additional symptoms: lightheadedness. Denies: breathing problems) Treatments prior to arrival: none The patient is a 69 year old female with a history of bilateral TKAs in 2003, COPD, GERD, hypertension, hypothyroidism, carpal tunnel surgery, back surgery, hysterectomy, and hip surgery who presents to the Emergency Room with complaints of worsening left lower extremity swelling starting 5 days ago. The patient reports that she fell onto her left side when she tried to pick something off the carpet to prevent her cat from chewing it. She explains that she struggled to pick herself up off the floor after falling and ended up having to call EMS 2.5 hours later. She notes that she was not evaluated at this time, but she explains that her left leg and foot pain and swelling have since worsened. She also complains of lightheadedness with standing up. She denies hitting her head and injuring her other extremities during the fall. The patient mentions that she has been able to ambulate with her walker without difficulty and that she does not take blood thinners and aspirin regularly. She also recalls no other recent trauma. She indicates that she has never had an infection in her left leg, although she has previously been treated for cellulitis in her right ankle. She states that her right leg always bothers her. The patient reports that she started using O2 in 2008 and has not experienced any recent breathing problems. She adds that she has been taking Vancomycin once a week since she had C diff many years ago. She claims that she has no history of diabetes. She notes that she is a former smoker and does not consume alcohol. Home Medications Home Medications Medication Instructions Recorded Confirmed Type multivitamin 1 tab PO DAILY 05/21/19 11/07/19 History estradiol 1 mg tablet 1 mg PO DAILY tab 06/12/19 11/07/19 History pantoprazole 40 mg tablet,delayed 40 mg PO DAILY #30 tab 06/12/19 11/07/19 Rx release furosemide 40 mg tablet 40 mg PO DAILY #90 tab 09/08/19 11/07/19 Rx levothyroxine 137 mcg tablet 137 mcg PO DAILY #90 tab 09/08/19 11/07/19 Rx meloxicam 7.5 mg tablet 7.5 mg PO DAILY #30 tab 09/08/19 11/07/19 Rx vancomycin 125 mg capsule 125 mg PO WK #12 cap 09/08/19 11/07/19 Rx citalopram 20 mg tablet 40 mg PO DAILY #180 tab 09/23/19 11/07/19 Rx hydrochlorothiazide 12.5 mg capsule 12.5 mg PO DAILY #30 cap 10/08/19 11/07/19 Rx albuterol sulfate 2 inh INH Q4H PRN 11/07/19 11/07/19 History fluticasone 500 mcg-salmeterol 50 1 puffs INHALATION BID #3 inhaler 11/07/19 11/07/19 Rx mcg/dose blistr powdr for inhalation ipratropium-albuterol 3 ml INHALATION Q4 11/07/19 11/07/19 History Allergies Allergy/AdvReac Type Severity Reaction Status Date / Time codeine Allergy Intermediate FACIAL Verified 11/07/19 17:15 SWELLING atropine Allergy Unknown UNKNOWN Verified 11/07/19 17:15 diphenoxylate Allergy Unknown UNKNOWN Verified 11/07/19 17:15 moxifloxacin Allergy Unknown UNKNOWN Verified 11/07/19 17:15 prednisone AdvReac Mild BLURRED Verified 11/07/19 17:15 VISION Past Med/Surg History Medical History Carpal tunnel syndrome (Resolved 04/28/13) Cellulitis of right ankle (Resolved) Cervical disc disease Chronic respiratory failure Clostridium difficile colitis COPD (chronic obstructive pulmonary disease) (Acute) Degenerative joint disease involving multiple joints Depression Diabetes diet controlled A1C=6 in December 2017 GERD (gastroesophageal reflux disease) Hypertension Hypothyroidism Lumbar disc disease (Acute) Spinal stenosis (Acute) Surgical History History of carpal tunnel surgery Previous back surgery S/P hysterectomy Status post bilateral knee replacements Status post hip surgery Family History Grandmother Breast cancer Unknown Diabetes Heart disease Hypertension Mother Congestive heart failure Arthritis Social History (Updated 11/07/19 @ 18:24 by Sandra Wood DO) Preferred Language: Ethiopian Communication Ability: Effective Last Chalker Required: No Beliefs That Will Affect Care: None marital status: / Current Living Situation: Alone Other Information That Helps Us Care for You: No other: grief due to loss of and son Feels Safe at Home: Yes Safety Concerns: Feels Safe At This Time Smoking Status: Former smoker Do You Dip or Chew Tobacco: No ; Smoking End Date: 2005 ; Second Hand Exposure: No ; Tobacco Cessation Education Requested by Patient: No Hx Alcohol Use: No Hx Substance Use: No Review of Systems See HPI for pertinent positives & negatives. and A total of 10 systems reviewed and were otherwise negative Physical Exam Vital Signs Vital Signs - 24 hr 11/07/19 16:13 Temperature 37.1 C Temperature Source Oral Pulse Rate 91 H Respiratory Rate 25 H Blood Pressure 149/95 H Blood Pressure Mean 113 Pulse Oximetry 97 Oxygen Delivery Method Nasal Cannula Oxygen Flow Rate 4 Sepsis Recent Fever Within 48 Hours No Sepsis Action Taken by Nursing No Action Required GENERAL: Awake, alert, weak-appearing, in no distress, on nasal cannula oxygen. HENT: Normocephalic, atraumatic. EYES: Normal conjunctiva. Sclera non-icteric. RESPIRATORY: Diminished lung sounds. Normal respiratory effort. CARDIAC: Normal rate. Normal rhythm. Extremities warm and well perfused. GI: Soft, non-distended. No tenderness to palpation. RECTAL: Deferred. MUSCULOSKELETAL: Atraumatic. Chest examination reveals no tenderness. LOWER EXTREMITIES: Calves are equal size bilaterally and non-tender. Bilateral bruising of the knees. Right lower extremity has 1+ edema with chronic stasis changes. Left lower extremity has a 3 cm left knee abrasion and erythema distal to the knee overlying to the foot. Left lower extremity has 2+ edema. Left 2&4 toe and right 2nd toe abrasions. NEURO: Normal sensorium. No sensory or motor deficits noted. No facial droop. SKIN: Warm and dry. No jaundice noted. Course Course 1600: The patient was evaluated in room A10, and a complete history and physical examination were performed. 1711: I checked on the patient and updated her on her results. The patient is agreeable to admission. 1741: I reviewed the patient's case with Dr. Wood - Hospitalist, [place]. Dr. Wood will evaluate the patient for further management. Consultations Consultation #1: I reviewed the patient's case with Dr. Wood - Hospitalist, [place] Early. Dr. Wood will evaluate the patient for further management. Time: 17:41 Administered Medications Albuterol (Duoneb) 3 ml INH Q4 COSMO Stop: 12/07/19 19:59 Last Admin: 11/07/19 20:40 Dose: 3 ml Documented by: [id number] Discontinued Medications Vancomycin HCl 1,750 mg/ (Sodium Chloride) 535 mls @ 200 mls/hr IV NOW ONE Stop: 11/07/19 19:51 Last Admin: 11/07/19 18:20 Dose: 200 mls/hr Documented by: [id number] Medical Decision Making Differential Diagnosis Differential diagnosis includes: cellulitis, abscess, MRSA infection, DVT, necrotizing fasciitis, dermatitis, drug eruption, as well as others were entertained. Medical Records Attestation: I reviewed the patient's medical records. Home Medications Current Medication List: was personally reviewed by me Laboratory Data Attestation: I reviewed the patient's lab results. Result diagrams: 11/07/19 16:43 11/07/19 16:43 Lab Results 11/07/19 11/07/19 Range/Units 16:43 16:43 WBC 7.16 (4.8-10.8) K/uL RBC 3.39 L (4.2-5.4) M/uL Hgb 10.3 L (12.0-16.0) g/dL Hct 32.8 L (37-47) % MCV 96.8 (80-100) fL MCH 30.4 (25-34) pg MCHC 31.4 L (32-36) g/dL RDW Std Deviation 48.1 H (36.4-46.3) fL RDW Coeff of Judy 13.7 (11.5-14.5) % Plt Count 170 (130-400) K/uL MPV 11.3 H (7.4-10.4) fL Immature Gran % (Auto) 0.1 % Neut % (Auto) 81.6 % Lymph % (Auto) 11.2 % Woods % (Auto) 5.7 % Eos % (Auto) 1.3 % Baso % (Auto) 0.1 % Immature Gran # (Auto) 0.01 (0.00-0.02) K/uL Neut # (Auto) 5.84 (1.4-6.5) K/uL Lymph # (Auto) 0.80 L (1.2-3.4) K/uL Woods # (Auto) 0.41 (0.11-0.59) K/uL Eos # (Auto) 0.09 (0-0.5) K/uL Baso # (Auto) 0.01 (0-0.2) K/uL Sodium 136 (136-145) mmol/L Potassium 3.6 (3.5-5.1) mmol/L Chloride 88 L (98-107) mmol/L Carbon Dioxide 51 H* (21-32) mmol/L Anion Gap -3.0 L (3-11) BUN 26 H (7-18) mg/dl Creatinine 0.91 (0.6-1.2) mg/dl Est Cr Clr Drug Dosing 56.0 ml/min Est GFR ( Amer) 73.6 Est GFR (Non-Af Amer) 63.5 BUN/Creatinine Ratio 28.2 H (10-20) Glucose 133 H (70-99) mg/dl Calcium 9.7 (8.5-10.1) mg/dl Total Bilirubin 0.6 (0.2-1) mg/dl AST 24 (15-37) U/L ALT 24 (12-78) U/L Alkaline Phosphatase 57 (45-117) U/L Troponin I 0.022 (0-0.045) ng/ml Total Protein 7.0 (6.4-8.2) gm/dl Albumin 3.4 (3.4-5.0) gm/dl Globulin 3.6 (2.5-4.0) gm/dl Albumin/Globulin Ratio 0.9 (0.9-2) Imaging Data Radiologist's Impression: Radiology results as stated below per my review and the radiologist's interpretation: XR foot LT min 3V routine CLINICAL HISTORY: 69 years-old Female presenting with fall. TECHNIQUE: Frontal, oblique, and lateral views of the left foot were obtained. COMPARISON: None. FINDINGS: Osteopenia. Positioning of the toes with apparent subluxation at the metatarsophalangeal joints is likely chronic. No advanced degenerative changes of these joints. No acute fracture or malalignment. Mild to moderate degenerative changes at the navicular-medial cuneiform. Prominent enthesophyte at the origin of the plantar fascia. Mild degenerative changes of the posterior subtalar joint. Diffuse nonspecific skin thickening and edema in the foot. IMPRESSION: 1. Allowing for osteopenia, no acute osseous injury. 2. Degenerative changes in the medial midfoot. 3. Prominent enthesophyte at the origin of plantar fascia, correlate for possible plantar fasciitis. 4. Nonspecific edema in the foot. ACT 112: Negative or not required by law. Electronically signed by: Jose Breen M.D. 11/07/2019 4:50 PM XR tibia fibula LT 2V CLINICAL HISTORY: 69 years-old Female presenting with fall, pain. TECHNIQUE: Frontal and lateral views of the left lower leg were obtained. COMPARISON: None. FINDINGS: Partially visualized postsurgical changes of left knee arthroplasty. No periprosthetic fracture or lucency within the visualized portion. Osteopenia may be present. Ankle mortise congruent. No acute fracture or malalignment. No advanced degenerative change. Nonspecific diffuse subcutaneous edema and skin thickening in the lower leg. IMPRESSION: 1. No acute osseous injury. 2. Total left knee arthroplasty without gross complication. 3. Nonspecific lower leg skin thickening and edema, possibly venous stasis, cardiogenic edema, or less likely cellulitis. ACT 112: Negative or not required by law. Electronically signed by: Jose Breen M.D. 11/07/2019 4:48 PM XR tibia fibula RT 2V CLINICAL HISTORY: 69 years-old Female presenting with fall. TECHNIQUE: Frontal and lateral views of the right lower leg were obtained. COMPARISON: 04/28/2013. FINDINGS: Total right knee arthroplasty without periprosthetic fracture or lucency within the visualized portion. Severe degenerative changes of the ankle mortise, which are deforming and completely efface the joint space. There is advanced deformity of the talus and to a lesser extent the talonavicular and talocalcaneal articulations. No acute fracture or malalignment. Diffuse skin thickening and subcutaneous edema in the lower leg. Atherosclerotic calcifications or phleboliths noted. IMPRESSION: 1. No acute osseous injury. 2. Severe deforming degenerative change of the ankle and hindfoot-midfoot, possibly Charcot joint. 3. Nonspecific lower leg edema and skin thickening, possibly venous stasis, cardiogenic edema, or less likely cellulitis. ACT 112: Negative or not required by law. Electronically signed by: Jose Breen M.D. 11/07/2019 4:46 PM XR chest 1V portable CLINICAL HISTORY: 69 years-old Female presenting with lightheaded. TECHNIQUE: Portable upright AP view of the chest was obtained. COMPARISON: 05/01/2019. FINDINGS: Atherosclerosis of the aortic arch. Cardiac silhouette borderline enlarged. Elevation of the left hemidiaphragm, unchanged. No focal opacity. Mild heterogeneity of lung parenchyma. No large effusion or pneumothorax Degenerative changes of the thoracic spine. Upper abdomen normal. IMPRESSION: 1. Borderline cardiomegaly. No congestive change or katja pulmonary edema. 2. Possible underlying emphysema. No focal infiltrate to suggest pneumonia. ACT 112: Negative or not required by law. Electronically signed by: Jose Breen M.D. 11/07/2019 4:44 PM ECG Data Attestation: I personally reviewed and interpreted this ECG as follows: Indication: + other (swelling to extremity) Rhythm: + sinus rhythm ECG Intervals/blocks: + Prolonged QT (QT-c) ECG ST segments: no ST elevation ECG Findings: + PVCs Blood Pressure Blood Pressure Findings: Elevated blood pressure Blood Pressure Disposition: further management by hospitalist REMIGIO Freeman Patient is a 69-year-old female presenting from home today complaining of swelling and bruising of her lower extremities left greater than right. Presents via ambulance. States she fell a week and a half ago and sustained some bruising to her bilateral knees. Has been able to walk. Significant bruising and swelling with erythema now present on her left leg. States is been sometime in the form for able to get up after calling for help after several hours and sustained abrasions to predominantly her left knee and the bilateral toes. No fevers reported. States she did feel a bit lightheaded and fatigued today. I have concerns on exam for cellulitis. X-rays without acute traumatic injury. On baseline oxygen. EKG without significant changes. Concerns regarding significant infection. Lower suspicion for DVT and the patient was declined ultrasound at this time. Given history of significant C. difficile colitis treated with IV vancomycin initially to try to limit effects. Given her prebiotic history, the fact she lives alone, the amount of cellulitis present he will that observation further here in the hospital is warranted and the patient is in agreement. Discussed with the hospitalist for further care and management. Impression & Plan Cellulitis of left lower extremity Discharge Plan Visit Data *Final* Discharge Date/Time: 11/07/19 18:53 Chief Complaint: Swelling/Edema to Extremity Stated Complaint: L LEG PAIN & SWELLING ED Provider: Jakob Sumner Discharge Problem: Cellulitis of left lower extremity Patient Disposition: Admitted As Inpatient Discharge Instructions Interventions: ED Discharge Assessment Last Done: 11/07/19 18:53 The scribe's documentation has been prepared under my direction and personally reviewed by me in its entirety. I confirm that the note above accurately reflects all work, treatment, procedures, and medical decision making performed by me.
[2019-11-07] MEDS: VANCOMYCIN HCL 125 MG/2.5ML SOLN PO SCH (21:22)
[2019-11-07] MEDS: RASPBERRY SYRUP 5 ML UDP PO SCH (21:22)
[2019-11-07] MEDS: LACTOBACILLUS ACIDOPHILUS (FLORANEX) TAB PO SCH (21:23)
[2019-11-07] MEDS: HEPARIN SOD 5,000 UNIT/0.5 ML VIAL SQ SCH (21:23)
[2019-11-07] MEDS: ALBUT/IPRATROP 3MG/0.5MG NEB 3 ML VIAL INH SCH (22:38)
[2019-11-08] MEDS: ALBUT/IPRATROP 3MG/0.5MG NEB 3 ML VIAL INH SCH ×6 (02:08→23:40)
[2019-11-08] MEDS: HEPARIN SOD 5,000 UNIT/0.5 ML VIAL SQ SCH ×3 (05:44→21:38)
[2019-11-08] MEDS: LEVOTHYROXINE SODIUM 137 MCG TABLET PO SCH (05:44)
[2019-11-08] MEDS: VANCOMYCIN HCL 1,250 MG in SODIUM CHLORIDE 0.9% 250 ML IV SCH ×3 (05:44→22:42)
[2019-11-08 06:43] LABS: BUN Creatinine Ratio 27.4 (10-20); Calcium 9.2 mg/dl (8.5-10.1); Est GFR (African American) 73.6; Est GFR (Non-African American) 63.5; Potassium 3.9 mmol/L (3.5-5.1)
[2019-11-08] MEDS: LACTOBACILLUS ACIDOPHILUS (FLORANEX) TAB PO SCH ×4 (08:18→21:36)
[2019-11-08] MEDS: CITALOPRAM 40 MG TAB PO SCH (08:45)
[2019-11-08] MEDS: FLUTICASONE/VILANTEROL 200/25MCG 14 PUFFS/INHALER INH SCH (08:45)
[2019-11-08] MEDS: hydroCHLOROthiazide 25 MG TAB PO SCH (08:46)
[2019-11-08] MEDS: estradioL 1 MG TAB PO SCH (08:46)
[2019-11-08] MEDS: MELOXICAM 7.5 MG TAB PO SCH (08:47)
[2019-11-08] MEDS: MULTIVITAMIN TAB PO SCH (08:47)
[2019-11-08] MEDS: FUROSEMIDE 40 MG TAB PO SCH (08:47)
[2019-11-08] MEDS: PANTOprazole 40 MG TAB PO SCH (08:48)
[2019-11-08] MEDS ORDERED: FLUTICASONE/VILANTEROL 200/25MCG 14 PUFFS/INHALER INH ONE (09:00)
--- NOTE | 2019-11-08 10:59 | Electrocardiogram Report ---
Test Reason : Blood Pressure : / mmHG Vent. Rate : 086 BPM Atrial Rate : 086 BPM P-R Int : 142 ms QRS Dur : 092 ms QT Int : 398 ms P-R-T Axes : 070 019 066 degrees QTc Int : 476 ms Sinus rhythm with occasional Premature ventricular complexes Left atrial enlargement Possible Inferior infarct (cited on or before 31-DEC-2018) Abnormal ECG When compared with ECG of 03-MAR-2019 07:29, No significant change was found Confirmed by Jeremiah Crenshaw ([id number]) on 11/08/2019 10:59:27 AM Referred By: REFERRED SELF Confirmed By:Jeremiah Crenshaw
--- NOTE | 2019-11-08 14:36 | Hospitalist Progress Note ---
Date of Service November 08, 2019 Assessment & Plan (1) Cellulitis of left lower extremity: * Likely related to recent fall on Oct 26 -- mechanical in nature * sorting machine attendant consult * WBC 7.1k, afebrile * Xray with evidence of cellulitis * Continue Vanco * ID consult -- appreciate input * Elevate extremity * US Doppler negative for DVT, however demonstrate hypoechoic collection of the left inguinal tissues measuring up to 8.2 cm, possibly reflective of a liquefied hematoma. Nontender on exam. Full ROM. No visible erythema/ecchymosis. * CT pelvis w/ IV contrast pending to assess collection (2) Fall: * Mechanical * Lives alone with cat, 4 steps * PT/OT pending -- patient would ideally like home health at discharge -- CM aware (3) Clostridium difficile colitis: * Hx of recurrent cdiff * Currently on vanco Qweek, with plans for this to be indefinite * In the past, ID has recs for PO vanco to move to QD when on abx for other issues * Will change to QD * ID consult-- appreciate input (4) COPD (chronic obstructive pulmonary disease): * Stable, no current exacerbation, although patient with elevated CO2 at 48. Appears patient chronically elevated, although suspect recent elevation above basleine secondary to non-compliance with BiPAP * Basline 4L O2 via NC -- currently 95% on 4L * Continue home meds, nebulizers * Will titrate O2, as likely further increase in flow rate to depress respiratory drive * Encouraged BiPAP usage, although patient refusing secondary to irritation having to hook/unhook at night when using restroom * Per chart, patient with Palliative consultation in February -- POLST completed with DNR expressed -- will readdress this afternoon as patient likely to decline rapidly if respiratory distress * After multiple discussions with patient, will attempt BiPAP tonight -- per patient, settings 09/23 (5) Hypothyroidism: * Continue home meds. TSH 1.4 Apirl 2018 -- repeat in AM * Continue home levothyroxine 137mcg (6) Swelling of lower limb: * Baseline R LE swelling which she takes lasix and HCTZ for (as well as BP) * Stable. 115/69 in AM. 100/59 currently -- will hold morning HCTZ * Continue to monitor (7) Hypertension: * Continue home lasix 40mg. HCTZ on hold currently for borderline hypotension, 100/59 * Continue to monitor (8) GERD (gastroesophageal reflux disease): * Chronic. Stable * Continue home protonix 40mg (9) Depression: * Continue home citalopram (10) DVT prophylaxis: * Heparin for DVT proph * Doppler b/l LE NEGATIVE for DVT Dispo: continue IV abx today, ID consult, home health at discharge Supervising Physician Co-Signing Physician Notes PA Supervision Note: I did not personally see or examine the patient today, but I verified all duncan points of LIAN Fulton's assessment and plan with the following exceptions/additions: None Subjective Patient evaluated at bedside this afternoon. She states she noticed increased redness/swelling 3-4 days ago. She states she has been keeping her legs elevated since she fell on Oct 26 when trying to prevent her cat from eating a tab off of something. Denies much pain today. Decreased erythema. States she is just generally not feeling well. Thinks she may have had some fevers/chills a couple days ago but not quite sure. States she lives along with her cat and is assisted by her sister and girlfriend for groceries, etc. She states she would like home health at discharge through the company she had last time she was in the hospital. Upon revisiting patient in afternoon, discussed previous admission and POLST form that was filled out, indicating DNR code status. At this time, she states she would like that revoked and void. She is to remain full code. Discussed importance of BiPAP, but patient still not keen on using. Review of Systems Review of Systems: All systems reviewed & are unremarkable except as noted in HPI & below Constitutional: + chills and + fatigue; no fever Ear, Nose, Mouth, Throat: no sore throat and no dysphagia Respiratory: + dyspnea on exertion (at baseline); no change in sputum Cardiovascular: + edema (chronic RLE edema, however recently LLE became swollen and red); no chest pain and no palpitations Gastrointestinal: no abdominal pain, no nausea, no vomiting, no constipation and no diarrhea/loose stools Genitourinary: no dysuria and no urinary frequency Integumentary: worsening redness/swelling LLE Neurologic: + falls; no numbness and no paresthesia Psychiatric: + depression and + anxiety Physical Exam Constitutional: well developed, well nourished, + obese and + disheveled; no acute distress Eyes: + anicteric sclerae and PERRL Neck: trachea midline, no thyromegaly Respiratory: able to speak in complete sentences and + pursed lip breathing; no labored breathing and no audible wheezes Auscultation: + diminished lung sounds (diffusely) and + crackles (faint bibasilar); no wheezes slowed speech secondary to shortness of breath Cardiovascular: Rate/Rhythm: regular rate and regular rhythm Heart Sounds: normal S1 and normal S2; no murmur Extremities: + edema (1+ b/l LE) Gastrointestinal (Abdomen): normal bowel sounds, soft, nontender, no hepatosplenomegaly Musculoskeletal: Head/Neck/Chest: head atraumatic and neck supple Extremities: strength 5/5 throughout Skin: Ecchymosis of L anterior calf as well as black eschar infrapatellar region. Swelling mid tibial region Right knee with ecchymosis suprapatellar. Erythema of left lower leg, although mixed venous stasis Neurologic: PERRL, EOMI, accommodation nl, no face palsy, no dysarthria Psychiatric: Orientation: alert and oriented x 3 Affect: + irritable affect Lymphatic: no cervical or axillary lymphadenopathy Results & Data Vital Signs (Past 12 Hours) Vital Signs Temp Pulse Pulse Resp BP Pulse Ox 11/08/19 11:21 81 18 95 11/08/19 07:48 36.6 C 88 16 100/59 L 96 11/08/19 07:25 85 18 99 Laboratory Results 11/08/19 11/07/19 11/07/19 Range/Units 05:31 16:43 16:43 WBC 7.16 (4.8-10.8) K/uL RBC 3.39 L (4.2-5.4) M/uL Hgb 10.3 L (12.0-16.0) g/dL Hct 32.8 L (37-47) % MCV 96.8 (80-100) fL MCH 30.4 (25-34) pg MCHC 31.4 L (32-36) g/dL RDW Std Deviation 48.1 H (36.4-46.3) fL RDW Coeff of Judy 13.7 (11.5-14.5) % Plt Count 170 (130-400) K/uL MPV 11.3 H (7.4-10.4) fL Immature Gran % (Auto) 0.1 % Neut % (Auto) 81.6 % Lymph % (Auto) 11.2 % Pope % (Auto) 5.7 % Eos % (Auto) 1.3 % Baso % (Auto) 0.1 % Immature Gran # (Auto) 0.01 (0.00-0.02) K/uL Neut # (Auto) 5.84 (1.4-6.5) K/uL Lymph # (Auto) 0.80 L (1.2-3.4) K/uL Pope # (Auto) 0.41 (0.11-0.59) K/uL Eos # (Auto) 0.09 (0-0.5) K/uL Baso # (Auto) 0.01 (0-0.2) K/uL Sodium 137 136 (136-145) mmol/L Potassium 3.9 3.6 (3.5-5.1) mmol/L Chloride 90 L 88 L (98-107) mmol/L Carbon Dioxide 49 H* 51 H* (21-32) mmol/L Anion Gap -2.0 L -3.0 L (3-11) BUN 25 H 26 H (7-18) mg/dl Creatinine 0.91 0.91 (0.6-1.2) mg/dl Est Cr Clr Drug Dosing 56.0 56.0 ml/min Est GFR ( Amer) 73.6 73.6 Est GFR (Non-Af Amer) 63.5 63.5 BUN/Creatinine Ratio 27.4 H 28.2 H (10-20) Glucose 103 H 133 H (70-99) mg/dl Calcium 9.2 9.7 (8.5-10.1) mg/dl Total Bilirubin 0.6 (0.2-1) mg/dl AST 24 (15-37) U/L ALT 24 (12-78) U/L Alkaline Phosphatase 57 (45-117) U/L Troponin I 0.022 (0-0.045) ng/ml Total Protein 7.0 (6.4-8.2) gm/dl Albumin 3.4 (3.4-5.0) gm/dl Globulin 3.6 (2.5-4.0) gm/dl Albumin/Globulin Ratio 0.9 (0.9-2) PG Care Time/CCT Total # of Minutes Spent Total Time Spent with Patient: Total time spent is greater than 50% in coordination of care (as documented) at patient's floor/unit and/or counseling patient: (1) Depression Active/Remission status: currently active Depression Type: major depressive disorder Major depression episode severity: unspecified Major depression recurrence: recurrent Qualified Code(s): F33.9 - Major depressive disorder, recurrent, unspecified (2) Hypothyroidism Hypothyroidism type: unspecified Qualified Code(s): E03.9 - Hypothyroidism, unspecified (3) Hypertension Hypertension type: essential hypertension Qualified Code(s): I10 - Essential (primary) hypertension
--- NOTE | 2019-11-08 14:48 | Ultrasound Report ---
BILATERAL LOWER EXTREMITY VENOUS DOPPLER HISTORY: Acute pain and swelling of the lower extremities pain, swelling. L>R COMPARISON STUDY: Duplex venous Doppler study 06/14/2018 FINDINGS: There is normal flow, phasicity and augmentation within the bilateral lower extremity deep venous systems. Patient was unable to tolerate compression. Mild subcutaneous edema of the lower extr emities. Hypoechoic collection of the left inguinal tissues measures up to 8.2 x 2.3 x 3.1 cm. IMPRESSION: 1. No sonographic evidence of deep venous thrombosis. 2. Hypoechoic collection of the left inguinal tissues measuring up to 8.2 cm, possibly reflective of a liquefied hematoma. Correlate clinically. ACT 112: Negative or not required by law. Electronically signed by: Norm Lam M.D. 11/08/2019 2:46 PM
[2019-11-08] MEDS ORDERED: IOVERSOL 100ml IV PRN (17:28)
--- NOTE | 2019-11-08 18:05 | CT Scan Report ---
CT pelvis w/IV con only HISTORY: 69 years-old Female assess collection left inguinal tissues on doppler follow-up study to a ssess a left inguinal fluid collection COMPARISON: Duplex venous Doppler study of same day, CT abdomen and pelvis 06/20/2015 TECHNIQUE: Multiple axial CT images of the pelvis were obtained following the intravenous ministratio n of 93 mL Optiray 320 IV contrast. A dose lowering technique was used consistent with the principals of SIENA. FINDINGS: Severe calcified plaque of the aorta and iliac arteries. Uterus appears surgically absent. Unremarkab le urinary bladder. 4.1 x 2.2 x 5.2 cm cystic lesion of the right adnexum no left adnexal mass lesion . Fluid collection within the left inguinal tissues deep to the femoral vessels is compatible with il iopsoas bursitis and measures 1.8 x 2.1 x 5.4 cm (image 540 series 2). It has decreased in size from the 2015 exam. No abscess or drainable fluid collection identified. Colonic diverticulosis without ac [place] diverticulitis. Moderate fecal retention. No bowel obstruction. Normal appendix. Cholelithiasis. Imaged right kidney is unremarkable. Tiny fat filled periumbilical hernia. Nonspecific enlarged left inguinal lymph node, 2.9 x 1.3 cm. Partially imaged fusion hardware of the lumbar spine. Right hip total joint arthroplasty. Moderate to severe left hip osteoarthritis. IMPRESSION: 1. Previously described fluid collection of the left inguinal tissues correlates with iliopsoas bursi tis, decreased in size from the 2014 exam. No abscess or hematoma identified. 2. Nonspecific left inguinal adenopathy. 3. Cystic lesion of the right adnexum measures 1.8 x 2.1 x 5.4 cm. Correlation with a follow-up nonem ergent pelvic ultrasound recommended. 4. Additional findings as above. ACT 112: Negative or not required by law. The above report was generated using voice recognition software. It may contain grammatical, syntax o r spelling errors. Electronically signed by: Norm Lam M.D. 11/08/2019 6:04 PM
[2019-11-08] MEDS: RASPBERRY SYRUP 5 ML UDP PO SCH (21:37)
[2019-11-08] MEDS: VANCOMYCIN HCL 125 MG/2.5ML SOLN PO SCH (21:38)
[2019-11-09] MEDS: ALBUT/IPRATROP 3MG/0.5MG NEB 3 ML VIAL INH SCH ×6 (03:01→22:54)
[2019-11-09] MEDS: LEVOTHYROXINE SODIUM 137 MCG TABLET PO SCH (05:31)
[2019-11-09] MEDS: HEPARIN SOD 5,000 UNIT/0.5 ML VIAL SQ SCH ×4 (05:32→22:43)
[2019-11-09 06:21] LABS: Hematocrit (blood only) 29.4 % (37-47); Hemoglobin 9.2 g/dL (12.0-16.0); Mean Corpuscular Hemoglobin 30.4 pg (25-34); Mean Corpuscular Hgb Conc 31.3 g/dL (32-36); Mean Platelet Volume 11.3 fL (7.4-10.4); Platelet Count 164 K/uL (130-400); RDW Coefficient of Variation 13.7 % (11.5-14.5); RDW Standard Deviation 48.2 fL (36.4-46.3); Red Blood Count 3.03 M/uL (4.2-5.4); White Blood Count 7.18 K/uL (4.8-10.8)
[2019-11-09 07:00] LABS: BUN Creatinine Ratio 28.6 (10-20); Calcium 9.2 mg/dl (8.5-10.1); Creatinine Clr Calc Pharmacy 63.7 ml/min; Est GFR (Non-African American) 74.2; Potassium 3.8 mmol/L (3.5-5.1)
[2019-11-09 07:09] LABS: Thyroid Stimulating Hormone 3.6 uIu/ml (0.300-4.500)
--- NOTE | 2019-11-09 07:32 | Infectious Disease Consult ---
Date of Consultation November 09, 2019 Assessment & Plan (1) Cellulitis of left lower extremity: continue IV vanco for cellulitis. agree with daily po vanco while on additional abx, would continue daily vanco for additional 14 days after systemic abx are d/c. then can resume weekly maintainance dosing. History of Present Illness Attending Physician: Stacy Lazar MD pt admitted with left leg cellultis after fall. placed on IV vanco. abrile. wbc 7, creat 0.9. CXR negative, foot x ray negative, doppler negative, no cultures to review. she has a h/o of recurrent c diff and is on weekly vanco 125mg for suppressive therapy. she was increased to daily vanco upon admission due to need for systemic vanco and ID was consulted. she has no abd pain, no n/v/d. tolerating abx. denies f/c. no pain in leg. Allergies Allergy/AdvReac Type Severity Reaction Status Date / Time codeine Allergy Intermediate FACIAL Verified 11/07/19 17:15 SWELLING atropine Allergy Unknown UNKNOWN Verified 11/07/19 17:15 diphenoxylate Allergy Unknown UNKNOWN Verified 11/07/19 17:15 moxifloxacin Allergy Unknown UNKNOWN Verified 11/07/19 17:15 prednisone AdvReac Mild BLURRED Verified 11/07/19 17:15 VISION Home Medications Home Medications Medication Instructions Recorded Confirmed Type multivitamin 1 tab PO DAILY 05/21/19 11/07/19 History estradiol 1 mg tablet 1 mg PO DAILY tab 06/12/19 11/07/19 History pantoprazole 40 mg tablet,delayed 40 mg PO DAILY #30 tab 06/12/19 11/07/19 Rx release furosemide 40 mg tablet 40 mg PO DAILY #90 tab 09/08/19 11/07/19 Rx levothyroxine 137 mcg tablet 137 mcg PO DAILY #90 tab 09/08/19 11/07/19 Rx meloxicam 7.5 mg tablet 7.5 mg PO DAILY #30 tab 09/08/19 11/07/19 Rx vancomycin 125 mg capsule 125 mg PO WK #12 cap 09/08/19 11/07/19 Rx citalopram 20 mg tablet 40 mg PO DAILY #180 tab 09/23/19 11/07/19 Rx hydrochlorothiazide 12.5 mg capsule 12.5 mg PO DAILY #30 cap 10/08/19 11/07/19 Rx albuterol sulfate 2 inh INH Q4H PRN 11/07/19 11/07/19 History fluticasone 500 mcg-salmeterol 50 1 puffs INHALATION BID #3 inhaler 11/07/19 11/07/19 Rx mcg/dose blistr powdr for inhalation ipratropium-albuterol 3 ml INHALATION Q4 11/07/19 11/07/19 History Patient History Medical History Carpal tunnel syndrome (Resolved 04/28/13) Cellulitis of right ankle (Resolved) Cervical disc disease Chronic respiratory failure Clostridium difficile colitis COPD (chronic obstructive pulmonary disease) (Acute) Degenerative joint disease involving multiple joints Depression Diabetes diet controlled A1C=6 in December 2017 GERD (gastroesophageal reflux disease) Hypertension Hypothyroidism Lumbar disc disease (Acute) Spinal stenosis (Acute) Surgical History History of carpal tunnel surgery Previous back surgery S/P hysterectomy Status post bilateral knee replacements Status post hip surgery Family History Grandmother Breast cancer Unknown Diabetes Heart disease Hypertension Mother Congestive heart failure Arthritis Social History Preferred Language: Armenian Communication Ability: Effective [employer] Psychiatrist Required: No Beliefs That Will Affect Care: None marital status: / Current Living Situation: Alone Other Information That Helps Us Care for You: No other: grief due to loss of and son Feels Safe at Home: Yes Safety Concerns: Feels Safe At This Time Smoking Status: Former smoker Do You Dip or Chew Tobacco: No ; Smoking End Date: 2005 ; Second Hand Exposure: No ; Tobacco Cessation Education Requested by Patient: No Hx Alcohol Use: No Hx Substance Use: No Review of Systems Review of Systems: All systems reviewed & are unremarkable except as noted in HPI & below Physical Exam Constitutional: WD/WN, vitals as above Eyes: PERRL, conjunctivae normal, anicteric sclerae ENMT: external ear and nose normal, oropharynx normal Neck: normal visual inspection Respiratory: normal respiratory effort, lungs clear to auscultation Cardiovascular: RRR, no murmur, no edema Gastrointestinal (Abdomen): normal bowel sounds, soft, nontender, no hepatosplenomegaly Musculoskeletal: no cyanosis or clubbing, extremities motor strength 5/5 Skin: no rashes, warm and dry lle erythema, no warmth, bruise noted Psychiatric: A+Ox3, euthymic affect Results & Data Vital Signs (Past 12 Hours) Vital Signs Temp Pulse Pulse Resp BP Pulse Ox 11/09/19 07:21 98 H 18 98 11/09/19 03:01 72 20 91 11/08/19 23:46 84 18 95 11/08/19 23:40 86 18 96 11/08/19 23:32 36.6 C 86 18 125/75 95 11/08/19 19:32 88 16 97 PG Care Time/CCT Total # of Minutes Spent Total Time Spent with Patient: Total time spent is greater than 50% in coordination of care (as documented) at patient's floor/unit and/or counseling patient:
[2019-11-09] MEDS: MULTIVITAMIN TAB PO SCH (08:36)
[2019-11-09] MEDS: hydroCHLOROthiazide 25 MG TAB PO SCH (08:36)
[2019-11-09] MEDS: CITALOPRAM 40 MG TAB PO SCH (08:36)
[2019-11-09] MEDS: estradioL 1 MG TAB PO SCH (08:36)
[2019-11-09] MEDS: MELOXICAM 7.5 MG TAB PO SCH (08:36)
[2019-11-09] MEDS: FUROSEMIDE 40 MG TAB PO SCH (08:36)
[2019-11-09] MEDS: LACTOBACILLUS ACIDOPHILUS (FLORANEX) TAB PO SCH ×4 (08:37→20:09)
[2019-11-09] MEDS: FLUTICASONE/VILANTEROL 200/25MCG 14 PUFFS/INHALER INH SCH (08:37)
[2019-11-09] MEDS: PANTOprazole 40 MG TAB PO SCH (08:37)
[2019-11-09] MEDS ORDERED: VANCOMYCIN TROUGH ONE (13:30)
[2019-11-09] MEDS: VANCOMYCIN HCL 1,250 MG in SODIUM CHLORIDE 0.9% 250 ML IV SCH (13:53)
--- NOTE | 2019-11-09 14:41 | Hospitalist Progress Note ---
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 Nontender on exam. Full ROM. No visible erythema/ecchymosis. * CT pelvis w/ IV as above -- no abscess or drainable fluid collection. shows decrease in size of a iliopsoas bursitis -- however, cystic lesion of right adnexum will need non-emergent pelvic ultrasound -- could be done as outpatient (2) Fall: * Mechanical * Lives alone with cat, 4 steps * PT/OT with rec for Home Health (3) Clostridium difficile colitis: * Hx of recurrent cdiff * Currently on vanco Qweek, with plans for this to be indefinite * In the past, ID has recs for PO vanco to move to QD when on abx for other issues * Will change to QD -- per ID, would continue daily for additional 14 days after systemic abx discontinued * ID consult-- appreciate input (4) COPD (chronic obstructive pulmonary disease): * Stable, no current exacerbation, although patient with elevated CO2 at 48. This did improve to 44 today after wearing BiPAP for 2 hours last night. Appears patient chronically elevated, although suspect recent elevation above baseline secondary to non-compliance with BiPAP * Baseline 4L O2 via NC -- currently 90% on 2L * Continue home meds, nebulizers * Will wean down O2, as likely further increase in flow rate to depress respiratory drive -- currently 90% on 2L * Encouraged BiPAP usage, although patient refusing secondary to irritation having to hook/unhook at night when using restroom * Per chart, patient with Palliative consultation in February -- POLST completed with DNR expressed -- patient currently expressing want for Full Resuscitation * Patient able to tolerate BiPAP last evening for 2 hours -- CO2 level improved from 49 to 44 -- continue to encourage use (5) Hypothyroidism: * Continue home meds. TSH 3.6 * Continue home levothyroxine 137mcg (6) Swelling of lower limb: * Baseline R LE swelling which she takes lasix and HCTZ for (as well as BP) * Continue HCTZ * Continue to monitor (7) Hypertension: * Chronic. Stable. 120/66 * Continue home lasix 40mg, HCTZ 25mg * Continue to monitor (8) GERD (gastroesophageal reflux disease): * Chronic. Stable * Continue home protonix 40mg (9) Depression: * Continue home citalopram (10) Adnexal cyst: * As above * Cystic lesion of the right adnexum measures 1.8 x 2.1 x 5.4 cm. Correlation with a follow-up nonemergent pelvic ultrasound recommended. (11) B12 deficiency: * Low normal at 393, could account for her macrocytic anemia * Oral supplements PO -- continue at discharge * Will check folate level in the morning also (12) DVT prophylaxis: * Heparin for DVT proph * Doppler b/l LE NEGATIVE for DVT Dispo: continue IV abx today, likely can transition to PO keflex/similar tomorrow. Home health at discharge. Supervising Physician Co-Signing Physician Notes LIAN Supervision Note: I did not personally see or examine the patient today, but I verified all duncan points of LIAN Fulton's assessment and plan with the following exceptions/additions: None Subjective Patient on bedside commode on arrival, getting washed up. States she was able to use the BiPAP for 2 hours last night. Discussed importance titrating oxygen to maintain sat >88-but not greater than 92 %. Feels a little fatigued today, but states the pain is less in her left leg. Redness improved. Eating and drinking without difficulty. No other complaints at this time. Discussed findings of CT and confirmed with patient she had a leep procedure for atypical cells and subsequently had a hysterectomy. 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 Denies chest pain, shortness of breath, abdominal pain, n/v/d/c. Review of Systems Review of Systems: All systems reviewed & are unremarkable except as noted in HPI & below Physical Exam Constitutional: well developed, well nourished, + obese and + disheveled; no acute distress Eyes: + anicteric sclerae and PERRL Neck: trachea midline, no thyromegaly Respiratory: able to speak in complete sentences and + pursed lip breathing; no labored breathing and no audible wheezes Auscultation: + diminished lung sounds (diffusely) and + crackles (faint bibasilar); no wheezes Cardiovascular: Rate/Rhythm: regular rate and regular rhythm Heart Sounds: normal S1 and normal S2; no murmur Extremities: + edema (1+ b/l LE) Gastrointestinal (Abdomen): normal bowel sounds, soft, nontender, no hepatosplenomegaly Musculoskeletal: Head/Neck/Chest: head atraumatic and neck supple Extremities: strength 5/5 throughout Skin: LLE erythema Venous stasis changes b/l LE Eschar of healing wound left proximal tibial region Decreased tenderness to palpation Neurologic: PERRL, EOMI, accommodation nl, no face palsy, no dysarthria Psychiatric: Orientation: alert and oriented x 3 Affect: + irritable affect Lymphatic: no cervical or axillary lymphadenopathy Results & Data Vital Signs (Past 12 Hours) Vital Signs Temp Pulse Pulse Pulse Resp BP Pulse Ox 11/09/19 15:20 36.8 C 85 20 132/61 96 11/09/19 14:56 83 18 94 11/09/19 13:59 90 11/09/19 07:50 36.7 C 76 20 120/66 96 11/09/19 07:21 98 H 18 98 11/09/19 03:01 72 20 91 11/08/19 23:46 84 18 95 11/08/19 23:40 86 18 96 11/08/19 23:32 36.6 C 86 18 125/75 95 11/08/19 19:32 88 16 97 11/08/19 16:14 36.8 C 85 20 123/72 95 Intake and Output 11/09/19 11/09/19 11/09/19 06:59 14:59 22:59 Intake Total 575 / 1900 360 / 360 Output Total 250 / 1300 400 / 400 Balance 325 / 600 -40 / -40 Intake: IV 275 / 550 Vancomycin HCl 1,250 mg In Nss 275 / 550 250 ml @ 125 mls/hr IV Q16H COSMO Rx#:[id number] Oral 300 / 1350 360 / 360 Output: Urine 250 / 1300 400 / 400 Other: # Unmeasured Voids 1 Laboratory Results 11/09/19 11/09/19 11/09/19 Range/Units 13:24 05:59 05:59 WBC (4.8-10.8) K/uL RBC (4.2-5.4) M/uL Hgb (12.0-16.0) g/dL Hct (37-47) % MCV (80-100) fL MCH (25-34) pg MCHC (32-36) g/dL RDW Std Deviation (36.4-46.3) fL RDW Coeff of Judy (11.5-14.5) % Plt Count (130-400) K/uL MPV (7.4-10.4) fL Sodium 137 (136-145) mmol/L Potassium 3.8 (3.5-5.1) mmol/L Chloride 92 L (98-107) mmol/L Carbon Dioxide 44 H* (21-32) mmol/L Anion Gap 1.0 L (3-11) BUN 23 H (7-18) mg/dl Creatinine 0.80 (0.6-1.2) mg/dl Est Cr Clr Drug Dosing 63.7 ml/min Est GFR ( Amer) 86.0 Est GFR (Non-Af Amer) 74.2 BUN/Creatinine Ratio 28.6 H (10-20) Glucose 108 H (70-99) mg/dl Calcium 9.2 (8.5-10.1) mg/dl Vitamin B12 393 (211-911) pg/ml TSH 3.600 (0.300-4.500) uIu/ml Vancomycin Trough 16.5 (See Comment) mcg/ml 11/09/19 Range/Units 05:59 WBC 7.18 (4.8-10.8) K/uL RBC 3.03 L (4.2-5.4) M/uL Hgb 9.2 L (12.0-16.0) g/dL Hct 29.4 L (37-47) % MCV 97.0 (80-100) fL MCH 30.4 (25-34) pg MCHC 31.3 L (32-36) g/dL RDW Std Deviation 48.2 H (36.4-46.3) fL RDW Coeff of Judy 13.7 (11.5-14.5) % Plt Count 164 (130-400) K/uL MPV 11.3 H (7.4-10.4) fL Sodium (136-145) mmol/L Potassium (3.5-5.1) mmol/L Chloride (98-107) mmol/L Carbon Dioxide (21-32) mmol/L Anion Gap (3-11) BUN (7-18) mg/dl Creatinine (0.6-1.2) mg/dl Est Cr Clr Drug Dosing ml/min Est GFR ( Amer) Est GFR (Non-Af Amer) BUN/Creatinine Ratio (10-20) Glucose (70-99) mg/dl Calcium (8.5-10.1) mg/dl Vitamin B12 (211-911) pg/ml TSH (0.300-4.500) uIu/ml Vancomycin Trough (See Comment) mcg/ml Diagnostic Findings CT pelvis w/IV con only IMPRESSION: 1. Previously described fluid collection of the left inguinal tissues correlates with iliopsoas bursitis, decreased in size from the 2015 exam. No abscess or hematoma identified. 2. Nonspecific left inguinal adenopathy. 3. Cystic lesion of the right adnexum measures 1.8 x 2.1 x 5.4 cm. Correlation with a follow-up nonemergent pelvic ultrasound recommended. 4. Additional findings as above. PG Care Time/CCT Total # of Minutes Spent Total Time Spent with Patient: Total time spent is greater than 50% in coordination of care (as documented) at patient's floor/unit and/or counseling patient: (1) Depression Active/Remission status: currently active Depression Type: major depressive disorder Major depression episode severity: unspecified Major depression recurrence: recurrent Qualified Code(s): F33.9 - Major depressive disorder, recurrent, unspecified (2) Hypothyroidism Hypothyroidism type: unspecified Qualified Code(s): E03.9 - Hypothyroidism, unspecified (3) Hypertension Hypertension type: essential hypertension Qualified Code(s): I10 - Essential (primary) hypertension
--- NOTE | 2019-11-09 14:55 | Pharmacy Report ---
Pharmacy Abx Dose Short Note - Date of Service November 09, 2019 - Assessment & Plan Assessment 69 year old F receiving IV Vancomycin for treatment of LLE cellulitis s/p fall; no osteomyelitis reported Day # 3 of antimicrobial therapy. * Renal function remains stable Plan Vancomycin * Trough level of 16.5 mcg/mL (appropriately drawn) is slightly supratherapeutic. This is an early level drawn prior to 3rd dose and therefore not reflective of steady state. The true trough may be higher and with her obesity, she may accumulate Vancomycin. Therefore, will maintain same dosing interval but reduce dose to target a slightly lower trough. * Change to 1000 mg (~11.3 mg/kg) IV every 16 hours * Goal trough level for cellulitis (no osteomyelitis) : 10 to 15 mcg/mL * Trough level ordered for: 11/11/19 @ 0130 (another early level, but want to r eassess regimen early due to obesity) Pharmacy will continue to follow and will adjust dose/frequency as necessary. Thank you.
[2019-11-09] MEDS: CYANOCOBALAMIN (VITAMIN B-12) 100 MCG TABLET PO SCH (16:30)
[2019-11-09] MEDS: RASPBERRY SYRUP 5 ML UDP PO SCH (20:08)
[2019-11-09] MEDS: VANCOMYCIN HCL 125 MG/2.5ML SOLN PO SCH (20:08)
[2019-11-10] MEDS: ALBUT/IPRATROP 3MG/0.5MG NEB 3 ML VIAL INH SCH ×6 (04:23→23:30)
[2019-11-10] MEDS: HEPARIN SOD 5,000 UNIT/0.5 ML VIAL SQ SCH ×3 (04:52→20:45)
[2019-11-10] MEDS: LEVOTHYROXINE SODIUM 137 MCG TABLET PO SCH (05:18)
[2019-11-10 05:37] LABS: Hemoglobin 9.4 g/dL (12.0-16.0); Mean Corpuscular Hemoglobin 30.4 pg (25-34); Mean Corpuscular Hgb Conc 31.3 g/dL (32-36); Mean Corpuscular Volume 97.1 fL (80-100); Mean Platelet Volume 10.9 fL (7.4-10.4); Platelet Count 161 K/uL (130-400); RDW Coefficient of Variation 13.8 % (11.5-14.5); RDW Standard Deviation 48.5 fL (36.4-46.3); Red Blood Count 3.09 M/uL (4.2-5.4); White Blood Count 6.15 K/uL (4.8-10.8)
[2019-11-10 06:18] LABS: BUN Creatinine Ratio 25.6 (10-20); Calcium 9.1 mg/dl (8.5-10.1); Creatinine Clr Calc Pharmacy 45.9 ml/min; Est GFR (African American) 57.9; Est GFR (Non-African American) 49.9; Potassium 3.7 mmol/L (3.5-5.1)
[2019-11-10] MEDS: FUROSEMIDE 40 MG TAB PO SCH (08:42)
[2019-11-10] MEDS: CYANOCOBALAMIN (VITAMIN B-12) 100 MCG TABLET PO SCH (08:42)
[2019-11-10] MEDS: MELOXICAM 7.5 MG TAB PO SCH (08:42)
[2019-11-10] MEDS: PANTOprazole 40 MG TAB PO SCH (08:43)
[2019-11-10] MEDS: estradioL 1 MG TAB PO SCH (08:43)
[2019-11-10] MEDS: CITALOPRAM 40 MG TAB PO SCH (08:43)
[2019-11-10] MEDS: hydroCHLOROthiazide 25 MG TAB PO SCH (08:43)
[2019-11-10] MEDS: MULTIVITAMIN TAB PO SCH (08:43)
[2019-11-10] MEDS: FLUTICASONE/VILANTEROL 200/25MCG 14 PUFFS/INHALER INH SCH (08:44)
[2019-11-10] MEDS: LACTOBACILLUS ACIDOPHILUS (FLORANEX) TAB PO SCH ×4 (08:44→20:43)
[2019-11-10] MEDS ORDERED: VANCOMYCIN TROUGH ONE (09:30)
[2019-11-10] MEDS ORDERED: VANCOMYCIN HCL 1,000 MG in SODIUM CHLORIDE 0.9% 250 ML IV SCH (10:00)
--- NOTE | 2019-11-10 11:20 | Palliative Care Consultation ---
Date of Consultation November 10, 2019 Assessment & Plan (1) Goals of care, counseling/discussion: -69 year old female patient with history of severe COPD on chronic home oxygen at [facility], recurrent C. diff, DJD, depression, anxiety, GERD, htn, hypothyroidism, and other issues, presented to the hospital with c/o LLE edema and redness. Patient was admitted with cellulitis. Patient was last in hospital in August. Patient has severe COPD, but it has been relatively stable over the last year, but she has had a few hospitalizations. Patient is to wear Bipap at home, but she can only tolerate it for a couple hours per night. Palliative care met with patient back in December 2018, at which time patient made her self a DNR/DNI and completed a POLST form. Patient lives at home alone, her and one son are . She remains adamant that she wants to live at home. Upon admission, patient had rescinded her DNR and made herself a full code. Palliative care is reconsulted to discuss goals of care and code status. -Met with patient in room 362. She is AA&O x4. She c/o chronic SOB, but states she is at her baseline. -The cellulitis is improving and is looking/feeling better. -Patient acknowledges that her COPD is severe, but states it is essentially unchanged for quite some time now. -We discussed code status at length. After discussion, patient would like to remain a DNR/DNI and keep her current POLST form which is on file. -Patient's goal is to continue living at home independently. She is quite depressed. Her on 01/13/2015 and her son on 01/07/2016. She states that after her son , "I just gave up." Patient's two grandsons, who are 9 and 11, live in [place] with their mother and she has little contact with them-- which makes her extremely sad. -Patient does have a sister Luly and a best friend Trena Mcgarry. She states that she thinks she would want Trena to be her medical POA, but would like to talk with her about this. Patient states that Luly could also be involved. I strongly encouraged patient to complete a living will/POA form-- she will consider. -No changes to patient's medications or plans at this time. -We will follow peripherally throughout hospitalization. Thank you. (2) Cellulitis of left lower extremity: (3) Clostridium difficile colitis: (4) COPD (chronic obstructive pulmonary disease): History of Present Illness Attending Physician: Mehrdad Quiñones MD History of Present Illness This 69 year old female patient with history of severe COPD on chronic home oxygen at [facility], recurrent C. diff, DJD, depression, anxiety, GERD, htn, hypothyroidism, and other issues, presented to the hospital with c/o LLE edema and redness. Patient was admitted with cellulitis. Patient was last in hospital in August. Patient has severe COPD, but it has been relatively stable over the last year, but she has had a few hospitalizations. Patient is to wear Bipap at home, but she can only tolerate it for a couple hours per night. Palliative care met with patient back in December 2018, at which time patient made her self a DNR/DNI and completed a POLST form. Patient lives at home alone, her and one son are . She remains adamant that she wants to live at home. Upon admission, patient had rescinded her DNR and made herself a full code. Palliative care is reconsulted to discuss goals of care and code status. Thank you kindly for this consult. Palliative care team will follow as needed. Allergies Allergy/AdvReac Type Severity Reaction Status Date / Time codeine Allergy Intermediate FACIAL Verified 11/07/19 17:15 SWELLING atropine Allergy Unknown UNKNOWN Verified 11/07/19 17:15 diphenoxylate Allergy Unknown UNKNOWN Verified 11/07/19 17:15 moxifloxacin Allergy Unknown UNKNOWN Verified 11/07/19 17:15 prednisone AdvReac Mild BLURRED Verified 11/07/19 17:15 VISION Home Medications Home Medications Medication Instructions Recorded Confirmed Type multivitamin 1 tab PO DAILY 05/21/19 11/07/19 History estradiol 1 mg tablet 1 mg PO DAILY tab 06/12/19 11/07/19 History pantoprazole 40 mg tablet,delayed 40 mg PO DAILY #30 tab 06/12/19 11/07/19 Rx release furosemide 40 mg tablet 40 mg PO DAILY #90 tab 09/08/19 11/07/19 Rx levothyroxine 137 mcg tablet 137 mcg PO DAILY #90 tab 09/08/19 11/07/19 Rx meloxicam 7.5 mg tablet 7.5 mg PO DAILY #30 tab 09/08/19 11/07/19 Rx vancomycin 125 mg capsule 125 mg PO WK #12 cap 09/08/19 11/07/19 Rx citalopram 20 mg tablet 40 mg PO DAILY #180 tab 09/23/19 11/07/19 Rx hydrochlorothiazide 12.5 mg capsule 12.5 mg PO DAILY #30 cap 10/08/19 11/07/19 Rx albuterol sulfate 2 inh INH Q4H PRN 11/07/19 11/07/19 History fluticasone 500 mcg-salmeterol 50 1 puffs INHALATION BID #3 inhaler 11/07/19 11/07/19 Rx mcg/dose blistr powdr for inhalation ipratropium-albuterol 3 ml INHALATION Q4 11/07/19 11/07/19 History Patient History Medical History Carpal tunnel syndrome (Resolved 04/28/13) Cellulitis of right ankle (Resolved) Cervical disc disease Chronic respiratory failure Clostridium difficile colitis COPD (chronic obstructive pulmonary disease) (Acute) Degenerative joint disease involving multiple joints Depression Diabetes diet controlled A1C=6 in December 2017 GERD (gastroesophageal reflux disease) Hypertension Hypothyroidism Lumbar disc disease (Acute) Spinal stenosis (Acute) Surgical History History of carpal tunnel surgery Previous back surgery S/P hysterectomy Status post bilateral knee replacements Status post hip surgery Family History Grandmother Breast cancer Unknown Diabetes Heart disease Hypertension Mother Congestive heart failure Arthritis Social History Preferred Language: Bur[place]ian Communication Ability: Effective 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: No Beliefs That Will Affect Care: None marital status: / Current Living Situation: Alone Other Information That Helps Us Care for You: No other: grief due to loss of and son Feels Safe at Home: Yes Safety Concerns: Feels Safe At This Time Smoking Status: Former smoker Do You Dip or Chew Tobacco: No ; Smoking End Date: 2005 ; Second Hand Exposure: No ; Tobacco Cessation Education Requested by Patient: No Hx Alcohol Use: No Hx Substance Use: No Review of Systems Constitutional: no weakness Respiratory: + cough, + dyspnea and + dyspnea on exertion Cardiovascular: + edema; no chest pain Gastrointestinal: no abdominal pain and no nausea Musculoskeletal: right shoulder pain from rotator cuff tear Neurologic: no confusion Physical Exam Constitutional: + obese; no acute distress ENMT: external ear and nose normal, oropharynx normal Respiratory: + pursed lip breathing Auscultation: + diminished lung sounds (diffusely) Cardiovascular: Rate/Rhythm: regular rate and regular rhythm Extremities: + edema (1+ b/l LE) Gastrointestinal (Abdomen): Inspection/Auscultation: abdomen not distended Percussion/Palpation: abdomen soft; abdomen nontender Neurologic: awake; not confused Psychiatric: A+Ox3, euthymic affect Results & Data Vital Signs (Past 12 Hours) Vital Signs Temp Pulse Pulse Resp BP Pulse Ox 11/10/19 08:03 96 11/10/19 07:35 36.6 C 96 H 22 147/71 H 96 11/10/19 07:19 96 H 16 98 11/10/19 00:53 93 H 16 95 Time Spent Midlevel 70 minutes with >50% of the time spent at bedside with patient discussing condition and GOC.
--- NOTE | 2019-11-10 11:39 | Hospitalist Progress Note ---
Date of Service November 10, 2019 Assessment & Plan (1) Cellulitis of left lower extremity: * Likely related to recent fall on Oct 26 -- mechanical in nature * nurse practitioner home assessments consult * Xray with evidence of cellulitis * Will DC IV vancomycin especially as creatinine is trending up and start Keflex TID 500 mg for renal dosing * ID consult -- appreciate input * Elevate extremity * US Doppler negative for DVT, however demonstrate hypoechoic collection of the left inguinal tissues measuring up to 8.2 cm, possibly reflective of a liquefied hematoma. * CT pelvis w/ IV as above -- no abscess or drainable fluid collection. shows decrease in size of a iliopsoas bursitis -- however, cystic lesion of right adnexum will need non-emergent pelvic ultrasound -- could be done as outpatient * orthostatics as patient reports feeling lightheaded today (2) Fall: * Mechanical * Lives alone with cat, 4 steps * PT/OT with rec for Home Health (3) Clostridium difficile colitis: * Hx of recurrent cdiff * Per ID- continue vanc daily for additional 14 days after systemic abx discontinued and then return to home vanc dosing qWeek * ID consult-- appreciate input (4) COPD (chronic obstructive pulmonary disease): * Stable, no current exacerbation, although patient with elevated CO2 at 42 which is around baseline. Encourage bipap use * Baseline 4L O2 via NC * Continue home meds, nebulizers * Per chart, patient with Palliative consultation in February -- POLST completed with DNR expressed -- patient currently expressing want for Full Resuscitation - will have Palliative revisit with patient to adjust POLST as necessary (5) Hypothyroidism: * Continue home meds. TSH 3.6 * Continue home levothyroxine 137mcg (6) Swelling of lower limb: * Baseline R LE swelling which she takes lasix and HCTZ for (as well as BP) * Continue HCTZ * Continue to monitor (7) Hypertension: * Chronic. Stable. 120/66 * Continue home lasix 40mg, HCTZ 25mg * Continue to monitor (8) GERD (gastroesophageal reflux disease): * Chronic. Stable * Continue home protonix 40mg (9) Depression: * Continue home citalopram (10) Adnexal cyst: * As above * Cystic lesion of the right adnexum measures 1.8 x 2.1 x 5.4 cm. Correlation with a follow-up nonemergent pelvic ultrasound recommended. (11) B12 deficiency: * Low normal at 393, could account for her macrocytic anemia * Oral supplements PO -- continue at discharge * Will check folate level in the morning also (12) DVT prophylaxis: * Heparin for DVT proph * Doppler b/l LE NEGATIVE for DVT Subjective Ms. Giron reports feeling a bit lightheaded at times and generally is not feeling her best. Her legs are tender to touch but not painful. ROS Constitutional: no chills, aches, sweats or fever Respiratory: no sob,cough, sputum, or wheezing Cardiac: no chest pain, palpitations, edema, orthopnea GI: no abdominal pain, nausea, vomiting, diarrhea or constipation : no dysuria or hesitancy Extremities: no joint pain or weakness Skin: no rash All other systems reviewed and negative Physical Exam Physical Exam: General: no distress Eyes: normal inspection, PERLL Respiratory: chest non tender, clear to auscultation, normal breath sounds, no respiratory distress, no accessory muscle use Cardiac: regular rate and rhythm, no rub or gallop, no murmur, no edema, no jvd GI/: active bowel sounds, no abd pain or tenderness, soft, non distended Extremities: normal range of motion, normal strength, non tender Neuro/Psych: alert and oriented x 3, normal mood and affect Skin: normal color, dry, left lower extremity with mild erythema and bruising. Bilateral lower extremities with venous stasis changes, abrasions on toes bilaterally Results & Data Vital Signs (Past 12 Hours) Vital Signs Temp Pulse Pulse Resp BP Pulse Ox 11/10/19 08:03 96 11/10/19 07:35 36.6 C 96 H 22 147/71 H 96 11/10/19 07:19 96 H 16 98 11/10/19 00:53 93 H 16 95 PG Care Time/CCT Total # of Minutes Spent Total Time Spent with Patient: Total time spent is greater than 50% in coordination of care (as documented) at patient's floor/unit and/or counseling patient: (1) Hypothyroidism Hypothyroidism type: unspecified Qualified Code(s): E03.9 - Hypothyroidism, unspecified (2) Hypertension Hypertension type: essential hypertension Qualified Code(s): I10 - Essential (primary) hypertension (3) Depression Depression Type: major depressive disorder Major depression recurrence: recurrent Active/Remission status: currently active Major depression episode severity: unspecified Qualified Code(s): F33.9 - Major depressive disorder, recurrent, unspecified
[2019-11-10] MEDS ORDERED: cephALEXin 500 MG CAP PO SCH (14:00)
[2019-11-10] MEDS: RASPBERRY SYRUP 5 ML UDP PO SCH (20:44)
[2019-11-10] MEDS: cephALEXin 500 MG CAP PO SCH (20:44)
[2019-11-10] MEDS: VANCOMYCIN HCL 125 MG/2.5ML SOLN PO SCH (20:44)
[2019-11-11] MEDS ORDERED: VANCOMYCIN TROUGH ONE (01:30)
[2019-11-11] MEDS: ALBUT/IPRATROP 3MG/0.5MG NEB 3 ML VIAL INH SCH ×6 (03:10→23:10)
[2019-11-11] MEDS: HEPARIN SOD 5,000 UNIT/0.5 ML VIAL SQ SCH ×3 (04:53→20:21)
[2019-11-11] MEDS: LEVOTHYROXINE SODIUM 137 MCG TABLET PO SCH (05:33)
[2019-11-11 07:49] LABS: Hemoglobin 9.9 g/dL (12.0-16.0); Mean Corpuscular Hemoglobin 29.9 pg (25-34); Mean Corpuscular Hgb Conc 30.9 g/dL (32-36); Mean Corpuscular Volume 96.7 fL (80-100); Mean Platelet Volume 11.3 fL (7.4-10.4); Platelet Count 168 K/uL (130-400); RDW Coefficient of Variation 13.8 % (11.5-14.5); RDW Standard Deviation 48.9 fL (36.4-46.3); Red Blood Count 3.31 M/uL (4.2-5.4); White Blood Count 6.32 K/uL (4.8-10.8)
[2019-11-11] MEDS: CITALOPRAM 40 MG TAB PO SCH (08:24)
[2019-11-11] MEDS: PANTOprazole 40 MG TAB PO SCH (08:24)
[2019-11-11] MEDS: CYANOCOBALAMIN (VITAMIN B-12) 100 MCG TABLET PO SCH (08:24)
[2019-11-11] MEDS: hydroCHLOROthiazide 25 MG TAB PO SCH (08:24)
[2019-11-11] MEDS: FLUTICASONE/VILANTEROL 200/25MCG 14 PUFFS/INHALER INH SCH (08:24)
[2019-11-11] MEDS: MULTIVITAMIN TAB PO SCH (08:24)
[2019-11-11] MEDS: LACTOBACILLUS ACIDOPHILUS (FLORANEX) TAB PO SCH ×4 (08:24→20:20)
[2019-11-11] MEDS: cephALEXin 500 MG CAP PO SCH ×2 (08:25→20:20)
[2019-11-11] MEDS: MELOXICAM 7.5 MG TAB PO SCH (08:25)
[2019-11-11] MEDS: FUROSEMIDE 40 MG TAB PO SCH (08:25)
[2019-11-11] MEDS: estradioL 1 MG TAB PO SCH (08:25)
[2019-11-11 08:27] LABS: Albumin Globulin Ratio 0.9 (0.9-2); Albumin Level 3.2 gm/dl (3.4-5.0); BUN Creatinine Ratio 30.1 (10-20); Bilirubin,Total 0.4 mg/dl (0.2-1); Calcium 9.2 mg/dl (8.5-10.1); Creatinine Clr Calc Pharmacy 56.6 ml/min; Est GFR (African American) 74.6; Est GFR (Non-African American) 64.3; Globulin 3.5 gm/dl (2.5-4.0); Potassium 3.7 mmol/L (3.5-5.1); Total Protein 6.7 gm/dl (6.4-8.2)
--- NOTE | 2019-11-11 18:44 | Hospitalist Progress Note ---
Date of Service November 11, 2019 Assessment & Plan (1) Cellulitis of left lower extremity: * Likely related to recent fall on Oct 26 -- mechanical in nature * talent acquisition coordinator consult * Xray with evidence of cellulitis * DC'd IV vancomycin especially as creatinine was trending up and started Keflex TID 500 mg for renal dosing 11/10 * ID consult -- appreciate input * Elevate extremity * US Doppler negative for DVT, however demonstrate hypoechoic collection of the left inguinal tissues measuring up to 8.2 cm, possibly reflective of a liquefied hematoma. * CT pelvis w/ IV as above -- no abscess or drainable fluid collection. shows decrease in size of a iliopsoas bursitis -- however, cystic lesion of right adnexum will need non-emergent pelvic ultrasound -- could be done as outpatient * no orthostasis with orthostatic vss (2) Fall: * Mechanical * Lives alone with cat, 4 steps * PT/OT with rec for Home Health (3) Clostridium difficile colitis: * Hx of recurrent cdiff * Per ID- continue vanc daily for additional 14 days after systemic abx discontinued and then return to home vanc dosing qWeek * ID consult-- appreciate input (4) COPD (chronic obstructive pulmonary disease): * Stable, no current exacerbation, although patient with elevated CO2 at 46 which is around baseline. Encourage bipap use * Baseline 4L O2 via NC * Continue home meds, nebulizers * Per chart, patient with Palliative consultation in February - revisited this admission to confirm POLST - patient wishes to be DNR (5) Hypothyroidism: * Continue home meds. TSH 3.6 * Continue home levothyroxine 137mcg (6) Swelling of lower limb: * Baseline R LE swelling which she takes lasix and HCTZ for (as well as BP) * Continue HCTZ * Continue to monitor (7) Hypertension: * Chronic. Stable. 120/66 * Continue home lasix 40mg, HCTZ 25mg * Continue to monitor (8) GERD (gastroesophageal reflux disease): * Chronic. Stable * Continue home protonix 40mg (9) Depression: * Continue home citalopram (10) Adnexal cyst: * As above * Cystic lesion of the right adnexum measures 1.8 x 2.1 x 5.4 cm. Correlation with a follow-up nonemergent pelvic ultrasound recommended. (11) B12 deficiency: * Low normal at 393, could account for her macrocytic anemia * Oral supplements PO -- continue at discharge * Folate normal (12) DVT prophylaxis: * Heparin for DVT proph * Doppler b/l LE NEGATIVE for DVT Subjective Ms. Giron reports continuing to feel generally unwell. Her left leg hurts where she fell on it. She felt she did ok with therapy today and will be safe to go home. ROS Constitutional: no chills, aches, sweats or fever Respiratory: no sob,cough, sputum, or wheezing Cardiac: no chest pain, palpitations, edema, orthopnea or lightheadedness GI: no abdominal pain, nausea, vomiting, diarrhea or constipation : no dysuria or hesitancy Extremities: see HPI Skin: no rash All other systems reviewed and negative Physical Exam Physical Exam: General: no distress Eyes: normal inspection, PERLL Respiratory: chest non tender, clear to auscultation, normal breath sounds, no respiratory distress, no accessory muscle use Cardiac: regular rate and rhythm, no rub or gallop, no murmur, no edema, no jvd GI/: active bowel sounds, no abd pain or tenderness, soft, non distended Extremities: normal range of motion, normal strength, non tender Neuro/Psych: alert and oriented x 3, normal mood and affect Skin: normal color, dry, left leg erythema improved, venous stasis changes bilaterally Results & Data Vital Signs (Past 12 Hours) Vital Signs Temp Pulse Pulse Resp BP Pulse Ox 11/11/19 15:14 36.2 C L 84 90 16 114/72 100 11/11/19 11:22 88 14 98 11/11/19 07:31 77 18 98 11/11/19 07:01 36.6 C 91 H 18 114/70 96 PG Care Time/CCT Total # of Minutes Spent Total Time Spent with Patient: Total time spent is greater than 50% in coordination of care (as documented) at patient's floor/unit and/or counseling patient: (1) Hypothyroidism Hypothyroidism type: unspecified Qualified Code(s): E03.9 - Hypothyroidism, unspecified (2) Hypertension Hypertension type: essential hypertension Qualified Code(s): I10 - Essential (primary) hypertension (3) Depression Depression Type: major depressive disorder Major depression recurrence: recurrent Active/Remission status: currently active Major depression episode severity: unspecified Qualified Code(s): F33.9 - Major depressive disorder, recurrent, unspecified
[2019-11-11] MEDS: VANCOMYCIN HCL 125 MG/2.5ML SOLN PO SCH (20:21)
[2019-11-11] MEDS: RASPBERRY SYRUP 5 ML UDP PO SCH (20:21)
[2019-11-12] MEDS: ALBUT/IPRATROP 3MG/0.5MG NEB 3 ML VIAL INH SCH ×4 (03:43→15:49)
[2019-11-12] MEDS: HEPARIN SOD 5,000 UNIT/0.5 ML VIAL SQ SCH ×2 (06:01→13:31)
[2019-11-12] MEDS: LEVOTHYROXINE SODIUM 137 MCG TABLET PO SCH (06:01)
[2019-11-12] MEDS: cephALEXin 500 MG CAP PO SCH (08:51)
[2019-11-12] MEDS: PANTOprazole 40 MG TAB PO SCH (08:51)
[2019-11-12] MEDS: FUROSEMIDE 40 MG TAB PO SCH (08:51)
[2019-11-12] MEDS: MULTIVITAMIN TAB PO SCH (08:52)
[2019-11-12] MEDS: CITALOPRAM 40 MG TAB PO SCH (08:52)
[2019-11-12] MEDS: LACTOBACILLUS ACIDOPHILUS (FLORANEX) TAB PO SCH ×2 (08:52→12:50)
[2019-11-12] MEDS: hydroCHLOROthiazide 25 MG TAB PO SCH (08:52)
[2019-11-12] MEDS: MELOXICAM 7.5 MG TAB PO SCH (08:53)
[2019-11-12] MEDS: FLUTICASONE/VILANTEROL 200/25MCG 14 PUFFS/INHALER INH SCH (08:53)
[2019-11-12] MEDS: CYANOCOBALAMIN (VITAMIN B-12) 100 MCG TABLET PO SCH (08:53)
[2019-11-12] MEDS: estradioL 1 MG TAB PO SCH (08:53)
[2019-11-12 09:13] LABS: Hematocrit (blood only) 34.6 % (37-47); Hemoglobin 10.7 g/dL (12.0-16.0); Mean Corpuscular Hgb Conc 30.9 g/dL (32-36); Mean Corpuscular Volume 96.9 fL (80-100); Mean Platelet Volume 11.3 fL (7.4-10.4); Platelet Count 172 K/uL (130-400); RDW Coefficient of Variation 13.6 % (11.5-14.5); RDW Standard Deviation 47.9 fL (36.4-46.3); Red Blood Count 3.57 M/uL (4.2-5.4); White Blood Count 6.11 K/uL (4.8-10.8)
[2019-11-12 09:49] LABS: BUN Creatinine Ratio 26.6 (10-20); Calcium 9.7 mg/dl (8.5-10.1); Creatinine Clr Calc Pharmacy 54.8 ml/min; Est GFR (African American) 71.7; Est GFR (Non-African American) 61.8; Potassium 3.8 mmol/L (3.5-5.1)
--- NOTE | 2019-11-12 10:53 | Palliative Care Progress Note ---
Date of Service November 12, 2019 Assessment & Plan (1) Goals of care, counseling/discussion: -Erica was sitting on the edge of her bed in no apparent distress -PT was taking her to do some stair steps and physical activity. Per PT she has tolerated PT well and SpO2 remained 93-96% for all activity yesterday. -Pt denies pain or SOB. Pt typically wears 4LNC of supplemental O2 at home. She is currently on 3LNC. -The cellulitis is improving and is looking/feeling better. -Patient does have a sister Luly and a best friend Trena Mcgarry. She states that she thinks she would want Trena to be her medical POA, but would like to talk with her about this. Patient states that Luly could also be involved. I strongly encouraged patient to complete a living will/POA form -Presented additional conversation about appointing a decision maker. She stated that she has not spoken to them and is unsure of who she would want. I did explain how the process could be legally completed during this admission, which could be easier for her, she understands. She said "I just didn't even think about it yesterday" -No symptom management needs at this time. -Palliative Care will sign off at this time. (2) Cellulitis of left lower extremity: (3) Clostridium difficile colitis: (4) COPD (chronic obstructive pulmonary disease): Subjective Erica was sitting on the edge of her bed in no apparent distress PT was taking her to do some stair steps and physical activity. Per PT she has tolerated PT well and SpO2 remained 93-96% for all activity yesterday. Pt denies pain or SOB Please see A/P for further details. Review of Systems Respiratory: + cough; no dyspnea and no dyspnea on exertion Cardiovascular: + edema; no chest pain Physical Exam Constitutional: + obese; no acute distress ENMT: external ear and nose normal, oropharynx normal Respiratory: Auscultation: + diminished lung sounds (diffusely) Cardiovascular: Rate/Rhythm: regular rate and regular rhythm Extremities: + edema (1+ b/l LE) Gastrointestinal (Abdomen): Inspection/Auscultation: abdomen not distended Percussion/Palpation: abdomen soft; abdomen nontender Neurologic: awake; not confused Psychiatric: A+Ox3, euthymic affect Lymphatic: no cervical or axillary lymphadenopathy Results & Data Vital Signs (Past 12 Hours) Vital Signs Temp Pulse Pulse Pulse Resp BP BP 11/12/19 07:45 85 16 11/12/19 07:20 36.4 C L 95 H 18 127/80 11/11/19 23:50 83 16 11/11/19 23:10 86 16 11/11/19 23:04 36.7 C 88 16 115/62 Pulse Ox 11/12/19 07:45 98 11/12/19 07:20 97 11/11/19 23:50 98 11/11/19 23:10 97 11/11/19 23:04 97 PG Care Time/CCT Total # of Minutes Spent Total Time Spent with Patient: Total time spent is greater than 50% in coordination of care (as documented) at patient's floor/unit and/or counseling patient: 25 Time Spent Midlevel Total time spent 25 minutes with > 50% of that time spent assessing the patient and discussing goals of care with patient in the room
[2019-11-12] MEDS ORDERED: COLLAGENASE OINT 30 GM TUBE EXT SCH (12:00)
--- NOTE | 2019-11-12 14:30 | Discharge Summary ---
Date of Service November 12, 2019 Admission HPI Per Admitting Provider 69 y/o F c/o L LE redness, swelling, and pain. 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 She did not get lightheaded or pass out, she simply lost her balance. She states that she has not fallen "in many, many years" prior to this. She felt onto a carpeted floor and landed on her L LE. She had noted "rug burn" on the L knee at that time. She states she did not think much of the situation until the last few days when she developed increased swelling, redness, and pain the L LE along most of her leg into her foot. It continued to worsen, so she came to the ED today for eval. Pt denies fever, chest pain, abd pain, n/v/c/d. She tolerates PO without issue. She states the bruising on her R knee was not noted until a few days ago, but no new falls. Pt states she has baseline SOB due to COPD. She is on 4L continuous home O2 and has not required increased levels of O2. Pt has hx of recurrent cdiff and takes vanco PO weekly on Saturdays. She has been told this will be a lifelong tx. Principal Diagnosis Cellulitis Discharge Exam Constitutional WD/WN, vitals as above Respiratory normal respiratory effort, lungs clear to auscultation Cardiovascular RRR, no murmur, no edema Gastrointestinal (Abdomen) Inspection/Auscultation: abdomen normal to inspection and normal bowel sounds; abdomen not distended Percussion/Palpation: abdomen soft; abdomen nontender Musculoskeletal no cyanosis or clubbing, extremities motor strength 5/5 Skin no rashes, warm and dry Neurologic moves all extremities and awake Psychiatric A+Ox3, euthymic affect Discharge Data Allergies Allergy/AdvReac Type Severity Reaction Status Date / Time codeine Allergy Intermediate FACIAL Verified 11/07/19 17:15 SWELLING atropine Allergy Unknown UNKNOWN Verified 11/07/19 17:15 diphenoxylate Allergy Unknown UNKNOWN Verified 11/07/19 17:15 moxifloxacin Allergy Unknown UNKNOWN Verified 11/07/19 17:15 prednisone AdvReac Mild BLURRED Verified 11/07/19 17:15 VISION Consultations 11/07/19 17:39 ED Decision to Admit Stat 11/07/19 19:25 Consult Case Management - Discharge Planning Routine Consult Infectious Diseases Routine 11/08/19 15:00 Consult Palliative Care Routine Ordered Studies 11/08/19 13:36 US venous doppler LE BI Routine 11/08/19 16:40 CT pelvis w/IV con only Urgent Hospital Course (1) Cellulitis of left lower extremity: * Likely related to recent fall on Oct 26 -- mechanical in nature * wire coiler consult * Xray with evidence of cellulitis * DC'd IV vancomycin especially as creatinine was trending up and started Keflex TID 500 mg for renal dosing 11/10 - will give 10 day course * ID consult -- appreciate input * Elevate extremity * US Doppler negative for DVT, however demonstrate hypoechoic collection of the left inguinal tissues measuring up to 8.2 cm, possibly reflective of a liquefied hematoma so a CT was performed - * CT pelvis w/ IV as above -- no abscess or drainable fluid collection. Shows decrease in size of a iliopsoas bursitis -- however, cystic lesion of right adnexum will need non-emergent pelvic ultrasound -- could be done as outpatient * no orthostasis with orthostatic vss (2) Fall: * Mechanical * Lives alone with cat, 4 steps * PT/OT with rec for Home Health as patient refuses rehab. We did discuss again that her therapist recommendations are leaning toward rehab as her mobility is a bit unsteady but she does not wish to go to rehab (3) Clostridium difficile colitis: * Hx of recurrent cdiff * Per ID- continue vanc daily for additional 14 days after systemic abx discontinued and then return to home vanc dosing qWeek * ID consult-- appreciate input (4) COPD (chronic obstructive pulmonary disease): * Stable, no current exacerbation, although patient with elevated CO2 at 43 which is around baseline. Encourage bipap use * Baseline 4L O2 via [place] - could consider titrating this down at home, she has been saturating mid to high 90s here * Continue home meds, nebulizers * Per chart, patient with Palliative consultation in February - revisited this admission to confirm POLST - patient wishes to be DNR. Encouraged to pick a POA as she has no decision maker in place. (5) Hypothyroidism: * Continue home meds. TSH 3.6 * Continue home levothyroxine 137mcg (6) Swelling of lower limb: * Baseline R LE swelling which she takes lasix and HCTZ for (as well as BP) * Continue HCTZ * Continue to monitor (7) Hypertension: * Chronic. Stable. 120/66 * Continue home lasix 40mg, HCTZ 25mg * Continue to monitor (8) GERD (gastroesophageal reflux disease): * Chronic. Stable * Continue home protonix 40mg (9) Depression: * Continue home citalopram (10) Adnexal cyst: * As above * Cystic lesion of the right adnexum measures 1.8 x 2.1 x 5.4 cm. Correlation with a follow-up nonemergent pelvic ultrasound recommended. (11) B12 deficiency: * Low normal at 393, could account for her macrocytic anemia * Oral supplements PO -- continue at discharge * Folate normal (12) DVT prophylaxis: * Heparin for DVT proph * Doppler b/l LE NEGATIVE for DVT Total Time Total Time Spent Total Time Spent (In Minutes): greater than 30 minutes Discharge Plan Discharge Items Patient Disposition: Home - Home Health Services Reason For Visit: CELLULITIS Discharge Diagnosis: Cellulitis Activity: Resume your previous activity Activity Comment: gradually as tolerated Non-emergency contact: Primary Care Provider Call non-emergency contact if: you have any medication questions, your symptoms worsen, your pain is not controlled and you have a fever Follow-up/Referrals: Alvaro Castillo MD [Primary Care Provider] - 11/17/19 1:15 pm (Please, follow up at Dr. Castillo's office with his associate, Deepali Marvin PA-C, on SundayNovember 17 at 1:15 pm. *If you need to change this appointment, call their office at [phone].) Diet: Regular Addtl Attending Provider Instructions: (1) Cellulitis of left lower extremity: Continue left knee wound care with daily saline cleanse, Santyl applications, and Aquacel. [place] to abrasions on toes You will continue cephalexin for 5 more days for a total of 10 days. Keep your leg elevated when you are at rest (2) Fall: Home Health physical and occupational therapy will evaluate and treat you. (3) Clostridium difficile colitis: Per Infectious Disease consult - you should continue vancomycin daily for additional 14 days after the cephalexin is completed discontinued and then return to home vancomycin dosing every week (4) COPD (chronic obstructive pulmonary disease): Please continue to use your bipap at night Continue home medications, nebulizers (5) Hypothyroidism: Continue home levothyroxine Your TSH was 3.6 (6) Swelling of lower limb: Continue furosemide and HCTZ You may want to discuss vascular studies or and EMG for neuropathy with your primary care provider if you continue to feel discomfort in your lower extremities (7) Hypertension: Continue home furosemide 40mg, HCTZ 25mg Continue to monitor (8) GERD (gastroesophageal reflux disease): Continue home pantoprazole (9) Depression: Continue home citalopram (10) Adnexal cyst: Cystic lesion of the right adnexum measures 1.8 x 2.1 x 5.4 cm. You will need a non emergent follow up imaging of this. Please discuss with your doctor at your next appointment (11) B12 deficiency: Low normal B12 level at 393, which could account for your anemia Continue B12 supplements Pending Studies at Discharge: No Stand-Alone Forms: My [employer], Smoking Cessation Medications and DC Order Prescriptions: New cephalexin 500 mg Capsule 500 mg PO BID Qty: 10 RF: 0 cyanocobalamin (vitamin B-12) 100 mcg Tablet 100 mcg PO QAM Qty: 30 RF: 0 Santyl 250 unit/gram Ointment 1 applic EXT DAILY Qty: 1 RF: 0 Lactobacillus acidoph-L.bulgar [Floranex] 1 million cell Tablet 4 tab PO QIDM Qty: 120 RF: 0 Continued citalopram [Celexa] 20 mg tablet 40 mg PO DAILY Qty: 180 RF: 3 hydrochlorothiazide 12.5 mg capsule 12.5 mg PO DAILY Qty: 30 RF: 11 fluticasone propion-salmeterol [Advair Diskus] 500-50 mcg/dose blister with device 1 puffs Inhalation BID Qty: 3 RF: 3 multivitamin [Daily Multiple] tablet 1 tab PO DAILY RF: 0 estradiol [Estrace] 1 mg tablet 1 mg PO DAILY RF: 0 pantoprazole 40 mg tablet,delayed release (DR/EC) 40 mg PO DAILY Qty: 30 RF: 11 levothyroxine [Synthroid] 137 mcg tablet 137 mcg PO DAILY Qty: 90 RF: 3 furosemide [Lasix] 40 mg tablet 40 mg PO DAILY Qty: 90 RF: 3 meloxicam 7.5 mg tablet 7.5 mg PO DAILY Qty: 30 RF: 4 ipratropium-albuterol 0.5 mg-3 mg(2.5 mg base)/3 mL solution for nebulization 3 ml Inhalation Q4 RF: 0 albuterol sulfate 90 mcg/actuation aerosol powdr breath activated 2 inh INH Q4H PRN (Reason: Shortness Of Breath Or Wheezing) RF: 0 Changed vancomycin 125 mg capsule 125 mg PO HS Qty: 20 RF: 0 Discharge Orders: Discharge Order (Routine); Ordered 11/12/19 Ordered By: Maisha Cooper Admission Data Admit Date/Time: 11/07/19 18:21 Attending Provider: Mehrdad Quiñones Admit Provider: Sandra Wood Primary Care Provider: Alvaro Castillo Other Providers: Faye Cummings ; [facility] ; Marti Boyd ; Mehrdad Quiñones. Other Interventions: Discharge Summary Assessment (RN) Last Done: 11/12/19 15:47 DC Date/Time DO NOT enter until pt leaves facility: 11/12/19 16:14 Supervising Physician Co-Signing Physician Notes I supervised Maisha Cooper NP on this patient's care. I examined the patient today independently of her. I discussed the plan of care with her with the plan being as written in her note except for any following changes/exceptions: None.
== END 2019-11-12 16:14 | disposition home health service (06) | DRG 603 ==
LOC: ED 15:53 → 3W 18:21 → SUATTDRO 18:21 → 3W 18:53

== ENCOUNTER 2020-04-05 17:14 | Inpatient (IN) ==
[2020-04-05] MEDS ORDERED: ALBUT/IPRATROP 3MG/0.5MG NEB 3 ML VIAL ONE (17:27)
[2020-04-05] MEDS ORDERED: RAPID SEQUENCE INDUCTION BAG ONE (17:33)
[2020-04-05] MEDS ORDERED: STAT IV Infusion **Titration per Protocol STA ×2 (17:49→19:27)
[2020-04-05] MEDS ORDERED: methylPREDNISolone 125 MG/2 ML VIAL IV STA (17:49)
[2020-04-05] MEDS ORDERED: VANCOMYCIN HCL IV ONE (17:51)
[2020-04-05] MEDS ORDERED: SODIUM CHLORIDE 0.9% IV ONE (17:51)
[2020-04-05] MEDS ORDERED: VANCOMYCIN CONSULT ACTIVE PRN (17:51)
[2020-04-05] MEDS: propofoL 1,000 MG/100 ML VIAL IV SCH ×3 (17:57→21:39)
--- NOTE | 2020-04-05 17:58 | Emergency Department Note ---
History of Present Illness General Chief complaint: Shortness of Breath/Dyspnea Stated complaint: AMS Time Seen by Provider: 04/05/20 17:21 Source: RN notes reviewed Limitations: altered mental status History of Present Illness Provider complaint: Change in mental status Onset (ago): day(s) Associated symptoms: + shortness of breath History is very limited due to the patient's altered mental status. She is nonverbal. I did obtain history from the nurse as well as her sister over the telephone. Apparently she was seen on Sunday by her PCP for cellulitis. She w as placed on Keflex. Yesterday she seemed lethargic and was sleeping most of the day. This afternoon the patient was still in bed and not responding verbally and so EMS was called. EMS did give her a DuoNeb prior to arrival. She has had no known fevers at home. According to her sister the patient is a full code. Home Medications Home Medications Medication Instructions Recorded Confirmed Type multivitamin 1 tab PO DAILY 05/21/19 04/05/20 History estradiol 1 mg tablet 1 mg PO DAILY tab 06/12/19 04/05/20 History levothyroxine 137 mcg tablet 137 mcg PO DAILY #90 tab 09/08/19 04/05/20 Rx citalopram 20 mg tablet 40 mg PO DAILY #180 tab 09/23/19 04/05/20 Rx albuterol sulfate 2 inh INH Q4H PRN 11/07/19 04/05/20 History ipratropium-albuterol 3 ml INHALATION Q4H 11/07/19 04/05/20 History Lactobacillus acidoph-L.bulgar 1 1 tab PO QIDM tab 11/17/19 04/05/20 History million cell tablet vancomycin 125 mg capsule 125 mg PO WEEKLY cap 12/10/19 04/05/20 History hydrochlorothiazide 12.5 mg PO DAILY 02/25/20 04/05/20 History cephalexin 500 mg capsule 500 mg PO TID #30 cap 04/02/20 04/05/20 Rx fluticasone propion-salmeterol 2 inh INHALATION DAILY 04/05/20 04/05/20 History [Wixela Inhub] furosemide 40 mg PO DAILY 04/05/20 04/05/20 History pantoprazole 40 mg PO DAILY 04/05/20 04/05/20 History Allergies Allergy/AdvReac Type Severity Reaction Status Date / Time codeine Allergy Intermediate FACIAL Verified 02/25/20 16:11 SWELLING atropine Allergy Unknown UNKNOWN Verified 02/25/20 16:11 diphenoxylate Allergy Unknown UNKNOWN Verified 02/25/20 16:11 moxifloxacin Allergy Unknown UNKNOWN Verified 02/25/20 16:11 prednisone AdvReac Mild BLURRED Verified 02/25/20 16:11 VISION Past Med/Surg History Medical History (Updated 04/06/20 @ 00:54 by Renato Valle MD) Adnexal cyst B12 deficiency Carpal tunnel syndrome (Resolved 04/28/13) Cellulitis of right ankle (Resolved) Chronic respiratory failure with hypoxia and hypercapnia Clostridium difficile colitis COPD (chronic obstructive pulmonary disease) (Acute) Depression Fall GERD (gastroesophageal reflux disease) History of fracture of right ankle Hypercholesterolemia Hypertension Hypothyroidism Lumbar disc disease (Acute) Spinal stenosis (Acute) Surgical History History of carpal tunnel surgery Previous back surgery S/P hysterectomy Status post bilateral knee replacements Status post hip surgery Family History Grandmother Breast cancer Mother Congestive heart failure Arthritis Social History Preferred Language: Iranian Communication Ability: Effective Manager [employer] Required: No Beliefs That Will Affect Care: None marital status: / Current Living Situation: Alone Current Living Situation Comment: lives in [place] current occupational status: 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 Unobtainable due to reduced consciousness Physical Exam Vital Signs Vital Signs - 24 hr 04/05/20 17:05 04/05/20 17:22 04/05/20 17:30 Temperature Temperature Source Pulse Rate 118 H 94 H Pulse Rate from SpO2 Sensor Respiratory Rate 23 16 Respiratory Effort / Characteristics Blood Pressure 168/121 H Blood Pressure Mean 127 Pulse Oximetry 98 99 Oxygen Delivery Method Nebulizer Oxygen Flow Rate 15 Fraction of Inspired Oxygen 60 Sepsis Action Taken by Nursing 04/05/20 17:34 04/05/20 17:39 04/05/20 17:40 Temperature Temperature Source Pulse Rate 118 H 118 H 117 H Pulse Rate from SpO2 Sensor 118 H 117 H Respiratory Rate 25 H 23 27 H Respiratory Effort / Characteristics Blood Pressure 177/100 H 161/107 H Blood Pressure Mean 133 128 Pulse Oximetry 98 97 Oxygen Delivery Method Oxygen Flow Rate Fraction of Inspired Oxygen Sepsis Action Taken by Nursing 04/05/20 17:43 04/05/20 17:45 04/05/20 17:49 Temperature Temperature Source Pulse Rate 106 H Pulse Rate from SpO2 Sensor 107 H Respiratory Rate 12 Respiratory Effort / Characteristics Blood Pressure 142/84 H Blood Pressure Mean 90 Pulse Oximetry 98 94 Oxygen Delivery Method Nebulizer Oxygen Flow Rate Fraction of Inspired Oxygen Sepsis Action Taken by Nursing 04/05/20 18:00 04/05/20 18:01 04/05/20 18:05 Temperature Temperature Source Pulse Rate 108 H 102 H 105 H Pulse Rate from SpO2 Sensor 104 H 104 H 105 H Respiratory Rate 16 18 18 Respiratory Effort / Characteristics Blood Pressure 188/69 H 170/115 H Blood Pressure Mean 75 129 Pulse Oximetry 97 98 99 Oxygen Delivery Method Oxygen Flow Rate Fraction of Inspired Oxygen Sepsis Action Taken by Nursing 04/05/20 18:10 04/05/20 18:15 04/05/20 18:16 Temperature Temperature Source Pulse Rate 100 H 101 H 100 H Pulse Rate from SpO2 Sensor 103 H 100 H 98 H Respiratory Rate 18 16 16 Respiratory Effort / Characteristics Blood Pressure 141/80 H 113/75 Blood Pressure Mean 95 100 Pulse Oximetry 99 98 98 Oxygen Delivery Method Oxygen Flow Rate Fraction of Inspired Oxygen 50 Sepsis Action Taken by Nursing 04/05/20 18:20 04/05/20 18:25 04/05/20 18:30 Temperature 36.4 C L Temperature Source Oral Pulse Rate 97 H 96 H 95 H Pulse Rate from SpO2 Sensor 90 96 H 89 Respiratory Rate 18 18 18 Respiratory Effort / Characteristics Labored Blood Pressure 123/73 95/74 L 94/69 L Blood Pressure Mean 86 79 77 Pulse Oximetry 98 98 98 Oxygen Delivery Method Nebulizer Oxygen Flow Rate Fraction of Inspired Oxygen Sepsis Action Taken by Nursing No Action Required 04/05/20 18:31 04/05/20 18:35 04/05/20 18:40 Temperature Temperature Source Pulse Rate 93 H 93 H 94 H Pulse Rate from SpO2 Sensor 93 H 93 H 92 H Respiratory Rate 20 18 18 Respiratory Effort / Characteristics Blood Pressure 84/55 L 119/44 L 99/50 L Blood Pressure Mean 63 70 70 Pulse Oximetry 98 98 99 Oxygen Delivery Method Oxygen Flow Rate Fraction of Inspired Oxygen Sepsis Action Taken by Nursing 04/05/20 18:45 04/05/20 18:50 04/05/20 18:55 Temperature Temperature Source Pulse Rate 96 H 92 H 90 Pulse Rate from SpO2 Sensor 95 H 95 H 89 Respiratory Rate 18 18 18 Respiratory Effort / Characteristics Blood Pressure 111/59 L 115/58 L 102/35 L Blood Pressure Mean 61 69 75 Pulse Oximetry 100 100 100 Oxygen Delivery Method Oxygen Flow Rate Fraction of Inspired Oxygen Sepsis Action Taken by Nursing 04/05/20 19:00 04/05/20 19:01 04/05/20 19:02 Temperature Temperature Source Pulse Rate 89 89 89 Pulse Rate from SpO2 Sensor 82 85 84 Respiratory Rate 14 19 18 Respiratory Effort / Characteristics Blood Pressure 92/44 L 112/80 Blood Pressure Mean 63 86 Pulse Oximetry 100 100 100 Oxygen Delivery Method Oxygen Flow Rate Fraction of Inspired Oxygen Sepsis Action Taken by Nursing 04/05/20 19:05 04/05/20 19:11 04/05/20 19:15 Temperature Temperature Source Pulse Rate 91 H 89 88 Pulse Rate from SpO2 Sensor 90 85 78 Respiratory Rate 16 18 18 Respiratory Effort / Characteristics Blood Pressure 119/61 120/58 L Blood Pressure Mean 72 87 Pulse Oximetry 100 100 100 Oxygen Delivery Method Oxygen Flow Rate Fraction of Inspired Oxygen Sepsis Action Taken by Nursing 04/05/20 19:16 04/05/20 19:20 Temperature Temperature Source Pulse Rate 91 H 92 H Pulse Rate from SpO2 Sensor 80 83 Respiratory Rate 18 18 Respiratory Effort / Characteristics Blood Pressure 112/54 L 113/83 Blood Pressure Mean 78 105 Pulse Oximetry 100 100 Oxygen Delivery Method Oxygen Flow Rate Fraction of Inspired Oxygen Sepsis Action Taken by Nursing The physical exam is limited due to the patient's condition. Constitutional: Vital signs reviewed. Eyes: Pupils are equal round reactive to light. Conjunctiva are noninjected. HENT: Normocephalic atraumatic. Respiratory: Poor airway movement bilaterally with expiratory wheezing. Breath sounds are equal bilaterally. Cardiovascular: Tachycardic. Regular rhythm.. GI: Soft, nondistended and nontender. Bowel sounds are present. Musculoskeletal: Increased warmth and erythema to the left lower extremity. Slight erythema and warmth to the right ankle as well. Integumentary: No cyanosis. Neurological: The patient is unresponsive. She will open her eyes briefly to sternal rub. Psychiatric: Unable to assess. Procedures Intubation Time out performed: Yes sedative: Etomidate Mg Given: 20 paralytic: Succinylcholine Mg Given: 140 Laryngoscope: other (Video glide scope) ET Tube Size: 7.5 ET Tube Uncuffed: Yes Tube Secured Depth (cm): 23 Tube Secured Location: lips Tube Placement Confirmation: visualized tube passing through cords, equal breath sounds bilaterally, no breath sounds over epigastrium and confirmation by capnometry Patient Tolerated Procedure: no complications Intubation Complications: none Course Administered Medications Albuterol (Ventolin Hfa) 4 puffs INH Q4R COSMO; Protocol Stop: 05/05/20 22:59 Last Admin: 04/05/20 23:43 Dose: 4 puffs Documented by: [id number] Propofol (Diprivan) 1,000 mg in 100 mls @ 16.56 mls/hr IV .Q6H3M COSMO; Protocol Stop: 04/08/20 17:59 Last Admin: 04/05/20 21:34 Dose: 45 mcg/kg/min, 24.8 mls/hr Documented by: [id number] Cosigned by: [id number] Titration: 04/05/20 21:34 Dose: 45 mcg/kg/min, 24.8 mls/hr Documented by: [id number] Cosigned by: [id number] Titration: 04/05/20 19:52 Dose: 45 mcg/kg/min, 24.8 mls/hr Documented by: [id number] Titration: 04/05/20 19:33 Dose: 40 mcg/kg/min, 22.1 mls/hr Documented by: [id number] Titration: 04/05/20 19:16 Dose: 35 mcg/kg/min, 19.3 mls/hr Documented by: [id number] Titration: 04/05/20 19:03 Dose: 30 mcg/kg/min, 16.6 mls/hr Documented by: [id number] Titration: 04/05/20 18:50 Dose: 25 mcg/kg/min, 13.8 mls/hr Documented by: [id number] Titration: 04/05/20 18:31 Dose: 20 mcg/kg/min, 11 mls/hr Documented by: [id number] Titration: 04/05/20 18:24 Dose: 25 mcg/kg/min, 13.8 mls/hr Documented by: [id number] Titration: 04/05/20 18:19 Dose: 20 mcg/kg/min, 11 mls/hr Documented by: [id number] Titration: 04/05/20 18:07 Dose: 15 mcg/kg/min, 8.3 mls/hr Documented by: [id number] Admin: 04/05/20 17:57 Dose: 10 mcg/kg/min, 5.5 mls/hr Documented by: [id number] Cosigned by: [id number] Doxycycline Hyclate 100 mg/ (Dextrose) 110 mls @ 50 mls/hr IV Q12H COSMO Stop: 04/12/20 19:29 Last Admin: 04/05/20 21:35 Dose: 50 mls/hr Documented by: [id number] Parenteral Electrolytes (Normosol-R) 1,000 mls @ 125 mls/hr IV .Q8H COSMO Stop: 05/05/20 19:29 Last Admin: 04/05/20 21:35 Dose: 125 mls/hr Documented by: [id number] Fentanyl Citrate (Fentanyl Drip) 1,250 mcg in 250 mls @ 5 mls/hr IV .Q24H COSMO; Protocol Stop: 04/19/20 19:29 Last Admin: 04/05/20 21:34 Dose: 25 mcg/hr, 5 mls/hr Documented by: [id number] Cosigned by: [id number] Propofol (Diprivan) 1,000 mg in 100 mls @ 11.16 mls/hr IV .Q8H58M COSMO; Protocol Stop: 04/08/20 19:29 Last Admin: 04/05/20 21:39 Dose: Not Given Documented by: [id number] Discontinued Medications Fentanyl Citrate (Fentanyl Citrate) 50 mcg IV Q1H PRN PRN Reason: RASS -1 Stop: 04/05/20 21:00 Last Admin: 04/05/20 20:06 Dose: 50 mcg Documented by: [id number] Vancomycin HCl 2,000 mg/ (Sodium Chloride) 540 mls @ 200 mls/hr IV NOW ONE Stop: 04/05/20 21:11 Last Infusion: 04/05/20 21:52 Dose: 200 mls/hr Documented by: [id number] Admin: 04/05/20 19:10 Dose: 200 mls/hr Documented by: [id number] Cefepime HCl 2,000 mg/ Syringe 20 mls @ 5.5 mls/min IV Q8H COSMO; Protocol Stop: 04/12/20 19:29 Last Admin: 04/05/20 22:56 Dose: Not Given Documented by: [id number] Piperacillin Sod/Tazobactam (Sod 3.375 gm/ Dextrose) 115 mls @ 28.75 mls/hr IV Q8H COSMO; Protocol Stop: 04/07/20 19:29 Last Infusion: 04/05/20 22:10 Dose: 28.8 mls/hr Documented by: [id number] Admin: 04/05/20 21:40 Dose: 28.8 mls/hr Documented by: [id number] Sodium Chloride (Nss 1000ml) 1,000 mls @ 999 mls/hr IV .Q1H1M ONE Stop: 04/05/20 20:42 Last Infusion: 04/05/20 20:36 Dose: 999 mls/hr Documented by: [id number] Admin: 04/05/20 19:35 Dose: 999 mls/hr Documented by: [id number] Piperacillin Sod/Tazobactam Sod (Zosyn) 4.5 gm in 120 mls @ 240 mls/hr IV NOW ONE Stop: 04/05/20 20:29 Last Infusion: 04/05/20 22:10 Dose: 240 mls/hr Documented by: [id number] Admin: 04/05/20 21:40 Dose: 240 mls/hr Documented by: [id number] Piperacillin Sod/Tazobactam (Sod 4.5 gm/ Dextrose) 120 mls @ 200 mls/hr IV NOW ONE; Protocol Stop: 04/05/20 21:50 Last Infusion: 04/05/20 22:11 Dose: 200 mls/hr Documented by: [id number] Admin: 04/05/20 21:35 Dose: 200 mls/hr Documented by: [id number] Methylprednisolone (Solumedrol) 60 mg IV NOW STA Stop: 04/05/20 17:50 Last Admin: 04/05/20 18:20 Dose: 60 mg Documented by: [id number] Miscellaneous () Confirm Administered Dose 1 ea .ROUTE .STK-MED ONE Stop: 04/05/20 17:34 Last Admin: 04/05/20 17:42 Dose: 1 ea Documented by: [id number] Miscellaneous (Patient's Height And/Or Weight Needed) 1 ea N/A Q2H COSMO Stop: 05/05/20 18:29 Last Admin: 04/05/20 22:58 Dose: Not Given Documented by: [id number] Admin: 04/05/20 22:55 Dose: Not Given Documented by: [id number] Propofol (Diprivan Bolus From Bag) 20 mg IV Q5M PRN PRN Reason: Sedation Stop: 04/08/20 17:48 Last Admin: 04/05/20 19:20 Dose: 30 mg Documented by: [id number] Cosigned by: [id number] Admin: 04/05/20 18:11 Dose: 20 mg Documented by: [id number] Cosigned by: [id number] Admin: 04/05/20 18:04 Dose: 20 mg Documented by: [id number] Cosigned by: [id number] Vecuronium [place] (Norcuron) 10 mg IV NOW STA Stop: 04/05/20 18:37 Last Admin: 04/05/20 22:55 Dose: Not Given Documented by: [id number] Critical Care Time Critical Care Time: Yes Total Critical Care Time: 40 I have personally spent approximately 40 minutes of critical care time in the di rect management of this patient. This includes bedside care, interpretation of diagnostic studies, and testing, discussion with consultants, patient, and family members, and other required patient management activities. These minutes are in excess of all separately billable procedures. Medical Decision Making Differential Diagnosis Sepsis, respiratory failure, hypercapnia, cellulitis, COVID-19 Medical Records Attestation: I reviewed the patient's medical records. The patient was seen for cellulitis of the leg on Sunday by her PCP. She was placed on Keflex. She was admitted last month for cellulitis of the leg which was complicated by respiratory failure requiring BiPAP. Home Medications Current Medication List: was personally reviewed by me Laboratory Data Attestation: I reviewed the patient's lab results. Result diagrams: 04/05/20 17:34 04/05/20 21:21 Lab Results 04/05/20 04/05/20 04/05/20 Range/Units 17:34 17:34 17:34 WBC 15.92 H (4.8-10.8) K/uL RBC 4.19 L (4.2-5.4) M/uL Hgb 11.9 L (12.0-16.0) g/dL Hct 40.5 (37-47) % MCV 96.7 (80-100) fL MCH 28.4 (25-34) pg MCHC 29.4 L (32-36) g/dL RDW Std Deviation 54.6 H (36.4-46.3) fL RDW Coeff of Judy 15.4 H (11.5-14.5) % Plt Count 195 (130-400) K/uL MPV 12.3 H (7.4-10.4) fL Immature Gran % (Auto) 0.6 % Neut % (Auto) 86.3 % Lymph % (Auto) 8.2 % Garvin % (Auto) 4.7 % Eos % (Auto) 0.1 % Baso % (Auto) 0.1 % Immature Gran # (Auto) 0.09 H (0.00-0.02) K/uL Neut # (Auto) 13.74 H (1.4-6.5) K/uL Lymph # (Auto) 1.31 (1.2-3.4) K/uL Garvin # (Auto) 0.75 H (0.11-0.59) K/uL Eos # (Auto) 0.02 (0-0.5) K/uL Baso # (Auto) 0.01 (0-0.2) K/uL Absolute Nucleated RBC 0.02 H (0-0) K/uL Nucleated RBC % (auto) 0.1 % ESR (0-21) mm/hr PT 10.2 (9.0-12.0) Seconds INR 1.0 (0.9-1.1) APTT 29.1 (21.0-31.0) Seconds PTT Ratio 1.0 Sodium 134 L (136-145) mmol/L Potassium 3.6 (3.5-5.1) mmol/L Chloride 86 L (98-107) mmol/L Carbon Dioxide 43 H* (21-32) mmol/L Anion Gap 3.0 (3-11) BUN 33 H (7-18) mg/dl Creatinine 1.14 (0.6-1.2) mg/dl Est Cr Clr Drug Dosing Not Reportable Est GFR ( Amer) 56.0 Est GFR (Non-Af Amer) 48.3 BUN/Creatinine Ratio 28.9 H (10-20) Glucose 142 H (70-99) mg/dl Lactate (0.4-2.0) mmol/L Calcium 9.8 (8.5-10.1) mg/dl Magnesium (1.8-2.4) mg/dl Total Bilirubin 1.2 H (0.2-1) mg/dl AST 140 H (15-37) U/L ALT 94 H (12-78) U/L Alkaline Phosphatase 205 H (45-117) U/L Troponin I (0-0.045) ng/ml C-Reactive Protein (0-0.29) mg/dl Total Protein 8.3 H (6.4-8.2) gm/dl Albumin 3.4 (3.4-5.0) gm/dl Globulin 4.9 H (2.5-4.0) gm/dl Albumin/Globulin Ratio 0.7 L (0.9-2) Procalcitonin (0-0.5) ng/ml COVID-19 PCR (Negative) Influenza Type A (PCR) (Neg) Influenza Type B (PCR) (Neg) SARS-CoV-2 RNA (RT-PCR) 04/05/20 04/05/20 04/05/20 Range/Units 17:34 17:34 17:34 WBC (4.8-10.8) K/uL RBC (4.2-5.4) M/uL Hgb (12.0-16.0) g/dL Hct (37-47) % MCV (80-100) fL MCH (25-34) pg MCHC (32-36) g/dL RDW Std Deviation (36.4-46.3) fL RDW Coeff of Judy (11.5-14.5) % Plt Count (130-400) K/uL MPV (7.4-10.4) fL Immature Gran % (Auto) % Neut % (Auto) % Lymph % (Auto) % Garvin % (Auto) % Eos % (Auto) % Baso % (Auto) % Immature Gran # (Auto) (0.00-0.02) K/uL Neut # (Auto) (1.4-6.5) K/uL Lymph # (Auto) (1.2-3.4) K/uL Garvin # (Auto) (0.11-0.59) K/uL Eos # (Auto) (0-0.5) K/uL Baso # (Auto) (0-0.2) K/uL Absolute Nucleated RBC (0-0) K/uL Nucleated RBC % (auto) % ESR > 90 H (0-21) mm/hr PT (9.0-12.0) Seconds INR (0.9-1.1) APTT (21.0-31.0) Seconds PTT Ratio Sodium (136-145) mmol/L Potassium (3.5-5.1) mmol/L Chloride (98-107) mmol/L Carbon Dioxide (21-32) mmol/L Anion Gap (3-11) BUN (7-18) mg/dl Creatinine (0.6-1.2) mg/dl Est Cr Clr Drug Dosing Est GFR ( Amer) Est GFR (Non-Af Amer) BUN/Creatinine Ratio (10-20) Glucose (70-99) mg/dl Lactate (0.4-2.0) mmol/L Calcium (8.5-10.1) mg/dl Magnesium 2.3 (1.8-2.4) mg/dl Total Bilirubin (0.2-1) mg/dl AST (15-37) U/L ALT (12-78) U/L Alkaline Phosphatase (45-117) U/L Troponin I 0.105 H* (0-0.045) ng/ml C-Reactive Protein (0-0.29) mg/dl Total Protein (6.4-8.2) gm/dl Albumin (3.4-5.0) gm/dl Globulin (2.5-4.0) gm/dl Albumin/Globulin Ratio (0.9-2) Procalcitonin 1.11 H (0-0.5) ng/ml COVID-19 PCR (Negative) Influenza Type A (PCR) (Neg) Influenza Type B (PCR) (Neg) SARS-CoV-2 RNA (RT-PCR) 04/05/20 04/05/20 04/05/20 Range/Units 17:34 17:59 18:25 WBC (4.8-10.8) K/uL RBC (4.2-5.4) M/uL Hgb (12.0-16.0) g/dL Hct (37-47) % MCV (80-100) fL MCH (25-34) pg MCHC (32-36) g/dL RDW Std Deviation (36.4-46.3) fL RDW Coeff of Judy (11.5-14.5) % Plt Count (130-400) K/uL MPV (7.4-10.4) fL Immature Gran % (Auto) % Neut % (Auto) % Lymph % (Auto) % Garvin % (Auto) % Eos % (Auto) % Baso % (Auto) % Immature Gran # (Auto) (0.00-0.02) K/uL Neut # (Auto) (1.4-6.5) K/uL Lymph # (Auto) (1.2-3.4) K/uL Garvin # (Auto) (0.11-0.59) K/uL Eos # (Auto) (0-0.5) K/uL Baso # (Auto) (0-0.2) K/uL Absolute Nucleated RBC (0-0) K/uL Nucleated RBC % (auto) % ESR (0-21) mm/hr PT (9.0-12.0) Seconds INR (0.9-1.1) APTT (21.0-31.0) Seconds PTT Ratio Sodium (136-145) mmol/L Potassium (3.5-5.1) mmol/L Chloride (98-107) mmol/L Carbon Dioxide (21-32) mmol/L Anion Gap (3-11) BUN (7-18) mg/dl Creatinine (0.6-1.2) mg/dl Est Cr Clr Drug Dosing Est GFR ( Amer) Est GFR (Non-Af Amer) BUN/Creatinine Ratio (10-20) Glucose (70-99) mg/dl Lactate 1.4 (0.4-2.0) mmol/L Calcium (8.5-10.1) mg/dl Magnesium (1.8-2.4) mg/dl Total Bilirubin (0.2-1) mg/dl AST (15-37) U/L ALT (12-78) U/L Alkaline Phosphatase (45-117) U/L Troponin I (0-0.045) ng/ml C-Reactive Protein 21.60 H (0-0.29) mg/dl Total Protein (6.4-8.2) gm/dl Albumin (3.4-5.0) gm/dl Globulin (2.5-4.0) gm/dl Albumin/Globulin Ratio (0.9-2) Procalcitonin (0-0.5) ng/ml COVID-19 PCR (Negative) Influenza Type A (PCR) Neg for Influ A (Neg) Influenza Type B (PCR) Neg for Influ B (Neg) SARS-CoV-2 RNA (RT-PCR) 04/05/20 04/05/20 Range/Units 18:25 18:25 WBC (4.8-10.8) K/uL RBC (4.2-5.4) M/uL Hgb (12.0-16.0) g/dL Hct (37-47) % MCV (80-100) fL MCH (25-34) pg MCHC (32-36) g/dL RDW Std Deviation (36.4-46.3) fL RDW Coeff of Judy (11.5-14.5) % Plt Count (130-400) K/uL MPV (7.4-10.4) fL Immature Gran % (Auto) % Neut % (Auto) % Lymph % (Auto) % Garvin % (Auto) % Eos % (Auto) % Baso % (Auto) % Immature Gran # (Auto) (0.00-0.02) K/uL Neut # (Auto) (1.4-6.5) K/uL Lymph # (Auto) (1.2-3.4) K/uL Garvin # (Auto) (0.11-0.59) K/uL Eos # (Auto) (0-0.5) K/uL Baso # (Auto) (0-0.2) K/uL Absolute Nucleated RBC (0-0) K/uL Nucleated RBC % (auto) % ESR (0-21) mm/hr PT (9.0-12.0) Seconds INR (0.9-1.1) APTT (21.0-31.0) Seconds PTT Ratio Sodium (136-145) mmol/L Potassium (3.5-5.1) mmol/L Chloride (98-107) mmol/L Carbon Dioxide (21-32) mmol/L Anion Gap (3-11) BUN (7-18) mg/dl Creatinine (0.6-1.2) mg/dl Est Cr Clr Drug Dosing Est GFR ( Amer) Est GFR (Non-Af Amer) BUN/Creatinine Ratio (10-20) Glucose (70-99) mg/dl Lactate (0.4-2.0) mmol/L Calcium (8.5-10.1) mg/dl Magnesium (1.8-2.4) mg/dl Total Bilirubin (0.2-1) mg/dl AST (15-37) U/L ALT (12-78) U/L Alkaline Phosphatase (45-117) U/L Troponin I (0-0.045) ng/ml C-Reactive Protein (0-0.29) mg/dl Total Protein (6.4-8.2) gm/dl Albumin (3.4-5.0) gm/dl Globulin (2.5-4.0) gm/dl Albumin/Globulin Ratio (0.9-2) Procalcitonin (0-0.5) ng/ml COVID-19 PCR NEGATIVE (Negative) Influenza Type A (PCR) (Neg) Influenza Type B (PCR) (Neg) SARS-CoV-2 RNA (RT-PCR) Cancelled Imaging Data Radiologist's Impression: SINGLE VIEW CHEST CLINICAL HISTORY: Sepsis. FINDINGS: An AP, portable, supine chest radiograph is compared to study dated 02/28/2020. Correlation is made with chest CT dated 02/27/2019. The examination is degraded by portable technique and patient rotation. An endotracheal tube has been placed. The tip projects approximately 3 cm above the reji. The heart is top normal for projection. Patchy airspace consolidation is seen at the right lung base. Milder airspace opacities noted at the left lung base. No large pleural effusion or pneumothorax is seen. The skeletal structures are osteopenic. The bony thorax is grossly intact. IMPRESSION: 1. An endotracheal tube has been placed as above. 2. There is patchy airspace consolidation at the right lung base. Correlate clinically for evidence of pneumonia/aspiration pneumonitis. Radiographic follow-up to resolution is recommended. ACT 112: Negative or not required by law. Electronically signed by: Ludin Felipe M.D. 04/05/2020 6:19 PM ECG Data Attestation: I personally reviewed and interpreted this ECG as follows: Indication: + altered mental status Rate (beats per minute): 105 Rhythm: + sinus tachycardia ECG Intervals/blocks: + Prolonged QT ECG ST segments: no ST elevation ECG Findings: + PVCs Blood Pressure Blood Pressure Findings: Elevated blood pressure Blood Pressure Disposition: further management by hospitalist REMIGIO Freeman I did evaluate the patient as noted above. The patient is obtunded and only opens her eyes briefly to sternal rub. She is tachypneic and has poor air entry bilaterally. She does require intubation. I did call her sister over the telephone to confirm that she has full code. IV access was established. I did place an order for continuous cardiac monitoring. The monitor showed sinus tachycardia with a rate of 110. I did perform rapid sequence intubation as described above. The patient was given IV succinylcholine and etomidate. I did remove her dentures and the intubation was performed without complication using the glide scope. I did order and personally review the patient's 12-lead EKG as described above. She has no acute ischemic changes. She does have a prolonged QT. I did order and personally reviewed the images of the patient's chest x-ray as described above. She has some patchy airspace consolidation in the right lung. ET tube is in good place. I did order a urine analysis. I did order and review the patient's blood work as noted in the electronic medical record. Her white blood cell count is elevated. Troponin is also elevated. Blood gas shows a respiratory acidosis with a PaCO2 of 105. PaO2 is 145. pH is 7.2 patient with a hour-long continuous nebulizer using albuterol and Atrovent. She was also given Solu-Medrol 60 mg IV. I did treat her with vancomycin IV for her cellulitis. Antibiotics for respiratory coverage as per the hospitalist. Patient was placed on a propofol drip. I did speak to the gas meter repairer as well as the hospitalist. The patient was admitted to the ICU. COVID testing was negative. Flu testing was negative. The patient did become briefly hypotensive from the propofol drip and it was scaled back titrated down and her blood pressure improved. She continued to have wheezing on exam. Impression & Plan Respiratory failure without hypercapnia, Acute alteration in mental status, Pneumonia, Cellulitis, Failure of outpatient treatment Discharge Plan Visit Data *Final* Discharge Date/Time: 04/05/20 20:13 Chief Complaint: Shortness of Breath/Dyspnea Stated Complaint: AMS ED Provider: Renato Valle Discharge Problem: Respiratory failure without hypercapnia, Acute alteration in mental status, Pneumonia, Cellulitis, Failure of outpatient treatment Patient Disposition: Admitted As Inpatient Discharge Instructions Interventions: ED Discharge Assessment Last Done: 04/05/20 20:13 Discharge Problem: Pneumonia Qualifiers: Pneumonia type: due to unspecified organism Laterality: right Lung location: lower lobe of lung Qualified Code(s): J18.9 - Pneumonia, unspecified organism Cellulitis Qualifiers: Site of cellulitis: extremity Site of cellulitis of extremity: lower extremity Laterality: unspecified laterality Qualified Code(s): L03.119 - Cellulitis of unspecified part of limb
[2020-04-05] MEDS: PROPOFOL BOLUS FROM BAG IV PRN ×3 (18:04→19:20)
[2020-04-05 18:06] LABS: Basophils # (auto) 0.01 K/uL (0-0.2); Basophils % (auto) 0.1 %; Eosinophils # (auto) 0.02 K/uL (0-0.5); Eosinophils % (auto) 0.1 %; Hematocrit (blood only) 40.5 % (37-47); Hemoglobin 11.9 g/dL (12.0-16.0); Immature Granulocytes # (auto) 0.09 K/uL (0.00-0.02); Immature Granulocytes % (auto) 0.6 %; Lymphocytes # (auto) 1.31 K/uL (1.2-3.4); Lymphocytes % (auto) 8.2 %; Mean Corpuscular Hemoglobin 28.4 pg (25-34); Mean Corpuscular Hgb Conc 29.4 g/dL (32-36); Mean Corpuscular Volume 96.7 fL (80-100); Mean Platelet Volume 12.3 fL (7.4-10.4); Monocytes # (auto) 0.75 K/uL (0.11-0.59); Monocytes % (auto) 4.7 %; Neutrophils # (auto) 13.74 K/uL (1.4-6.5); Neutrophils % (auto) 86.3 %; Nucleated RBC # (auto) 0.02 K/uL (0-0); Nucleated RBC % (auto) 0.1 %; Platelet Count 195 K/uL (130-400); RDW Coefficient of Variation 15.4 % (11.5-14.5); RDW Standard Deviation 54.6 fL (36.4-46.3); Red Blood Count 4.19 M/uL (4.2-5.4); White Blood Count 15.92 K/uL (4.8-10.8)
[2020-04-05 18:18] LABS: Partial Thromboplastin Time 29.1 Seconds (21.0-31.0); Prothrombin Time 10.2 Seconds (9.0-12.0)
--- NOTE | 2020-04-05 18:20 | XRay Report ---
SINGLE VIEW CHEST CLINICAL HISTORY: Sepsis. FINDINGS: An AP, portable, supine chest radiograph is compared to study dated 02/28/2020. Correlation i s made with chest CT dated 02/27/2019. The examination is degraded by portable technique and patient ro tation. An endotracheal tube has been placed. The tip projects approximately 3 cm above the reji. T he heart is top normal for projection. Patchy airspace consolidation is seen at the right lung base. Milder airspace opacities noted at the left lung base. No large pleural effusion or pneumothorax is s een. The skeletal structures are osteopenic. The bony thorax is grossly intact. IMPRESSION: 1. An endotracheal tube has been placed as above. 2. There is patchy airspace consolidation at the right lung base. Correlate clinically for evidence o f pneumonia/aspiration pneumonitis. Radiographic follow-up to resolution is recommended. ACT 112: Negative or not required by law. Electronically signed by: Ludin Felipe M.D. 04/05/2020 6:19 PM
[2020-04-05 18:27] LABS: Alanine Aminotransferase 94 U/L (12-78); Albumin Globulin Ratio 0.7 (0.9-2); Albumin Level 3.4 gm/dl (3.4-5.0); Alkaline Phosphatase 205 U/L (45-117); Aspartate Aminotransferase 140 U/L (15-37); BUN Creatinine Ratio 28.9 (10-20); Bilirubin,Total 1.2 mg/dl (0.2-1); Blood Urea Nitrogen 33 mg/dl (7-18); Calcium 9.8 mg/dl (8.5-10.1); Carbon Dioxide 43 mmol/L (21-32); Chloride 86 mmol/L (98-107); Est GFR (Non-African American) 48.3; Globulin 4.9 gm/dl (2.5-4.0); Glucose 142 mg/dl (70-99); Potassium 3.6 mmol/L (3.5-5.1); Sodium 134 mmol/L (136-145); Total Protein 8.3 gm/dl (6.4-8.2)
[2020-04-05] MEDS ORDERED: VANCOMYCIN HCL 2,000 MG in SODIUM CHLORIDE 0.9% 500 ML IV ONE (18:30)
[2020-04-05] MEDS ORDERED: VECURONIUM BROMIDE 10 MG VIAL IV STA (18:36)
--- NOTE | 2020-04-05 18:53 | Critical Care Consultation ---
Date of Consultation April 05, 2020 Assessment & Plan (1) Acute and chronic respiratory failure: EKG: Sinus tachycardia, no ST-T wave changes appreciated, PVCs, normal axis. QTC 520 Chest x-ray: Right lower lobe opacity appreciated, this has been present even on 02/27/2020. It seems that it has decreased in intensity to some extent. Bilateral costophrenic and cardiophrenic angles are clean -- VDRF Likely secondary to COPD exacerbation Continue with inhaled bronchodilators, steroids and antibiotic Continue with ventilatory support Keep RASS -1 Daily sedation holidays and SBT's Chlorhexidine mouthwash. Keep O2 saturation between 88 to 92%. --Elevated WBC Patient was history of cellulitis patient was apparently on Keflex at home Procalcitonin 1.11, ESR greater than 90, influenza negative, Covid-19 PCR negative Patient does have an infiltrate in the right lower lobe were looking at the chest x-ray which was done a month ago she had that infiltrate even at that time it seems to be it is improving. Bilateral lower extremities are erythematous, edematous there is no purulent discharge. Would continue with broad-spectrum antibiotics with atypical coverage Follow-up septic work-up --LATOYA Patient has BiPAP at home with a setting 12/6 cm H2O Currently intubated We will continue with the same setting after extubation --Hypothyroidism Continue with Synthroid --History of C. difficile On chronic vancomycin We will again order C. difficile --History of hypertension Hold blood pressure medication --Prolonged QTC Avoid QT prolonging medication Keep magnesium greater than 2 --Prophylaxis GI: Protonix VTE: Lovenox Diet: N.p.o. I have personally spent 61 minutes of critical care time in the direct management of this patient. This is a life/limb threatening event. This includes time spent evaluating patient, direct bedside care, chart review, placing orders, interpretation of diagnostic studies, discussion with consultants, patient, and family members, as well as other required patient management activities. This time is exclusive of all separately billable procedures, and teaching time and separate from and in addition to any other critical care service time. Please note the above document was generated using voice recognition software. It may contain grammatical, syntax or spelling errors. (2) COPD (chronic obstructive pulmonary disease): (3) Cellulitis of right lower extremity: (4) GERD (gastroesophageal reflux disease): History of Present Illness History of Present Illness 69-year-old female with past medical history of COPD on home O2 4 L continuous, LATOYA on BiPAP at home, chronic C. difficile on vancomycin p.o. weekly for chronic suppression, hypothyroidism, hypertension was recently admitted to the hospital last month for COPD exacerbation lower extremity cellulitis. Patient got antibiotics at that time. Patient was recently seen by her primary doctor and was started on Keflex for possible lower extremity cellulitis. She has not been feeling well since yesterday family called today where she says she has not been feeling well and is lethargic. When the EMS reached the house patient was somnolent. In the ED patient was found to be tachypneic and hypoxic and was subsequently intubated. History obtained from previous chart and ED notes. Allergies Allergy/AdvReac Type Severity Reaction Status Date / Time codeine Allergy Intermediate FACIAL Verified 02/25/20 16:11 SWELLING atropine Allergy Unknown UNKNOWN Verified 02/25/20 16:11 diphenoxylate Allergy Unknown UNKNOWN Verified 02/25/20 16:11 moxifloxacin Allergy Unknown UNKNOWN Verified 02/25/20 16:11 prednisone AdvReac Mild BLURRED Verified 02/25/20 16:11 VISION Home Medications Home Medications Medication Instructions Recorded Confirmed Type multivitamin 1 tab PO DAILY 05/21/19 02/25/20 History estradiol 1 mg tablet 1 mg PO DAILY tab 06/12/19 04/05/20 History levothyroxine 137 mcg tablet 137 mcg PO DAILY #90 tab 09/08/19 04/05/20 Rx citalopram 20 mg tablet 40 mg PO DAILY #180 tab 09/23/19 02/25/20 Rx albuterol sulfate 2 inh INH Q4H PRN 11/07/19 02/25/20 History ipratropium-albuterol 3 ml INHALATION Q4 11/07/19 02/25/20 History Lactobacillus acidoph-L.bulgar 1 1 tab PO QIDM tab 11/17/19 02/25/20 History million cell tablet vancomycin 125 mg capsule 125 mg PO WEEKLY cap 12/10/19 04/05/20 History hydrochlorothiazide 12.5 mg PO DAILY 02/25/20 04/05/20 History cephalexin 500 mg capsule 500 mg PO TID #30 cap 04/02/20 Rx fluticasone propion-salmeterol 2 inh INHALATION DAILY 04/05/20 04/05/20 History [Wixela Inhub] furosemide 40 mg PO DAILY 04/05/20 04/05/20 History pantoprazole 40 mg PO DAILY 04/05/20 04/05/20 History Patient History Medical History Adnexal cyst B12 deficiency Carpal tunnel syndrome (Resolved 04/28/13) Cellulitis of right ankle (Resolved) Clostridium difficile colitis COPD (chronic obstructive pulmonary disease) (Acute) Depression Fall GERD (gastroesophageal reflux disease) Hypercholesterolemia Hypertension Hypothyroidism Lumbar disc disease (Acute) Spinal stenosis (Acute) Surgical History History of carpal tunnel surgery Previous back surgery S/P hysterectomy Status post bilateral knee replacements Status post hip surgery Family History Grandmother Breast cancer Unknown Diabetes Heart disease Hypertension Mother Congestive heart failure Arthritis Social History Preferred Language: Irish Communication Ability: Effective Larry Operator Required: No Beliefs That Will Affect Care: None marital status: / Current Living Situation: Alone Current Living Situation Comment: lives in [place] current occupational status: 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[employer] [place] other: grief due to loss of ( 2017) and son ( 2017); 1 son living Feels Safe at Home: Yes Smoking Status: Former smoker Tobacco Type: cigarettes ; packs per day: 1 ; Number of Years Since Quit: 15 ; Second Hand Exposure: No ; Hx Alcohol Use: No Hx Substance Use: No Review of Systems Review of Systems: Unobtainable due to endotracheal tube Physical Exam Physical Exam: Constitutional: No acute distress HEENT: PERRLA, positive ETT Respiratory system: Decreased air entry bilaterally, no wheeze, no rhonchi, positive crackles right lower lobe CVS: S1-S2 positive, no murmurs or gallops, distant heart sounds Abdomen: Soft, nontender, nondistended, positive bowel sounds x4 Extremities: +2 pulses bilaterally radialis/ dorsalis pedis, no cyanosis, +1 edema bilateral lower extremity, positive rubor, positive calor bilateral lower extremities more on the left side, no fluctuance appreciated on either leg. Neuro: Positive pupillary, positive corneal, patient moving all extremities on awakening, Rass -1 Psych: Unable to assess G/U: No Skin: + erythema Lymphatic: no cervical or axillary lymphadenopathy Coding Level of Care Code Critical Care 1st 30-74 mins Diagnoses Acute and chronic respiratory failure J96.20 COPD (chronic obstructive pulmonary disease) J44.9 COPD type: unspecified COPD Cellulitis of right lower extremity L03.115 GERD (gastroesophageal reflux disease) K21.9 Time Spent (min) 61 (1) COPD (chronic obstructive pulmonary disease) COPD type: unspecified COPD Qualified Code(s): J44.9 - Chronic obstructive pulmonary disease, unspecified
[2020-04-05 19:01] LABS: Magnesium 2.3 mg/dl (1.8-2.4); Troponin I 0.105 ng/ml (0-0.045)
[2020-04-05 19:19] LABS: Influenza A virus by PCR Neg for Influ A (Neg); Influenza B virus by PCR Neg for Influ B (Neg)
--- NOTE | 2020-04-05 19:26 | History & Physical Report ---
Date of Service April 05, 2020 Assessment & Plan (1) Acute and chronic respiratory failure: acute component - 2nd to COPD exacerbation +/- RLL pneumonia +/- early sepsis due to multiple potential sources of infection (cellulitis, ?RLL pneumonia, etc). s/p intubation in ER. cont broad-spectrum IV abx, IV steroids, supportive care. defer vent management to critical care attending. of note - COVID-19 PCR negative. (2) Chronic respiratory failure with hypoxia and hypercapnia: on home O2, 4 liters continuously (3) COPD (chronic obstructive pulmonary disease): with probable exacerbation. solumedrol 40mg IV q8h. albuterol MDI via vent circuit. defer other management to critical care attending. (4) Metabolic encephalopathy: likely multifactorial - early sepsis (?) + hypercarbia + hypoxia + other factors. supportive care. (5) Cellulitis of right lower extremity: in a background of chronic venous stasis changes. broad-spectrum IV antibiotics started. of note - sed rate/crp markedly elevated. (6) Cellulitis of left lower extremity: in a background of chronic venous stasis changes. as above. (7) Hypothyroidism: TSH 10/2019 wnl. Cont synthroid. (8) Hypertension: hold home meds (9) Hyponatremia: mild serial BMPs fluids (10) RLL pneumonia: question of broad-spectrum IV antibiotics will cover (zosyn, vanco, doxy). need to cover for gram negatives due to previous hospitalization in February 2020. follow cultures. (11) Abnormal LFTs: CT abd/pelvis a few years ago showed gallstones. Check RUQ u/s - r/o cholecystitis. repeat LFTs am. (12) Clostridium difficile colitis: past history of. if any diarrhea then check c diff testing. (13) Clonus: left ankle if mental status fails to improve with supportive measures - check head imaging (14) DVT prophylaxis: lovenox daily emergency contact Trena Mcgarry updated by phone plan of care d/w Dr Addison critical care time 60 minutes including coordinating care, updating family, orders, etc History of Present Illness Chief Complaint: altered mental status Primary Care Provider: Alvaro Castillo MD 69yo female with COPD and chronic hypoxic/hypercarbic respiratory failure on 4 L NC O2 continuously who presented to [facility] via EMS due to altered mental status. Patient was in respiratory distress upon arrival to [facility] ER and was subsequently intubated. I called and spoke with Trena Mcgarry who is a close friend. Trena also spoke with Ms. Giron's sister today. According to Ms. Giron's sister she saw the patient yesterday and she seemed fine. No fever, no vomiting or diarrhea, no reported cough or difficulty breathing. Today Ms. Mcgarry and the patient's sister called her this AM and she was altered. She apparently told her sister she "didn't feel good" this morning. The patient must have gone back to sleep. By the afternoon Ms. Mcgarry and the patient's sister hadn't heard from her again. They attempted to call Ms. Giron's home without success. Out of concern the patient's sister called 911 and EMS was summoned to the patient's home. Upon arrival there she was significantly altered. No recent travel. No COVID-19 exposures. Patient was apparently placed on keflex sometime late last week for developing cellulitis of her right leg. Allergies Allergy/AdvReac Type Severity Reaction Status Date / Time codeine Allergy Intermediate FACIAL Verified 02/25/20 16:11 SWELLING atropine Allergy Unknown UNKNOWN Verified 02/25/20 16:11 diphenoxylate Allergy Unknown UNKNOWN Verified 02/25/20 16:11 moxifloxacin Allergy Unknown UNKNOWN Verified 02/25/20 16:11 prednisone AdvReac Mild BLURRED Verified 02/25/20 16:11 VISION Home Medications Home Medications Medication Instructions Recorded Confirmed Type multivitamin 1 tab PO DAILY 05/21/19 04/05/20 History estradiol 1 mg tablet 1 mg PO DAILY tab 06/12/19 04/05/20 History levothyroxine 137 mcg tablet 137 mcg PO DAILY #90 tab 09/08/19 04/05/20 Rx citalopram 20 mg tablet 40 mg PO DAILY #180 tab 09/23/19 04/05/20 Rx albuterol sulfate 2 inh INH Q4H PRN 11/07/19 04/05/20 History ipratropium-albuterol 3 ml INHALATION Q4H 11/07/19 04/05/20 History Lactobacillus acidoph-L.bulgar 1 1 tab PO QIDM tab 11/17/19 04/05/20 History million cell tablet vancomycin 125 mg capsule 125 mg PO WEEKLY cap 12/10/19 04/05/20 History hydrochlorothiazide 12.5 mg PO DAILY 02/25/20 04/05/20 History cephalexin 500 mg capsule 500 mg PO TID #30 cap 04/02/20 04/05/20 Rx fluticasone propion-salmeterol 2 inh INHALATION DAILY 04/05/20 04/05/20 History [Wixela Inhub] furosemide 40 mg PO DAILY 04/05/20 04/05/20 History pantoprazole 40 mg PO DAILY 04/05/20 04/05/20 History Past Med/Surg History Medical History (Updated 04/05/20 @ 21:48 by Zack Jaffe) Adnexal cyst B12 deficiency Carpal tunnel syndrome (Resolved 04/28/13) Cellulitis of right ankle (Resolved) Chronic respiratory failure with hypoxia and hypercapnia Clostridium difficile colitis COPD (chronic obstructive pulmonary disease) (Acute) Depression Fall GERD (gastroesophageal reflux disease) History of fracture of right ankle Hypercholesterolemia Hypertension Hypothyroidism Lumbar disc disease (Acute) Spinal stenosis (Acute) Surgical History History of carpal tunnel surgery Previous back surgery S/P hysterectomy Status post bilateral knee replacements Status post hip surgery Family History Grandmother Breast cancer Mother Congestive heart failure Arthritis Social History Preferred Language: Greek Communication Ability: Effective Orthodontic Treatment Coordinator Required: No Beliefs That Will Affect Care: None marital status: / Current Living Situation: Alone Current Living Situation Comment: lives in [place] current occupational status: 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[employer] other: grief due to loss of ( 2017) and son ( 2017); 1 son living Feels Safe at Home: Yes Smoking Status: Unknown if ever smoked Review of Systems Review of Systems: Unobtainable due to endotracheal tube Physical Exam Constitutional: + obese; no acute distress intubated/sedated Eyes: + anicteric sclerae and PERRL ENMT: ETT in place Neck: trachea midline, no thyromegaly Respiratory: Auscultation: + diminished lung sounds (bases) and + crackles (faint, right base) Cardiovascular: Rate/Rhythm: + irregularly irregular Heart Sounds: normal S1 and normal S2; no murmur Vessels: posterior tibial pulses present and dorsalis pedis pulses present; no JVD Extremities: + edema (1+ b/l ) Gastrointestinal (Abdomen): normal bowel sounds, soft, nontender, no hepatosplenomegaly Musculoskeletal: right ankle deformity with scar, lateral aspect Skin: stasis changes b/l shins; ?cellulitis b/l shins, worse on right, with warm erythema; no joint effusions Neurologic: moves all extremities +ankle clonus on left; upcoming great toe on left; negative great toe response on right Psychiatric: Orientation: + not alert and + not oriented x 3 Lymphatic: no cervical lymphadenopathy Results & Data Results & Data ([facility]) Vital Signs (Past 12 Hours) Vital Signs Temp Pulse Resp BP Pulse Ox 04/05/20 19:20 92 H 18 113/83 100 04/05/20 19:16 91 H 18 112/54 L 100 04/05/20 19:15 88 18 100 04/05/20 19:11 89 18 120/58 L 100 04/05/20 19:05 91 H 16 119/61 100 04/05/20 19:02 89 18 112/80 100 04/05/20 19:01 89 19 92/44 L 100 04/05/20 19:00 89 14 100 04/05/20 18:55 90 18 102/35 L 100 04/05/20 18:50 92 H 18 115/58 L 100 04/05/20 18:45 96 H 18 111/59 L 100 04/05/20 18:40 94 H 18 99/50 L 99 04/05/20 18:35 93 H 18 119/44 L 98 04/05/20 18:31 93 H 20 84/55 L 98 04/05/20 18:30 95 H 18 94/69 L 98 04/05/20 18:25 36.4 C L 96 H 18 95/74 L 98 04/05/20 18:20 97 H 18 123/73 98 04/05/20 18:16 100 H 16 113/75 98 04/05/20 18:15 101 H 16 98 04/05/20 18:10 100 H 18 141/80 H 99 04/05/20 18:05 105 H 18 170/115 H 99 04/05/20 18:01 102 H 18 188/69 H 98 04/05/20 18:00 108 H 16 97 04/05/20 17:45 106 H 12 142/84 H 94 04/05/20 17:43 98 04/05/20 17:40 117 H 27 H 161/107 H 97 04/05/20 17:39 118 H 23 177/100 H 98 04/05/20 17:34 118 H 25 H 04/05/20 17:30 94 H 16 99 04/05/20 17:22 118 H 23 168/121 H 04/05/20 17:05 98 Laboratory Results Laboratory Results - last 24 hr 04/05/20 04/05/20 04/05/20 17:34 17:34 17:34 WBC 15.92 H RBC 4.19 L Hgb 11.9 L Hct 40.5 MCV 96.7 MCH 28.4 MCHC 29.4 L RDW Std Deviation 54.6 H RDW Coeff of Judy 15.4 H Plt Count 195 MPV 12.3 H Immature Gran % (Auto) 0.6 Neut % (Auto) 86.3 Lymph % (Auto) 8.2 Webb % (Auto) 4.7 Eos % (Auto) 0.1 Baso % (Auto) 0.1 Immature Gran # (Auto) 0.09 H Neut # (Auto) 13.74 H Lymph # (Auto) 1.31 Webb # (Auto) 0.75 H Eos # (Auto) 0.02 Baso # (Auto) 0.01 Absolute Nucleated RBC 0.02 H Nucleated RBC % (auto) 0.1 ESR PT 10.2 INR 1.0 APTT 29.1 PTT Ratio 1.0 ABG pH ABG pCO2 ABG pO2 ABG HCO3 ABG O2 Saturation ABG Base Excess Chetan Test Barometric Pressure Oxygen Given Sodium 134 L Potassium 3.6 Chloride 86 L Carbon Dioxide 43 H* Anion Gap 3.0 BUN 33 H Creatinine 1.14 Est Cr Clr Drug Dosing Not Reportable Est GFR ( Amer) 56.0 Est GFR (Non-Af Amer) 48.3 BUN/Creatinine Ratio 28.9 H Glucose 142 H Lactate Calcium 9.8 Magnesium Total Bilirubin 1.2 H AST 140 H ALT 94 H Alkaline Phosphatase 205 H Troponin I C-Reactive Protein Total Protein 8.3 H Albumin 3.4 Globulin 4.9 H Albumin/Globulin Ratio 0.7 L Procalcitonin Urine Color Urine Appearance Urine pH Ur Specific [place] Urine Protein Urine Glucose (UA) Urine Ketones Urine Blood Urine Nitrite Urine Bilirubin Urine Urobilinogen Ur Leukocyte Esterase Urine WBC (Auto) Urine RBC (Auto) U Hyaline Cast (Auto) U Epithel Cells (Auto) Urine Bacteria (Auto) Ur Renal Epithelial Cell Urine Yeast Nasal Screen MRSA (PCR) COVID-19 PCR Influenza Type A (PCR) Influenza Type B (PCR) SARS-CoV-2 RNA (RT-PCR) 04/05/20 04/05/20 04/05/20 17:34 17:34 17:34 WBC RBC Hgb Hct MCV MCH MCHC RDW Std Deviation RDW Coeff of Judy Plt Count MPV Immature Gran % (Auto) Neut % (Auto) Lymph % (Auto) Webb % (Auto) Eos % (Auto) Baso % (Auto) Immature Gran # (Auto) Neut # (Auto) Lymph # (Auto) Webb # (Auto) Eos # (Auto) Baso # (Auto) Absolute Nucleated RBC Nucleated RBC % (auto) ESR > 90 H PT INR APTT PTT Ratio ABG pH ABG pCO2 ABG pO2 ABG HCO3 ABG O2 Saturation ABG Base Excess Chetan Test Barometric Pressure Oxygen Given Sodium Potassium Chloride Carbon Dioxide Anion Gap BUN Creatinine Est Cr Clr Drug Dosing Est GFR ( Amer) Est GFR (Non-Af Amer) BUN/Creatinine Ratio Glucose Lactate Calcium Magnesium 2.3 Total Bilirubin AST ALT Alkaline Phosphatase Troponin I 0.105 H* C-Reactive Protein Total Protein Albumin Globulin Albumin/Globulin Ratio Procalcitonin 1.11 H Urine Color Urine Appearance Urine pH Ur Specific [place] Urine Protein Urine Glucose (UA) Urine Ketones Urine Blood Urine Nitrite Urine Bilirubin Urine Urobilinogen Ur Leukocyte Esterase Urine WBC (Auto) Urine RBC (Auto) U Hyaline Cast (Auto) U Epithel Cells (Auto) Urine Bacteria (Auto) Ur Renal Epithelial Cell Urine Yeast Nasal Screen MRSA (PCR) COVID-19 PCR Influenza Type A (PCR) Influenza Type B (PCR) SARS-CoV-2 RNA (RT-PCR) 04/05/20 04/05/20 04/05/20 17:34 17:59 18:25 WBC RBC Hgb Hct MCV MCH MCHC RDW Std Deviation RDW Coeff of Judy Plt Count MPV Immature Gran % (Auto) Neut % (Auto) Lymph % (Auto) Webb % (Auto) Eos % (Auto) Baso % (Auto) Immature Gran # (Auto) Neut # (Auto) Lymph # (Auto) Webb # (Auto) Eos # (Auto) Baso # (Auto) Absolute Nucleated RBC Nucleated RBC % (auto) ESR PT INR APTT PTT Ratio ABG pH ABG pCO2 ABG pO2 ABG HCO3 ABG O2 Saturation ABG Base Excess Chetan Test Barometric Pressure Oxygen Given Sodium Potassium Chloride Carbon Dioxide Anion Gap BUN Creatinine Est Cr Clr Drug Dosing Est GFR ( Amer) Est GFR (Non-Af Amer) BUN/Creatinine Ratio Glucose Lactate 1.4 Calcium Magnesium Total Bilirubin AST ALT Alkaline Phosphatase Troponin I C-Reactive Protein 21.60 H Total Protein Albumin Globulin Albumin/Globulin Ratio Procalcitonin Urine Color Urine Appearance Urine pH Ur Specific [place] Urine Protein Urine Glucose (UA) Urine Ketones Urine Blood Urine Nitrite Urine Bilirubin Urine Urobilinogen Ur Leukocyte Esterase Urine WBC (Auto) Urine RBC (Auto) U Hyaline Cast (Auto) U Epithel Cells (Auto) Urine Bacteria (Auto) Ur Renal Epithelial Cell Urine Yeast Nasal Screen MRSA (PCR) COVID-19 PCR Influenza Type A (PCR) Neg for Influ A Influenza Type B (PCR) Neg for Influ B SARS-CoV-2 RNA (RT-PCR) 04/05/20 04/05/20 04/05/20 18:25 18:25 21:21 WBC RBC Hgb Hct MCV MCH MCHC RDW Std Deviation RDW Coeff of Judy Plt Count MPV Immature Gran % (Auto) Neut % (Auto) Lymph % (Auto) Webb % (Auto) Eos % (Auto) Baso % (Auto) Immature Gran # (Auto) Neut # (Auto) Lymph # (Auto) Webb # (Auto) Eos # (Auto) Baso # (Auto) Absolute Nucleated RBC Nucleated RBC % (auto) ESR PT INR APTT PTT Ratio ABG pH 7.50 H ABG pCO2 50 H ABG pO2 65 L ABG HCO3 38 H ABG O2 Saturation 94.3 ABG Base Excess 13.4 H Chetan Test POS Barometric Pressure 740.8 Oxygen Given O2 FLOW RATE 15 Sodium Potassium Chloride Carbon Dioxide Anion Gap BUN Creatinine Est Cr Clr Drug Dosing Est GFR ( Amer) Est GFR (Non-Af Amer) BUN/Creatinine Ratio Glucose Lactate Calcium Magnesium Total Bilirubin AST ALT Alkaline Phosphatase Troponin I C-Reactive Protein Total Protein Albumin Globulin Albumin/Globulin Ratio Procalcitonin Urine Color Urine Appearance Urine pH Ur Specific [place] Urine Protein Urine Glucose (UA) Urine Ketones Urine Blood Urine Nitrite Urine Bilirubin Urine Urobilinogen Ur Leukocyte Esterase Urine WBC (Auto) Urine RBC (Auto) U Hyaline Cast (Auto) U Epithel Cells (Auto) Urine Bacteria (Auto) Ur Renal Epithelial Cell Urine Yeast Nasal Screen MRSA (PCR) COVID-19 PCR NEGATIVE Influenza Type A (PCR) Influenza Type B (PCR) SARS-CoV-2 RNA (RT-PCR) Cancelled 04/05/20 04/05/20 04/05/20 21:21 Unknown Unknown WBC RBC Hgb Hct MCV MCH MCHC RDW Std Deviation RDW Coeff of Judy Plt Count MPV Immature Gran % (Auto) Neut % (Auto) Lymph % (Auto) Webb % (Auto) Eos % (Auto) Baso % (Auto) Immature Gran # (Auto) Neut # (Auto) Lymph # (Auto) Webb # (Auto) Eos # (Auto) Baso # (Auto) Absolute Nucleated RBC Nucleated RBC % (auto) ESR PT INR APTT PTT Ratio ABG pH ABG pCO2 ABG pO2 ABG HCO3 ABG O2 Saturation ABG Base Excess Chetan Test Barometric Pressure Oxygen Given Sodium Pending Potassium Pending Chloride Pending Carbon Dioxide Pending Anion Gap Pending BUN Pending Creatinine Pending Est Cr Clr Drug Dosing Pending Est GFR ( Amer) Pending Est GFR (Non-Af Amer) Pending BUN/Creatinine Ratio Pending Glucose Pending Lactate Calcium Pending Magnesium Total Bilirubin AST ALT Alkaline Phosphatase Troponin I C-Reactive Protein Total Protein Albumin Globulin Albumin/Globulin Ratio Procalcitonin Urine Color Dark Yellow Urine Appearance Cloudy A Urine pH 5.0 Ur Specific [place] 1.020 Urine Protein 2+ H Urine Glucose (UA) Negative Urine Ketones Negative Urine Blood Trace H Urine Nitrite Negative Urine Bilirubin Negative Urine Urobilinogen Negative Ur Leukocyte Esterase Negative Urine WBC (Auto) Pending Urine RBC (Auto) Pending U Hyaline Cast (Auto) Pending U Epithel Cells (Auto) Pending Urine Bacteria (Auto) Pending Ur Renal Epithelial Cell Pending Urine Yeast Pending Nasal Screen MRSA (PCR) Pending COVID-19 PCR Influenza Type A (PCR) Influenza Type B (PCR) SARS-CoV-2 RNA (RT-PCR) Diagnostic Findings 1. cxr - IMPRESSION: 1. An endotracheal tube has been placed as above. 2. There is patchy airspace consolidation at the right lung base. Correlate clinically for evidence of pneumonia/aspiration pneumonitis. Radiographic follow-up to resolution is recommended. 2. EKG - my reading - NSR, PVC, no ST changes; prolonged QTc Code Status & VTE Plan Code Status full code VTE Prophylaxis Plan VTE Prophylaxis will be ordered: Yes Critical Care Time Critical Care Time: Yes Total Critical Care Time: 60 PG Care Time/CCT Total # of Minutes Spent Total Time Spent with Patient: Total time spent is greater than 50% in coordination of care (as documented) at patient's floor/unit and/or counseling patient: Critical Care Time: Yes Total Critical Care Time: 60 Coding Level of Care Code None Diagnoses Acute and chronic respiratory failure J96.21; J96.22 Respiratory failure complication: hypoxia and hypercapnia Chronic respiratory failure with hypoxia and hypercapnia J96.11; J96.12 COPD (chronic obstructive pulmonary disease) J44.9 COPD type: unspecified COPD Metabolic encephalopathy G93.41 Cellulitis of right lower extremity L03.115 Cellulitis of left lower extremity L03.116 Hypothyroidism E03.9 Hypothyroidism type: unspecified Hypertension I10 Hypertension type: essential hypertension Hyponatremia E87.1 RLL pneumonia J18.9 Pneumonia type: due to unspecified organism Abnormal LFTs R94.5 Clostridium difficile colitis A04.72 Clonus R25.8 DVT prophylaxis Z29.9 Additional Codes Critical Care Time - Critical Care Time: Yes ([id number]) (1) Acute and chronic respiratory failure Respiratory failure complication: hypoxia and hypercapnia Qualified Code(s): J96.21 - Acute and chronic respiratory failure with hypoxia; J96.22 - Acute and chronic respiratory failure with hypercapnia (2) COPD (chronic obstructive pulmonary disease) COPD type: unspecified COPD Qualified Code(s): J44.9 - Chronic obstructive pulmonary disease, unspecified (3) Hypothyroidism Hypothyroidism type: unspecified Qualified Code(s): E03.9 - Hypothyroidism, unspecified (4) Hypertension Hypertension type: essential hypertension Qualified Code(s): I10 - Essential (primary) hypertension (5) RLL pneumonia Pneumonia type: due to unspecified organism Qualified Code(s): J18.9 - Pneumonia, unspecified organism
[2020-04-05] MEDS ORDERED: FENTANYL BOLUS FROM BAG IV PRN (19:27)
[2020-04-05] MEDS ORDERED: ACETAMINOPHEN 325 MG TAB PO PRN (19:27)
[2020-04-05] MEDS ORDERED: PROPOFOL BOLUS FROM BAG IV PRN (19:27)
[2020-04-05] MEDS ORDERED: PIPERACILL/TAZOBAC CONSULT ACTIVE PRN (19:29)
[2020-04-05] MEDS ORDERED: PIPERACILLIN/TAZOBACTAM 3.375 GM in DEXTROSE 5% 100 ML IV SCH (19:30)
[2020-04-05] MEDS ORDERED: fentaNYL DRIP 1,250 MCG/250 ML BAG IV SCH (19:30)
[2020-04-05] MEDS ORDERED: CEFEPIME 2,000 MG in SYRINGE 7.5 ML IV SCH (19:30)
[2020-04-05] MEDS ORDERED: SODIUM CHLORIDE 0.9% 1000ML 1,000 ML IV ONE (19:42)
[2020-04-05] MEDS ORDERED: fentaNYL citrate 100 MCG/2 ML VIAL IV PRN (19:45)
[2020-04-05] MEDS ORDERED: PIPERACILLIN/TAZOBACTAM 4.5 GM/120 ML BAG IV ONE (20:00)
[2020-04-05] MEDS ORDERED: ICU PROTOCOL FOR HYPERGLYCEMIA PRN (20:54)
[2020-04-05] MEDS ORDERED: PIPERACILLIN/TAZOBACTAM 4.5 GM in DEXTROSE 5% 100 ML IV ONE (21:15)
[2020-04-05 21:25] LABS: Appearance Urine Cloudy (Clear); Bacteria Urine Automated Negative (Negative); Bilirubin Urine Negative (Negative); Blood Urine Trace (Negative); Color Urine Dark Yellow; Epithelial Cell Urine Auto >30 /lpf (0-5); Glucose Urine UA Negative (Negative); Ketones Urine Negative (Negative); Leukocyte Esterase Urine Negative (Negative); Nitrite Urine Negative (Negative); Protein Urine 2+ (Negative); Urobilinogen Urine Negative (Negative)
[2020-04-05 21:32] LABS: Base Excess ABG 13.4 mEq/L (-9-1.8); HCO3 ABG 38 mmol/L (19-24); Oxygen Saturation ABG 94.3 % (90-95); PCO2 ABG 50 mmHg (35-46); PO2 ABG 65 mmHg (80-95)
[2020-04-05 21:33] LABS: Allen Test POS (Pos)
[2020-04-05] MEDS: DOXYCYCLINE HYCLATE 100 MG in DEXTROSE 5% 100 ML IV SCH (21:35)
[2020-04-05] MEDS: NORMOSOL-R 1,000 ML IV SCH (21:35)
[2020-04-05 21:44] LABS: Potassium 3.3 mmol/L (3.5-5.1)
[2020-04-05 21:44] LABS: Amorphous Sediment Urine Present (None Prsent)
[2020-04-05 21:45] LABS: BUN Creatinine Ratio 37.4 (10-20); Calcium 8.9 mg/dl (8.5-10.1); Creatinine Clr Calc Pharmacy 58.3 ml/min; Est GFR (African American) 65.6; Est GFR (Non-African American) 56.6
[2020-04-05 21:45] LABS: Renal Epithelial Cells Urine 0-5 /lpf (0-5)
[2020-04-05] MEDS ORDERED: ENOXAPARIN INJ 40 MG/0.4 ML SYR SQ SCH (22:00)
[2020-04-05] MEDS: PATIENT'S HEIGHT AND/OR WEIGHT NEEDED SCH ×2 (22:55→22:58)
[2020-04-05] MEDS: ALBUTEROL HFA 8 GM INHALER INH SCH (23:43)
--- NOTE | 2020-04-05 23:55 | Ultrasound Report ---
ULTRASOUND RIGHT UPPER QUADRANT ABDOMEN CLINICAL HISTORY: Sepsis. Elevated hepatic transaminases. COMPARISON STUDY: Abdominal CT dated 06/20/2015. TECHNIQUE: Real-time, grayscale, and color flow sonography of the right upper quadrant of the abdomen was performed. Images are reviewed in the transverse and longitudinal planes. FINDINGS: Liver: The liver is normal in size and echotexture. There is no intrahepatic biliary ductal dilatatio n. The main portal vein is patent. Gallbladder: There are large shadowing calcified gallstones. There is no gallbladder wall thickening. Trace pericholecystic fluid is noted. The patient is unresponsive and a sonographic Cortes's sign co uld not be assessed. Small foci of adenomyomatosis are incidentally noted. The common bile duct measu res up to 0.6 cm in diameter. Pancreas: Not well visualized due to overlying bowel gas. Right kidney: Survey images of the right kidney demonstrate normal size and increased echotexture sug gesting medical renal disease. There is no hydronephrosis. Ascites: There is trace perihepatic ascites. IMPRESSION: 1. Cholelithiasis without clear sonographic evidence of acute cholecystitis. 2. There is trace upper abdominal/perihepatic ascites. 3. The pancreas was not visualized due to overlying bowel gas. ACT 112: Negative or not required by law. Electronically signed by: Ludin Felipe M.D. 04/05/2020 11:53 PM
[2020-04-06] MEDS: PIPERACILLIN/TAZOBACTAM 4.5 GM in DEXTROSE 5% 100 ML IV SCH ×2 (01:16→09:53)
[2020-04-06] MEDS ORDERED: methylPREDNISolone 40 MG in SYRINGE 0 ML IV SCH ×2 (02:00→21:00)
[2020-04-06] MEDS: ALBUTEROL HFA 8 GM INHALER INH SCH ×3 (02:40→10:55)
[2020-04-06] MEDS ORDERED: 0.2 MICRON FILTER SET 1 EA IV ONE ×4 (04:36→11:00)
[2020-04-06] MEDS ORDERED: AMIODARONE / D5W 150 MG/100 ML BAG IV STA (04:36)
[2020-04-06] MEDS ORDERED: POTASSIUM CHLORIDE / WTR 10 MEQ/100 ML PLCT IV SCH (04:45)
[2020-04-06 04:52] LABS: Hematocrit (blood only) 36.2 % (37-47); Hemoglobin 10.6 g/dL (12.0-16.0); Immature Granulocytes # (auto) 0.02 K/uL (0.00-0.02); Immature Granulocytes % (auto) 0.4 %; Lymphocytes # (auto) 0.55 K/uL (1.2-3.4); Lymphocytes % (auto) 10.7 %; Mean Corpuscular Hemoglobin 27.5 pg (25-34); Mean Corpuscular Hgb Conc 29.3 g/dL (32-36); Mean Platelet Volume 11.7 fL (7.4-10.4); Monocytes # (auto) 0.09 K/uL (0.11-0.59); Monocytes % (auto) 1.8 %; Neutrophils # (auto) 4.46 K/uL (1.4-6.5); Neutrophils % (auto) 87.1 %; Platelet Count 135 K/uL (130-400); RDW Standard Deviation 51.7 fL (36.4-46.3); Red Blood Count 3.85 M/uL (4.2-5.4); White Blood Count 5.12 K/uL (4.8-10.8)
[2020-04-06 04:54] LABS: iSTAT Allen Test Pass; iSTAT Arterial Blood Gas HCO3 47 meg/L (19-24); iSTAT Arterial Blood Gas pCO2 67 mmHg (35-46); iSTAT Arterial Blood Gas pH 7.46 (7.35-7.45); iSTAT Arterial Blood Gas pO2 81 mmHg (80-95); iSTAT Carbon Dioxide > 40 mmol/L (24-31); iSTAT FiO2 100 %; iSTAT Site L Radial
[2020-04-06] MEDS ORDERED: MIDAZOLAM HCL 125MG/250ML D5W ONE (04:54)
[2020-04-06] MEDS ORDERED: STAT IV Infusion **Titration per Protocol STA ×2 (04:56→06:36)
[2020-04-06] MEDS ORDERED: MIDAZOLAM BOLUS FROM BAG IV PRN (04:56)
[2020-04-06] MEDS ORDERED: MIDAZOLAM HCL 125 MG/250 ML BAG IV SCH (05:00)
[2020-04-06] MEDS ORDERED: AMIODARONE 450 MG in D5W 250ML IN *POLYOLEFIN BAG* 241 ML IV STA (05:00)
[2020-04-06] MEDS ORDERED: SODIUM BICARB 8.4% INJ 50 MEQ/50 ML SYR IV ONE ×2 (05:09→14:49)
[2020-04-06 05:11] LABS: Albumin Level 2.5 gm/dl (3.4-5.0); Bilirubin Direct 0.5 mg/dl (0-0.2); Bilirubin,Total 0.8 mg/dl (0.2-1); Total Protein 6.3 gm/dl (6.4-8.2); Troponin I 0.122 ng/ml (0-0.045)
[2020-04-06 05:32] LABS: Magnesium 2.7 mg/dl (1.8-2.4); Phosphorus 2.3 mg/dl (2.5-4.9)
[2020-04-06] MEDS ORDERED: methylPREDNISolone 125 MG in SYRINGE 0 ML IV STA (05:47)
[2020-04-06] MEDS: propofoL 1,000 MG/100 ML VIAL IV SCH (05:56)
[2020-04-06] MEDS: POTASSIUM CHLORIDE / WTR 10 MEQ/100 ML PLCT IV SCH ×4 (05:57→10:12)
[2020-04-06] MEDS: ALBUMIN 25% 50 ML IV SCH ×2 (05:58→06:06)
[2020-04-06] MEDS: NORMOSOL-R 1,000 ML IV SCH (06:03)
[2020-04-06 06:07] LABS: BUN Creatinine Ratio 34.9 (10-20); Calcium 10.4 mg/dl (8.5-10.1); Creatinine Clr Calc Pharmacy 55.5 ml/min; Est GFR (African American) 61.9; Est GFR (Non-African American) 53.4; Potassium 2.7 mmol/L (3.5-5.1)
[2020-04-06] MEDS ORDERED: LEVOTHYROXINE SODIUM 137 MCG TABLET PO SCH (06:30)
[2020-04-06] MEDS ORDERED: NOREPINEPHRINE BIT INJ 8 MG in DEXTROSE 5% 500 ML IV SCH (06:45)
[2020-04-06] MEDS ORDERED: VASOPRESSIN 20 UNITS in 0.9 % SODIUM CHLORIDE 100 ML IV SCH (06:45)
--- NOTE | 2020-04-06 07:11 | Electrocardiogram Report ---
Test Reason : Blood Pressure : / mmHG Vent. Rate : 105 BPM Atrial Rate : 105 BPM P-R Int : 136 ms QRS Dur : 106 ms QT Int : 394 ms P-R-T Axes : 072 042 084 degrees QTc Int : 520 ms Sinus tachycardia with occasional Premature ventricular complexes Biatrial enlargement Prolonged QT Abnormal ECG When compared with ECG of 04-MAR-2020 10:46, QT has lengthened Confirmed by Denys Musa ([id number]) on 04/06/2020 7:10:54 AM Referred By: REFERRED SELF Confirmed By:Rich Musa
--- NOTE | 2020-04-06 07:19 | XRay Report ---
XR chest 1V portable CLINICAL HISTORY: cardiac arrest/cpr COMPARISON STUDY: 04/05/2020 5:58 PM FINDINGS: Interval development of a diffuse parenchymal infiltrate throughout the right lung and tariq pheral aspect left lung base. Endotracheal tube is 3 cm with the reji. There is nasogastric tube inferior to the diaphragm. IMPRESSION: 1. Findings of progressive lateral parenchymal infiltrates versus asymmetric pulmonary edema. 2. Endotracheal tube 3 cm above the reji. ACT 112: Negative or not required by law. The above report was generated using voice recognition software. It may contain grammatical, syntax or spelling errors. Electronically signed by: Tim Bloom M.D. 04/06/2020 7:17 AM
[2020-04-06] MEDS ORDERED: POTASSIUM PHOS 3 MMOL/1 ML INFUSION IV STA (07:34)
--- NOTE | 2020-04-06 07:51 | Hospitalist Progress Note ---
Date of Service April 06, 2020 Assessment & Plan (1) Acute and chronic respiratory failure: acute component - 2nd to COPD exacerbation RLL pneumonia sepsis due to multiple potential sources of infection (cellulitis, ?RLL pneumonia, etc). s/p intubation in ER COVID and influenza is negative zosyn, vancomycin and doxycycline this is associated with chronic hypoxia and hypercapnia, typically on home oxygen, is now also on iv steroids, ABG shows evidence of chronic elevated CO2 and metabolic compensation for this (2) COPD (chronic obstructive pulmonary disease): exacerbated by infection, steroids and bronchodialators (3) Metabolic encephalopathy: (4) Cellulitis of right lower extremity: in a background of chronic venous stasis changes. broad-spectrum IV antibiotics started. of note - sed rate/crp markedly elevated. (5) Cellulitis of left lower extremity: (6) Hypothyroidism: TSH 10/2019 wnl. Cont synthroid. (7) Hypertension: holding home meds (8) Hyponatremia: resolved (9) RLL pneumonia: question of broad-spectrum IV antibiotics will cover (zosyn, vanco, doxy). need to cover for gram negatives due to previous hospitalization in February 2020. follow cultures. (10) Abnormal LFTs: CT abd/pelvis a few years ago showed gallstones. Check RUQ u/s - r/o cholecystitis. repeat LFTs am. (11) Clostridium difficile colitis: past history of. if any diarrhea then check c diff testing. (12) DVT prophylaxis: lovenox daily Admission and Anticipated Discharge Date Admission Date: April 05, 2020 Results & Data Results & Data ([facility]) Vital Signs (Past 12 Hours) Vital Signs Temp Pulse Pulse Resp BP BP Pulse Ox 04/06/20 02:41 70 19 98 04/06/20 02:00 70 98 04/06/20 01:58 69 79/46 L 97 04/06/20 01:53 69 83/37 L 98 04/06/20 01:48 69 83/41 L 97 04/06/20 01:43 69 81/45 L 98 04/06/20 01:38 66 83/39 L 98 04/06/20 01:33 72 85/39 L 97 04/06/20 01:30 66 97 04/06/20 01:28 70 82/40 L 97 04/06/20 01:23 69 70/41 L 97 04/06/20 01:18 72 82/40 L 97 04/06/20 01:13 70 74/44 L 97 04/06/20 01:08 75 82/39 L 97 04/06/20 01:03 67 80/46 L 97 04/06/20 01:00 69 97 04/06/20 00:58 72 81/41 L 97 04/06/20 00:53 69 79/38 L 96 04/06/20 00:48 71 75/31 L 97 04/06/20 00:43 71 79/34 L 96 04/06/20 00:38 72 63/46 L 96 04/06/20 00:33 71 81/37 L 96 04/06/20 00:30 72 96 04/06/20 00:28 75 79/46 L 96 04/06/20 00:23 71 80/32 L 96 04/06/20 00:18 73 82/39 L 96 04/06/20 00:13 72 77/44 L 97 04/06/20 00:08 74 81/45 L 97 04/06/20 00:03 71 81/39 L 96 04/06/20 00:00 71 96 04/05/20 23:58 72 89/46 L 96 04/05/20 23:52 70 84/43 L 97 04/05/20 23:47 73 86/43 L 96 04/05/20 23:44 71 84/50 L 96 04/05/20 23:43 72 18 96 04/05/20 23:30 71 96 04/05/20 23:09 73 76/40 L 95 04/05/20 23:00 69 95 04/05/20 22:30 72 96 04/05/20 22:09 71 70/37 L 96 04/05/20 22:00 98.6 F 73 95 04/05/20 21:30 73 96 04/05/20 21:00 75 97 04/05/20 20:54 04/05/20 20:30 98.2 F 86 81 18 86/48 L 92 04/05/20 20:10 78 18 116/63 100 04/05/20 20:05 82 24 118/76 91 04/05/20 20:01 82 18 125/51 L 97 04/05/20 20:00 79 18 99 04/05/20 19:57 80 18 100 04/05/20 19:55 79 18 111/67 100 04/05/20 19:50 81 18 96/67 L 100 Pulse Ox 04/06/20 02:41 04/06/20 02:00 04/06/20 01:58 04/06/20 01:53 04/06/20 01:48 04/06/20 01:43 04/06/20 01:38 04/06/20 01:33 04/06/20 01:30 04/06/20 01:28 04/06/20 01:23 04/06/20 01:18 04/06/20 01:13 04/06/20 01:08 04/06/20 01:03 04/06/20 01:00 04/06/20 00:58 04/06/20 00:53 04/06/20 00:48 04/06/20 00:43 04/06/20 00:38 04/06/20 00:33 04/06/20 00:30 04/06/20 00:28 04/06/20 00:23 04/06/20 00:18 04/06/20 00:13 04/06/20 00:08 04/06/20 00:03 04/06/20 00:00 04/05/20 23:58 04/05/20 23:52 04/05/20 23:47 04/05/20 23:44 04/05/20 23:43 04/05/20 23:30 04/05/20 23:09 04/05/20 23:00 04/05/20 22:30 04/05/20 22:09 04/05/20 22:00 04/05/20 21:30 04/05/20 21:00 04/05/20 20:54 95 04/05/20 20:30 04/05/20 20:10 04/05/20 20:05 04/05/20 20:01 04/05/20 20:00 04/05/20 19:57 04/05/20 19:55 04/05/20 19:50 PG Care Time/CCT Total # of Minutes Spent Total Time Spent with Patient: Total time spent is greater than 50% in coordination of care (as documented) at patient's floor/unit and/or counseling patient: Coding Diagnoses Acute and chronic respiratory failure J96.21; J96.22 Respiratory failure complication: hypoxia and hypercapnia COPD (chronic obstructive pulmonary disease) J44.9 COPD type: unspecified COPD Metabolic encephalopathy G93.41 Cellulitis of right lower extremity L03.115 Cellulitis of left lower extremity L03.116 Hypothyroidism E03.9 Hypothyroidism type: unspecified Hypertension I10 Hypertension type: essential hypertension Hyponatremia E87.1 RLL pneumonia J18.9 Pneumonia type: due to unspecified organism Abnormal LFTs R94.5 Clostridium difficile colitis A04.72 DVT prophylaxis Z29.9 (1) Acute and chronic respiratory failure Respiratory failure complication: hypoxia and hypercapnia Qualified Code(s): J96.21 - Acute and chronic respiratory failure with hypoxia; J96.22 - Acute and chronic respiratory failure with hypercapnia (2) COPD (chronic obstructive pulmonary disease) COPD type: unspecified COPD Qualified Code(s): J44.9 - Chronic obstructive pulmonary disease, unspecified (3) Hypothyroidism Hypothyroidism type: unspecified Qualified Code(s): E03.9 - Hypothyroidism, unspecified (4) Hypertension Hypertension type: essential hypertension Qualified Code(s): I10 - Essential (primary) hypertension (5) RLL pneumonia Pneumonia type: due to unspecified organism Qualified Code(s): J18.9 - Pneumonia, unspecified organism
[2020-04-06] MEDS: CITALOPRAM 40 MG TAB NG SCH ×2 (07:58→09:54)
[2020-04-06] MEDS: DOXYCYCLINE HYCLATE 100 MG in DEXTROSE 5% 100 ML IV SCH (08:00)
[2020-04-06] MEDS ORDERED: POTASSIUM PHOSPHATE IV ONE (08:00)
[2020-04-06] MEDS ORDERED: SODIUM CHLORIDE 0.9% IV ONE (08:00)
--- NOTE | 2020-04-06 08:39 | XRay Report ---
SINGLE VIEW CHEST CLINICAL HISTORY: Central venous catheter placement. FINDINGS: An AP, portable, supine chest radiograph is compared to study performed earlier the same da y 04/06/2020. Correlation is made with chest CT dated 02/27/2019. The examination is degraded by portabl e technique and patient rotation. Endotracheal and enteric tubes are in place. A right internal jugul ar central venous catheter has been placed. The tip projects over the SVC. The heart is top normal fo r projection. There is prominence of the pulmonary vasculature. Patchy airspace consolidation is agai n seen throughout the right lung and at the left lung base. Small pleural effusions are suspected. No pneumothorax is seen. The skeletal structures are osteopenic. The bony thorax is grossly intact. IMPRESSION: 1. Lines and tubes as above. 2. Multifocal airspace consolidation is similar in appearance to today's earlier examination. 3. Suspect small pleural effusions. ACT 112: Negative or not required by law. Electronically signed by: Ludin Felipe M.D. 04/06/2020 8:38 AM
[2020-04-06] MEDS ORDERED: FUROSEMIDE 40 MG/4 ML VIAL IV ONE (08:46)
[2020-04-06] MEDS ORDERED: FUROSEMIDE 40 MG in SYRINGE 0 ML IV ONE ×2 (08:47→08:49)
--- NOTE | 2020-04-06 08:52 | Procedure Note ---
Procedure Note Date of Service April 06, 2020 Procedure: Inserting ultrasound-guided central line service person: Dr. Willis Addison Indication: Hypotension Consent: Emergency, verbal consent was also obtained by sisters were present at bedside Anesthesia: 1% lidocaine without epinephrine local. Procedure: Consent was verified and timeout performed. Appropriate imaging studies were reviewed prior to the procedure. Under aseptic and sterile condition, right IJ vein was accessed under direct ultrasound guidance. Guidewire was confirmed to be within the lumen of vein with the help of ultrasound. Catheter was introduced via Seldinger technique. Guide a wire was removed. Good non-pulsatile blood flow was appreciated from all the ports. The catheter was placed at 16 [address] in place. BioPatch was applied to the catheter and a sterile Tegaderm dressing was applied over the catheter with careful attention to sterility. Lung sliding was appreciated post procedure with the help ultrasound. Chest x-ray to follow Patient tolerated the procedure well. Blood loss: Less than 2 cc Complications: None Coding CPT Codes Tubes, Drains, and Vasc Access - Tubes, Drains, and Vasc Access: [id number] Place catheter in vein superior or inferior vena cava ([id number]) Tubes, Drains, and Vasc Access - Tubes, Drains, and Vasc Access: [id number] Ultrasound Guidance For Vascular ([id number]) [facility] [place] Procedure Codes (Charges) Tubes, Drains, and Vasc Access Procedure 1: Tubes, Drains, and Vasc Access: [id number] Place catheter in vein superior or inferior vena cava Procedure 2: Tubes, Drains, and Vasc Access: [id number] Ultrasound Guidance For Vascular
--- NOTE | 2020-04-06 08:53 | Procedure Note ---
Procedure Note Date of Service April 06, 2020 ARTERIAL LINE PROCEDURE NOTE: Procedure: Arterial Line Placement Attending: Dr. Willis Addison MD Indication: Monitoring on Pressors Anesthesia: Local lidocaine 1% Emergency consent, verbal consent was also obtained from sisters were present at bedside A time-out was completed verifying correct patient, procedure, site, positioning, and implant(s) or special equipment if applicable. Allens test was performed to ensure adequate perfusion. Patients left wrist was prepped and draped in the usual sterile fashion. Ultrasound guidance was used to aid needle placement. A 20g Arrow arterial line was introduced into the left radial artery. Catheter was threaded, and the needle was removed with appropriate pulsatile blood return. Good waveform was observed on the monitor. The patient tolerated the procedure well. Confirmation of placement with ultrasound. Blood Loss: Minimal Complications: None Coding CPT Codes Tubes, Drains, and Vasc Access - Tubes, Drains, and Vasc Access: [id number] Place Catheter In Artery ([id number]) Tubes, Drains, and Vasc Access - Tubes, Drains, and Vasc Access: [id number] Ultrasound Guidance For Vascular ([id number]) [facility] [place] (Charges) Tubes, Drains, and Vasc Access Procedure 3: Tubes, Drains, and Vasc Access: [id number] Place Catheter In Artery Procedure 4: Tubes, Drains, and Vasc Access: [id number] Ultrasound Guidance For Vascular
[2020-04-06] MEDS ORDERED: MULTIVITAMIN TAB PO SCH (09:00)
[2020-04-06] MEDS ORDERED: ENOXAPARIN INJ 40 MG/0.4 ML SYR SQ SCH (09:00)
--- NOTE | 2020-04-06 09:16 | Critical Care Progress Note ---
Date of Service April 06, 2020 Assessment & Plan (1) Acute and chronic respiratory failure: EKG 04/05/20: Sinus tachycardia, no ST-T wave changes appreciated, PVCs, normal axis. QTC 520 Chest x-ray: Right lower lobe opacity appreciated, this has been present even on 02/27/2020. It seems that it has decreased in intensity to some extent. Bilateral costophrenic and cardiophrenic angles are clean Chest x-ray 04/06/2020: Increased bilateral alveolar opacities, likely representing pulmonary edema. --Cardiac arrest 04/06/2020 With torsade de pointes Patient has underlying prolonged QTC of 520. Patient labs during the culture potassium of 2.7 Currently on amiodarone drip, continue with 1 mg/min IV for 6 hours followed by 0.5 mg/min for 18 hours Keep potassium greater than 4, magnesium greater than 2 and phosphorus greater than 3 Troponin 0.122 -- VDRF with shock Likely secondary to COPD exacerbation Continue with inhaled bronchodilators, steroids and antibiotic Continue with ventilatory support Keep RASS -1 Daily sedation holidays and SBT's Chlorhexidine mouthwash. Keep O2 saturation between 88 to 92%. Vasopressor support to keep map greater than 65 --Elevated WBC Patient was history of cellulitis patient was apparently on Keflex at home Procalcitonin 1.11, ESR >90, CRP:21.6, influenza negative, Covid-19 PCR negative Patient does have an infiltrate in the right lower lobe were looking at the chest x-ray which was done a month ago she had that infiltrate even at that time it seems to be it is improving. Bilateral lower extremities are erythematous, edematous there is no purulent discharge. Would continue with broad-spectrum antibiotics with atypical coverage Follow-up septic work-up --LATOYA Patient has BiPAP at home with a setting 12/6 cm H2O Currently intubated We will continue with the same setting after extubation --Hypothyroidism Continue with Synthroid --History of C. difficile On chronic vancomycin We will again order C. difficile --History of hypertension Hold blood pressure medication --Prolonged QTC Avoid QT prolonging medication Keep magnesium greater than 2 --DNR Okay to use vasopressors for the time being If there is no improvement in the clinical status plan then terminal extubation would be approached. --Hypokalemia, hypophosphatemia Being replaced --Prophylaxis GI: Protonix VTE: Lovenox Diet: N.p.o. Plan: In/out: +2.8 L, 550 mL urine output Repeat BMP, magnesium and phosphorus at 12 PM. Repeat EKG now No fentanyl Given that there is increased vascular markings representing pulmonary edema on the chest x-ray will give a dose of Lasix. Patient is getting total of 60 mEq of potassium and addition of 15 mmol of K- Phos. Continue with broad-spectrum antibiotics. I discussed current condition and prognosis of the patient with the sisters were present at bedside. I have personally spent 65 minutes of critical care time in the direct management of this patient. This is a life/limb threatening event. This includes time spent evaluating patient, direct bedside care, chart review, placing orders, interpretation of diagnostic studies, discussion with consultants, patient, and family members, as well as other required patient management activities. This time is exclusive of all separately billable procedures, and teaching time and separate from and in addition to any other critical care service time. Please note the above document was generated using voice recognition software. It may contain grammatical, syntax or spelling errors. (2) COPD (chronic obstructive pulmonary disease): (3) Cellulitis of right lower extremity: (4) GERD (gastroesophageal reflux disease): Admission and Anticipated Discharge Date Admission Date: April 05, 2020 Subjective Patient seen and examined at bedside. Overnight patient had cardiac arrest with torsades for which she was shocked and started on amiodarone drip. She had very feeble pulse later on and she was given multiple doses of peripheral epinephrine to keep her blood pressure up. At the time of examination she was on midazolam drip she was arousable on calling her name she was following commands. Her map was in high 50s. Saturation was 100% on 100% FiO2 Review of Systems Review of Systems: Unobtainable due to cognitive status Physical Exam Physical Exam: Constitutional: Intubated HEENT: PERRLA, positive ETT Respiratory system: Decreased air entry bilaterally, no wheeze, no rhonchi, positive crackles right lower lobe CVS: S1-S2 positive, no murmurs or gallops, distant heart sounds Abdomen: Soft, nontender, nondistended, positive bowel sounds x4 Extremities: +2 pulses bilaterally radialis/ dorsalis pedis, no cyanosis, +1 edema bilateral lower extremity, positive rubor, positive calor bilateral lower extremities more on the left side, no fluctuance appreciated on either leg. Neuro: Positive pupillary, positive corneal, patient moving all extremities on awakening, Rass -1 Psych: Unable to assess G/U: Positive Skin: + erythema Lymphatic: no cervical or axillary lymphadenopathy Results & Data Results & Data ([facility]) Vital Signs (Past 12 Hours) Vital Signs Temp Pulse Resp BP Pulse Ox 04/06/20 07:50 70 18 98 04/06/20 02:41 70 19 98 04/06/20 02:00 70 98 04/06/20 01:58 69 79/46 L 97 04/06/20 01:53 69 83/37 L 98 04/06/20 01:48 69 83/41 L 97 04/06/20 01:43 69 81/45 L 98 04/06/20 01:38 66 83/39 L 98 04/06/20 01:33 72 85/39 L 97 04/06/20 01:30 66 97 04/06/20 01:28 70 82/40 L 97 04/06/20 01:23 69 70/41 L 97 04/06/20 01:18 72 82/40 L 97 04/06/20 01:13 70 74/44 L 97 04/06/20 01:08 75 82/39 L 97 04/06/20 01:03 67 80/46 L 97 04/06/20 01:00 69 97 04/06/20 00:58 72 81/41 L 97 04/06/20 00:53 69 79/38 L 96 04/06/20 00:48 71 75/31 L 97 04/06/20 00:43 71 79/34 L 96 04/06/20 00:38 72 63/46 L 96 04/06/20 00:33 71 81/37 L 96 04/06/20 00:30 72 96 04/06/20 00:28 75 79/46 L 96 04/06/20 00:23 71 80/32 L 96 04/06/20 00:18 73 82/39 L 96 04/06/20 00:13 72 77/44 L 97 04/06/20 00:08 74 81/45 L 97 04/06/20 00:03 71 81/39 L 96 06/16/20 00:00 71 96 04/05/20 23:58 72 89/46 L 96 04/05/20 23:52 70 84/43 L 97 04/05/20 23:47 73 86/43 L 96 04/05/20 23:44 71 84/50 L 96 04/05/20 23:43 72 18 96 04/05/20 23:30 71 96 04/05/20 23:09 73 76/40 L 95 04/05/20 23:00 69 95 04/05/20 22:30 72 96 04/05/20 22:09 71 70/37 L 96 04/05/20 22:00 37 C 73 95 04/05/20 21:30 73 96 04/06/20 04:40 04/06/20 04:40 Coding Level of Care Code Critical Care 1st 30-74 mins Diagnoses Acute and chronic respiratory failure J96.21; J96.22 Respiratory failure complication: hypoxia and hypercapnia COPD (chronic obstructive pulmonary disease) J44.9 COPD type: unspecified COPD Cellulitis of right lower extremity L03.115 GERD (gastroesophageal reflux disease) K21.9 Time Spent (min) 65 (1) Acute and chronic respiratory failure Respiratory failure complication: hypoxia and hypercapnia Qualified Code(s): J96.21 - Acute and chronic respiratory failure with hypoxia; J96.22 - Acute and chronic respiratory failure with hypercapnia (2) COPD (chronic obstructive pulmonary disease) COPD type: unspecified COPD Qualified Code(s): J44.9 - Chronic obstructive pulmonary disease, unspecified
[2020-04-06 10:10] LABS: iSTAT Potassium 3.4 mmol/L (3.3-5.0); iSTAT Sodium 134 mmol/L (135-144)
[2020-04-06 10:11] LABS: iSTAT Arterial Blood Gas HCO3 47 meg/L (19-24); iSTAT Arterial Blood Gas pCO2 105 mmHg (35-46); iSTAT Arterial Blood Gas pH 7.26 (7.35-7.45); iSTAT Arterial Blood Gas pO2 145 mmHg (80-95); iSTAT Carbon Dioxide 50 mmol/L (24-31); iSTAT Hematocrit 36 % (37-47); iSTAT Hemoglobin 12.2 g/dl (12.0-16.0); iSTAT Sample Type Arterial
--- NOTE | 2020-04-06 10:37 | Communication Note ---
Date of Service: April 06, 2020 Critical CARE addendum: Patient had another run of torsades while being on amiodarone, Levophed and vasopressin. Given this further discussion with the family no escalation of care. We will stop the vasopressor medication, terminally extubate the patient and keep her comfortable. Trena Tenorio and Luly Valera were informed and agreed with the above plan. Coding Level of Care Code 22615 Prolonged Care (int'l) Time Spent (min) 15
[2020-04-06] MEDS ORDERED: AMIODARONE RATE CHANGE SCH (11:00)
[2020-04-06] MEDS ORDERED: PANTOprazole 40 MG in SYRINGE 0 ML IV SCH (11:00)
[2020-04-06] MEDS ORDERED: AMIODARONE 450 MG in D5W 250ML IN *POLYOLEFIN BAG* 241 ML IV SCH ×2 (11:00)
[2020-04-06] MEDS ORDERED: VANCOMYCIN HCL 1,250 MG in SODIUM CHLORIDE 0.9% 250 ML IV SCH (12:00)
[2020-04-06] MEDS ORDERED: [UNRECOGNIZED DRUG - REMARK] ONE (12:15)
--- NOTE | 2020-04-06 12:20 | Electrocardiogram Report ---
Test Reason : Blood Pressure : / mmHG Vent. Rate : 063 BPM Atrial Rate : 063 BPM P-R Int : 140 ms QRS Dur : 094 ms QT Int : 548 ms P-R-T Axes : 067 037 054 degrees QTc Int : 560 ms Normal sinus rhythm with sinus arrhythmia Possible Left atrial enlargement Prolonged QT Abnormal ECG No previous ECGs available Confirmed by Denys Musa ([id number]) on 04/06/2020 12:19:54 PM Referred By: REFERRED SELF Confirmed By:Rich Musa
--- NOTE | 2020-04-06 13:33 | Discharge Summary ---
Date of Service April 06, 2020 Admission HPI Per Admitting Provider 69yo female with COPD and chronic hypoxic/hypercarbic respiratory failure on 4 L NC O2 continuously who presented to [facility] via EMS due to altered mental status. Patient was in respiratory distress upon arrival to [facility] ER and was subsequently intubated. I called and spoke with Trena Mcgarry who is a close friend. Trena also spoke with Ms. Giron's sister today. According to Ms. Giron's sister she saw the patient yesterday and she seemed fine. No fever, no vomiting or diarrhea, no reported cough or difficulty breathing. Today Ms. Mcgarry and the patient's sister called her this AM and she was altered. She apparently told her sister she "didn't feel good" this morning. The patient must have gone back to sleep. By the afternoon Ms. Mcgarry and the patient's sister hadn't heard from her again. They attempted to call Ms. Giron's home without success. Out of concern the patient's sister called 911 and EMS was summoned to the patient's home. Upon arrival there she was significantly altered. No recent travel. No COVID-19 exposures. Patient was apparently placed on keflex sometime late last week for developing cellulitis of her right leg. Principal Diagnosis Time of , 11:43 04/06/2020 sepsis from pneumonia, terminal wean from ventilator Discharge Exam exam was conducted with no spontaneous pulse or respiarations pronounced at 11:43 am 04/06/2020 Discharge Data Allergies Allergy/AdvReac Type Severity Reaction Status Date / Time codeine Allergy Intermediate FACIAL Verified 02/25/20 16:11 SWELLING atropine Allergy Unknown UNKNOWN Verified 02/25/20 16:11 diphenoxylate Allergy Unknown UNKNOWN Verified 02/25/20 16:11 moxifloxacin Allergy Unknown UNKNOWN Verified 02/25/20 16:11 prednisone AdvReac Mild BLURRED Verified 02/25/20 16:11 VISION Consultations 04/05/20 18:22 ED Decision to Admit Stat 04/05/20 20:54 Consult Case Management - Discharge Planning Routine Consult Chainsaw Mechanic Routine Ordered Studies 04/05/20 19:24 US gallbladder Stat 04/06/20 06:37 US point of care ultrasound Urgent Hospital Course (1) : date of 04/06/2020 time of 11:43 the problems below are from the previous hospital stay (2) Acute and chronic respiratory failure: acute component - 2nd to COPD exacerbation RLL pneumonia sepsis due to multiple potential sources of infection (cellulitis, ?RLL pneumonia, etc). s/p intubation in ER COVID and influenza is negative zosyn, vancomycin and doxycycline this is associated with chronic hypoxia and hypercapnia, typically on home oxygen, is now also on iv steroids, ABG shows evidence of chronic elevated CO2 and metabolic compensation for this (3) COPD (chronic obstructive pulmonary disease): exacerbated by infection, steroids and bronchodialators (4) Metabolic encephalopathy: likely multifactorial - early sepsis (?) + hypercarbia + hypoxia + other factors. supportive care. (5) Cellulitis of right lower extremity: in a background of chronic venous stasis changes. broad-spectrum IV antibiotics started. of note - sed rate/crp markedly elevated. (6) Cellulitis of left lower extremity: in a background of chronic venous stasis changes. as above. (7) Hypothyroidism: TSH 10/2019 wnl. Cont synthroid. (8) Hypertension: holding home meds (9) Hyponatremia: resolved (10) RLL pneumonia: question of broad-spectrum IV antibiotics will cover (zosyn, vanco, doxy). need to cover for gram negatives due to previous hospitalization in February 2020. follow cultures. (11) Abnormal LFTs: CT abd/pelvis a few years ago showed gallstones. Check RUQ u/s - r/o cholecystitis. repeat LFTs am. (12) Clostridium difficile colitis: past history of. if any diarrhea then check c diff testing. Total Time Total Time Spent Total Time Spent (In Minutes): It required greater than 30 minutes to prepare this patient for discharge Discharge Plan Discharge Items Reason For Visit: ACUTE HYPERCARBIC RESP FAILURE,RLL PNUEMONIA Follow-up/Referrals: Alvaro Castillo MD [Primary Care Provider] - Stand-Alone Forms: My [facility] [address] [employer] Medications and DC Order Prescriptions: No Action citalopram [Celexa] 20 mg tablet 40 mg PO DAILY Qty: 180 RF: 3 cephalexin [Keflex] 500 mg capsule 500 mg PO TID Qty: 30 RF: 1 Lactobacillus acidoph-L.bulgar [Floranex] 1 million cell tablet 1 tab PO QIDM RF: 0 vancomycin 125 mg capsule 125 mg PO WEEKLY RF: 0 multivitamin [Daily Multiple] tablet 1 tab PO DAILY RF: 0 estradiol [Estrace] 1 mg tablet 1 mg PO DAILY RF: 0 levothyroxine [Synthroid] 137 mcg tablet 137 mcg PO DAILY Qty: 90 RF: 3 ipratropium-albuterol 0.5 mg-3 mg(2.5 mg base)/3 mL solution for nebulization 3 ml Inhalation Q4H RF: 0 albuterol sulfate 90 mcg/actuation aerosol powdr breath activated 2 inh INH Q4H PRN (Reason: Shortness Of Breath Or Wheezing) RF: 0 hydrochlorothiazide 12.5 mg capsule 12.5 mg PO DAILY RF: 0 furosemide 40 mg Tablet 40 mg PO DAILY RF: 0 fluticasone propion-salmeterol [Wixela Inhub] 250-50 mcg/dose Blister With Device 2 inh inhalation DAILY RF: 0 pantoprazole 40 mg tablet,delayed release (DR/EC) 40 mg PO DAILY RF: 0 Admission Data Admit Date/Time: 04/05/20 19:24 Attending Provider: Renato Hitchcock Admit Provider: Zack Jaffe Primary Care Provider: Alvaro Castillo Other Providers: Zack Jaffe ; Willis Addison Other Interventions: Discharge Summary Assessment (RN) Last Done: 04/06/20 12:12 DC Date/Time DO NOT enter until pt leaves facility: 04/06/20 12:14 Coding Level of Care Code D/C Day Management >30 mins Diagnoses R99 Acute and chronic respiratory failure J96.21; J96.22 Respiratory failure complication: hypoxia and hypercapnia COPD (chronic obstructive pulmonary disease) J44.9 COPD type: unspecified COPD Metabolic encephalopathy G93.41 Cellulitis of right lower extremity L03.115 Cellulitis of left lower extremity L03.116 Hypothyroidism E03.9 Hypothyroidism type: unspecified Hypertension I10 Hypertension type: essential hypertension Hyponatremia E87.1 RLL pneumonia J18.9 Pneumonia type: due to unspecified organism Abnormal LFTs R94.5 Clostridium difficile colitis A04.72
[2020-04-06] MEDS ORDERED: CALCIUM CHLORIDE 10% 10 ML SYR IV ONE (14:49)
[2020-04-06] MEDS ORDERED: ETOMIDATE 2 MG/ML 20 ML VIAL IV ONE (14:49)
[2020-04-06] MEDS ORDERED: SUCCINYLCHOLINE CHLORIDE 20 MG/ML 10 ML VIAL IV ONE (14:49)
== END 2020-04-06 14:50 | disposition expired | DRG 871 ==
LOC: ED 17:14 → SUATTDRO 19:24 → 1E 19:24